=== PATIENT | male | born 1985 | race Caucasian/White ===

== ENCOUNTER 2024-01-02 18:38 | Emergency (ER) | payer OTHER, SELFPAY ==
[2024-01-02 18:40] VITALS: BP 124/93; PULSE 124; RESP 14; TEMP 36.1; O2SAT 96; O2SAT 98; BMI 38.0
[2024-01-02 18:57] LABS: Absolute Lymphocyte Count 2.34 X10^3/uL (0.83-4.51); Basophil# 0.08 X10^3/uL; Basophil% 0.9 % (0-1); Eosinophil# 0.12 X10^3/uL; Eosinophils% 1.3 % (0-5); Hematocrit 43.3 % (40-54); Hemoglobin 14.3 g/dL (13.0-16.5); Lymphocyte # 2.34 X10^3/ul (0.83-4.51); Lymphocyte % 25.6 % (19-41); Mean Corpuscular Hgb 28.9 pg (27.0-32.0); Mean Corpuscular Volume 87.5 fL (80-94); Mean Platelet Vol. 8.8 fl (6.2-12.0); Monocyte# 0.59 X10^3/uL; Monocyte% 6.5 % (0-10); NRBC Flagged by Analyzer 0 % (0-5); Neutrophil # 5.97 X10^3/uL (2.7-7.7); Neutrophil % 65.4 % (47-70); Platelet Count 413 K/mm3 (150-450); RBC Distribution Width CV 12.8 % (11.6-14.6); RBC Distribution Width SD 40.6 fl (35.1-43.9); Red Blood Count 4.95 M/mm3 (4.6-6.2); White Blood Count 9.1 K/mm3 (4.4-11.0)
[2024-01-02 19:15] LABS: ALB/GLOB Ratio 0.8 RATIO (0.9-2.4); AST(SGOT) 15 U/L (15-37); Alanine Aminotransfer ALT/SGPT 28 U/L (16-61); Albumin, Serum 3.4 g/dL (3.2-5.0); Alkaline Phosphatase 72 U/L (45-117); Anion Gap 6 (5-15); BUN 13 mg/dL (7-18); BUN/Creat Ratio 10.4 RATIO (10-20); Calcium,Total 8.5 mg/dL (8.5-10.1); Chloride 112 mmol/L (98-107); Creatinine, Serum 1.25 mg/dL (0.70-1.30); EST Glomerular Filtration Rate 68 mL/min (>60); Est Glom Filt Rate - Afr Amer 82 mL/min (>60); Estimated Creatinine Clearance 112.44 ml/min; Globulin 4.3 g/dL (2.2-4.2); Glucose 103 mg/dL (74-106); Potassium 4.2 mmol/L (3.5-5.1); Protein, Total 7.7 g/dL (6.4-8.2); Sodium Level 142 mmol/L (136-145)
--- NOTE | 2024-01-02 19:31 | CT_ITS ---
STUDY: CT ABDOMEN AND PELVIS WITH CONTRAST REASON FOR EXAM: Male, 38 years old. llq pain RADIATION DOSAGE (If Supplied By Facility): CTDIvol = ( 15.18 ) mGy, DLP = ( 1351.74 ) mGycm TECHNIQUE: Transaxial images were obtained from the dome of the diaphragm to the symphysis pubis without oral contrast. IV 100mL Isovue-370 was administered. Sagittal and coronal images were reconstructed. Individualized dose optimization techniques were used for this CT. COMPARISON: None. FINDINGS: The visualized lung bases are unremarkable. The visualized portions of the heart are within normal limits. Normal liver. Normal gallbladder and extrahepatic biliary system. Normal spleen. Normal pancreas. Normal bilateral adrenal glands. Normal right kidney. Normal left kidney. Normal visualized stomach. Normal small intestine. There are diverticular changes of the sigmoid colon crossing the midline with thickening of the resendiz and stranding in the fat. There is a fluid-filled cavity with air-fluid level in the wall the colon measuring 2.2 x 2.1 cm consistent with evolving peridiverticular abscess The appendix is visualized and appears normal. Normal abdominal aorta. Normal inferior vena cava. Normal retroperitoneum. Poorly distended thick walled bladder likely of no significance Small fat-containing right inguinal hernia. Normal osseous structures. CT/Abdomen/Pelvis W IV Cont ONLY IMPRESSION: Acute diverticulitis of the sigmoid colon with small evolving peridiverticular abscess Electronically Signed: Walt Park MD at 20:31 EDT ,
--- NOTE | 2024-01-02 19:35 | EDS_ITS ---
HPI <FERNANDO Hunt - Last Filed: 01/02/24 20:57> History of Present Illness Chief Complaint: Abd Pain Narrative Narrative: 4 days ago patient developed pain in the left lower abdomen. It feels like i a pressure sensation in the midline that radiates towards the left. The first day he thought he had urinary frequency and thought it may be a kidney stone because he had these in the past but then his urinary symptoms resolved. The pain seems worse prior to having a bowel movement. He has had daily BMs and states they are normal formed stool and he is not straining. He has no melena or hematochezia. He has had multiple family members on his mother side with diverticulitis but no personal history. He takes no medications and has no abdominal surgical history. PFSH <FERNANDO Hunt - Last Filed: 01/02/24 20:57> [facility] Medical History (Updated 01/02/24 @ 20:46 by FERNANDO Hunt) Kidney stone Home Medications amoxicillin 875 mg-potassium clavulanate 125 mg tablet 1 tab PO BID 7 days #14 tabs 01/02/24 [Rx Last Taken Unknown] ondansetron 4 mg disintegrating tablet 4 mg PO Q6H PRN nausea and vomiting #12 tabs 01/02/24 [Rx Last Taken Unknown] oxycodone-acetaminophen 5 mg-325 mg tablet (Percocet) 1 tab PO Q6H PRN pain 3 days #12 tabs 01/02/24 [Rx Last Taken Unknown] Allergy/AdvReac Type Severity Reaction Status Date / Time No Known Allergies Allergy Verified 01/02/24 18:39 Surgical History (Updated 01/02/24 @ 19:37 by Radha Marinelli) H/O lithotripsy Social History Smoking Status: Current some day smoker tobacco type: cigars ROS <FERNANDO Hunt - Last Filed: 01/02/24 20:57> ROS ED ROS Narrative Constitutional: Negative for fever, chills, malaise. CVS: Negative for chest pain. Respiratory: Negative for shortness of breath. GI: Positive for abdominal pain. Negative for nausea, vomiting, diarrhea, constipation, melena, hematochezia. : Negative for dysuria, hematuria. EXAM <FERNANDO Hunt - Last Filed: 01/02/24 20:57> Physical Exam Narrative Exam Narrative: CONST: Patient sitting in no acute distress. EYES: Normal inspection. NECK: Normal inspection. RESP: No respiratory distress, CTAB. CVS: Regular rate and rhythm, no murmur, no gallop. ABD: Soft and nontender, no guarding or rebound, nondistended, no hepatosplenomegaly. SKIN: Color normal, no rash, warm, dry, intact. EXTREMITIES: Normal appearance, no pedal edema. NEURO: Alert and answering questions appropriately. PSYCH: Normal affect. Const Vital Signs: 01/02/24 18:40 01/02/24 18:40 01/02/24 20:36 Temperature 97 F L 97 F L 97.2 F L Temperature Source Temporal Temporal Temporal Pulse Rate 124 H 124 H 92 Respiratory Rate 14 14 16 Blood Pressure 124/93 H 132/82 H Blood Pressure Mean 103 98 Pulse Ox 96 98 97 Oxygen Delivery Method Room Air Room Air Room Air <Dr. Christiano Marsh DO - Last Filed: 01/02/24 21:01> Physical Exam Const Vital Signs: 01/02/24 18:40 01/02/24 18:40 01/02/24 20:36 Temperature 97 F L 97 F L 97.2 F L Temperature Source Temporal Temporal Temporal Pulse Rate 124 H 124 H 92 Respiratory Rate 14 14 16 Blood Pressure 124/93 H 132/82 H Blood Pressure Mean 103 98 Pulse Ox 96 98 97 Oxygen Delivery Method Room Air Room Air Room Air [facility] <FERNANDO Hunt - Last Filed: 01/02/24 20:57> [facility] Narrative Medical decision making narrative: Patient has 4 days of left lower quadrant pain. He states the pain worsens before bowel movement but he has not noticed bowel habit changes. He appears well and nontoxic. He is tachycardic in the 120s with otherwise normal vital signs. He is a soft, nontender, nondistended abdomen on exam. CBC and BMP are unremarkable. Urinalysis negative. CT scan shows acute sigmoid diverticulitis with small evolving peridiverticular abscess. Patient declined analgesia here and has serial benign abdominal exams and his heart rate is normalized to the 90s. I consulted general surgery based on the CT read and they agree based on his presentation that he is still appropriate for outpatient management with Augmentin. I discussed clear liquid diet and prescribed Percocet and Zofran if needed. He was discharged in stable condition. Consults: General surgery Differential: Constipation, diverticulitis, perforation, abscess, UTI, kidney stone Lab Data Attestation: I reviewed the patient's lab results. Labs: Laboratory Results - last 24 hr 01/02/24 01/02/24 18:50 19:40 WBC 9.1 RBC 4.95 Hgb 14.3 Hct 43.3 MCV 87.5 MCH 28.9 MCHC 33.0 RDW Std Deviation 40.6 RDW Coeff of Yohana 12.8 Plt Count 413 MPV 8.8 Immature Gran % (Auto) 0.300 Neut % (Auto) 65.4 Lymph % (Auto) 25.6 Cameron % (Auto) 6.5 Eos % (Auto) 1.3 Baso % (Auto) 0.9 Absolute Neuts (auto) 6.0 Absolute Lymphs (auto) 2.34 Nucleated RBC % 0 Sodium 142 Potassium 4.2 Chloride 112 H Carbon Dioxide 24.0 Anion Gap 6 BUN 13 Creatinine 1.25 Estim Creat Clear Calc 112.44 Est GFR (MDRD) Af Amer 82 Est GFR (MDRD) Non-Af 68 BUN/Creatinine Ratio 10.4 Glucose 103 Calcium 8.5 Total Bilirubin 0.30 AST 15 ALT 28 Alkaline Phosphatase 72 Total Protein 7.7 Albumin 3.4 Globulin 4.3 H Albumin/Globulin Ratio 0.8 L Urine Color Yellow Urine Clarity Clear Urine pH 6.0 Ur Specific [place] 1.020 Urine Protein 15 H Urine Glucose (UA) Normal Urine Ketones Negative Urine Occult Blood 10 H Urine Nitrite Negative Urine Bilirubin Negative Urine Urobilinogen 1 H Ur Leukocyte Esterase Negative Urine RBC 0-5 SEEN Urine WBC 0 SEEN Ur Squamous Epith Cells 0 SEEN Urine Bacteria 0 SEEN Urine Mucus 0 SEEN Radiography Diagnostic Testing: Clinical Impression(s) from Imaging Studies Abdomen/Pelvis CT 01/02/24 19:31 IMPRESSION: Acute diverticulitis of the sigmoid colon with small evolving peridiverticular abscess Electronically Signed: Walt Park MD at 20:31 EDT , <Dr. Christiano Marsh, DO - Last Filed: 01/02/24 21:01> [facility] MDM Narrative Medical decision making narrative: Patient has 4 days of left lower quadrant pain. He states the pain worsens before bowel movement but he has not noticed bowel habit changes. He appears well and nontoxic. He is tachycardic in the 120s with otherwise normal vital signs. He is a soft, nontender, nondistended abdomen on exam. CBC and BMP are unremarkable. Urinalysis negative. CT scan shows acute sigmoid diverticulitis with small evolving peridiverticular abscess. Patient declined analgesia here and has serial benign abdominal exams and his heart rate is normalized to the 90s. I consulted general surgery based on the CT read and they agree based on his presentation that he is still appropriate for outpatient management with Augmentin. I discussed clear liquid diet and prescribed Percocet and Zofran if needed. He was discharged in stable condition. Consults: General surgery Differential: Constipation, diverticulitis, perforation, abscess, UTI, kidney stone I have personally performed a face to face assessment of the patient and have reviewed the FOZIA Note. I performed a substantive portion of the visit including all aspects of the following. My will findings include: History is 38-year-old male notes that his early history of suprapubic left lower abdominal pain. No bleeding. No fevers. No history of diverticulitis though does run in the family. He had some urinary frequency which seems to resolved. He notes that he does feel significantly better today than he has over the past couple days no reported fevers Exam is mild suprapubic tenderness to palpation without guarding or rebound. He is afebrile he clinically appears well. Medical Decison Making white count is 9.1 with a normal differential. Urinalysis shows no overt infection CT of the abdomen pelvis demonstrates acute sigmoid diverticulitis with possible small developing abscess. Case was disc ussed with surgery. He started on antibiotics follow-up or return if worsening Lab Data Labs: Laboratory Results - last 24 hr 01/02/24 01/02/24 18:50 19:40 WBC 9.1 RBC 4.95 Hgb 14.3 Hct 43.3 MCV 87.5 MCH 28.9 MCHC 33.0 RDW Std Deviation 40.6 RDW Coeff of Yohana 12.8 Plt Count 413 MPV 8.8 Immature Gran % (Auto) 0.300 Neut % (Auto) 65.4 Lymph % (Auto) 25.6 Cameron % (Auto) 6.5 Eos % (Auto) 1.3 Baso % (Auto) 0.9 Absolute Neuts (auto) 6.0 Absolute Lymphs (auto) 2.34 Nucleated RBC % 0 Sodium 142 Potassium 4.2 Chloride 112 H Carbon Dioxide 24.0 Anion Gap 6 BUN 13 Creatinine 1.25 Estim Creat Clear Calc 112.44 Est GFR (MDRD) Af Amer 82 Est GFR (MDRD) Non-Af 68 BUN/Creatinine Ratio 10.4 Glucose 103 Calcium 8.5 Total Bilirubin 0.30 AST 15 ALT 28 Alkaline Phosphatase 72 Total Protein 7.7 Albumin 3.4 Globulin 4.3 H Albumin/Globulin Ratio 0.8 L Urine Color Yellow Urine Clarity Clear Urine pH 6.0 Ur Specific [place] 1.020 Urine Protein 15 H Urine Glucose (UA) Normal Urine Ketones Negative Urine Occult Blood 10 H Urine Nitrite Negative Urine Bilirubin Negative Urine Urobilinogen 1 H Ur Leukocyte Esterase Negative Urine RBC 0-5 SEEN Urine WBC 0 SEEN Ur Squamous Epith Cells 0 SEEN Urine Bacteria 0 SEEN Urine Mucus 0 SEEN Radiography Diagnostic Testing: Clinical Impression(s) from Imaging Studies Abdomen/Pelvis CT 01/02/24 19:31 IMPRESSION: Acute diverticulitis of the sigmoid colon with small evolving peridiverticular abscess Electronically Signed: Walt Park MD at 20:31 EDT , Discharge Plan Triage Chief Complaint: Abd Pain ED Midlevel Provider: Nieves Molina ED Provider: Christiano Marsh Dx/Rx/DC Orders Clinical Impression: Diverticulitis of sigmoid colon Instructions: Diverticulitis Dc Prescriptions: New amoxicillin-pot clavulanate 875-125 mg tablet 1 tab PO BID 7 Days Qty: 14 0RF oxycodone-acetaminophen [Percocet] 5-325 mg tablet 1 tab PO Q6H PRN (Reason: pain) 3 Days Qty: 12 0RF ondansetron 4 mg tablet,disintegrating 4 mg PO Q6H PRN (Reason: nausea and vomiting) Qty: 12 0RF Primary Care Provider: Care Physician,No Primary Referrals: Care Physician,No Primary [Primary Care Provider] - Activity Restrictions/Additional Instructions: Follow clear liquid diet only for the next several days until your pain lessens. Then you can slowly reintroduce a low fiber diet. Return if symptoms worsen including severe abdominal pain, fever, blood in your stool etc. Disposition Disposition: Home, Self Care
[2024-01-02 19:50] LABS: Bacteria 0 SEEN /hpf (None Seen); Mucous, Urine 0 SEEN /hpf (<or=2+); Squamous Epithelial Cells - UA 0 SEEN /hpf (0-5); White Blood Cells 0 SEEN /hpf (0-5)
[2024-01-02 19:54] LABS: Color, Urine Yellow (Yellow); Glucose, Dipstick Normal (Normal); Ketone-Dipstick Negative (Negative); Leukocyte Esterase-Dipstick Negative /ul (Negative); Nitrite-Dipstick Negative (Negative); Occult Blood-Urine 10 /ul (Negative); Protein-Dipstick 15 mg/dl (Negative); Urine Bilirubin Dipstick Negative (Negative); Urine Clarity Clear (Clear); Urine Urobilinogen 1 mg/dl (Normal)
[2024-01-02 20:02] LABS: Red Blood Cells-Urine 0-5 SEEN /hpf (0-5)
[2024-01-02 20:36] VITALS: BP 132/82; PULSE 92; RESP 16; TEMP 36.2; O2SAT 97
[2024-01-02 21:04] VITALS: BP 124/76; PULSE 96; RESP 18; TEMP 36.5; O2SAT 97
[2024-01-02] MEDS: Amox/Clavulanate 875 MG Tablet PO (21:07)
== END 2024-01-02 21:10 | disposition home or self-care (01) ==
PROVIDERS: Emergency Provider Emergency Medicine; Visit Provider Emergency Medicine
DX: K57.32 Diverticulitis of large intestine without perforation or abscess without bleeding (principal); F17.290 Nicotine dependence, other tobacco product, uncomplicated
CPT/HCPCS: 74177; 80053; 81001; 85025; 99282; Q9967; A4216

== ENCOUNTER 2025-03-23 00:18 | Emergency (ER) | payer OTHER, SELFPAY ==
[2025-03-23 00:19] VITALS: BP 148/99; PULSE 102; RESP 18; TEMP 36.6; O2SAT 99; BMI 36.8
--- NOTE | 2025-03-23 00:25 | EX.ED.DYSGE1 ---
HPI History of Present Illness Chief Complaint: Abd Pain [facility] Medical History (Updated 03/23/25 @ 00:21 by Kavita Baer) Hx of diverticulitis of colon Kidney stone Home Medications ?Medication ?Instructions ?Recorded ?Last Taken ?Type cefdinir 300 mg capsule 600 mg (2 x 300 mg) PO DAILY 7 03/23/25 Unknown Rx days #14 caps metronidazole 500 mg tablet 500 mg PO BID 7 days #14 tabs 03/23/25 Unknown Rx Allergy/AdvReac Type Severity Reaction Status Date / Time No Known Allergies Allergy Verified 03/23/25 00:18 Surgical History H/O lithotripsy Social History Smoking Status: Former smoker EXAM Physical Exam Const Vital Signs: 03/23/25 00:19 03/23/25 02:18 Temperature 97.9 F 97.8 F Temperature Source Oral Pulse Rate 102 H 83 Respiratory Rate 18 18 Blood Pressure 148/99 H 138/98 H Blood Pressure Mean 115 111 Pulse Ox 99 97 Oxygen Delivery Method Room Air [facility] MDM Narrative Medical decision making narrative: HISTORY OF PRESENT ILLNESS: Chief complaint: Abdominal pain 40-year-old male history of diverticulitis, nephrolithiasis presents with concern for abdominal pain. Notes in the past he had diverticulitis that turned into a abdominal perforation. No symptoms are reminiscent of prior diverticulitis flare. He notes he was started Augmentin and then Cipro Flagyl but he states none of these medicines worked until he was placed on Omnicef and Flagyl. He thinks he definitely has diverticulitis. He denies vomiting. Denies testicular pain. Denies decreased bowel movements. Denies fever. Denies chest pain or shortness of breath. No nausea or vomiting. No pain now. REVIEW OF SYSTEMS: Pertinent positives: Abdominal pain Pertinent negatives: Fever PHYSICAL EXAM: Nursing triage notes reviewed, Vital signs reviewed Constitutional: please see mdm HENT: MMM Eyes: Pupils equal round and reactive to light, Extraocular muscles intact Neck: No stridor, no JVD, full neck ROM Lungs: Clear to auscultation, No wheezing or rales. No increased work of breathing, no conversational dyspnea, no accessory muscle use, no nasal flaring. No respiratory distress noted Heart: Regular rate and rhythm, No murmurs, No rubs and No gallops, 2+ distal pulses (radial, femoral, posterior tibial) in all extremities Abdomen: Soft, there is no tenderness, rigidity, rebound or guarding, no obvious peritoneal signs, no palpable pulsatile abdominal masses, no auscultated abdominal bruit : No CVAT Extremities: No edema Neuro: No new focal neurological deficits, cranial nerves II through XII intact, 5/5 strength in all present extremities. Intact sensation to light touch in all present extremities, 2+ reflexes bilateral patella tendons. Skin: No rash or lesions noted MEDICAL DECISION MAKING: Chief Complaint: please see HPI External records reviewed: Reviewed prior imaging studies: Reviewed CT scan of the abdomen pelvis from 2023 which shows acute diverticulitis as well as a accompanying abscess Factors affecting care: History of diverticulitis Social determinants of health: none History obtained from others: none Consults: none MDM Narrative: The patient was initially hemodynamically stable, afebrile and nontoxic-appearing. Abdominal exam benign. No appreciable tenderness. Patient was asymptomatic upon my evaluation I considered the following differential diagnosis: AAA, small bowel obstruction, abdominal perforation, appendicitis, pancreatitis, hepatobiliary pathology (acute cholecystitis), mesenteric ischemia, pathology (ie nephrolithiasis, pyelonephritis). Initially ordered IV fluids, IV Zofran, IV Toradol and IV morphine however patient refused pain and nausea medicine at this time as he is asymptomatic. He would still like to have the IV fluids. I obtained a broad lab and imaging to further determine if the patient was suffering from a life-threatening etiology. ALL IMAGES (IF OBTAINED) HAVE BEEN PERSONALLY REVIEWED AND INTERPRETED BY MYSELF. CBC without leukocytosis, severe anemia, no thrombocytopenia. CMP without evidence of acute kidney injury, significant electrolyte abnormality, anion gap to suggest end organ hypo-perfusion, no evidence of metabolic acidosis with a normal bicarbonate, no evidence of hepatobiliary obstructive pathology. Lipase is wnl indicating no pancreatic inflammation. CT scan abdomen pelvis shows diverticulosis with regression of diverticulitis, no fluid collection, perforation noted Urinalysis shows no evidence of urinary inflammation suggestive of UTI Repeat abdominal exam remained benign. Patient still pain-free. The synthesis of the patient's history, physical exam, labs images suggest no acute life-limiting etiology. Specifically no sign of acute diverticulitis, diverticular abscess or solid organ perforation. The patient appropriate discharge home with close outpatient PCP and GI follow-up. The patient and/or family, caregivers express understanding. The patient and/or family, caregivers agrees with the plan. Shared decision making: I will have a discussion with the patient and or visitors regarding risk/benefits of further testing or admission. They will be made aware of of the risk/benefits inherent in this decision they will be given the opportunity to voice understanding. Total critical care time today provided was at least 0 minutes. This excludes separately billable procedures. Critical care time (if documented) is secondary to the patient having high probability of clinically significant/life threatening deterioration in the patient's condition which required my urgent intervention. Impression: 1. Acute abdominal pain 2. History of diverticulitis 3. History of diverticulosis Dispo: Discharge This note was generated with [employer] dictation software. It may contain incorrect words, spelling, and punctuation that were not noted in review of the chart prior to signing. Lab Data Labs: Laboratory Results - last 24 hr 03/23/25 03/23/25 00:58 01:24 WBC 7.7 RBC 4.87 Hgb 14.6 Hct 43.0 MCV 88.3 MCH 30.0 MCHC 34.0 RDW Std Deviation 40.8 RDW Coeff of Yohana 12.7 Plt Count 341 MPV 8.5 Immature Gran % (Auto) 0.300 Neut % (Auto) 56.8 Lymph % (Auto) 31.6 [place] % (Auto) 9.1 Eos % (Auto) 1.3 Baso % (Auto) 0.9 Absolute Neuts (auto) 4.4 Absolute Lymphs (auto) 2.44 Nucleated RBC % 0 Sodium 138 Potassium 4.1 Chloride 104 Carbon Dioxide 22.2 Anion Gap 12 BUN 11 Creatinine 1.09 Estim Creat Clear Calc 124.36 Est GFR (MDRD) Non-Af 87 BUN/Creatinine Ratio 10.1 Glucose 105 H Calcium 9.2 Total Bilirubin 0.53 AST 24 ALT 24 Alkaline Phosphatase 81 Total Protein 7.5 Albumin 4.1 Globulin 3.4 Albumin/Globulin Ratio 1.2 Lipase 16 Urine Color Yellow Urine Clarity Clear Urine pH 7.0 Ur Specific Hugo 1.010 Urine Protein 15 H Urine Glucose (UA) Normal Urine Ketones Negative Urine Occult Blood Negative Urine Nitrite Negative Urine Bilirubin Negative Urine Urobilinogen Normal Ur Leukocyte Esterase Negative Urine RBC 0 SEEN Urine WBC 0-5 SEEN Ur Squamous Epith Cells 0 SEEN Urine Bacteria 0 SEEN Urine Mucus 0 SEEN Radiography Diagnostic Testing: Clinical Impression(s) from Imaging Studies Abdomen/Pelvis CT 03/23/25 00:26 IMPRESSION: Colonic diverticulosis with regression of the sigmoid diverticulitis. No pericolic collections. Mild gastric and small bowel loops wall thickening, possibly non specific inflammatory changes. Reading Location: [place] [id number] Discharge Plan Triage Chief Complaint: Abd Pain ED Provider: Yong Honeycutt Dx/Rx/DC Orders Instructions: ED Abdominal Pain Unkn Cause Male... Prescriptions: New cefdinir 300 mg capsule 600 mg PO DAILY 7 Days Qty: 14 0RF metronidazole 500 mg tablet 500 mg PO BID 7 Days Qty: 14 0RF Primary Care Provider: UZMA MCINTYRE Referrals: Panchito Sheriff DO [Med Staff - Active Staff] - Activity Restrictions/Additional Instructions: Thank you for trusting us with your care today! Your CT scan did not reveal signs of acute diverticulitis. No sign of organ perforation or abscess. Your labs were grossly unremarkable with no signs of systemic inflammation, kidney dysfunction, liver or pancreas dysfunction, urinary infection. Please take Tylenol (2 pills, 650 mg), ibuprofen (2 pills, 400 mg) every 6 hours as needed for pain and fever control. Please return to the emergency department if your symptoms change or worsen. Please follow with your primary care physician and/or gastroenterology for further outpatient evaluation and management. Print Language: Kinyarwanda Disposition Disposition: Home, Self Care Discharge Date/Time: 03/23/25 02:38
--- NOTE | 2025-03-23 00:26 | CT_ITS ---
PROCEDURE: ABDOMEN/PELVIS W IV CONT ONLY 03/23/2025 REASON FOR EXAM: ABDOMINAL PAIN, HISTORY OF DIVERTICULITIS TECHNIQUE: ABDOMEN/PELVIS W IV CONT ONLY Coronal and Sagittal reconstruction series were provided. CONTRAST: VOLUME: mL One or more dose reduction techniques were used (e.g., Automated exposure control, adjustment of the mA and/or kV according to patient size, use of iterative reconstruction technique. RADIATION DOSE SUMMARY: CTDlvol: mGy DLP: mGycm COMPARISON: 01-02-2024 FINDINGS: Average sized liver showing homogenous parenchymal attenuation with fatty changes. No dilated intra or extra-hepatic biliary tracts. Gall bladder showing no radiodense calculi. No abnormal mural thickening. Clear surrounding fat planes with no sizeable collections. Normal appearance of the pancreas with clear surrounding fat planes. The spleen, adrenal glands, aorta and IVC are unremarkable. Both kidneys are of average size and showing smooth outline with preserved parenchymal thickness. No renal calculi. No hydronephrosis. Distension of the urinary bladder showing no obvious masses. No obvious masses related to the pelvic viscera. The appendix appears unremarkable. No right iliac inflammatory changes. Colonic diverticulosis with regression of the sigmoid diverticulitis. No pericolic collections. Mild gastric and small bowel loops wall thickening, possibly non specific inflammatory changes. No ascites or free air. No obvious pathologically enlarged lymph nodes. Scanned osseous structures show no osseous destruction. Scanned lung bases show no obvious abnormalities. CT/Abdomen/Pelvis W IV Cont ONLY IMPRESSION: Colonic diverticulosis with regression of the sigmoid diverticulitis. No sonny lic collections. Mild gastric and small bowel loops wall thickening, possibly non specific infla mmatory changes. [id number]
[2025-03-23] MEDS: 0.9% Normal Saline (1000mL) 1,000 ML 999 ML IV (00:59)
[2025-03-23 01:06] LABS: Hematocrit 43.0 % (40-54); Hemoglobin 14.6 g/dL (13.0-16.5); Immature Granulocytes Count 0.020 X10^3/uL (0.0-0.0); Mean Corp Hgb Conc 34.0 g/dL (32-36); Mean Corpuscular Volume 88.3 fL (80-94); Mean Platelet Vol. 8.5 fl (6.2-12.0); NRBC Flagged by Analyzer 0 % (0-5); Platelet Count 341 K/mm3 (150-450); RBC Distribution Width CV 12.7 % (11.6-14.6); RBC Distribution Width SD 40.8 fl (35.1-43.9); Red Blood Count 4.87 M/mm3 (4.6-6.2); White Blood Count 7.7 K/mm3 (4.4-11.0)
[2025-03-23 01:29] LABS: Mucous, Urine 0 SEEN /hpf (<or=2+); Red Blood Cells-Urine 0 SEEN /hpf (0-5); Squamous Epithelial Cells - UA 0 SEEN /hpf (0-5)
[2025-03-23 01:31] LABS: Color, Urine Yellow (Yellow); Glucose, Dipstick Normal (Normal); Ketone-Dipstick Negative (Negative); Leukocyte Esterase-Dipstick Negative /ul (Negative); Nitrite-Dipstick Negative (Negative); Occult Blood-Urine Negative /ul (Negative); Protein-Dipstick 15 mg/dl (Negative); Specific Gravity, Urine 1.010 (1.002-1.030); Urine Bilirubin Dipstick Negative (Negative)
[2025-03-23 01:46] LABS: Lipase 16 U/L (13-75)
[2025-03-23 01:50] LABS: AST(SGOT) 24 U/L (<=37); Alanine Aminotransfer ALT/SGPT 24 U/L (<=46); Albumin, Serum 4.1 g/dL (3.5-5.0); Alkaline Phosphatase 81 U/L (40-129); Anion Gap 12 (5-15); BUN 11 mg/dL (4-19); BUN/Creat Ratio 10.1 RATIO (10-20); Calcium,Total 9.2 mg/dL (7.6-11.0); Carbon Dioxide 22.2 mmol/L (21.0-32.0); Chloride 104 mmol/L (98-108); Estimated Creatinine Clearance 124.36 ml/min (50-250); Globulin 3.4 g/dL (2.2-4.2); Glucose 105 mg/dL (70-99); Potassium 4.1 mmol/L (3.3-5.1)
[2025-03-23 02:18] VITALS: BP 138/98; PULSE 83; RESP 18; TEMP 36.6; O2SAT 97
== END 2025-03-23 02:38 | disposition home or self-care (01) ==
PROVIDERS: Emergency Provider Emergency Medicine; Visit Provider Emergency Medicine
DX: R10.9 Unspecified abdominal pain (principal); Z87.891 Personal history of nicotine dependence
CPT/HCPCS: 74177; 80053; 81001; 83690; 85025; 99283; Q9967; A4216; J2405

== ENCOUNTER 2025-04-23 19:58 | Emergency (ER) | payer OTHER, SELFPAY ==
[2025-04-23 19:59] VITALS: BP 135/81; PULSE 88; RESP 18; TEMP 36.6; O2SAT 99; BMI 36.7
[2025-04-23 20:26] LABS: Hematocrit 44.8 % (40-54); Hemoglobin 15.0 g/dL (13.0-16.5); Immature Granulocytes Count 0.040 X10^3/uL (0.0-0.0); Mean Corp Hgb Conc 33.5 g/dL (32-36); Mean Corpuscular Volume 88.7 fL (80-94); Mean Platelet Vol. 8.6 fl (6.2-12.0); NRBC Flagged by Analyzer 0 % (0-5); Platelet Count 353 K/mm3 (150-450); RBC Distribution Width CV 12.5 % (11.6-14.6); RBC Distribution Width SD 40.5 fl (35.1-43.9); Red Blood Count 5.05 M/mm3 (4.6-6.2); White Blood Count 9.5 K/mm3 (4.4-11.0)
[2025-04-23 20:54] LABS: AST(SGOT) 22 U/L (<=37); Alanine Aminotransfer ALT/SGPT 23 U/L (<=46); Albumin, Serum 4.3 g/dL (3.5-5.0); Alkaline Phosphatase 85 U/L (40-129); Anion Gap 11 (5-15); BUN 15 mg/dL (4-19); BUN/Creat Ratio 11.6 RATIO (10-20); Calcium,Total 9.7 mg/dL (7.6-11.0); Carbon Dioxide 23.9 mmol/L (21.0-32.0); Chloride 103 mmol/L (98-108); Estimated Creatinine Clearance 108.28 ml/min (50-250); Globulin 3.3 g/dL (2.2-4.2); Glucose 93 mg/dL (70-99); Lipase 16 U/L (13-75); Potassium 4.0 mmol/L (3.3-5.1)
--- NOTE | 2025-04-23 21:00 | ED.VIS.GI ---
HPI HPI - GI History of Present Illness Chief Complaint: Abd Pain Informant: patient Abdominal Pain/Flank Pain Onset: Yesterday Context: Gradual Onset Timing: Continuous Quality: Cramping and Dull Location: LLQ Worsened by: Nothing Relieved by: - (Moving) Nausea/Vomiting/Emesis GI Symptom: Positive for Nausea; Negative for Vomiting Diarrhea/Melena/Hematochezia GI Symptom: Positive for Diarrhea; Negative for Melena or Hematochezia Associated Symptoms Associated Symptoms: Negative for Dysuria, Frequency or Hematuria Narrative Narrative: Patient presents with abdominal pain that began yesterday. Patient states it is gradually gotten worse. Patient describes it as cramping and dull. Patient states it is mainly over the lower abdomen worse on the left. Patient states it feels similar to prior episodes of diverticulitis. Patient states it feels better when he is up and moving. Patient states nothing makes it worse. Patient admits to some nausea but denies any vomiting. Patient admits to some diarrhea but denies any melena or hematochezia. Patient denies any dysuria, frequency, or hematuria. Patient denies any fevers or chills. Prior similar symptoms: Yes (With diverticulitis) PFSH PFS Medical History Hx of diverticulitis of colon Kidney stone Home Medications ?Medication ?Instructions ?Recorded ?Last Taken ?Type cefdinir 300 mg capsule 300 mg PO BID #20 caps 04/24/25 Unknown Rx metronidazole 500 mg tablet 500 mg PO Q6H #40 tabs 04/24/25 Unknown Rx Allergy/AdvReac Type Severity Reaction Status Date / Time No Known Allergies Allergy Verified 04/23/25 20:01 Surgical History H/O lithotripsy Social History Smoking Status: Former smoker ROS ROS ED Constitutional Constitutional ED: Denies chills or fever(s) Eyes Eyes: Denies blurry vision or change in vision ENT ENT ED: Denies rhinorrhea or sore throat Cardiovascular Cardiovascular: Denies chest pain or palpitations Respiratory/Chest Respiratory/Chest: Denies cough or dyspnea Gastrointestinal Gastrointestinal: Reports abdominal pain and nausea; Denies vomiting Genitourinary Genitourinary ED: Denies dysuria or hematuria Musculoskeletal Musculoskeletal: Denies back pain or neck pain Integumentary Denies abscess or rash Neurologic Neurologic: Denies headache(s) or weakness Allergic/Immunologic Allergic/Immunologic ED: Denies mouth swelling or urticaria EXAM Physical Exam Const Vital Signs: 04/23/25 19:59 04/23/25 21:58 04/23/25 23:00 Temperature 98 F Temperature Source Oral Pulse Rate 88 94 94 Respiratory Rate 18 18 18 Blood Pressure 135/81 H 123/84 H 131/91 H Blood Pressure Mean 99 97 104 Pulse Ox 99 100 98 Oxygen Delivery Method Room Air Room Air Room Air Positive well nourished and well developed General Appearance ED: well developed and NAD HEENT Reports moist mucous membranes normocephalic and atraumatic Resp normal respiratory effort and clear to auscultation bilaterally Cardio regular rate and regular rhythm GI non-distended Palpation: soft and tender LLQ; Negative for guarding or rebound tenderness present Neuro CN's II-XII intact bilaterally, moves all extremities and no sensory deficits noted Sensorium / Orientation: alert Motor Exam: strength 5/5 throughout Psych mental status grossly normal MDM MDM MDM Narrative Medical decision making narrative: Differential diagnosis includes diverticulosis, diverticulitis, bowel obstruction, perforation, urinary tract infection, ureteral calculus, and viral illness. CBC will be obtained to assess for leukocytosis and anemia. Comprehensive metabolic profile will be obtained to assess for electrolyte abnormality, hepatic function, and renal function. Lipase will be obtained to assess for pancreatitis. Urinalysis will be obtained to assess for urinary tract infection and hematuria. CT scan of the abdomen and pelvis will be obtained to assess for bowel obstruction, perforation, diverticulitis, ureteral calculus, and abscess. History & Record Review Additional record(s) reviewed:: Prior outpatient record, Prior ED visit and Prior labs Lab Data Attestation: I reviewed the patient's lab results. Lab results narrative: CBC was reviewed and was within normal limits. Comprehensive metabolic profile was reviewed. Creatinine was slightly elevated at 1.25. The remainder is within normal limits. Lipase was reviewed and was within normal limits. Urinalysis was reviewed. There is no evidence of urinary tract infection or hematuria. Labs: Laboratory Results - last 24 hr 04/23/25 04/23/25 20:17 21:35 WBC 9.5 RBC 5.05 Hgb 15.0 Hct 44.8 MCV 88.7 MCH 29.7 MCHC 33.5 RDW Std Deviation 40.5 RDW Coeff of Yohana 12.5 Plt Count 353 MPV 8.6 Immature Gran % (Auto) 0.400 Neut % (Auto) 64.8 Lymph % (Auto) 26.5 Gillespie % (Auto) 6.2 Eos % (Auto) 1.5 Baso % (Auto) 0.6 Absolute Neuts (auto) 6.1 Absolute Lymphs (auto) 2.51 Nucleated RBC % 0 Sodium 138 Potassium 4.0 Chloride 103 Carbon Dioxide 23.9 Anion Gap 11 BUN 15 Creatinine 1.25 H Estim Creat Clear Calc 108.28 Est GFR (MDRD) Non-Af 74 BUN/Creatinine Ratio 11.6 Glucose 93 Calcium 9.7 Total Bilirubin 0.45 AST 22 ALT 23 Alkaline Phosphatase 85 Total Protein 7.7 Albumin 4.3 Globulin 3.3 Albumin/Globulin Ratio 1.3 Lipase 16 Urine Color Yellow Urine Clarity Clear Urine pH 6.0 Ur Specific Hawkeye 1.020 Urine Protein Negative Urine Glucose (UA) Normal Urine Ketones Negative Urine Occult Blood 10 H Urine Nitrite Negative Urine Bilirubin Negative Urine Urobilinogen Normal Ur Leukocyte Esterase Negative Urine RBC 0-5 SEEN Urine WBC 0-5 SEEN Ur Squamous Epith Cells 0 SEEN Urine Bacteria 0 SEEN Urine Mucus RARE Radiography Diagnostic Testing: Clinical Impression(s) from Imaging Studies Abdomen/Pelvis CT 04/23/25 21:28 IMPRESSION: Diverticulitis of the sigmoid colon with developing abscess. No perforation. Reading Location: [facility] Management Discussion w/another healthcare provider: Hi Lift Operator Treatment and Re-Evaluation :: Patient was given IV fluids, and Zofran. Patient was started on Zosyn. Case was discussed with Dr. Simpson. She agrees that the patient will be discharged home with oral antibiotics. She stated the patient would need to follow-up and get a repeat CT scan. Patient was given prescription for cefdinir and metronidazole. Patient was instructed to follow-up with Dr. Simpson in 3 to 5 days. Patient was instructed to return if worse in any way. Patient understood and was agreeable with the plan. All questions were answered. Discharge Plan Triage Chief Complaint: Abd Pain ED Provider: Schwiger,Pal Dx/Rx/DC Orders Clinical Impression: Sigmoid diverticulitis, Abscess of sigmoid colon due to diverticulitis Instructions: ED Diverticulitis Prescriptions: New metronidazole 500 mg tablet 500 mg PO Q6H Qty: 40 0RF cefdinir 300 mg capsule 300 mg PO BID Qty: 20 0RF Primary Care Provider: UZMA MCINTYRE Referrals: UZMA MCINTYRE [Other] Stacie Simpson MD [Med Staff - Active Staff] - 5-7 Days Activity Restrictions/Additional Instructions: Start with a clear liquid diet for the next 2 days. Advance to a bland diet. Print Language: Sami Disposition Disposition: Home, Self Care
--- NOTE | 2025-04-23 21:28 | CT_ITS ---
PROCEDURE: ABDOMEN/PELVIS W IV CONT ONLY 04/23/2025 REASON FOR EXAM: ABDOMINAL PAIN TECHNIQUE: ABDOMEN/PELVIS W IV CONT ONLY Coronal and Sagittal reconstruction series were provided. CONTRAST: Isovue 370 VOLUME: 100 mL One or more dose reduction techniques were used (e.g., Automated exposure control, adjustment of the mA and/or kV according to patient size, use of iterative reconstruction technique. RADIATION DOSE SUMMARY: DLP: 1500 mGycm COMPARISON: CT abdomen pelvis 03/23/2025. FINDINGS: Lung bases: Unremarkable. Liver: Normal in size without suspicious hepatic mass. The major portal veins are patent. No biliary ductal dilation. Gallbladder: No radiopaque stones within the gallbladder. Spleen: Normal in size. Pancreas: Unremarkable. Adrenals: No adrenal mass. Kidneys: No hydronephrosis or nephrolithiasis. Bladder: Decompressed. Reproductive Organs: Unremarkable. Bowel: The bowel loops are nondilated. Mild distal colonic diverticulosis. Left lower quadrant sigmoid diverticulitis with small, ill-defined fluid collection measuring 2.3 x 1.9 cm (series 2, image 99). No ascites or free air. Normal appendix. Lymph nodes: No suspicious lymph node enlargement. Vasculature: The abdominal aorta and IVC are normal. Bones: Minimal thoracolumbar spondylosis. CT/Abdomen/Pelvis W IV Cont ONLY IMPRESSION: Diverticulitis of the sigmoid colon with developing abscess. No perforation. Reading Location: [id number]
--- OUTSIDE RECORDS SUMMARY | 2025-04-23 21:31 | XMS RPT_ITS | CCD ---
Author Organization [facility] Care Team Providers Care Service Or Work Dispatcher Chief Name Role Phone GUERRERO MACIEL JUSTINE Attending Lani vailable NO, PHYSICIAN Primary Care Unavailable No, Physician Primary Care Provider Unavailabl e Required, No Pcp Unavailable Unavailable Amee Curry Unavailable Unavailable Primary Care Provider UnavailElliot Crawford MD Primary Care Provider Elliot Soni MD Primary Care Provider STACIE PARISI Referring Unavailable ELLIOT SONI Primary Care Unavailab STACIE Boone Referring Unavailable ELLIOT SONI Primary Care Unavailab le No, Physician Primary Care Provider Unavailabl e LAURA WILEY Attending Unavailable NO, PHYSICIAN Primary Care Unavailable DALILA YODER Attending Unavailabl e VICK GALO Admitting Unavailable NO, PHYSICIAN Primary Care Unavailable MARVIN RICK Referring Unavailable ADZING AND BORING MACHINE HELPER, DONNAMARISara Consulting Unavailable [employer]ING AND BORING MACHINE HELPER, DONNAMARIE Admitting Unavailable NO, PHYSICIAN Primary Care Unavailable MARCOS WILEYE Attending Unavailable ELLIOT SONI Primary Care Unavailab DIANDRA JoséOPHER Arthur Primary Care Unavailab le ELLIOT SONI Referring Unavailab le DIANDRA SONIOPHER B Primary Care Unavailab le ANA SONIER Arthur Attending Unavailab le ELLIOT SONI Primary Care Unavailab le STACIE PARISI Referring Unavailable ELLIOT SONI Primary Care Unavailab STACIE Boone Attending Unavailable Unavailable Primary Care Provider Unavailabl e No Family, Physician Primary Care Unavailable CHIKA HERNDON Attending Unavailable MIGUEL FRANCOIS Referring Unavailable No Family, Physician Primary Care Unavailable MARVIN RICK Attending Unavailable NO, PHYSICIAN Primary Care Unavailable LILIA SAHA Attending Unavailable NO, PHYSICIAN Primary Care Unavailable WOLF CHACON Attending Unavailable ELLIOT SONI Primary Care Unava ilable MARVIN RICK Attending Unavailable ELLIOT SONI Primary Care Unava ilable ELLIOT SONI Primary [facility] Unava ilable UZMA MCINTYRE Attending Unavailable UZMA MCINTYRE Primary Care Unavailable Dr. Yong Honeycutt DO Emergency Provider UZMA MCINTYRE Primary Care Provider VIJI TURNER Primary Care Unavailable Yong Honeycutt Attending Unavailable Medications Current Medications Medication Drug Class(es) Dates Sig (Normalized) Sig (Original) acetaminophen 325 mg / HYDROcodone bitartrate 5 mg oral tablet (1 source) Opioid Agonist Start: 10-29-2021 take 1 tablet by mouth every six hours hydrocodone-acetam inophen 5 mg-325 mg oral tablet ; 1/2- 1 tab(s) orally every 6 hours FOR PAIN 02/22,DO NOT DRIVE WHILE TAKING THIS MEDICATION, MAY CAUSE DROWSINESS Quantity: 6 Refills: 0 Ordered: 29-Oct-2021 Amee Curry Start: 29-Oct-2021 Generic Substitution Allowed Comments: Caution federal law prohibits the transfer of this drug to any person other than the person for whom it was prescribed.May cause drowsiness. Alcohol may intensify this effect. Use care when operating dangerous machinery.This product contains acetaminophen. Do not use with any other product containing acetaminophen to prevent possible liver damage.Using more of this medication than prescribed may cause serious breathing problems. Comment on above: Caution federal law prohibits the transfer of this drug to any person other than the person for whom it was prescribed.May cause drowsiness. Alcohol may intensify this effect. Use care when operating dangerous machinery.This product contains acetaminophen. Do not use with any other product containing acetaminophen to prevent possible liver damage.Using more of this medication than prescribed may cause serious breathing problems. azithromycin 500 mg oral tablet (1 source) Macrolide Antimicrobial Start: 08-21-2019 take 2 tablets by mouth once azithromycin (Zithromax) 500 MG tablet Indications: Possible exposure to STD Take two tabs by mouth once . 2 tablet 0 08/21/2019 Active cefdinir 300 mg oral capsule (1 source) Cephalosporin Antibacterial Start: 03-23-2025 take 2 capsules by mouth once daily Cefdinir 300 mg capsule Active 600 mg PO DAILY 14 7 March 23, 2025 12:00am cephalexin 500 mg oral capsule (4 sources) Cephalosporin Antibacterial Start: 02-21-2024 End: 02-28-2024 take 1 capsule by mouth three times daily cephALEXin (KEFLEX) 500 MG capsule Take 1 (one) capsule (500 mg total) by mouth 3 (three) times a day for 7 days . 21 capsule 0 02/21/2024 02/28/2024 Active ciprofloxacin 500 mg oral tablet (2 sources) Quinolone Antimicrobial Start: 03-03-2024 End: 03-13-2024 ciprofloxacin HCl (CIPRO) 500 mg tablet Take 500 mg by mouth. 0 03/03/2024 03/13/2024 Active Start: 01-09-2024 End: 01-16-2024 take 1 tablet by mouth twice daily ciprofloxacin HCl (CIPRO) 500 mg tablet Take 1 tablet by mouth two times a day for 7 days. 14 tablet 0 01/09/2024 01/16/2024 Active hydrOXYzine hydrochloride 25 mg oral tablet (3 sources) Antihistamine Start: 02-17-2024 End: 02-26-2024 take 1 tablet by mouth three times daily as needed for anxiety hydrOXYzine (ATARAX) 25 MG tablet Take 1 (one) tablet (25 mg total) by mouth 3 (three) times a day as needed for anxiety . 15 tablet 0 02/21/2024 02/26/2024 Active metroNIDAZOLE 500 mg oral tablet (7 sources) Nitroimidazole Antimicrobial Start: 03-23-2025 take 1 tablet by mouth twice daily Metronidazole 500 mg tablet Active 500 mg PO TWICE A DAY 14 7 0 March 23, 2025 12:00am Start: 03-03-2024 End: 03-13-2024 metroNIDAZOLE (FLAGYL) 500 m g tablet Take 500 mg by mouth. 0 03/03/2024 03/13/2024 Active Start: 02-21-2024 End: 02-28-2024 take 1 tablet by mouth twice daily at mealtime metroNIDAZOLE (FLAGYL) 500 MG tablet Take 1 (one) tablet (500 mg total) by mouth 2 (two) times a day with meals for 7 days . 14 tablet 0 02/21/2024 02/28/2024 Active Start: 01-09-2024 End: 01-16-2024 take 1 tablet by mouth every eight hours metroNIDAZOLE (FLAGYL) 500 mg tablet Take 1 tablet by mouth every 8 hours for 7 days. 21 tablet 0 01/09/2024 01/16/2024 Active naproxen 500 mg oral tablet (1 source) Nonsteroidal Anti-inflammatory Drug Start: 10-29-2021 End: 11-04-2021 take 1 tablet by mouth twice daily at mealtime naproxen 500 mg oral tablet ; 1 tab(s) orally 2 times a day TAKE WITH FOOD AND DRINK Quantity: 14 Refills: 0 Ordered: 29-Oct-2021 Amee Curry Start: 29-Oct-2021 End: 04-Nov-2021 Generic Substitution Allowed Comments: Check with your doctor before becoming .May cause drowsiness or dizziness.Obtain medical advice before taking any non-prescription drugs as some may affect the action of this medication.Take with food or milk. Comment on above: Check with your doctor before becoming p regnant.May cause drowsiness or dizziness.Obtain medical advice before taking any non-prescription drugs as some may affect the action of this medication.Take with food or milk. psyllium 3400 mg powder for oral suspension (2 sources) take 1 dose by mouth once daily psyllium (METAMUCIL) 3.4 gram packet Take 1 (one) packet by mouth daily . 0 Active raNITIdine (3 sources) Histamine-2 Receptor Antagonist Zantac ; 1 orally once a day Quantity: 0 Refills: 0 Ordered: 21-Sep-2021 Fili Mancini Generic Substitution Allowed Completed/Discontinued Medications Medication Drug Class(es) Dates Sig (Normalized) Sig (Original) acetaminophen 325 mg oral tablet (1 source) Start: 02-17-2024 End: 02-21-2024 take 1 tablet by mouth every four hours as needed for pain and headache 650 mg, Oral, Every 4 hours PRN, mild pain, fever 100.4 F or greater, headaches, Starting on Fri02/17/24 at 1804 acetaminophen 325 mg / oxyCODONE hydrochloride 5 mg oral tablet (2 sources) Opioid Agonist Start: 01-02-2024 End: 03-23-2025 Oxycodone-Acetamino phen (Percocet) 5-325 mg tablet Discontinued 1 {tbl} PO EVERY 6 HOURS as needed for pain 12 3 0 January 02, 2024 March 23, 2025 12:19am Diverticulitis of sigmoid colon [id number] 200 actuat albuterol 0.09 mg/actuat metered dose inhaler (2 sources) beta2-Adrenergic Agonist Start: 09-21-2021 End: 10-20-2021 take 2 puff(s) by inhalation every six hours ProAir HFA 90 mcg/inh inhalation aerosol ; 2 puff(s) inhaled every 6 hours Quantity: 1 Refills: 0 Ordered: 21-Sep-2021 Amee Curry Start: 21-Sep-2021 End: 20-Oct-2021 Status: Other Generic Substitution Allowed Comments: For inhalation only.It is very important that you take or use this exactly as directed. Do not skip doses or discontinue unless directed by your doctor.Obtain medical advice before taking any non-prescription drugs as some may affect the action of this medication.Shake well before use. Comment on above: For inhalation only. It is very important that you take or use this exactly as directed. Do not skip doses or discontinue unless directed by your doctor.Obtain medical advice before taking any non-prescription drugs as some may affect the action of this medication.Shake well before use. aluminum hydroxide 40 mg/ml / magnesium hydroxide 40 mg/ml / simethicone 4 mg/ml oral suspension (1 source) Start: 02-19-2024 End: 02-21-2024 aluminum-magnesium hydroxide-simethico ne (MAALOX PLUS) 200-200-20 mg/5 mL suspension 30 mL amoxicillin 875 mg / clavulanate 125 mg oral tablet (2 sources) Penicillin-class Antibacterial Start: 01-02-2024 End: 03-23-2025 Amoxicillin-Pot Clavulanate 875-125 mg tablet Discontinued 1 {tbl} PO TWICE A DAY 14 7 January 02, 2024 12:00am March 23, 2025 12:18am Start: 01-02-2024 take 1 tablet by ashkan th twice daily Amoxicillin-Pot Clavulanate Active 1 TABLET PO TWICE A DAY 14 7 January 02, 2024 12:00am calcium carbonate 500 mg chewable tablet (1 source) Start: 02-19-2024 End: 02-21-2024 calcium carbonate (TUMS) chewable tablet 500 mg cefTRIAXone 250 mg injection (2 sources) Cephalosporin Antibacterial Start: 08-21-2019 End: 08-21-2019 cefTRIAXone (ROCEPHIN) injection 250 mg Start: 08-21-2019 End: 08-21-2019 cefTRIAXone (ROCEPHIN) injec tion 250 mg 0.4 ml enoxaparin sodium 100 mg/ml prefilled syringe (1 source) Low Molecular Weight Heparin Start: 02-18-2024 End: 02-21-2024 inject 40 mg by subcutaneous injection once daily 40 mg, Subcutaneous, Daily, First dose on Fri02/18/24 at 0900, Administer in abdomen unless otherwise directed by prescriber. Notify physician if patient refuses., Indication: VTE Prophylaxis Iohexol (1 source) Radiographic Contrast Agent Start: 07-21-2024 End: 07-21-2024 take 1 dose intravenously once 75 mL, IntraVENous, IMG ONCE PRN, 1 dose, Starting on Fri07/21/24 at 0534, Until Fri07/21/24 at 0625, Other, Radiology ipratropium bromide 0.042 mg/actuat metered dose nasal spray (2 sources) Anticholinergic Start: 09-21-2021 End: 09-25-2021 ipratropium 42 mcg/inh (0.06%) nasal spray ; 2 spray(s) intranasally every 8 hours Quantity: 1 Refills: 0 Ordered: 21-Sep-2021 Amee Curry Start: 21-Sep-2021 End: 25-Sep-2021 Status: Other Generic Substitution Allowed Comments: For the nose.It is very important that you take or use this exactly as directed. Do not skip doses or discontinue unless directed by your doctor. Comment on above: For the nose.It is very important that y ou take or use this exactly as directed. Do not skip doses or discontinue unless directed by your doctor. iv contrast (will be provided with radiology test) (7 sources) Start: 01-08-2024 End: 01-09-2024 iv contrast (will be provided with radiology test) CT ABD/PEL -Inject, intravenously, once for 1 dose.No IV access, insert saline lock prior to the beginning of sedation, infusion, injection of imaging exam. Discontinue saline lock post exam. If Pt. has a central line or IVAD, may access for administration according to line specific nursing protocol. Once exam is complete flush line and de-access according to line specific nursing protocol in the CT contrast administration guidelines link. 1 Each 0 01/08/2024 01/09/2024 Start: 01-08-2024 End: 01-09-2024 iv contrast (will be provide d with radiology test) CT ABD/PEL -Inject, intravenously, once for 1 dose.No IV access, insert saline lock prior to the beginning of sedation, infusion, injection of imaging exam. Discontinue saline lock post exam. If Pt. has a central line or IVAD, may access for administration according to line specific nursing protocol. Once exam is complete flush line and de-access according to line specific nursing protocol in the CT contrast administration guidelines link. 1 Each 0 01/08/2024 01/09/2024 Active 1 ml ketorolac tromethamine 30 mg/ml cartridge (2 sources) Nonsteroidal Anti-inflammatory Drug, Cyclooxygenase Inhibitor Start: 07-21-2024 End: 07-21-2024 30 mg, IntraVENous, ONCE, 1 dose, On Fri07/21/24 at 0430, Do not administer for more than 5 days. Start: 02-17-2024 End: 02-19-2024 take 15 mg intravenously every six hours as needed for pain 15 mg, Intravenous, Every 6 hours PRN, mild pain, Starting on Fri02/17/24 at 1503, For 48 hours magnesium chloride 0.83843 meq/ml / potassium chloride 0.12980 meq/ml / sodium acetate 0.027 meq/ml / sodium chloride 0.0899 meq/ml / sodium gluconate 5.02 mg/ml injectable solution (1 source) Start: 02-17-2024 End: 02-20-2024 take 50 mL intravenously every hour 50 mL/hr, Intravenous, Continuous, Starting on Fri02/17/24 at 1505 melatonin 5 mg oral tablet (1 source) Start: 02-17-2024 End: 02-21-2024 melatonin Tab 5 mg 10 ml methocarbamol 100 mg/ml injection (1 source) Muscle Relaxant Start: 02-17-2024 End: 02-20-2024 take 1 g intravenously every eight hours 1 g, Intravenous, Every 8 hours, First dose on Fri02/17/24 at 1515, For 3 days, Administer IV while patient is lying down. Maintain position for at least 15 minutes following administration. IV Push in undiluted syringe at a rate of 3mL/min for doses 1000 mg or less. 1 ml morphine sulfate 4 mg/ml cartridge (1 source) Opioid Agonist Start: 02-17-2024 End: 02-17-2024 morphine syringe 4 mg 2 ml ondansetron 2 mg/ml injection (3 sources) Serotonin-3 Receptor Antagonist Start: 02-17-2024 End: 02-17-2024 ondansetron (ZOFRAN) injection 4 mg Start: 01-02-2024 End: 03-23-2025 take 1 tablet by mouth every six hours as needed for nausea and vomiting Ondansetron 4 mg tablet,disintegrating Discontinued 4 mg PO EVERY 6 HOURS as needed for nausea and vomiting 12 0 January 02, 2024 12:00am March 23, 2025 12:19am ondansetron (ZOFRAN-ODT) disintegrating tablet 4 mg (1 source) Start: 02-17-2024 End: 02-21-2024 take 1 tablet by mouth every six hours as needed for nausea and vomiting ondansetron (ZOFRAN-ODT) disintegrating tablet 4 mg piperacillin 3000 mg / tazobactam 375 mg injection (1 source) Penicillin-class Antibacterial, beta Lactamase Inhibitor Start: 02-17-2024 End: 02-21-2024 take 3.375 g intravenously every eight hours 3.375 g, Intravenous, at 12.5 mL/hr, Every 8 hours, First dose on Fri02/17/24 at 1530, VESICANT, Indication: Intra-abdominal Infection polyethylene glycol 3350 76162 mg powder for oral solution (1 source) Osmotic Laxative Start: 02-19-2024 End: 02-21-2024 polyethylene glycol (MIRALAX) powder 17 g predniSONE 10 mg oral tablet (2 sources) Start: 09-21-2021 End: 09-27-2021 take 3 tablets by mouth once daily in the morning predniSONE 10 mg oral tablet ; 3 tab(s) orally once a day TAKE WITH PLENTY OF FLUID DAILY IN THE MORNING. Quantity: 21 Refills: 0 Ordered: 21-Sep-2021 Amee Curry Start: 21-Sep-2021 End: 27-Sep-2021 Status: Other Generic Substitution Allowed Comments: It is very important that you take or use this exactly as directed. Do not skip doses or discontinue unless directed by your doctor.Obtain medical advice before taking any non-prescription drugs as some may affect the action of this medication.Take with food or milk. Comment on above: It is very important that you take or use this exactly as directed. Do not skip doses or discontinue unless directed by your doctor.Obtain medical advice before taking any non-prescription drugs as some may affect the action of this medication.Take with food or milk. sennosides, senior care 8.6 mg oral tablet (1 source) Start: 02-19-2024 End: 02-21-2024 senna (SENOKOT) tablet 8.6 mg Sodium Chloride (1 source) Start: 02-17-2024 End: 02-21-2024 sodium chloride (PF) (NS) flush 5 mL traZODone hydrochloride 50 mg oral tablet (1 source) Serotonin Reuptake Inhibitor Start: 02-17-2024 End: 02-21-2024 50 mg, Oral, Nightly PRN, sleep, Starting on Fri02/17/24 at 1804, May repeat times 1 in 30 minutes if still awake. Problems Active Problems Problem Classification Problem Date Documented Da te Episodic/Chronic Abdominal pain (15 sources) Suprapubic pain; Translations: [Pelvic and perineal pain] Onset: 01-08-2024 01-02-2024 Episodic Anxiety disorders (1 source) Generalized anxiety disorder; Translations: [Generalized anxiety disorder] 03-08-2024 Chronic Diverticulosis and diverticulitis (20 sources) Diverticulitis of sigmoid colon; Translations: [Diverticulitis of large intestine without perforation or abscess without bleeding] Onset: 01-08-2024 01-02-2024 Chronic Other and unspecified benign neoplasm (1 source) Benign neoplastic disease; 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, site unspecified] 10-29-2021 Episodic Other circulatory disease (1 source) Elevated blood pressure; Translations: [Elevated blood pressure reading] Episodic Other gastrointestinal disorders (2 sources) Perforation of intestine; Translations: [Perforation of intestine (nontraumatic)] Onset: 02-17-2024 02-17-2024 Episodic Other gastrointestinal disorders (4 sources) History of diverticulitis; Translations: [Personal history of other diseases of the digestive system] Onset: 02-17-2024 02-27-2024 Episodic Other lower respiratory disease (4 sources) Cough 09-21-2021 Episodic Comment on above: COUGH Other nutritional; endocrine; and metabolic disorders (14 sources) Obese class II; Translations: [Obesity, unspecified] Onset: 02-14-2023 Chronic Residual codes; unclassified (1 source) At risk of sexually transmitted infection ; Translations: [Possible exposure to STD] Episodic Residual codes; unclassified (1 source) Needs influenza immunization; Translations: [Need for immunization against influenza] Episodic Sprains and strains (1 source) Sprain of knee; Translations: [Sprains and strains of unspecified site of knee and leg] Onset: 10-29-2021 10-29-2021 Episodic Unclassified (2 sources) LEFT KNEE INHJURY 10-29-2021 Comment on above: LEFT KNEE INHJURY Unclassified (1 source) Left knee sprain 10-29-2021 Unclassified (1 source) 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 Unclassified (1 source) Encounter for general adult medical examination without abnormal findings Onset: 10-29-2024 Past or Other Problems Problem Classification Problem Date Documented Da te Episodic/Chronic Cardiac dysrhythmias (3 sources) Tachycardia; Translations: [Tachycardia, unspecified] Onset: 03-08-2024 03-08-2024 Episodic Other aftercare (1 source) Post-discharge follow-up; Translations: [Encounter for follow-up examination after completed treatment for conditions other than malignant neoplasm] 03-08-2024 Episodic Other gastrointestinal disorders (6 sources) Personal history of other diseases of the digestive system; Translations: [Personal history of other diseases of the digestive system] Onset: 02-27-2024 Episodic Other infections; including parasitic (1 source) History of sepsis; Translations: [Personal history of other infectious and parasitic diseases] 03-08-2024 Episodic Other upper respiratory infections (2 sources) Acute upper respiratory infection, unspecified; Translations: [Acute upper respiratory infection, unspecified] Onset: 11-21-2023 Episodic Results Test Name Value Interpretation Reference Range Facility Abdomen/Pelvis W IV Cont ONL Yon 07-09-2025 Abdomen/Pelvis W IV Cont ONLY [facility] [address] [place], [place] [address] Abdomen/Pelvis W IV Cont ONLY MR#: [id number] Acct: [id number] Name: AMEE GUAMAN Rep #: [id number] : 1985 M 40 From: Madison seals MD PCP: UZMA MCINTYRE Status: REG ER Study: Abdomen/Pelvis W IV Cont ONLY Date of Exam: Exam# [id number] Ordering Dr: Yong Honeycutt DO PROCEDURE: ABDOMEN/PELVIS W IV CONT ONLY 03/23/2025 REASON FOR EXAM: ABDOMINAL PAIN, HISTORY OF DIVERTICULITIS TECHNIQUE: ABDOMEN/PELVIS W IV CONT ONLY Coronal and Sagittal reconstruction series were provided. CONTRAST: VOLUME: mL One or more dose reduction techniques were used (e.g., Automated exposure control, adjustment of the mA and/or kV according to patient size, use of iterative reconstruction technique. RADIATION DOSE SUMMARY: CTDlvol: mGy DLP: mGycm COMPARISON: 01-02-2024 FINDINGS: Average sized liver showing homogenous parenchymal attenuation with fatty changes. No dilated intra or extra-hepatic biliary tracts. Gall bladder showing no radiodense calculi. No abnormal mural thickening. Clear surrounding fat planes with no sizeable collections. Normal appearance of the pancreas with clear surrounding fat planes. The spleen, adrenal glands, aorta and IVC are unremarkable. Both kidneys are of average size and showing smooth outline with preserved parenchymal thickness. No renal calculi. No hydronephrosis. Distension of the urinary bladder showing no obvious masses. No obvious masses related to the pelvic viscera. The appendix appears unremarkable. No right iliac inflammatory changes. Colonic diverticulosis with regression of the sigmoid diverticulitis. No pericolic collections. Mild gastric and small bowel loops wall thickening, possibly non specific inflammatory changes. No ascites or free air. No obvious pathologically enlarged lymph nodes. Scanned osseous structures show no osseous destruction. Scanned lung bases show no obvious abnormalities. CT/Abdomen/Pelvis W IV Cont ONLY IMPRESSION: Colonic diverticulosis with regression of the sigmoid diverticulitis. No pericolic collections. Mild gastric and small bowel loops wall thickening, possibly non specific inflammatory changes. [facility] CC: UZMA MCINTYRE; Dr. Yong Honeycutt, Sawyer Helper: Signed Normal [facility] Absolute lymphocyte countOrd ered By: Yong Honeycutt on 03-23-2025 Lymphocytes Auto (Unsp spec) [#/Vol] 2.44 10*3/uL 0.83-4.51 [facility] Absolute neutrophil countOrd ered By: Yong Honeycutt on 03-23-2025 Neutrophils (Bld) [#/Vol] 4.4 10*3/uL 2.0-7.7 [facility] Anion gap in Serum or Plasma Ordered By: Yong Honeycutt on 03-23-2025 Anion gap [Moles/Vol] 12 mmol/L 5-15 [facility] Automated lymphocyte count a s percentage of total leukocytesOrdered By: Yong Honeycutt on 03-23-2025 Lymphocytes/100 WBC Auto (Unsp spec) 31.6 % 19-41 [facility] BUN/creatinine ratioOrdered By: Yong Honeycutt on 03-23-2025 Urea nitrogen/Creatinine [Mass ratio] 10.1 mg/mg 10-20 [facility] Basophil percentageOrdered B y: Yong Honeycutt on 03-23-2025 Basophils/100 WBC (Bld) 0.9 % 0-1 [facility] Bilirubin Test strip Ql (U)O rdered By: Yong Honeycutt on 03-23-2025 Bilirubin Ql (U) Negative Negative [facility] Bilirubin, totalOrdered By: Yong Honeycutt on 03-23-2025 Bilirubin [Mass/Vol] 0.53 mg/dL 0.00-1.30 [facility] CBC W/Diff, Automatedon Absolute Lymph 2.44 X10 3/uL Normal 0.83-4.51 [facility] Comment on above: Performed By: #### L 100.0100, L500.4050, L501.2450 #### [facility] [address] [place], [place] [address]all sara. [place], [place], [id number] Absolute Neut 4.4 X10 3/uL Normal 2.0-7.7 [facility] Comment on above: Performed By: #### L 100.0100, L500.4050, L501.2450 #### [facility] [address] [place], [address] Basophils/100 WBC (Bld) 0.9 % Normal 0-1 [facility] Comment on above: Performed By: #### L 100.0100, L500.4050, L501.2450 #### [facility] [address] [place], [address] Eosinophils/100 WBC (Bld) 1.3 % Normal 0-5 [facility] Comment on above: Performed By: #### L 100.0100, L500.4050, L501.2450 #### [facility] [address] [place], [address] Erythrocyte distribution width (RBC) [Ratio] 12.7 % Normal 11.6-14.6 [facility] Comment on above: Performed By: #### L 100.0100, L500.4050, L501.2450 #### [facility] [address] [place], [address] Hematocrit (Bld) [Volume fraction] 43.0 % Normal 40-54 [facility] Comment on above: Performed By: #### L 100.0100, L500.4050, L501.2450 #### [facility] [address] [place], [address] Hemoglobin (Bld) [Mass/Vol] 14.6 g/dL Normal 13.0-16.5 [facility] Comment on above: Performed By: #### L 100.0100, L500.4050, L501.2450 #### [facility] [address] [place], [address] IG% 0.300 Normal 0.0-0.9 [facility] Comment on above: Result Comment: IG% - Immature Granulocytes (promyelocytes, myelocytes and metamyelocytes) > 1% indicates that a LEFT SHIFT is Present. Performed By: #### L 100.0100, L500.4050, L501.2450 #### [facility] [address] [place], [address] Lymphocytes/100 WBC (Bld) 31.6 % Normal 19-41 [facility] Comment on above: Performed By: #### L 100.0100, L500.4050, L501.2450 #### [facility] [address] [place], [address] MCH (RBC) [Entitic mass] 30.0 pg Normal 27.0-32.0 [facility] Comment on above: Performed By: #### L 100.0100, L500.4050, L501.2450 #### [facility] [address] [place], [address] MCHC (RBC) [Mass/Vol] 34.0 g/dL Normal 32-36 [facility] Comment on above: Performed By: #### L 100.0100, L500.4050, L501.2450 #### [facility] [address] [place], [address] MCV (RBC) [Entitic vol] 88.3 fL Normal 80-94 [facility] Comment on above: Performed By: #### L 100.0100, L500.4050, L501.2450 #### [facility] [address] [place], [address] Monocytes/100 WBC (Bld) 9.1 % Normal 0-10 [facility] Comment on above: Performed By: #### L 100.0100, L500.4050, L501.2450 #### [facility] [address] [place], [address] Neutrophils/100 WBC (Bld) 56.8 % Normal 47-70 [facility] Comment on above: Performed By: #### L 100.0100, L500.4050, L501.2450 #### [facility] [address] [place], [address] Nucleated RBC (Bld) [#/Vol] 0 10*3/uL Normal 0-5 [facility] Comment on above: Performed By: #### L 100.0100, L500.4050, L501.2450 #### [facility] [address] [place], [address] Platelet mean volume (Bld) [Entitic vol] 8.5 fL Normal 6.2-12.0 [facility] Comment on above: Performed By: #### L 100.0100, L500.4050, L501.2450 #### [facility] [address] [place], [address] Platelets (Bld) [#/Vol] 341 10*3/uL Normal 150-450 [facility] Comment on above: Performed By: #### L 100.0100, L500.4050, L501.2450 #### [facility] [address] [place], [address] RBC (Bld) [#/Vol] 4.87 10*6/uL Normal 4.6-6.2 [facility] Comment on above: Performed By: #### L 100.0100, L500.4050, L501.2450 #### [facility] [address] [place], [address] RDW SD 40.8 fl Normal 35.1-43.9 [facility] Comment on above: Performed By: #### L 100.0100, L500.4050, L501.2450 #### [facility] [address] [place], [address] WBC (Bld) [#/Vol] 7.7 10*3/uL Normal 4.4-11.0 [facility] Comment on above: Performed By: #### L 100.0100, L500.4050, L501.2450 #### [facility] [address] [place], [address] Carbon dioxide, total [Moles /volume] in Central venous bloodOrdered By: Yong Honeycutt on 03-23-2025 CO2 [Moles/Vol] 22.2 mmol/L 21.0-32.0 [facility] Chloride assayOrdered By: Galileo Honeycutt on 03-23-2025 Chloride [Moles/Vol] 104 mmol/L 98-108 [facility] Comprehensive Metabolic Prof ilon 03-23-2025 Albumin [Mass/Vol] 4.1 g/dL Normal 3.5-5.0 [facility] Comment on above: Performed By: #### L 100.0100, L500.4050, L501.2450 #### [facility] [address] [place], [address] Albumin/Globulin [Mass ratio] 1.2 {ratio} Normal 0.9-2.4 [facility] Comment on above: Performed By: #### L 100.0100, L500.4050, L501.2450 #### [facility] [address] [place], [address] ALK PHOS 81 U/L Normal 40-129 [facility] Comment on above: Performed By: #### L 100.0100, L500.4050, L501.2450 #### [facility] [address] [place], [address] ALT [Catalytic activity/Vol] 24 U/L Normal <=46 [facility] Comment on above: Performed By: #### L 100.0100, L500.4050, L501.2450 #### [facility] [address] [place], [address] AST [Catalytic activity/Vol] 24 U/L Normal <=37 [facility] Comment on above: Result Comment: Hemo lysis present, Results??could be affected. ?? Performed By: #### L 100.0100, L500.4050, L501.2450 #### [facility] [address] [place], [address] Bilirubin [Mass/Vol] 0.53 mg/dL Normal 0.00-1.30 [facility] Comment on above: Performed By: #### L 100.0100, L500.4050, L501.2450 #### [facility] [address] [place], [address] BUN/CRE 10.1 RATIO Normal 10-20 [facility] Comment on above: Performed By: #### L 100.0100, L500.4050, L501.2450 #### [facility] [address] [place], [address] Calcium [Mass/Vol] 9.2 mg/dL Normal 7.6-11.0 [facility] Comment on above: Performed By: #### L 100.0100, L500.4050, L501.2450 #### [facility] [address] [place], [address] Chloride [Moles/Vol] 104 mmol/L Normal 98-108 [facility] Comment on above: Performed By: #### L 100.0100, L500.4050, L501.2450 #### [facility] [address] [place], [address] CO2 [Moles/Vol] 22.2 mmol/L Normal 21.0-32.0 [facility] Comment on above: Performed By: #### L 100.0100, L500.4050, L501.2450 #### [facility] [address] [place], [address] Creatinine [Mass/Vol] 1.09 mg/dL Normal 0.70-1.20 [facility] Comment on above: Performed By: #### L 100.0100, L500.4050, L501.2450 #### [facility] [address] [place], [address] ECRCL 124.36 ml/min Normal 50-250 [facility] Comment on above: Performed By: #### L 100.0100, L500.4050, L501.2450 #### [facility] [address] [place], [address] GAP 12 Normal 5-15 [facility] Comment on above: Performed By: #### L 100.0100, L500.4050, L501.2450 #### [facility] [address] [place], [address] GFR/1.73 sq M.predicted among non-blacks MDRD (S/P/Bld) [Vol rate/Area] 87 mL/min/{1.73_m2} Normal >60 [facility] Comment on above: Result Comment: mL/m in/1.73m2 CKD-EPI Creatinine Equation (2020) Performed By: #### L 100.0100, L500.4050, L501.2450 #### [facility] [address] [place], [address] Globulin (S) [Mass/Vol] 3.4 g/dL Normal 2.2-4.2 [facility] Comment on above: Performed By: #### L 100.0100, L500.4050, L501.2450 #### [facility] [address] [place], [address] Glucose [Mass/Vol] 105 mg/dL High 70-99 [facility] Comment on above: Performed By: #### L 100.0100, L500.4050, L501.2450 #### [facility] [address] [place], [address] Potassium [Moles/Vol] 4.1 mmol/L Normal 3.3-5.1 [facility] Comment on above: Result Comment: Hemo lysis present, Results??could be affected. ?? Performed By: #### L 100.0100, L500.4050, L501.2450 #### [facility] [address] [place], [address] Sodium [Moles/Vol] 138 mmol/L Normal 133-145 [facility] Comment on above: Performed By: #### L 100.0100, L500.4050, L501.2450 #### [facility] [address] [place], [address] T PROT 7.5 g/dL Normal 5.9-8.4 [facility] Comment on above: Performed By: #### L 100.0100, L500.4050, L501.2450 #### [facility] [address] [place], [address] Urea nitrogen [Mass/Vol] 11 mg/dL Normal 4-19 [facility] Comment on above: Performed By: #### L 100.0100, L500.4050, L501.2450 #### [facility] [address] [place], [address] Emergency Department Summary on 03-23-2025 Emergency Department Summary [facility] Medical Records Department [address] [place] [address] Emergency Department Summary 03/23/25 MR#: [id number] Acct: [id number] Name: AMEE GUAMAN Rep #: [id number] : 1985 40 From: Yong Honeycutt DO PCP: UZMA MCINTYRE Status:DEP ER Location: ED HPI History of Present Illness Chief Complaint: Abd Pain [facility] Medical History (Updated 03/23/25 @ 00:21 by Kavita Baer) Hx of diverticulitis of colon Kidney stone Home Medications ???Medication ???Instructions ???Recorded ???Last Taken ???Type cefdinir 300 mg capsule 600 mg (2 x 300 mg) PO DAILY 7 06/09 Unknown Rx days #14 caps metronidazole 500 mg tablet 500 mg PO BID 7 days #14 tabs 06/09 Unknown Rx Allergy/AdvReac Type Severity Reaction Status Date / Time No Known Allergies Allergy Verified 03/23/25 00:18 Surgical History H/O lithotripsy Social History Smoking Status: Former smoker EXAM Physical Exam Const Vital Signs: 03/23/25 00:19 03/23/25 02:18 Temperature 97.9 F 97.8 F Temperature Source Oral Pulse Rate 102 H 83 Respiratory Rate 18 18 Blood Pressure 148/99 H 138/98 H Blood Pressure Mean 115 111 Pulse Ox 99 97 Oxygen Delivery Method Room Air [facility] MDM Narrative Medical decision making narrative: HISTORY OF PRESENT ILLNESS: Chief complaint: Abdominal pain 40-year-old male history of diverticulitis, nephrolithiasis presents with concern for abdominal pain. Notes in the past he had diverticulitis that turned into a abdominal perforation. No symptoms are reminiscent of prior diverticulitis flare. He notes he was started Augmentin and then Cipro Flagyl but he states none of these medicines worked until he was placed on Omnicef and Flagyl. He thinks he definitely has diverticulitis. He denies vomiting. Denies testicular pain. Denies decreased bowel movements. Denies fever. Denies chest pain or shortness of breath. No nausea or vomiting. No pain now. REVIEW OF SYSTEMS: Pertinent positives: Abdominal pain Pertinent negatives: Fever PHYSICAL EXAM: Nursing triage notes reviewed, Vital signs reviewed Constitutional: please see mdm HENT: MMM Eyes: Pupils equal round and reactive to light, Extraocular muscles intact Neck: No stridor, no JVD, full neck ROM Lungs: Clear to auscultation, No wheezing or rales. No increased work of breathing, no conversational dyspnea, no accessory muscle use, no nasal flaring. No respiratory distress noted Heart: Regular rate and rhythm, No murmurs, No rubs and No gallops, 2+ distal pulses (radial, femoral, posterior tibial) in all extremities Abdomen: Soft, there is no tenderness, rigidity, rebound or guarding, no obvious peritoneal signs, no palpable pulsatile abdominal masses, no auscultated abdominal bruit : No CVAT Extremities: No edema Neuro: No new focal neurological deficits, cranial nerves II through XII intact, 5/5 strength in all present extremities. Intact sensation to light touch in all present extremities, 2+ reflexes bilat eral patella tendons. Skin: No rash or lesions noted MEDICAL DECISION MAKING: Chief Complaint: please see HPI External records reviewed: Reviewed prior imaging studies: Reviewed CT scan of the abdomen pelvis from 2023 which shows acute diverticulitis as well as a accompanying abscess Factors affecting care: History of diverticulitis Social determinants of health: none History obtained from others: none Consults: none [facility] Narrative: The patient was initially hemodynamically stable, afebrile and nontoxic-appearing. Abdominal exam benign. No appreciable tenderness. Patient was asymptomatic upon my evaluation I considered the following differential diagnosis: AAA, small bowel obstruction, abdominal perforation, appendicitis, pancreatitis, hepatobiliary pathology (acute cholecystitis), mesenteric ischemia, pathology (ie nephrolithiasis, pyelonephritis). Initially ordered IV fluids, IV Zofran, IV Toradol and IV morphine however patient refused pain and nausea medicine at this time as he is asymptomatic. He would still like to have the IV fluids. I obtained a broad lab and imaging to further determine if the patient was suffering from a life- threatening etiology. ALL IMAGES (IF OBTAINED) HAVE BEEN PERSONALLY REVIEWED AND INTERPRETED BY MYSELF. CBC without leukocytosis, severe anemia, no thrombocytopenia. CMP without evidence of acute kidney injury, significant electrolyte abnormality, anion gap to suggest end organ hypo-perfusion, no evidence of metabolic acidosis with a normal bicarbonate, no evidence of hepatobiliary obstructive pathology. Lipase is wnl indicating no pancreatic inflammation. CT scan abdomen pelvis shows diverticulos (more content not included)... Normal [facility] Eosinophil percentageOrdered By: Yong Honeycutt on 03-23-2025 Eosinophils/100 WBC (Bld) 1.3 % 0-5 [facility] Erythrocyte distribution wid th ratioOrdered By: Yong Honeycutt on 03-23-2025 Erythrocyte distribution width (RBC) [Ratio] 12.7 % 11.6-14.6 [facility] Erythrocyte distribution wid th standard deviationOrdered By: Yong Honeycutt on 03-23-2025 Erythrocyte distribution width (RBC) [Ratio] 40.8 fl 35.1-43.9 [facility] Glomerular filtration rate ( GFR) estimation/1.73 sq m using serum, plasma, or whole bOrdered By: Yong Honeycutt on 03-23-2025 GFR/1.73 sq M.predicted among non-blacks MDRD (S/P/Bld) [Vol rate/Area] 87 mL/min/{1.73_m2} >60 [facility] Comment on above: mL/min/1.73m2 CKD-EP I Creatinine Equation (2020) Hematocrit Auto (Bld) [Volum e fraction]Ordered By: Yong Honeycutt on 03-23-2025 Hematocrit (Bld) [Volume fraction] 43.0 % 40-54 [facility] Hemoglobin measurementOrdere d By: Yong Honeycutt on 03-23-2025 Hemoglobin (Bld) [Mass/Vol] 14.6 g/dL 13.0-16.5 [facility] Immature granulocytes/100 WB C Auto (Bld)Ordered By: Yong Honeycutt on 03-23-2025 Immature granulocytes/100 WBC (Bld) 0.300 % 0.0-0.9 [facility] Comment on above: IG% - Immature Granu locytes (promyelocytes, myelocytes and metamyelocytes) > 1% indicates that a LEFT SHIFT is Present. Ketones Test strip Ql (U)Ord ered By: Yong Honeycutt on 03-23-2025 Ketones Ql (U) Negative Negative [facility] - Chemistry and C hemistry - challengeOrdered By: Yong Honeycutt on 03-23-2025 AST [Catalytic activity/Vol] 24 U/L <38 [facility] Comment on above: Hemolysis present, R esults could be affected. Lipaseon 03-23-2025 Lipase [Catalytic activity/Vol] 16 U/L Normal 13-75 [facility] Comment on above: Result Comment: Gogo cortes note: LIPASE revised reference range effective 22. New Lipase methodology. Expected to produce lower values than the previous assay method. NEW Reference Range: 13 - 75 U/L Performed By: #### L 100.0100, L500.4050, L501.2450 #### [facility] [address] [place], [address] Lipase measurementOrdered By : Yong Honeycutt on 03-23-2025 Lipase [Catalytic activity/Vol] 16 U/L 13-75 [facility] Comment on above: Please note:LIPASE r evised reference range effective 22. New Lipase methodology. Expected to produce lower values than the previous assay method. NEW Reference Range: 13 - 75 U/L MCV (mean corpuscular volume ) determinationOrdered By: Yong Honeycutt on 03-23-2025 MCV (RBC) [Entitic vol] 88.3 fL 80-94 [facility] Mean corpuscular hemoglobin (MCH) determinationOrdered By: Yong Honeycutt on 03-23-2025 MCH (RBC) [Entitic mass] 30.0 pg 27.0-32.0 [facility] Mean corpuscular hemoglobin concentration (MCHC) determinationOrdered By: Yong Honeycutt on 03-23-2025 MCHC (RBC) [Mass/Vol] 34.0 g/dL 32-36 [facility] Mean platelet volume determi nationOrdered By: Yong Honeycutt on 03-23-2025 Platelet mean volume (Bld) [Entitic vol] 8.5 fL 6.2-12.0 [facility] Microscopic analysis of urin e for red blood cells (RBC)Ordered By: Yong Honeycutt on 03-23-2025 Microscopic analysis of urine for red blood cells (RBC) 0 SEEN /hpf 0-5 [facility] Monocyte percentageOrdered B y: Yong Honeycutt on 03-23-2025 Monocytes/100 WBC (Bld) 9.1 % 0-10 [facility] Mucus LM Ql (Urine sed)Order ed By: Yong Honeycutt on 03-23-2025 Mucus Ql (Urine sed) 0 SEEN /hpf [facility] Neutrophil percentageOrdered By: Yong Honeycutt on 03-23-2025 Neutrophils/100 WBC (Bld) 56.8 % 47-70 [facility] Nitrite Test strip Ql (U)Ord ered By: Yong Honeycutt on 03-23-2025 Nitrite Ql (U) Negative Negative [facility] Nucleated red blood cell per centageOrdered By: Yong Honeycutt on 03-23-2025 Nucleated RBC/100 WBC (Bld) [Ratio] 0 % 0-5 [facility] Platelet countOrdered By: Galileo Honeycutt on 03-23-2025 Platelets (Bld) [#/Vol] 341 10*3/uL 150-450 [facility] Potassium measurement (mass/ volume)Ordered By: Yong Honeycutt on 03-23-2025 Potassium (Unsp spec) [Mass/Vol] 4.1 mmol/L 3.3-5.1 [facility] Comment on above: Hemolysis present, R esults could be affected. Protein Test strip Ql (U)Ord ered By: Yong Honeycutt on 03-23-2025 Protein Ql (U) 15 mg/dl High Negative [facility] RBC Auto (Bld) [#/Vol]Ordere d By: Yong Honeycutt on 03-23-2025 RBC (Bld) [#/Vol] 4.87 10*6/uL 4.6-6.2 [facility] Serum creatinine measurement (mass/volume)Ordered By: Yong Honeycutt on 03-23-2025 Creatinine [Mass/Vol] 1.09 mg/dL 0.70-1.20 [facility] Serum globulin measurementOr dered By: Yong Honeycutt on 03-23-2025 Globulin (S) [Mass/Vol] 3.4 g/dL 2.2-4.2 [facility] Serum glucose measurement (m ass/volume)Ordered By: Yong Honeycutt on 03-23-2025 Glucose [Mass/Vol] 105 mg/dL High 70-99 [facility] Serum or plasma alanine reeves otransferase (ALT) measurementOrdered By: Yong Honeycutt on 03-23-2025 ALT [Catalytic activity/Vol] 24 U/L <47 [facility] Serum or plasma albumin graciela urement (mass/volume)Ordered By: Yong Honeycutt on 03-23-2025 Albumin [Mass/Vol] 4.1 g/dL 3.5-5.0 [facility] Serum or plasma albumin/glob ulin mass ratioOrdered By: Yong Honeycutt on 03-23-2025 Albumin/Globulin [Mass ratio] 1.2 {ratio} 0.9-2.4 [facility] Serum or plasma alkaline nick sphatase measurementOrdered By: Yong Honeycutt on 03-23-2025 ALP [Catalytic activity/Vol] 81 U/L 40-129 [facility] Serum or plasma calcium graciela urement (mass/volume)Ordered By: Yong Honeycutt on 03-23-2025 Calcium [Mass/Vol] 9.2 mg/dL 7.6-11.0 [facility] Serum or plasma urea nitroge n measurement (mass/volume)Ordered By: Yong Honeycutt on 03-23-2025 Urea nitrogen [Mass/Vol] 11 mg/dL 4-19 [facility] Sodium levelOrdered By: Nicolás Honeycutt on 03-23-2025 Sodium [Moles/Vol] 138 mmol/L 133-145 [facility] Squamous epithelial cells de tection in urine sediment by light microscopyOrdered By: Yong Honeycutt on 03-23-2025 Epithelial cells.squamous LM Ql (Urine sed) 0 SEEN /hpf 0-5 [facility] Total proteinOrdered By: Aida Honeycutt on 03-23-2025 Protein [Mass/Vol] 7.5 g/dL 5.9-8.4 [facility] Urinalysis, Completeon 03-23 WBC 0-5 SEEN Normal 0-5 [facility] Comment on above: Order Comment: CLEAN CATCH Performed By: #### L 400.0001 #### [facility] [address] [place], [place], [id number] BILIRUBIN URINE Negative Normal Negative [facility] Comment on above: Order Comment: CLEAN CATCH Performed By: #### L 400.0001 #### [facility] [address] [place], [place], [id number] Clarity (U) Clear Normal Clear [facility] Comment on above: Order Comment: CLEAN CATCH Performed By: #### L 400.0001 #### [facility] [address] [place], [address] Color (U) Yellow Normal Yellow [facility] Comment on above: Order Comment: CLEAN CATCH Performed By: #### L 400.0001 #### [facility] [address] [place], [address] GLUCOSE, UR Normal Normal Normal [facility] Comment on above: Order Comment: CLEAN CATCH Performed By: #### L 400.0001 #### [facility] [address] [place], [address] KETONE UR Negative Normal Negative [facility] Comment on above: Order Comment: CLEAN CATCH Performed By: #### L 400.0001 #### [facility] [address] [place], [address] LEUK ESTERASE Negative Normal Negative [facility] Comment on above: Order Comment: CLEAN CATCH Performed By: #### L 400.0001 #### [facility] [address] [place], [address] Nitrite Ql (U) Negative Normal Negative [facility] Comment on above: Order Comment: CLEAN CATCH Performed By: #### L 400.0001 #### [facility] [address] [place], [address] OCCULT BLOOD-UR Negative Normal Negative [facility] Comment on above: Order Comment: CLEAN CATCH Performed By: #### L 400.0001 #### [facility] [address] [place], [address] pH UR 7.0 Normal 5.0 - 8.0 [facility] Comment on above: Order Comment: CLEAN CATCH Performed By: #### L 400.0001 #### [facility] [address] [place], [address] PROT DIPSTX 15 mg/dl Abnormal Negative [facility] Comment on above: Order Comment: CLEAN CATCH Performed By: #### L 400.0001 #### [facility] [address] [place], [address] SP.GR. DIPSTX 1.010 Normal 1.002-1.030 [facility] Comment on above: Order Comment: CLEAN CATCH Performed By: #### L 400.0001 #### [facility] [address] [place], [address] UROBILI Normal Normal Normal [facility] Comment on above: Order Comment: CLEAN CATCH Performed By: #### L 400.0001 #### [facility] [address] [place], [address] BACTERIA 0 SEEN Normal None Seen [facility] Comment on above: Order Comment: CLEAN CATCH Performed By: #### L 400.0001 #### [facility] [address] [place], [address] EPI,SQUAMOUS 0 SEEN Normal 0-5 [facility] Comment on above: Order Comment: CLEAN CATCH Performed By: #### L 400.0001 #### [facility] [address] [place], [address] Mucus Ql (Urine sed) 0 SEEN Normal [facility] Comment on above: Order Comment: CLEAN CATCH Performed By: #### L 400.0001 #### [facility] [address] [place], [address] RBC 0 SEEN Normal 0-5 [facility] Comment on above: Order Comment: CLEAN CATCH Performed By: #### L 400.0001 #### [facility] [address] [place], [address] Urine clarityOrdered By: Aida Honeycutt on 03-23-2025 Clarity (U) Clear Clear [facility] Urine color determinationOrd ered By: Yong Honeycutt on 03-23-2025 Color (U) Yellow Yellow [facility] Urine glucose detectionOrder ed By: Yong Honeycutt on 03-23-2025 Glucose Ql (U) Normal mg/dl Normal [facility] Urine leukocyte esterase det ection by dipstickOrdered By: Yong Honeycutt on 03-23-2025 Leukocyte esterase Test strip Ql (U) Negative Negative [facility] Urine pHOrdered By: Yong hoff on 03-23-2025 pH (U) 7.0 [pH] 5.0 - 8.0 [facility] Urine sediment bacteria coun t by microscopy (number/high power field)Ordered By: Yong Honeycutt on 03-23-2025 Bacteria LM.HPF (Urine sed) [#/Area] 0 /[HPF] None Seen [facility] Urine specific gravity measu rementOrdered By: Yong Honeycutt on 03-23-2025 Specific gravity (U) [Rel density] 1.010 1.002-1.030 [facility] Urine urobilinogen measureme ntOrdered By: Yong Honeycutt on 03-23-2025 Urobilinogen Ql (U) Normal mg/dl Normal [facility] White blood cell (WBC) count Ordered By: Yong Honeycutt on 03-23-2025 WBC (Bld) [#/Vol] 7.7 10*3/uL 4.4-11.0 [facility] White blood cell countOrdere d By: Yong Honeycutt on 03-23-2025 White blood cell count 0-5 SEEN /hpf 0-[address] [facility] [address] ABDOMEN PELVIS WITH IV CO NTRAST ONLYon 10-13-2024 CT ABDOMEN PELVIS WITH IV CONTRAST ONLY EXAMINATION: CT ABDOMEN PELVIS WITH IV CONTRAST ONLY HISTORY: ORDERING SYSTEM PROVIDED HISTORY: Acute diverticulitis. TECHNOLOGIST PROVIDED HISTORY: Illness/Other. Reason for exam: Acute diverticulitis. Encounter Type: Initial. Additional signs and symptoms: Pain. COMPARISON: 03/03/2024 CT abdomen and pelvis TECHNIQUE: CT examination of the abdomen and pelvis following the administration of intravenous contrast. Coronal and sagittal reformations were performed. Dose reduction techniques were achieved by using automated exposure control and/or adjustment of mA and/or kV according to patient size and/or use of iterative reconstruction technique. CONTRAST: IOPAMIDOL 370 MG IODINE/ML (76 %) INTRAVENOUS SOLUTION - 75 mL, FINDINGS: LOWER CHEST: Normal. ABDOMEN: Liver: Normal. Bile ducts: Normal caliber. Gallbladder: No calcified gallstones. Normal caliber wall. Pancreas: Normal. Spleen: Normal. Adrenals: Normal. Kidneys: Symmetric enhancement without hydronephrosis. PELVIS: Reproductive organs: No pelvic masses. Ureters: Normal. Bladder: Suboptimally distended without gross abnormality. OTHER ABDOMEN AND PELVIS: Bowel: Hsfb-fl-[id number] colonic stool burden. No bowel obstruction. No appendicitis. Diverticulosis of the sigmoid colon. Peritoneum: No free intraperitoneal air. No ascites or fluid collection. Vessels: Normal. Lymph nodes: No enlarged lymph nodes. Abdominal wall: Tiny fat-containing umbilical hernia. Osseous structures: No destructive lesions. IMPRESSION: Sigmoid colonic diverticulosis. No CT evidence of acute diverticulitis. No obstructive uropathy. No appendicitis. [employer] Workstation ID: [id number] Dictated by: MATA VILLALOBOS on FriOct 13, 2024 1:31:57 PM EST Transcribed by: GIOVANNI MCKEON on FriOct 13, 2024 1:52:45 PM EST Finalized by: MATA VILLALOBOS on FriOct 13, 2024 9:35:54 PM EST Normal [facility] Comment on above: Order Comment: [facility] Laboratory Services has implemented the eGFR calculation approach that does not have a coefficient for race that conforms to the NKF-ASN Task Force Recommendations. ED Prov Noteon 10-13-2024 ED Prov Note ED PROVIDER NOTE [facility] EMERGENCY DEPARTMENT NAME: Amee Guaman AGE: 39 y.o. : 1985 VISIT DATE: 10/13/2024 CSN: [id number] PCP: Elliot Soni MD Chief Complaint Patient presents with Abdominal Pain The patient presented to the emergency room with complaint he had an episode of acute diverticulitis a week ago, he is taken Augmentin, the patient today had discolored stools and he is worrying about having a blood but there was no gross rectal bleeding, he denies any active abdominal pain, the patient is very anxious because he had an episode of diverticulitis 5 months ago complicated by microperforation required him to be at [facility] for 5 days but it was treated conservatively, patient denies any active pain now, no fever or chills, no other complaint Abdominal Pain Past Medical History: Diagnosis Date Diverticulitis Diverticulosis with perforation 02/17/2024 Keloid scar Kidney stones Past Surgical History: Procedure Laterality Date COLONOSCOPY N/A 04/07/2024 Procedure: COLONOSCOPY with polypectomy; Surgeon: Laura Wiley MD; Location: [facility] OR; Service: General Surgery EXTRACORPOREAL SHOCK WAVE LITHOTRIPSY due to kidney stones WISDOM TOOTH EXTRACTION History reviewed. No pertinent family history. Social History Socioeconomic History Marital status: Tobacco Use Smoking status: Smoker, Current Status Unknown Types: Cigars Smokeless tobacco: Never Tobacco comments: Trying to quit Vaping Use Vaping status: Never Used Substance and Sexual Activity Alcohol use: Not Currently Comment: occasionally Drug use: Never Social Drivers of Health Financial Resource Strain: Low Risk (03/07/2024) Received from [facility] Overall Financial Resource Strain (CARDIA) Difficulty of Paying Living Expenses: Not hard at all Food Insecurity: No Food Insecurity (03/07/2024) Received from [facility] Hunger Vital Sign Worried About Running Out of Food in the Last Year: Never true Ran Out of Food in the Last Year: Never true Transportation Needs: No Transportation Needs (03/07/2024) Received from [facility] PRAPARE - Transportation Lack of Transportation (Medical): No Lack of Transportation (Non-Medical): No Physical Activity: Patient Declined (03/07/2024) Received from [facility] Exercise Vital Sign Days of Exercise per Week: Patient declined Minutes of Exercise per Session: Patient declined Stress: Stress Concern Present (03/07/2024) Received from [facility] [place] [facility] Occupational [employer] - Occupational Stress Questionnaire Feeling of Stress : Very much Social Connections: Socially Integrated (03/07/2024) Received from [facility] Social Connection and Isolation Panel [NHANES] Frequency of Communication with Friends and Family: More than three times a week Frequency of Social Gatherings with Friends and Family: More than three times a week Attends Sabianism Services: More than 4 times per year Active Member of Clubs or Organizations: Yes Attends Club or Organization Meetings: 1 to 4 times per year Marital Status: Housing Stability: Low Risk (02/17/2024) Housing Stability Vital Sign Unable to Pay for Housing in the Last Year: No Number of Places Lived in the Last Year: 1 Unstable Housing in the Last Year: No Previous Medications Medication Sig cefdinir (OMNICEF) 300 MG capsule Take 1 (one) capsule (300 mg total) by mouth 2 (two) times a day . metroNIDAZOLE (FLAGYL) 500 MG tablet Take 1 (one) tablet (500 mg total) by mouth 3 (three) times a day with meals . psyllium (METAMUCIL) 3.4 gram packet Take 1 (one) packet by mouth daily . No Known Allergies Review of Systems Gastrointestinal: Positive for abdominal pain. All other systems reviewed and are negative. Patient Vitals for the past 24 hrs: BP Temp Pulse Resp SpO2 Height Weight 10/13/24 1156 (!) 143/111 96.9 degrees F (36.1 degrees C) (!) 122 18 97 % 6' 1 122.5 kg (270 lb) Physical Exam Vitals and nursing note reviewed. Constitutional: General: He is not in acute distress. HENT: Head: Normocephalic. Eyes: Extraocular Movements: Extraocular movements intact. Musculoskeletal: General: Normal range of motion. Cervical back: Neck supple. Pulmonary: Effort: Pulmonary effort is normal. No respiratory distress. Abdominal: General: There is no distension. Palpations: Abdomen is soft. Tenderness: There is no abdominal tenderness. There is no guarding. Skin: General: Skin is warm. Neurological: General: No focal deficit present. Mental Status: He is alert and oriented to person, place, and time. Laboratory & Radiographic Imaging (if done): Results for orders placed or performed during the hospital encounter of 10/13/24 POC CBC and Differential Result Value Ref Range WBC 5.64 4.50 - 11.00 K/mcL RBC 5.17 4.50 - 5.90 M/mcL (more content not included)... Normal [facility] POC B-TYPE NATRIURETIC PEPTI DE (BNP) - [facility] 10-13-2024 POC B-TYPE NATRIURETIC PEPTIDE < Normal <100 [facility] POC BASIC METABOLIC PANEL - [facility] 10-13-2024 Chloride [Moles/Vol] 105 mmol/L Normal 98-108 [facility] Comment on above: Order Comment: [facility] Laboratory Services has implemented the eGFR calculation approach that does not have a coefficient for race that conforms to the NKF-ASN Task Force Recommendations. CO2 [Moles/Vol] 23 mmol/L Normal 21-32 [facility] Comment on above: Order Comment: [facility] Laboratory Services has implemented the eGFR calculation approach that does not have a coefficient for race that conforms to the NKF-ASN Task Force Recommendations. Creatinine [Mass/Vol] 0.98 mg/dL Normal 0.50-1.30 [facility] Comment on above: Order Comment: [facility] Laboratory [facility] has implemented the eGFR calculation approach that does not have a coefficient for race that conforms to the NKF-ASN Task Force Recommendations. Glucose [Mass/Vol] 103 mg/dL High 65-99 [facility] Comment on above: Order Comment: [facility] Laboratory [facility] has implemented the eGFR calculation approach that does not have a coefficient for race that conforms to the NKF-ASN Task Force Recommendations. POC GFR 100 mL/min/1.73 m2 Normal >=60 [facility] Comment on above: Order Comment: [facility] Laboratory [facility] has implemented the eGFR calculation approach that does not have a coefficient for race that conforms to the NKF-ASN Task Force Recommendations. Result Comment: Cornelia mated GFR was calculated using the 2020 CKD-EPI creatinine equation. POC IONIZED CALCIUM 4.9 mg/dL Normal 4.5-5.3 [facility] Comment on above: Order Comment: [facility] Laboratory [facility] has implemented the eGFR calculation approach that does not have a coefficient for race that conforms to the NKF-ASN Task Force Recommendations. Potassium [Moles/Vol] 3.8 mmol/L Normal 3.5-5.1 [facility] Comment on above: Order Comment: [facility] Laboratory [facility] has implemented the eGFR calculation approach that does not have a coefficient for race that conforms to the NKF-ASN Task Force Recommendations. Sodium [Moles/Vol] 140 mmol/L Normal 135-145 [facility] Comment on above: Order Comment: [facility] Laboratory [facility] has implemented the eGFR calculation approach that does not have a coefficient for race that conforms to the NKF-ASN Task Force Recommendations. Urea nitrogen [Mass/Vol] 13 mg/dL Normal 8-25 [facility] Comment on above: Order Comment: [facility] Laboratory [facility] has implemented the eGFR calculation approach that does not have a coefficient for race that conforms to the NKF-ASN Task Force Recommendations. POC CBC AND DIFFERENTIALon 0 10-13-2024 BASOPHILS ABSOLUTE COUNT 0.04 K/mcL Normal 0.00-0.30 [facility] Basophils/100 WBC (Bld) 0.7 % Normal [facility] Eosinophils (Bld) [#/Vol] 0.05 10*3/uL Normal 0.00-0.50 [facility] Eosinophils/100 WBC (Bld) 0.9 % Normal [facility] Erythrocyte distribution width (RBC) [Ratio] 12.7 % Normal 11.6-14.8 [facility] Hematocrit (Bld) [Volume fraction] 46.1 % Normal 41.0-53.0 [facility] Hemoglobin (Bld) [Mass/Vol] 15.5 g/dL Normal 13.5-17.5 [facility] IG ABSOLUTE 0.01 K/mcL Normal 0.00-0.30 [facility] IG PERCENT 0.20 % Normal [facility] Comment on above: Result Comment: The IG parameter is the percentage of metamyelocytes, myelocytes and promyelocytes. An immature granulocyte count (IG) of 1% or more suggests the possibility of infection, an IG count of 3% is very likely related to an infection. Lymphocytes (Bld) [#/Vol] 2.03 10*3/uL Normal 0.90-4.00 [facility] Lymphocytes/100 WBC (Bld) 36.0 % Normal [facility] MCH (RBC) [Entitic mass] 30.0 pg Normal 26.0-34.0 [facility] MCV (RBC) [Entitic vol] 89.2 fL Normal 80.0-100.0 [facility] MEAN CORPUSCULAR HEMOGLOBIN CONC 33.6 g/dL Normal 31.0-37.0 [facility] Monocytes (Bld) [#/Vol] 0.55 10*3/uL Normal 0.30-0.90 [facility] Monocytes/100 WBC (Bld) 9.8 % Normal [facility] NEUTROPHILS ABSOLUTE COUNT 2.96 K/mcL Normal 1.70-7.00 [facility] Neutrophils/100 WBC (Bld) 52.4 % Normal [facility] Platelet mean volume (Bld) [Entitic vol] 8.9 fL Low 9.4-12.4 [facility] Platelets (Bld) [#/Vol] 323 10*3/uL Normal 150-400 [facility] RBC (Bld) [#/Vol] 5.17 10*6/uL Normal 4.50-5.90 [facility] WBC (Bld) [#/Vol] 5.64 10*3/uL Normal 4.50-11.00 [facility] POC D-DIMER [facility] POC D-DIMER 105 ng/mL DDU Normal <350 [facility] Comment on above: Order Comment: A D-D kiya concentration of <350 ng/mL DDU is considered a low probability for pulmonary embolism (PE) and deep venous thrombosis (DVT). Results of this test should always be interpreted in conjunction with the patient's medical history, clinical presentation, and other findings. Clinical diagnosis should not be based on the results of the D-dimer alone. The above D-dimer cutoff pertains to its use for the exclusion of DVT or PE. The range associated with other clinical conditions (e.g. sepsis) has not been validated for this method. 90% of normal patients are less than 400 ng/ml. POC LIVER PANEL PLUS [facility] 10-13-2024 Albumin [Mass/Vol] 4.0 g/dL Normal 3.2-5.2 [facility] ALP [Catalytic activity/Vol] 74 U/L Normal 40-140 [facility] ALT [Catalytic activity/Vol] 39 U/L Normal 0-40 [facility] Amylase [Catalytic activity/Vol] 34 U/L Normal 25-115 [facility] Amylase [Catalytic activity/Vol] 20 U/L Normal 11-51 [facility] AST [Catalytic activity/Vol] 31 U/L Normal 0-45 [facility] Bilirubin [Mass/Vol] 0.8 mg/dL Normal 0.0-1.3 [facility] Protein [Mass/Vol] 8.1 g/dL High 6.0-8.0 [facility] Basic Metabolic Panelon Anion gap [Moles/Vol] 12 mmol/L Normal 3-16 [facility] Comment on above: Performed By: #### B MP #### MD MIGUEL MORALES ([id number]) [facility] ([facility]) [address] [place] [address] Calcium [Mass/Vol] 9.2 mg/dL Normal 8.3-10.6 [facility] Comment on above: Performed By: #### B MP #### MD MIGUEL MORALES ([id number]) [facility] ([facility]) [address] [place] [address] [place] CO2 [Moles/Vol] 23 mmol/L Normal 21-32 [facility] Comment on above: Performed By: #### B MP #### MD MIGUEL MORALES ([id number]) [facility] ([facility]) [address] [place] [address] [place] Creatinine [Mass/Vol] 1.1 mg/dL Normal 0.9-1.3 [facility] Comment on above: Performed By: #### B MP #### MD MIGUEL MORALES ([id number]) [facility] ([facility]) [address] [place] [address] [place] GFR 87 Normal >60 [facility] Comment on above: Result Comment: Valente atric calculator link https://www.kidney.org/professionals/kdoqi/gfr_calculatorped Effective Jun 17, 2022 These results are not intended for use in patients <18 years of age. eGFR results are calculated without a race factor using the 2020 CKD-EPI equation. Careful clinical correlation is recommended, particularly when comparing to results calculated using previous equations. The CKD-EPI equation is less accurate in patients with extremes of muscle mass, extra-renal metabolism of creatinine, excessive creatinine ingestion, or following therapy that affects renal tubular secretion. Performed By: #### B MP #### MD MIGUEL MORALES ([id number]) [facility] ([facility]) [address] [place] [address] [place] Glucose [Mass/Vol] 121 mg/dL High 70-99 [facility] Comment on above: Performed By: #### B MP #### MD MIGUEL MORALES ([id number]) [facility] ([facility]) [address] [place] [id number] [place] Urea nitrogen [Mass/Vol] 15 mg/dL Normal 7-20 [facility] Comment on above: Performed By: #### B MP #### MD MIGUEL MORALES ([id number]) [facility] ([facility]) [address] [place] [id number] [place] Chloride [Moles/Vol] 103 mmol/L Normal 99-110 [facility] Comment on above: Performed By: #### B MP #### MD MIGUEL MORALES ([id number]) [facility] ([facility]) [address] [place] [id number] [place] Potassium [Moles/Vol] 3.9 mmol/L Normal 3.5-5.1 [facility] Comment on above: Performed By: #### B MP #### MD MIGUEL MORALES ([id number]) [facility] ([facility]) [address] [place] [id number] [place] Sodium [Moles/Vol] 138 mmol/L Normal 136-145 [facility] Comment on above: Performed By: #### B MP #### MD MIGUEL MORALES ([id number]) [facility] ([facility]) [address] Basic metabolic 2000 panelon 07-21-2024 Anion gap [Moles/Vol] 12 mmol/L 3 - 16 [facility] Calcium [Mass/Vol] 9.2 mg/dL 8.3 - 10. 6 mg/dL [facility] Chloride [Moles/Vol] 103 mmol/L 99 - 11 0 mmol/L [facility] CO2 [Moles/Vol] 23 mmol/L 21 - 32 mmol/L [facility] Creatinine [Mass/Vol] 1.1 mg/dL 0.9 - 1.3 mg/dL [facility] GFR/1.73 sq M.predicted CKD-EPI (S/P/Bld) [Vol rate/Area] 87 60 - PINF [facility] Comment on above: Pediatric calculator link https://www.kidney.org/professionals/kdoqi/gfr_calculatorped Effective Jun 17, 2022 These results are not intended for use in patients <18 years of age. eGFR results are calculated without a race factor using the 2020 CKD-EPI equation. Careful clinical correlation is recommended, particularly when comparing to results calculated using previous equations. The CKD-EPI equation is less accurate in patients with extremes of muscle mass, extra-renal metabolism of creatinine, excessive creatinine ingestion, or following therapy that affects renal tubular secretion. Glucose [Mass/Vol] 121 mg/dL High 70 - 99 mg/dL [facility] Potassium [Moles/Vol] 3.9 mmol/L 3.5 - 5.1 mmol/L [facility] Sodium [Moles/Vol] 138 mmol/L 136 - 145 mmol/L [facility] Urea nitrogen [Mass/Vol] 15 mg/dL 7 - 20 mg/dL [facility] CBC W Auto Differential pane l (Bld)on 07-21-2024 Basophils (Bld) [#/Vol] 0.1 10*3/uL 0.0 - 0.2 K/uL [facility] Basophils/100 WBC (Bld) 1.2 % B on [facility] Eosinophils (Bld) [#/Vol] 0.1 10*3/uL 0.0 - 0.6 K/uL [facility] Eosinophils/100 WBC (Bld) 1.2 % [facility] Erythrocyte distribution width (RBC) [Entitic vol] 14.8 % 12.4 - 15.4 % [facility] Hematocrit (Bld) [Volume fraction] 44.5 % 40.5 - 52.5 % [facility] Hemoglobin (Bld) [Mass/Vol] 15.3 g/dL 13.5 - 17.5 g/dL [facility] Lymphocytes (Bld) [#/Vol] 2.6 10*3/uL 1.0 - 5.1 K/uL [facility] Lymphocytes/100 WBC (Bld) 29.7 % [facility] MCH (RBC) [Entitic mass] 29.8 pg 26.0 - 34.0 pg [facility] MCHC (RBC) [Mass/Vol] 34.5 g/dL 31.0 - 36.0 g/dL [facility] MCV (RBC) [Entitic vol] 86.4 fL 80.0 - 100.0 fL [facility] Monocytes (Bld) [#/Vol] 0.6 10*3/uL 0.0 - 1.3 K/uL [facility] Monocytes/100 WBC (Bld) 7.2 % B on [facility] Neutrophils (Bld) [#/Vol] 5.2 10*3/uL 1.7 - 7.7 K/uL [facility] Neutrophils/100 WBC (Bld) 60.7 % [facility] Platelet mean volume (Bld) [Entitic vol] 7.3 fL 5.0 - 10.5 fL [facility] Platelets (Bld) [#/Vol] 403 10*3/uL 135 - 450 K/uL [facility] RBC (Bld) [#/Vol] 5.14 10*6/uL [facility] WBC (Bld) [#/Vol] 8.6 10*3/uL 4.0 - 11.0 K/uL [facility] CBC With Platelet and Differ entialon 07-21-2024 Basophils (Bld) [#/Vol] 0.1 10*3/uL Normal 0.0-0.2 [facility] Comment on above: Performed By: #### C BCWD #### MD MIGUEL MORALES ([id number]) [facility] ([facility]) [address] [place] [address] Basophils/100 WBC (Bld) 1.2 % Normal [facility] Comment on above: Performed By: #### C BCWD #### MD MIGUEL MORALES ([id number]) [facility] ([facility]) [address] [place] [address] [place] Eosinophils (Bld) [#/Vol] 0.1 10*3/uL Normal 0.0-0.6 [facility] Comment on above: Performed By: #### C BCWD #### MD MIGUEL MORALES ([id number]) [facility] ([facility]) [address] [place] [address] [place] Eosinophils/100 WBC (Bld) 1.2 % Normal [facility] Comment on above: Performed By: #### C BCWD #### MD MIGUEL MORALES ([id number]) [facility] ([facility]) [address] [place] [address] [place] Erythrocyte distribution width (RBC) [Ratio] 14.8 % Normal 12.4-15.4 [facility] Comment on above: Performed By: #### C BCWD #### MD MIGUEL MORALES ([id number]) [facility] ([facility]) [address] [place] [address] [place] Hematocrit (Bld) [Volume fraction] 44.5 % Normal 40.5-52.5 [facility] Comment on above: Performed By: #### C BCWD #### MD MIGUEL MORALES ([id number]) [facility] ([facility]) [address] [place] [address] Hemoglobin (Bld) [Mass/Vol] 15.3 g/dL Normal 13.5-17.5 [facility] Comment on above: Performed By: #### C BCWD #### MD MIGUEL MORALES ([id number]) [facility] ([facility]) [address] [place] [address] Lymphocytes (Bld) [#/Vol] 2.6 10*3/uL Normal 1.0-5.1 [facility] Comment on above: Performed By: #### C BCWD #### MD MIGUEL MORALES ([id number]) [facility] ([facility]) [address] [place] [address] Lymphocytes/100 WBC (Bld) 29.7 % Normal [facility] Comment on above: Performed By: #### C BCWD #### MD MIGUEL MORALES ([id number]) [facility] ([facility]) [address] [place] [address] MCH (RBC) [Entitic mass] 29.8 pg Normal 26.0-34.0 [facility] Comment on above: Performed By: #### C BCWD #### MD MIGUEL MORALES ([id number]) [facility] ([facility]) [address] [place] [address] MCHC (RBC) [Mass/Vol] 34.5 g/dL Normal 31.0-36.0 [facility] Comment on above: Performed By: #### C BCWD #### MD MIGUEL MORALES ([id number]) [facility] ([facility]) [address] [place] [address] [place] MCV (RBC) [Entitic vol] 86.4 fL Normal 80.0-100.0 [facility] Comment on above: Performed By: #### C BCWD #### MD MIGUEL MORALES ([id number]) [facility] ([facility]) [address] [place] [address] [place] Monocytes (Bld) [#/Vol] 0.6 10*3/uL Normal 0.0-1.3 [facility] Comment on above: Performed By: #### C BCWD #### MD MIGUEL MORALES ([id number]) [facility] ([facility]) [address] [place] [address] [place] Monocytes/100 WBC (Bld) 7.2 % Normal F [facility] Comment on above: Performed By: #### C BCWD #### MD MIGUEL MORALES ([id number]) [facility] ([facility]) [address] [place] [address] [place] Neutrophils (Bld) [#/Vol] 5.2 10*3/uL Normal 1.7-7.7 [facility] Comment on above: Performed By: #### C BCWD #### MD MIGUEL MORALES ([id number]) [facility] ([facility]) [address] [place] [address] [place] Neutrophils/100 WBC (Bld) 60.7 % Normal [facility] Comment on above: Performed By: #### C BCWD #### MD MIGUEL MORALES ([id number]) [facility] ([facility]) [address] [place] [address] [place] Platelet mean volume (Bld) [Entitic vol] 7.3 fL Normal 5.0-10.5 [facility] Comment on above: Performed By: #### C BCWD #### MD MIGUEL MORALES ([id number]) [facility] ([facility]) [address] [place] [address] [place] Platelets (Bld) [#/Vol] 403 10*3/uL Normal 135-450 [facility] Comment on above: Performed By: #### C BCWD #### MD MIGUEL MORALES ([id number]) [facility] ([facility]) [address] [place] [address] [place] RBC (Bld) [#/Vol] 5.14 10*6/uL Normal 4.20-5.90 [facility] Comment on above: Performed By: #### C BCWD #### MD MIGUEL MORALES ([id number]) [facility] ([facility]) [address] [place] [address] [place] WBC (Bld) [#/Vol] 8.6 10*3/uL Normal 4.0-11.0 [facility] Comment on above: Performed By: #### C BCJACOB #### MD MIGUEL MORALES ([id number]) [facility] ([facility]) [address] [place] [address] CT ABDOMEN PELVIS W IV CONTR [place] 07-21-2024 CT ABDOMEN PELVIS W IV CONTRAST EXAMINATION: CT OF THE ABDOMEN AND PELVIS WITH CONTRAST 07/21/2024 5:34 am TECHNIQUE: CT of the abdomen and pelvis was performed with the administration of intravenous contrast. Multiplanar reformatted images are provided for review. Automated exposure control, iterative reconstruction, and/or weight based adjustment of the mA/kV was utilized to reduce the radiation dose to as low as reasonably achievable. COMPARISON: None. HISTORY: ORDERING SYSTEM PROVIDED HISTORY: LLQ pain, diverticulitis TECHNOLOGIST PROVIDED HISTORY: Additional Contrast?->None Reason for exam:->LLQ pain, diverticulitis Decision Support Exception - unselect if not a suspected or confirmed emergency medical condition->Emergency Medical Condition (MA) Reason for Exam: LLQ pain, diverticulitis Relevant Medical/Surgical History: Abdominal Pain (pT came in from home, pt reports abdominal pain that's been getting worse for the past 10 days, pt reports they feel like they have had diverticulitis before and it feels like it, pt reports clear liquid diet and antibioitcs have not been helping the pain) FINDINGS: Lower Chest: No consolidation or pleural effusion at the lung bases. Organs: No primary mass or diffuse nodularity within the liver. The biliary system is not dilated and no mineralized stone in the gallbladder. The spleen is not enlarged. No pancreatic calcification, ductal dilatation, or surrounding fluid. The adrenal glands are unremarkable. Kidneys are enhancing equally without acute cortical defect or hydronephrosis. There is a minimal perinephric edema around both kidneys but appears symmetric and correlate for medical renal disease. The ureters are not dilated and no ureteral calculus. GI/Bowel: The stomach, small bowel, and colon are not dilated. Prominence of the gastric mucosal folds could have low-grade gastritis. Mild to moderate constipation at the ascending colon into the transverse colon. The appendix is identified and no appendicitis. Diverticulosis of the distal colon. There is mild wall thickening of the junction of the descending colon and sigmoid. There is mild fat stranding and edema in the fat just above this portion of the colon. The colonic wall is mildly thickened. There is no abscess or pneumoperitoneum. Pelvis: Urinary bladder wall is not thickened and no gas in the bladder lumen. There is no free fluid in the pelvis. Prostate is not enlarged. Peritoneum/Retroperit oneum: No abdominal aortic aneurysm, retroperitoneal hematoma, or bulky adenopathy. Bones/Soft Tissues: No acute fracture or dislocation at the pelvis and hips. No collapse or subluxation at the lumbar spine but does have early disc disease. IMPRESSION: 1. Diverticulosis at the distal descending colon into the sigmoid. Some mild thickening of the colonic wall. Some stranding and or scarring just superior to this level. Features could indicate a mild diverticulitis or could have colitis with adjacent chronic scarring from previous episode. 2. There is no abscess, perforation, ascites, or pneumoperitoneum. 3. Constipation in the right hemicolon without surrounding inflammation. The appendix is normal. Interpreted by: Tommy Herr MD Signed by: Tommy Herr MD 07/21/24 Final result Normal [facility] Comment on above: Order Comment: Addit ional Contrast?->None Reason for exam:->LLQ pain, diverticulitis Decision Support Exception - unselect if not a suspected or confirmed emergency medical condition->Emergency Medical Condition (MA) Reason for exam?->LLQ pain, diverticulitis Please provide additional, relevant medical history (e.g. type of cancer, diabetes, COPD, type of surgery, type of treatments, etc.) ->Abdominal Pain (pT came in from home, pt reports abdominal pain that's been getting worse for the past 10 days, pt reports they feel like they have had diverticulitis before and it feels like it, pt reports clear liquid diet and antibioitcs have not been helping the pain) CT Abdomen and Pelvis W cont rast Jonh 07-21-2024 1. Diverticulosis at the distal descending colon into the sigmoid. Some mild thickening of the colonic wall. Some stranding and or scarring just superior to this level. Features could indicate a mild diverticulitis or could have colitis with adjacent chronic scarring from previous episode. 2. There is no abscess, perforation, ascites, or pneumoperitoneum. 3. Constipation in the right hemicolon without surrounding inflammation. The appendix is normal. SWOH RIS CONSOLIDATED EXAMINATION: CT OF THE ABDOMEN AND PELVIS WITH CONTRAST 07/21/2024 5:34 am TECHNIQUE: CT of the abdomen and pelvis was performed with the administration of intravenous contrast. Multiplanar reformatted images are provided for review. Automated exposure control, iterative reconstruction, and/or weight based adjustment of the mA/kV was utilized to reduce the radiation dose to as low as reasonably achievable. COMPARISON: None. HISTORY: ORDERING SYSTEM PROVIDED HISTORY: LLQ pain, diverticulitis TECHNOLOGIST PROVIDED HISTORY: Additional Contrast?->None Reason for exam:->LLQ pain, diverticulitis Decision Support Exception - unselect if not a suspected or confirmed emergency medical condition->Emergency Medical Condition (MA) Reason for Exam: LLQ pain, diverticulitis Relevant Medical/Surgical History: Abdominal Pain (pT came in from home, pt reports abdominal pain that's been getting worse for the past 10 days, pt reports they feel like they have had diverticulitis before and it feels like it, pt reports clear liquid diet and antibioitcs have not been helping the pain) FINDINGS: Lower Chest: No consolidation or pleural effusion at the lung bases. Organs: No primary mass or diffuse nodularity within the liver. The biliary system is not dilated and no mineralized stone in the gallbladder. The spleen is not enlarged. No pancreatic calcification, ductal dilatation, or surrounding fluid. The adrenal glands are unremarkable. Kidneys are enhancing equally without acute cortical defect or hydronephrosis. There is a minimal perinephric edema around both kidneys but appears symmetric and correlate for medical renal disease. The ureters are not dilated and no ureteral calculus. GI/Bowel: The stomach, small bowel, and colon are not dilated. Prominence of the gastric mucosal folds could have low-grade gastritis. Mild to moderate constipation at the ascending colon into the transverse colon. The appendix is identified and no appendicitis. Diverticulosis of the distal colon. There is mild wall thickening of the junction of the descending colon and sigmoid. There is mild fat stranding and edema in the fat just above this portion of the colon. The colonic wall is mildly thickened. There is no abscess or pneumoperitoneum. Pelvis: Urinary bladder wall is not thickened and no gas in the bladder lumen. There is no free fluid in the pelvis. Prostate is not enlarged. Peritoneum/Retroperit oneum: No abdominal aortic aneurysm, retroperitoneal hematoma, or bulky adenopathy. Bones/Soft Tissues: No acute fracture or dislocation at the pelvis and hips. No collapse or subluxation at the lumbar spine but does have early disc disease. Tommy Mcqueen MD - 07/21/2024 EXAMINATION: CT OF THE ABDOMEN AND PELVIS WITH CONTRAST 07/21/2024 5:34 am TECHNIQUE: CT of the abdomen and pelvis was performed with the administration of intravenous contrast. Multiplanar reformatted images are provided for review. Automated exposure control, iterative reconstruction, and/or weight based adjustment of the mA/kV was utilized to reduce the radiation dose to as low as reasonably achievable. COMPARISON: None. HISTORY: ORDERING SYSTEM PROVIDED HISTORY: LLQ pain, diverticulitis TECHNOLOGIST PROVIDED HISTORY: Additional Contrast?->None Reason for exam:->LLQ pain, diverticulitis Decision Support Exception - unselect if not a suspected or confirmed emergency medical condition->Emergency Medical Condition (MA) Reason for Exam: LLQ pain, diverticulitis Relevant Medical/Surgical History: Abdominal Pain (pT came in from home, pt reports abdominal pain that's been getting worse for the past 10 days, pt reports they feel like they have had diverticulitis before and it feels like it, pt reports clear liquid diet and antibioitcs have not been helping the pain) FINDINGS: Lower Chest: No consolidation or pleural effusion at the lung bases. Organs: No primary mass or diffuse nodularity within the liver. The biliary system is not dilated and no mineralized stone in the gallbladder. The spleen is not enlarged. No pancreatic calcification, ductal dilatation, or surrounding fluid. The adrenal glands are unremarkable. Kidneys are enhancing equally without acute cortical defect or hydronephrosis. There is a minimal perinephric edema around both kidneys but appears symmetric and correlate for medical renal disease. The ureters are not dilated and no ureteral calculus. GI/Bowel: The stomach, small bowel, and colon are not dilated. Prominence of the gastric mucosal folds could have low-grade gastritis. Mild to moderate constipation at the ascending colon into the transverse colon. The appendix is identified and no appendicitis. Diverticulosis of the distal colon. There is mild wall thickening of the junction of the descending colon and sigmoid. There is mild fat stranding and edema in the fat just above this portion of the colon. The colonic wall is mildly thickened. There is no abscess or pneumoperitoneum. Pelvis: Urinary bladder wall is not thickened and no gas in the bladder lumen. There is no free fluid in the pelvis. Prostate is not enlarged. Peritoneum/Retroperit oneum: No abdominal aortic aneurysm, retroperitoneal hematoma, or bulky adenopathy. Bones/Soft Tissues: No acute fracture or dislocation at the pelvis and hips. No collapse or subluxation at the lumbar spine but does have early disc disease. IMPRESSION: 1. Diverticulosis at the distal descending colon into the sigmoid. Some mild thickening of the colonic wall. Some stranding and or scarring just superior to this level. Features could indicate a mild diverticulitis or could have colitis with adjacent chronic scarring from previous episode. 2. There is no abscess, perforation, ascites, or pneumoperitoneum. 3. Constipation in the right hemicolon without surrounding inflammation. The appendix is normal. [facility] Radiology Study observation (narrative) [facility] CT Abdomen and Pelvis W cont rast IVOrdered By: Tommy Herr on 07-21-2024 [facility] Work Phone: Hepatic function 2000 panelo n 07-21-2024 Albumin [Mass/Vol] 4.1 g/dL 3.4 - 5.0 g/dL [facility] ALP [Catalytic activity/Vol] 76 U/L 40 - 129 U/L [facility] ALT [Catalytic activity/Vol] 37 U/L 10 - 40 U/L [facility] AST [Catalytic activity/Vol] 28 U/L 15 - 37 U/L [facility] Bilirubin [Mass/Vol] 0.3 mg/dL 0.0 - 1 .0 mg/dL [facility] Bilirubin.direct [Mass/Vol] 0.2 mg/dL 0.0 - 0.3 mg/dL [facility] Bilirubin.indirect [Mass/Vol] 0.1 mg/dL 0.0 - 1.0 mg/dL [facility] Protein [Mass/Vol] 8.3 g/dL High 6.4 - 8.2 g/dL [facility] Lipaseon 07-21-2024 Lipase [Catalytic activity/Vol] 18.0 U/L 13.0 - 60.0 U/L [facility] Lipase [Catalytic activity/Vol] 18.0 U/L Normal 13.0-60.0 [facility] Comment on above: Performed By: #### L IPAS #### MD MIGUEL MORALES ([id number]) [facility] ([facility]) [address] [place] [address] Liver Panelon 07-21-2024 Protein [Mass/Vol] 8.3 g/dL High 6.4-8.2 [facility] Comment on above: Performed By: #### L IVER #### MD MIGUEL MORALES ([id number]) [facility] ([facility]) [address] [place] [address] Albumin [Mass/Vol] 4.1 g/dL Normal 3.4-5.0 [facility] Comment on above: Performed By: #### L IVER #### MD MIGUEL MORALES ([id number]) [facility] ([facility]) [address] [place] [address] ALP [Catalytic activity/Vol] 76 U/L Normal 40-129 [facility] Comment on above: Performed By: #### L IVER #### MD MIGUEL MORALES ([id number]) [facility] ([facility]) [address] [place] [address] [place] ALT [Catalytic activity/Vol] 37 U/L Normal 10-40 [facility] Comment on above: Performed By: #### L IVER #### MD MIGUEL MORALES ([id number]) [facility] ([facility]) [address] [place] [address] [place] AST [Catalytic activity/Vol] 28 U/L Normal 15-37 [facility] Comment on above: Performed By: #### L IVER #### MD MIGUEL MORALES ([id number]) [facility] ([facility]) [address] [place] [address] [place] Bilirubin [Mass/Vol] 0.3 mg/dL Normal 0.0-1.0 [facility] Comment on above: Performed By: #### L IVER #### MD MIGUEL MORALES ([id number]) [facility] ([facility]) [address] [place] [address] [place] Bilirubin Indirect 0.1 mg/dL Normal 0.0-1.0 [facility] Comment on above: Performed By: #### L IVER #### MD MIGUEL MORALES ([id number]) [facility] ([facility]) [address] Bilirubin.indirect [Mass/Vol] 0.2 mg/dL Normal 0.0-0.3 [facility] Comment on above: Performed By: #### L IVER #### MD MIGUEL MORALES ([id number]) [facility] ([facility]) [address] No Panel Informationon 07-21 Interpretation and review of laboratory results Abnormal [facility] Urinalysis complete W Reflex Culture panel (U)on 07-21-2024 Bilirubin Ql (U) Negative Negative [facility] Clarity (U) Clear Clear [facility] Color (U) Yellow Straw/Yellow [facility] Glucose Auto test strip (U) [Mass/Vol] Negative Negative mg/dL [facility] Hemoglobin Auto test strip Ql (U) Negative Negative [facility] Ketones (U) [Mass/Vol] Negative Negat suzette mg/dL [facility] Leukocyte esterase Auto test strip Ql (U) Negative Negative [facility] Nitrite Auto test strip Ql (U) Negative Negative [facility] pH (U) 6.0 [pH] 5.0 - 8.0 [facility] Protein (U) [Mass/Vol] Negative Negat suzette mg/dL [facility] Specific gravity (U) [Rel density] 1.005 - 1.030 [facility] Urinalysis dipstick W Reflex Microscopic panel (U) Not Indicated [facility] Urinalysis specimen collection method Nom (U) see below [facility] Comment on above: Urine received in a container without preservatives. NotGiven Urobilinogen Qn (U) 0.2 NINF [facility] Personal [facility] Urinalysis with Reflex to Cu ltureon 07-21-2024 Urinalysis complete W Reflex Culture panel (U) Not Indicated [facility] Urinalysis, reflex to cultur aaliyah 07-21-2024 Bilirubin Ql (U) Negative Normal Negative [facility] Comment on above: Performed By: #### U AR #### MD MIGUEL MORALES ([id number]) [facility]) [address] [place] [address] Clarity (U) Clear Normal Clear [facility] Comment on above: Performed By: #### U AR #### MD MIGEUL MORALES ([id number]) [facility] ([facility]) [address] [place] [address] Color (U) Yellow Normal Straw/Yellow [facility] Comment on above: Performed By: #### U AR #### MD MIGUEL MORALES ([id number]) [facility] ([facility]) [address] [place] [address] Glucose Ql (U) Negative Normal [facility] Comment on above: Performed By: #### U AR #### MD MIGUEL MORALES ([id number]) [facility] ([facility]) [address] [place] [address] Hemoglobin Ql (U) Negative Normal Negative [facility] Comment on above: Performed By: #### U AR #### MD MIGUEL MORALSE ([id number]) [facility] ([facility]) [address] [place] [address] Ketones Ql (U) Negative Normal [facility] Comment on above: Performed By: #### U AR #### MD MIGUEL MORALES ([id number]) [facility] ([facility]) [address] [place] [address] Leukocyte esterase Test strip Ql (U) Negative Normal [facility] Comment on above: Performed By: #### U AR #### MD MIGUEL MORALES ([id number]) [facility] ([facility]) [address] [place] [address] Nitrite Ql (U) Negative Normal Negative [facility] Comment on above: Performed By: #### U AR #### MD MIGUEL MORALES ([id number]) [facility] ([facility]) [address] [place] [address] pH (U) 6.0 [pH] Normal 5.0 - 8.0 [facility] Comment on above: Performed By: #### U AR #### MD MIGUEL MORALES ([id number]) [facility] ([facility]) [address] [place] [address] Protein Ql (U) Negative Normal Negative [facility] Comment on above: Performed By: #### U AR #### MD MIGUEL MORALES ([id number]) [facility] ([facility]) [address] [place] [address] Specific gravity (U) [Rel density] <=1.005 Normal 1.005 - 1.030 [facility] Comment on above: Performed By: #### U AR #### MD MIGUEL MORALES ([id number]) [facility]) [address] [place] [address] Urobilinogen Qn (U) 0.2 {Sandrita'U}/dL Normal <2.0 [facility] Comment on above: Performed By: #### U AR #### MD MIGUEL MORALES ([id number]) [facility]) [address] [place] [address] Microscopic Exam Performed Not Indicated [facility] Comment on above: Performed By: #### U AR #### MD MIGUEL MORALES ([id number]) [facility]) [address] [place] [address] Urine Reflexed to Culture Not Indicated [facility] Comment on above: Performed By: #### U AR #### MD MIGUEL MORALES ([id number]) [facility] [address] [place] [address] Urine Type see below [facility] Comment on above: Result Comment: Urin e received in a container without preservatives. NotGiven Performed By: #### U AR #### MD MIGUEL MORALES ([id number]) [facility] ([facility]) [address] [place] [address] Prerna 07-16-2024 JERRODN Telephone (FAMPWS) AMEE GUAMAN ([id number]) 1985 M Date Time Provider Department 07/16/24 ELLIOT SONI During your visit today, we recorded the following information about you: Rachael Hand RN 07/16/2024 12:44 PM Signed Patient reports he had diverticulitis from December to February. Was prescribed Augmentin, 2 weeks later diverticulitis returned, ended up in hospital b/c it perforated. States he is 99.9% positive he is having diverticulitis flare now. Reports it started on Friday, LLQ pressure (not really pain), constipation that's relieved by passing gas, urinary urgency at times. Has been on a liquid diet since Friday. States he is trying to avoid a hospital. Asking if pcp would prescribe something for this so he can catch before needing a hospital? Please phone patient with reply: [phone] Elliot Soni MD 07/16/2024 1:31 PM Signed Needs evaluation at an OV or in EC for abdominal pain in next 24 hours. Please assist with scheduling. If he develops severe pain, fever, nausea, vomiting, constipation, blood in stool, unable to pass gas he should be seen in the ER immediately. Rachael Hand RN 07/16/2024 1:46 PM Signed Phoned patient and given provider's message below. Patient agreeable. Allergies As of Date: 07/16/2024 (No Known Allergies) Date Reviewed: 03/08/2024 Reviewed by: Dang Kaplan LPN - Fully Assessed Reason for Visit: Patient concern [Other] Meds Comments as of 01/08/2024: 01/08/2024 Took Tylenol today. Diana Braga RN Problem List As Of Date 07/16/2024 Noted Resolved Obesity, Class II, BMI 35-39.9 [E66.812] 02/14/2023 Encounter Status:Closed by Rachael HAND on 07/16/24 [facility] [place] [facility] H AND P HISTORY & PHYSICAL EXAMINATION Patient Name: Amee Guaman MR #: [id number] : 1985 Physicians: Elliot Soni MD (Family); No ref. provider found (Referring) Chief Complaint/Reason for Visit: Follow-up after recent hospitalization for diverticulitis History of Present Illness: Amee Guaman is a 39 y.o. y/o male past medical history of recent hospitalization for perforated diverticulitis. Treated nonoperatively with IV antibiotics. Transition to oral antibiotics and follows up today in the office for discussion of follow-up colonoscopy. Denies any blood in the stool. Family history negative of colon cancer. Does describe family history of polyps. History: I have reviewed the PMHx, PSHx, SHx, FHx in EMR with the patient during this encounter face to face and patient agrees with the documentation Past Medical History: Diagnosis Date Diverticulitis Diverticulosis with perforation 02/17/2024 Keloid scar Kidney stones Past Surgical History: Procedure Laterality Date EXTRACORPOREAL SHOCK WAVE LITHOTRIPSY due to kidney stones WISDOM TOOTH EXTRACTION History reviewed. No pertinent family history. Social History Socioeconomic History Marital status: Tobacco Use Smoking status: Smoker, Current Status Unknown Types: Cigars Smokeless tobacco: Never Tobacco comments: Trying to quit Vaping Use Vaping status: Never Used Substance and Sexual Activity Alcohol use: Not Currently Comment: occasionally Drug use: Never Social Determinants of Health Financial Resource Strain: Low Risk (03/07/2024) Received from [facility] Overall Financial Resource Strain (CARDIA) Difficulty of Paying Living Expenses: Not hard at all Food Insecurity: No Food Insecurity (03/07/2024) Received from [facility] Hunger Vital Sign Worried About Running Out of Food in the Last Year: Never true Ran Out of Food in the Last Year: Never true Transportation Needs: No Transportation Needs (03/07/2024) Received from [facility] PRAPARE - Transportation Lack of Transportation (Medical): No Lack of Transportation (Non-Medical): No Physical Activity: Patient Declined (03/07/2024) Received from [facility] Exercise Vital Sign Days of Exercise per Week: Patient declined Minutes of Exercise per Session: Patient declined Stress: Stress Concern Present (03/07/2024) Received from [facility] [place] of Occupational Health - Occupational Stress Questionnaire Feeling of Stress : Very much Social Connections: Socially Integrated (03/07/2024) Received from [facility] Social Connection and Isolation Panel [NHANES] Frequency of Communication with Friends and Family: More than three times a week Frequency of Social Gatherings with Friends and Family: More than three times a week Attends Sabianism Services: More than 4 times per year Active Member of Clubs or Organizations: Yes Attends Club or Organization Meetings: 1 to 4 times per year Marital Status: Housing Stability: Low Risk (02/17/2024) Housing Stability Vital Sign Unable to Pay for Housing in the Last Year: No Number of Places Lived in the Last Year: 1 Unstable Housing in the Last Year: No Allergy Information: Patient has no known allergies. Home Medications: Outpatient Medications as of 04/07/2024 Medication Sig [] cephALEXin (KEFLEX) 500 MG capsule Take 1 (one) capsule (500 mg total) by mouth 3 (three) times a day for 7 days . [] metroNIDAZOLE (FLAGYL) 500 MG tablet Take 1 (one) tablet (500 mg total) by mouth 2 (two) times a day with meals for 7 days . Review of Systems: Review of Systems Physical Examination: Vital Signs: BP 126/88 Pulse (!) 103 Temp 98 degrees F (36.7 degrees C) (Infrared) Resp 18 Ht 6' 1 Wt 122 kg (268 lb 14.4 oz) SpO2 98% BMI 35.48 kg/m Physical Exam Physical Exam Constitutional: Appearance: Normal appearance. HENT: Head: Normocephalic. Mouth/Throat: Mouth: Mucous membranes are moist. Eyes: Pupils: Pupils are equal, round, and reactive to light. Cardiovascular: Rate and Rhythm: Normal rate. Pulses: Normal pulses. Pulmonary: Effort: Pulmonary effort is normal. Abdominal: General: There is no distension. Palpations: Abdomen is soft. Tenderness: There is no abdominal tenderness. Musculoskeletal: General: Normal range of motion. Skin: General: Skin is warm. Neurological: General: No focal deficit present. Mental Status: He is alert. Psychiatric: Mood and Affect: Mood normal. Thought Content: Thought content normal. Judgment: Judgment normal. Laboratory and Additional Data Reviewed: Laboratory 04/07/24 7:28 AM Laboratory Lab Results Component Value Date WBC 8.87 03/23/2024 RBC 5.03 03/23/2024 HGB 14.8 03/23/2024 HCT 45.7 03/23/2024 PLT 296 03/23/2024 No results found for: AMYLASE No results found for (more content not included)... Normal [facility] TISSUE EXAMon 04-07-2024 TISSUE EXAM Surgical Pathology Report Case: [id number] Authorizing Provider: Laura Wiley MD Collected: 04/07/2024 07:48 AM Ordering Location: [facility] Surgery Received: 04/07/2024 09:42 AM Center Periop Pathologist: Luly Cintron MD Specimen: Colon, Sigmoid Colon A. Colon, Sigmoid, polyp(s), polypectomy: Traditional serrated adenoma. Separate fragments of colonic mucosa with prolapse type change and reactive appearing lymphoid aggregates. History of colonic diverticulitis [Z87.19 A. Received in formalin, designated Colon, Sigmoid Polypectomy, are 2 jones-white fragment(s) of tissue measuring 0.6 x 0.5 x 0.2 cm in aggregate. Totally submitted in 1 cassette(s). KD Gross examination performed at: [facility] - [address] [place] [address] Microscopic examination is performed. Normal [facility] Comment on above: Performed By: #### [id number] #### [place] [id number] Lie Solis M.D. [id number] ED Prov Noteon 03-23-2024 ED Prov Note HPI: 03/23/2024, Time: @NOWJEN@ Amee Chester Deniz is a 39 y.o. male presenting to the ED for gradual onset of left lower quadrant pain, beginning since last evening ago. The complaint has been intermittent, moderate in severity, and worsened by nothing. Patient has had a recurrence of diverticulitis x 3 with perforation on the second episode and was hospitalized for 5 days, has been doing okay now for about 7 days prior to the onset of recurrence of pain. No fever or chills or fatigue or nausea or vomiting ROS: Pertinent positives and negatives are stated within HPI, all other systems reviewed and are negative. --- PAST HISTORY --- Past Medical History: @[facility]@ Past Surgical History: has a past surgical history that includes E[place]l and [place] tooth extraction. Social History: reports that he has been smoking cigars. He has never used smokeless tobacco. He reports that he does not currently use alcohol. He reports that he does not use drugs. Family History: family history is not on file. The patient's home medications have been reviewed. Allergies: Patient has no known allergies. -------- RESULTS ------- All laboratory and radiology results have been personally reviewed by myself LABS: Results for orders placed or performed during the hospital encounter of 03/23/24 POC CBC and Differential Result Value Ref Range WBC 8.87 4.50 - 11.00 K/mcL RBC 5.03 4.50 - 5.90 M/mcL Hemoglobin 14.8 13.5 - 17.5 g/dL Hematocrit 45.7 41.0 - 53.0 % MCV 90.9 80.0 - 100.0 fL MCH 29.4 26.0 - 34.0 pg MCHC 32.4 31.0 - 37.0 g/dL RDW - CV 13.5 11.6 - 14.8 % Platelets 296 150 - 400 K/mcL MPV 8.7 (L) 9.4 - 12.4 fL Neutrophils 59.5 % Lymphocytes 32.8 % Monocytes 5.3 % Eosinophils 1.6 % Basophils 0.6 % IG Percent 0.20 % Neutrophils Abs 5.28 1.70 - 7.00 K/mcL Lymphocytes Abs 2.91 0.90 - 4.00 K/mcL Monocytes Abs 0.47 0.30 - 0.90 K/mcL Eosinophils Abs 0.14 0.00 - 0.50 K/mcL Basophils Abs 0.05 0.00 - 0.30 K/mcL IG Absolute 0.02 0.00 - 0.30 K/mcL POC Basic Metabolic Panel Result Value Ref Range Glucose 113 (H) 65 - 99 mg/dL BUN 11 8 - 25 mg/dL Creatinine 1.05 0.50 - 1.30 mg/dL GFR 92 >=60 mL/min/1.73 m2 Sodium 139 135 - 145 mmol/L Potassium 3.6 3.5 - 5.1 mmol/L Chloride 105 98 - 108 mmol/L TCO2 23 21 - 32 mmol/L Ionized Calcium 4.5 4.5 - 5.3 mg/dL POC Liver Panel Plus Result Value Ref Range Albumin 4.1 3.2 - 5.2 g/dL Alkaline Phosphatase 69 40 - 140 U/L ALT (SGPT) 32 0 - 40 U/L AST (SGOT) 32 0 - 45 U/L Bilirubin, Total 1.0 0.0 - 1.3 mg/dL Total Protein 7.8 6.0 - 8.0 g/dL Amylase 27 25 - 115 U/L GGT 16 11 - 51 U/L RADIOLOGY: Interpreted by Radiologist. No orders to display ---- NURSING NOTES AND VITALS REVIEWED ------ The nursing notes within the ED encounter and vital signs as below have been reviewed. BP (!) 128/90 (BP Location: Left arm, Patient Position: Sitting) Pulse (!) 116 Temp 97.9 degrees F (36.6 degrees C) (Oral) Resp 16 Ht 6' 1 Wt 77.1 kg (170 lb) SpO2 96% BMI 22.43 kg/m Oxygen Saturation Interpretation: Normal ---------PHYSICAL EXAM Constitutional/Genera l: Alert and oriented x3, well appearing, non toxic in NAD Head: NC/AT Eyes: PERRL, EOMI Mouth: Oropharynx clear, handling secretions, no trismus Neck: Supple, full ROM, no meningeal signs Pulmonary: Lungs clear to auscultation bilaterally, no wheezes, rales, or rhonchi. Not in respiratory distress Cardiovascular: Regular rate and rhythm, no murmurs, gallops, or rubs. 2+ distal pulses Abdomen: Soft, mild left lower quadrant tenderness to palpation but no guarding or rebound, non distended, Extremities: Moves all extremities x 4. Warm and well perfused Skin: warm and dry without rash Neurologic: GCS 15, Psych: Normal Affect --------- ED COURSE/MEDICAL DECISION MAKING ------- Medications sodium chloride 0.9% (NS) bolus 1,000 mL (has no administration in time range) ketorolac (TORADOL) injection 15 mg (has no administration in time range) cefTRIAXone (ROCEPHIN) 2000 mg in sodium chloride (NS) 0.9% 50 mL (vialmate) (FSED) (has no administration in time range) metroNIDAZOLE (FLAGYL) tablet 500 mg (has no administration in time range) Medical Decision Making: Will treat empirically for diverticulitis now given 14 days of antibiotic and patient has colonoscopy on the 24 of this month, pain is not significant at this time therefore perforation less likely Counseling: The emergency provider has spoken with the patient and discussed today's results, in addition to providing specific details for the plan of care and counseling regardi (more content not included)... Normal [facility] POC BASIC METABOLIC PANEL - Dolly 03-23-2024 Chloride [Moles/Vol] 105 mmol/L Normal 98-108 [facility] Comment on above: Order Comment: [facility] Services has implemented the eGFR calculation approach that does not have a coefficient for race that conforms to the NKF-ASN Task Force Recommendations. CO2 [Moles/Vol] 23 mmol/L Normal 21-32 [facility] Comment on above: Order Comment: [facility] Laboratory Services has implemented the eGFR calculation approach that does not have a coefficient for race that conforms to the NKF-ASN Task Force Recommendations. Creatinine [Mass/Vol] 1.05 mg/dL Normal 0.50-1.30 [facility] Comment on above: Order Comment: [facility] Laboratory [facility] has implemented the eGFR calculation approach that does not have a coefficient for race that conforms to the NKF-ASN Task Force Recommendations. Glucose [Mass/Vol] 113 mg/dL High 65-99 [facility] Comment on above: Order Comment: [facility] Laboratory [facility] has implemented the eGFR calculation approach that does not have a coefficient for race that conforms to the NKF-ASN Task Force Recommendations. POC GFR 92 mL/min/1.73 m2 Normal >=60 [facility] Comment on above: Order Comment: [facility] Laboratory [facility] has implemented the eGFR calculation approach that does not have a coefficient for race that conforms to the NKF-ASN Task Force Recommendations. Result Comment: Cornelia mated GFR was calculated using the 2020 CKD-EPI creatinine equation. POC IONIZED CALCIUM 4.5 mg/dL Normal 4.5-5.3 [facility] Comment on above: Order Comment: [facility] Laboratory [facility] has implemented the eGFR calculation approach that does not have a coefficient for race that conforms to the NKF-ASN Task Force Recommendations. Potassium [Moles/Vol] 3.6 mmol/L Normal 3.5-5.1 [facility] Comment on above: Order Comment: [facility] Laboratory [facility] has implemented the eGFR calculation approach that does not have a coefficient for race that conforms to the NKF-ASN Task Force Recommendations. Sodium [Moles/Vol] 139 mmol/L Normal 135-145 [facility] Comment on above: Order Comment: [facility] Laboratory [facility] has implemented the eGFR calculation approach that does not have a coefficient for race that conforms to the NKF-ASN Task Force Recommendations. Urea nitrogen [Mass/Vol] 11 mg/dL Normal 8-25 [facility] Comment on above: Order Comment: [facility] Laboratory [facility] has implemented the eGFR calculation approach that does not have a coefficient for race that conforms to the NKF-ASN Task Force Recommendations. POC CBC AND DIFFERENTIALon 0 03-23-2024 BASOPHILS ABSOLUTE COUNT 0.05 K/mcL Normal 0.00-0.30 [facility] Basophils/100 WBC (Bld) 0.6 % Normal [facility] Eosinophils (Bld) [#/Vol] 0.14 10*3/uL Normal 0.00-0.50 [facility] Eosinophils/100 WBC (Bld) 1.6 % Normal [facility] Erythrocyte distribution width (RBC) [Ratio] 13.5 % Normal 11.6-14.8 [facility] Hematocrit (Bld) [Volume fraction] 45.7 % Normal 41.0-53.0 [facility] Hemoglobin (Bld) [Mass/Vol] 14.8 g/dL Normal 13.5-17.5 [facility] IG ABSOLUTE 0.02 K/mcL Normal 0.00-0.30 [facility] IG PERCENT 0.20 % Normal [facility] Comment on above: Result Comment: The IG parameter is the percentage of metamyelocytes, myelocytes and promyelocytes. An immature granulocyte count (IG) of 1% or more suggests the possibility of infection, an IG count of 3% is very likely related to an infection. Lymphocytes (Bld) [#/Vol] 2.91 10*3/uL Normal 0.90-4.00 [facility] Lymphocytes/100 WBC (Bld) 32.8 % Normal [facility] MCH (RBC) [Entitic mass] 29.4 pg Normal 26.0-34.0 [facility] MCV (RBC) [Entitic vol] 90.9 fL Normal 80.0-100.0 [facility] MEAN CORPUSCULAR HEMOGLOBIN CONC 32.4 g/dL Normal 31.0-37.0 [facility] Monocytes (Bld) [#/Vol] 0.47 10*3/uL Normal 0.30-0.90 [facility] Monocytes/100 WBC (Bld) 5.3 % Normal [facility] NEUTROPHILS ABSOLUTE COUNT 5.28 K/mcL Normal 1.70-7.00 [facility] Neutrophils/100 WBC (Bld) 59.5 % Normal [facility] Platelet mean volume (Bld) [Entitic vol] 8.7 fL Low 9.4-12.4 [facility] Platelets (Bld) [#/Vol] 296 10*3/uL Normal 150-400 [facility] RBC (Bld) [#/Vol] 5.03 10*6/uL Normal 4.50-5.90 [facility] WBC (Bld) [#/Vol] 8.87 10*3/uL Normal 4.50-11.00 [facility] POC LIVER PANEL PLUS Dolly 03-23-2024 Albumin [Mass/Vol] 4.1 g/dL Normal 3.2-5.2 [facility] ALP [Catalytic activity/Vol] 69 U/L Normal 40-140 [facility] ALT [Catalytic activity/Vol] 32 U/L Normal 0-40 [facility] Amylase [Catalytic activity/Vol] 27 U/L Normal 25-115 [facility] Amylase [Catalytic activity/Vol] 16 U/L Normal 11-51 [facility] AST [Catalytic activity/Vol] 32 U/L Normal 0-45 [facility] Bilirubin [Mass/Vol] 1.0 mg/dL Normal 0.0-1.3 [facility] Protein [Mass/Vol] 7.8 g/dL Normal 6.0-8.0 [facility] CBC W Auto Differential pane l (Bld)on 03-08-2024 Basophils (Bld) [#/Vol] 0.09 10*3/uL [facility] Basophils/100 WBC (Bld) 1.3 % [facility] Differential cell count method Nom (Bld) Auto [facility] Eosinophils (Bld) [#/Vol] 0.11 10*3/uL [facility] Eosinophils/100 WBC (Bld) 1.6 % [facility] Erythrocyte distribution width (RBC) [Ratio] 13.2 % 11.5 - 15.0 % [facility] Hematocrit (Bld) [Volume fraction] 44.6 % 39.0 - 51.0 % [facility] Hemoglobin (Bld) [Mass/Vol] 14.4 g/dL 13.0 - 17.0 g/dL [facility] Immature granulocytes (Bld) [#/Vol] 0.03 10*3/uL [facility] Immature granulocytes/100 WBC (Bld) 0.4 % [facility] Interpretation and review of laboratory results Abnormal [facility] Lymphocytes (Bld) [#/Vol] 1.91 10*3/uL [facility] Lymphocytes/100 WBC (Bld) 28.0 % [facility] MCH (RBC) [Entitic mass] 29.1 pg 26.0 - 34.0 pg [facility] MCHC (RBC) [Mass/Vol] 32.3 g/dL 30.5 - 36.0 g/dL [facility] MCV (RBC) [Entitic vol] 90.3 fL 80.0 - 100.0 fL [facility] Monocytes (Bld) [#/Vol] 0.47 10*3/uL [facility] Monocytes/100 WBC (Bld) 6.9 % [facility] Neutrophils (Bld) [#/Vol] 4.21 10*3/uL [facility] Neutrophils/100 WBC (Bld) 61.8 % [facility] Nucleated RBC (Bld) [#/Vol] NINF [facility] Nucleated RBC/100 WBC (Bld) [Ratio] 0.0 % /100 WBC [facility] Platelet mean volume (Bld) [Entitic vol] 9.0 fL 9.0 - 12.7 fL [facility] Platelets (Bld) [#/Vol] 514 10*3/uL High [facility] RBC (Bld) [#/Vol] 4.94 10*6/uL 4.20 - 6.0 0 m/uL [facility] WBC (Bld) [#/Vol] 6.82 10*3/uL [facility] Basophils (Bld) [#/Vol] 0.09 10*3/uL Normal <0.11 [facility] Comment on above: Order Comment: Speci men Type: BLOOD SPECIMEN Ordering Facility: [facility] Address: [address] [place] [address] Performed By: #### 5 7021-8 #### [facility] CLIA [id number] [address] [place] [address] [place] Basophils/100 WBC (Bld) 1.3 % Normal [facility] Comment on above: Order Comment: Speci men Type: BLOOD SPECIMEN Ordering Facility: [facility] Address: [address] [place] [address] Performed By: #### 5 7021-8 #### [facility] CLIA [id number] [address] [place] [id number] [place] Differential cell count method Nom (Bld) Auto Normal [facility] Comment on above: Order Comment: Speci men Type: BLOOD SPECIMEN Ordering Facility: [facility] Address: [address] [place] [address] Performed By: #### 5 7021-8 #### [facility] CLIA [id number] [address] [place] [address] [place] Eosinophils (Bld) [#/Vol] 0.11 10*3/uL Normal <0.46 [facility] Comment on above: Order Comment: Speci men Type: BLOOD SPECIMEN Ordering Facility: [facility] Address: [address] [place] [address] Performed By: #### 5 7021-8 #### [facility] CLIA [id number] [address] [place] [address] [place] Eosinophils/100 WBC (Bld) 1.6 % Normal [facility] Comment on above: Order Comment: Speci men Type: BLOOD SPECIMEN Ordering Facility: [facility] Address: [address] [place] [address] Performed By: #### 5 7021-8 #### [facility] CLIA [id number] [address] [place] [address] [place] Erythrocyte distribution width (RBC) [Ratio] 13.2 % Normal 11.5-15.0 [facility] Comment on above: Order Comment: Speci men Type: BLOOD SPECIMEN Ordering Facility: [facility] Address: [address] [place] [address] Performed By: #### 5 7021-8 #### [facility] CLIA [id number] [address] [place] [address] [place] Hematocrit (Bld) [Volume fraction] 44.6 % Normal 39.0-51.0 [facility] Comment on above: Order Comment: Speci men Type: BLOOD SPECIMEN Ordering Facility: [facility] Address: [address] [place] [address] Performed By: #### 5 7021-8 #### [facility] CLIA [id number] [address] [place] [address] [place] Hemoglobin (Bld) [Mass/Vol] 14.4 g/dL Normal 13.0-17.0 [facility] Comment on above: Order Comment: Speci men Type: BLOOD SPECIMEN Ordering Facility: [facility] Address: [address] [place] [address] Performed By: #### 5 7021-8 #### [facility] CLIA [id number] [address] [place] [address] [place] Immature granulocytes (Bld) [#/Vol] 0.03 10*3/uL Normal <0.10 [facility] Comment on above: Order Comment: Speci men Type: BLOOD SPECIMEN Ordering Facility: [facility] Address: [address] [place] [address] Performed By: #### 5 7021-8 #### [facility] CLIA [id number] [address] [place] [address] [place] Immature granulocytes/100 WBC (Bld) 0.4 % Normal [facility] Comment on above: Order Comment: Speci men Type: BLOOD SPECIMEN Ordering Facility: [facility] Address: [address] [place] [address] Performed By: #### 5 7021-8 #### [facility] CLIA [id number] [address] [place] [address] [place] Lymphocytes (Bld) [#/Vol] 1.91 10*3/uL Normal 1.00-4.00 [facility] Comment on above: Order Comment: Speci men Type: BLOOD SPECIMEN Ordering Facility: [facility] Address: [address] [place] [address] Performed By: #### 5 7021-8 #### [facility] CLIA [id number] [address] [place] [address] [place] Lymphocytes/100 WBC (Bld) 28.0 % Normal [facility] Comment on above: Order Comment: Speci men Type: BLOOD SPECIMEN Ordering Facility: [facility] Address: [address] [place] [address] Performed By: #### 5 7021-8 #### [facility] CLIA [id number] [address] [place] [address] [place] MCH (RBC) [Entitic mass] 29.1 pg Normal 26.0-34.0 [facility] Comment on above: Order Comment: Speci men Type: BLOOD SPECIMEN Ordering Facility: [facility] Address: [address] [place] [address] Performed By: #### 5 7021-8 #### [facility] CLIA [id number] [address] [place] [address] [place] MCHC (RBC) [Mass/Vol] 32.3 g/dL Normal 30.5-36.0 [facility] Comment on above: Order Comment: Speci men Type: BLOOD SPECIMEN Ordering Facility: [facility] Address: [address] [place] [address] Performed By: #### 5 7021-8 #### [facility] CLIA [id number] [address] [place] [address] [place] MCV (RBC) [Entitic vol] 90.3 fL Normal 80.0-100.0 [facility] Comment on above: Order Comment: Speci men Type: BLOOD SPECIMEN Ordering Facility: [facility] Address: [address] [place] [address] Performed By: #### 5 7021-8 #### [facility] CLIA [id number] [address] [place] [address] [place] Monocytes (Bld) [#/Vol] 0.47 10*3/uL Normal <0.87 [facility] Comment on above: Order Comment: Speci men Type: BLOOD SPECIMEN Ordering Facility: [facility] Address: [address] [place] [address] Performed By: #### 5 7021-8 #### [facility] CLIA [id number] [address] [place] [address] [place] Monocytes/100 WBC (Bld) 6.9 % Normal [facility] Comment on above: Order Comment: Speci men Type: BLOOD SPECIMEN Ordering Facility: [facility] Address: [address] [place] [address] Performed By: #### 5 7021-8 #### [facility] CLIA [id number] [address] [place] [address] [place] Neutrophils (Bld) [#/Vol] 4.21 10*3/uL Normal 1.45-7.50 [facility] Comment on above: Order Comment: Speci men Type: BLOOD SPECIMEN Ordering Facility: [facility] Address: [address] [place] [address] Performed By: #### 5 7021-8 #### [facility] CLIA [id number] [address] [place] [address] [place] Neutrophils/100 WBC (Bld) 61.8 % Normal [facility] Comment on above: Order Comment: Speci men Type: BLOOD SPECIMEN Ordering Facility: [facility] Address: [address] [place] [address] Performed By: #### 5 7021-8 #### [facility] CLIA [id number] [address] [place] [address] [place] Nucleated RBC (Bld) [#/Vol] 10*3/uL Normal <0.01 [facility] Comment on above: Order Comment: Speci men Type: BLOOD SPECIMEN Ordering Facility: [facility] Address: [address] [place] [address] Performed By: #### 5 7021-8 #### [facility] CLIA [id number] [address] [place] [address] [place] Nucleated RBC/100 WBC (Bld) [Ratio] 0.0 /100 WBC Normal [facility] Comment on above: Order Comment: Speci men Type: BLOOD SPECIMEN Ordering Facility: [facility] Address: [address] [place] [address] Performed By: #### 5 7021-8 #### [facility] CLIA [id number] [address] [place] [address] [place] Platelet mean volume (Bld) [Entitic vol] 9.0 fL Normal 9.0-12.7 [facility] Comment on above: Order Comment: Speci men Type: BLOOD SPECIMEN Ordering Facility: [facility] Address: [address] [place] [address] Performed By: #### 5 7021-8 #### [facility] CLIA [id number] [address] [place] [address] [place] Platelets (Bld) [#/Vol] 514 10*3/uL High 150-400 [facility] Comment on above: Order Comment: Speci men Type: BLOOD SPECIMEN Ordering Facility: [facility] Address: [address] [place] [address] Performed By: #### 5 7021-8 #### [facility] CLIA [id number] [address] [place] [address] [place] RBC (Bld) [#/Vol] 4.94 10*6/uL Normal 4.20-6.00 [facility] Comment on above: Order Comment: Speci men Type: BLOOD SPECIMEN Ordering Facility: [facility] Address: [address] [place] [address] Performed By: #### 5 7021-8 #### [facility] CLIA [id number] [address] [place] [address] [place] WBC (Bld) [#/Vol] 6.82 10*3/uL Normal 3.70-11.00 [facility] Comment on above: Order Comment: Speci men Type: BLOOD SPECIMEN Ordering Facility: [facility] Address: [address] [place] [address] Performed By: #### 5 7021-8 #### [facility] CLIA [id number] [address] [place] [address] [id number] [place] [address] [facility] 03-08-[facility]24 CNOV Office Visit (FAMPWS ) AMEE GUAMAN ([id number]) 1985 M Date Time Provider Department 03/08/24 9:00 [facility] During your visit today, we recorded the following information about you: Pulse Respiration Blood pressure Weight 123/minute 16/minute 136/88 124.7 kg Elliot Soni MD 03/08/2024 11:01 AM Signed Chief Complaint Patient presents with: ER F/U Hospital F/U: [facility]; Dx: Diverticulitis; discharged 02/20. HPI Amee Guaman is a 38 year old male who presents here today for Above Complaints.. Patient admitted to [facility] from 02/16 to 02/20 for recurrent diverticulitis in his sigmoid with perforation and sepsis. Treated with Zosyn while inpatient and discharged on Keflex and Flagyl x7 days per general surgery. F/u with our office and surgeon Dr. Wiley. Since discharge, patient had recurrent abdominal pain after finishing his course of abx. Returned to [facility] ER on 03/03 where they found similar findings on CT to his admission with diverticulitis and perforation. CBC was normal aside from high platelets. Liver panel, BMP, and UA normal. Restarted on Cipro and Flagyl for additional 10 days and was discharged home. After this, patient states that his pain is much improved and is having regular BMs about 2 times per day with firm stools without blood, mucous, or melena.Tolerating PO diet. Denies fever/chills, nausea, vomiting. Patient states that he met with his surgeon 10 days ago and they recommended colonoscopy in March. Noted HR and BP elevated today. States that he might get some white coat HTN and has been under more stress with this illness, job, and . Feeling anxious since bowel perforation on 02/16. Patient states that he is absolutely terrified that he is going to get severely ill and and leave his and 2 children behind. Was given on vistaril on discharge for anxiety symptoms which he states caused a panic attack. 03/08/2024 0933 Last Filed Value PHQ-9 Little interest or pleasure in doing things Not at all Not at all Feeling down, depressed, or hopeless Several days Several days Trouble falling or staying asleep, or sleeping too much Several days Several days Feeling tired or having little energy Several days Several days Poor appetite or overeating Not at all Not at all Feeling bad about yourself - or that you are a failure or have let yourself or your family down Several days Several days Trouble concentrating on things, such as reading the newspaper or watching television Not at all Not at all Moving or speaking so slowly that other people could have noticed. Or the opposite - being so fidgety or restless that you have been moving around a lot more than usual Not at all Not at all Thoughts that you would be better off , or of hurting yourself in some way Not at all Not at all If you checked off any problems, how difficult have these problems made it for you to do your work, take care of things at home, or get along with other people? -- Not difficult at allIf you checked off any problems, how difficult have these problems made it for you to do your work, take care of things at home, or get along with other people?. Not difficult at all. Patient-Reported. Data is from another encounter. Last Filed Value PHQ-9 score 4 4 PHQ-9 Score 4 4 PHQ-2 score 1 1 PHQ-2 Score 1 1 03/08/2024 0933 Last Filed Value ANNABELLA-7 - over the last 2 weeks... Feeling nervous, anxious, or on edge Several days Several days Not being able to stop or control worrying More than half the days More than half the days Worrying too much about different things Several days Several days Trouble relaxing Several days Several days Being so restless that it is hard to sit still Not at all Not at all Becoming easily annoyed or irritable Not at all Not at all Feeling afraid, as if something awful might happen More than half the days More than half the days How difficult to do work, care for home, get along with people -- -- ANNABELLA-2 Total Score 3 3 ANNABELLA-7 Total Score 7 7 ANNABELLA-7 Score 7 7 Past medical history, appointments, medications, allergies reviewed. Previous Medical History PAST MEDICAL HISTORY Diagnosis Date Diverticulitis 03/08/2024 Kidney stones Obesity 03/08/2024 Previous Surgical History PAST SURGICAL HISTORY Procedure Laterality Date LITHOTRIPSY XTRCORP SHOCK WAVE Left Family History FAMILY HISTORY Problem Relation Age of Onset other (htn) Mother other (HTN) Father Diabetes Father Ischemic Heart Disease Father heart stent other (atrial fib) Father Lung Cancer Maternal Grandmother Lung Cancer Paternal Grandmother Ischemic Heart Disease Paternal Grandfather other (bladder cancer) Paternal Grandfather Patient Allergies ALLERGIES No Known Allergies Current Medicatio (more content not included)... Normal [facility] Comprehensive metabolic 2000 panelon 03-08-2024 Albumin [Mass/Vol] 3.9 g/dL Normal 3.9-4.9 [facility] Comment on above: Order Comment: Speci men Type: BLOOD SPECIMEN Ordering Facility: [facility] Address: [address] [place] [address] Performed By: #### 1 9123-9, 52829-4, 6-3 #### [facility] CLIA [id number] [address] [place] [address] [place] ALP [Catalytic activity/Vol] 60 U/L Normal 38-113 [facility] Comment on above: Order Comment: Speci men Type: BLOOD SPECIMEN Ordering Facility: [facility] Address: [address] [place] [address] Performed By: #### 1 9123-9, 84304-9, 3016-3 #### [facility] CLIA [id number] [address] [place] [address] [place] ALT [Catalytic activity/Vol] 23 U/L Normal 10-54 [facility] Comment on above: Order Comment: Speci men Type: BLOOD SPECIMEN Ordering Facility: [facility] Address: [address] [place] [address] Performed By: #### 1 9123-9, 22646-4, 3016-3 #### [facility] CLIA [id number] [address] [place] [address] [place] Anion gap [Moles/Vol] 13 mmol/L Normal 8-15 [facility] Comment on above: Order Comment: Speci men Type: BLOOD SPECIMEN Ordering Facility: [facility] Address: [address] [place] [address] Performed By: #### 1 9123-9, 27029-6, 3016-3 #### [facility] CLIA [id number] [address] [place] [address] [place] AST [Catalytic activity/Vol] 21 U/L Normal 14-40 [facility] Comment on above: Order Comment: Speci men Type: BLOOD SPECIMEN Ordering Facility: [facility] Address: [address] [place] [address] Performed By: #### 1 9123-9, 07041-6, 3016-3 #### [facility] CLIA [id number] [address] [place] [address] [place] Bilirubin [Mass/Vol] 0.3 mg/dL Normal 0.2-1.3 [facility] Comment on above: Order Comment: Speci men Type: BLOOD SPECIMEN Ordering Facility: [facility] Address: [address] [place] [address] Performed By: #### 1 9123-9, 88932-6, 3016-3 #### [facility] CLIA [id number] [address] [place] [address] [place] Calcium [Mass/Vol] 9.6 mg/dL Normal 8.5-10.2 [facility] Comment on above: Order Comment: Speci men Type: BLOOD SPECIMEN Ordering Facility: [facility] Address: [address] [place] [address] Performed By: #### 1 9123-9, 06973-6, 6-3 #### [facility] CLIA [id number] [address] [place] [address] [place] Chloride [Moles/Vol] 107 mmol/L Normal 98-107 [facility] Comment on above: Order Comment: Speci men Type: BLOOD SPECIMEN Ordering Facility: [facility] Address: [address] [place] [address] Performed By: #### 1 9123-9, 51231-3, 6-3 #### [facility] CLIA [id number] [address] [place] [address] [place] CO2 [Moles/Vol] 20 mmol/L Low 22-30 [facility] Comment on above: Order Comment: Speci men Type: BLOOD SPECIMEN Ordering Facility: [facility] Address: [address] [place] [address] Performed By: #### 1 9123-9, 14055-8, 6-3 #### [facility] CLIA [id number] [address] [place] [address] [place] Creatinine [Mass/Vol] 1.15 mg/dL Normal 0.73-1.22 [facility] Comment on above: Order Comment: Speci men Type: BLOOD SPECIMEN Ordering Facility: [facility] Address: [address] [place] [address] Performed By: #### 1 9123-9, 26711-3, 3016-3 #### [facility] CLIA [id number] [address] [place] [address] [place] Creatinine and Glomerular filtration rate.predicted panel (S/P/Bld) 83 mL/min/1.73m??? Normal >=60 [facility] Comment on above: Order Comment: Zack eckert Type: BLOOD SPECIMEN Ordering Facility: [facility] Address: [address] [place] [address] Result Comment: Cornelia mated Glomerular Filtration Rate (eGFR) is calculated using the 2020 CKD-EPI creatinine equation. This equation utilizes serum creatinine, sex, and age as parameters. The creatinine assay has traceable calibration to isotope dilution-mass spectrometry. Refer to KDIGO guidelines for clinical interpretation. In patients with unstable renal function, e.g. those with acute kidney injury, the eGFR may not accurately reflect actual GFR. Performed By: #### 1 9123-9, 49422-0, 3016-3 #### [facility] CLIA [id number] [address] [place] [address] [place] Glucose [Mass/Vol] 101 mg/dL High 74-99 [facility] Comment on above: Order Comment: Zack eckert Type: BLOOD SPECIMEN Ordering Facility: [facility] Address: [address] [place] [address] Result Comment: The [place] [employer] (ADA) provides guidance for cutoff values for fasting glucose and random glucose. The ADA defines fasting as no caloric intake for at least 8 hours. Fasting plasma glucose results between 100 to 125 mg/dL indicate increased risk for diabetes (prediabetes). Fasting plasma glucose results greater than or equal to 126 mg/dL meet the criteria for diagnosis of diabetes. In the absence of unequivocal hyperglycemia, results should be confirmed by repeat testing. In a patient with classic symptoms of hyperglycemia or hyperglycemic crisis, random plasma glucose results greater than or equal to 200 mg/dL meet the criteria for diagnosis of diabetes. Reference: Standards of Medical Care in Diabetes 2016, [place] [employer]. Diabetes Care. 2016.39(Suppl 1). Performed By: #### 1 9123-9, 10252-8, 3016-3 #### [facility] CLIA [id number] [address] [place] [address] [place] Potassium [Moles/Vol] 4.0 mmol/L Normal 3.7-5.1 [facility] Comment on above: Order Comment: Speci men Type: BLOOD SPECIMEN Ordering Facility: [facility] Address: [address] [place] [address] Performed By: #### 1 9123-9, 22512-7, 6-3 #### [facility] CLIA [id number] [address] [place] [address] [place] Protein [Mass/Vol] 7.6 g/dL Normal 6.3-8.0 [facility] Comment on above: Order Comment: Speci men Type: BLOOD SPECIMEN Ordering Facility: [facility] Address: [address] [place] [address] Performed By: #### 1 9123-9, 83128-9, 6-3 #### [facility] CLIA [id number] [address] [place] [address] [place] Sodium [Moles/Vol] 140 mmol/L Normal 136-144 [facility] Comment on above: Order Comment: Speci men Type: BLOOD SPECIMEN Ordering Facility: [facility] Address: [address] [place] [address] Performed By: #### 1 9123-9, 81951-6, 3015-3 #### [facility] CLIA [id number] [address] [place] [address] [place] Urea nitrogen [Mass/Vol] 11 mg/dL Normal 9-24 [facility] Comment on above: Order Comment: Speci men Type: BLOOD SPECIMEN Ordering Facility: [facility] Address: [address] [place] [address] Performed By: #### 1 9123-9, 41145-9, 6-3 #### [facility] CLIA [id number] [address] [place], [place] [id number] [place] ECG COMPLETEon 03-08-2024 ECG COMPLETE Ventricular Rate : 108 BPM Atrial Rate : 108 BPM P-R Interval : 148 ms QRS Duration : 94 ms Q-T Interval : 356 ms QTC Calculation(Bazett) : 477 ms Calculated P Perry : 38 degrees Calculated R Perry : 41 degrees Calculated T Perry : 6 degrees SINUS TACHYCARDIA OTHERWISE NORMAL ECG Confirmed by MD MCKAY GREGORY () on 03/09/2024 1:15:28 PM NAME : AMEE GUAMAN PID : [id number] : 1985 Gender : Male Race : Unknown ORD : [id number] Procedure Date : Mar 08 2024 09:42:58 Edit Date : Mar 09 2024 13:15:32 Diagnosis: SINUS TACHYCARDIA OTHERWISE NORMAL ECG Confirmed by MD MCKAY GREGORY () on 03/09/2024 1:15:28 PM Test Reason : R00.0 Tachycardia Location : 185 : [facility] Overread By : MD MCKAY GREGORY Edited By : MD MCKAY GREGORY Referred By : JAIRO SONI Acquired by : Alphonse RASMUSSEN [facility] Magnesium SerPl-mCncon 03-08 Magnesium [Mass/Vol] 2.0 mg/dL Normal 1.7-2.3 [facility] Comment on above: Order Comment: Speci men Type: BLOOD SPECIMEN Ordering Facility: [facility] Address: [address] [place] [address] Performed By: #### 1 9123-9, 50777-5, 3016-3 #### [facility] CLIA [id number] [address] [place] [address] [place] TSH SerPl-aCncon 03-08-2024 TSH Qn 2.890 m[IU]/L Normal 0.270-4.200 [facility] Comment on above: Order Comment: Zack men Type: BLOOD SPECIMEN Ordering Facility: [facility] Address: [address] [place] [address] Performed By: #### 1 9123-9, 04743-0, 3016-3 #### [facility] CLIA [id number] [address] [place] [address] [place] [address] ABDOMEN PELVIS WITH IV CO NTRAST ONLYon 03-03-2024 CT ABDOMEN PELVIS WITH IV CONTRAST ONLY EXAMINATION: CT ABDOMEN PELVIS WITH IV CONTRAST ONLY HISTORY: Diverticulitis, complication suspected COMPARISON: 02/17/2024 TECHNIQUE: CT dose reduction technique was used, including Automated Exposure Control. FINDINGS: Similar findings to prior including perforated and inflamed appearing diverticula at the junction between the descending and sigmoid colon with adjacent air densities and mesenteric/omental strandiness but no evidence of an organized fluid collection. Remaining visceral organs of the abdomen and pelvis appear normal as seen. There is no free intraperitoneal air or fluid and no adenopathy. Great vessels display a normal course and caliber. Lung bases are clear and osseous structures are unremarkable. IMPRESSION: Similar CT findings to prior with sigmoid diverticulitis involving the proximal sigmoid colon and evidence for perforation, but no signs of an abscess or other complications presently. Workstation ID: [id number] Dictated by: CHHAYA GALAN on FriMar 03, 2024 6:50:58 PM EDT Transcribed by: CHHAYA GALAN on FriMar 03, 2024 6:50:58 PM EDT Finalized by: CHHAYA GALAN on FriMar 03, 2024 6:50:58 PM EDT [facility] Comment on above: Order Comment: [facility] Services has implemented the eGFR calculation approach that does not have a coefficient for race that conforms to the NKF-ASN Task Force Recommendations. ED Prov Noteon 03-03-2024 ED Prov Note ED PROVIDER NOTE [facility] EMERGENCY DEPARTMENT NAME: Amee Guaman AGE: 38 y.o. : 1985 VISIT DATE: 03/03/2024 CSN: [id number] PCP: No, Physician Chief Complaint Patient presents with GI Problem Abdominal discomfort, recent perforated bowel and diverticulitis 38-year-old male with recent history of perforated diverticulitis approximately 2 weeks ago. He comes in with minimal discomfort noted in the left lower quadrant of his abdomen. He rates it as 0-1 out of 10, but he is cognizant of the discomfort that is what prompted him to come in to be evaluated. He denies any fevers or chills. No blood in his stool, no nausea or vomiting. History provided by: Patient GI Problem Associated symptoms: no anorexia, no belching, no chest pain, no chills, no constipation, no cough, no diarrhea, no fatigue, no fever, no flatus, no hematemesis, no hematochezia, no hematuria, no melena, no nausea, no shortness of breath and no vomiting Abdominal Pain Pain location: LLQ Context: not alcohol use, not awakening from sleep, not diet changes, not laxative use, not medication withdrawal, not previous surgeries, not recent travel, not retching, not sick contacts, not suspicious food intake and not trauma Worsened by: Nothing Associated symptoms: no anorexia, no belching, no chest pain, no chills, no constipation, no cough, no diarrhea, no fatigue, no fever, no flatus, no hematemesis, no hematochezia, no hematuria, no melena, no nausea, no shortness of breath and no vomiting History - Past Medical History Past Medical History: Diagnosis Date Diverticulosis with perforation 02/17/2024 Keloid scar Kidney stones History - Past Surgical History Past Surgical History: Procedure Laterality Date EXTRACORPOREAL SHOCK WAVE LITHOTRIPSY due to kidney stones WISDOM TOOTH EXTRACTION History-Family History reviewed. No pertinent family history. Social History Social History Socioeconomic History Marital status: Tobacco Use Smoking status: Smoker, Current Status Unknown Types: Cigars Smokeless tobacco: Never Tobacco comments: Trying to quit Vaping Use Vaping Use: Never used Substance and Sexual Activity Alcohol use: Yes Comment: occasionally Drug use: Never Social Determinants of Health Food Insecurity: No Food Insecurity (02/17/2024) Hunger Vital Sign Worried About Running Out of Food in the Last Year: Never true Ran Out of Food in the Last Year: Never true Transportation Needs: No Transportation Needs (02/17/2024) PRAPARE - Transportation Lack of Transportation (Medical): No Lack of Transportation (Non-Medical): No Housing Stability: Low Risk (02/17/2024) Housing Stability Vital Sign Unable to Pay for Housing in the Last Year: No Number of Places Lived in the Last Year: 1 Unstable Housing in the Last Year: No Previous Medications Medication Sig psyllium (METAMUCIL) 3.4 gram packet Take 1 (one) packet by mouth daily . Allergies No Known Allergies Review of Systems Constitutional: Negative for chills, fatigue and fever. Respiratory: Negative for cough and shortness of breath. Cardiovascular: Negative for chest pain. Gastrointestinal: Positive for abdominal pain. Negative for anorexia, constipation, diarrhea, flatus, hematemesis, hematochezia, melena, nausea and vomiting. Genitourinary: Negative for hematuria. All other systems reviewed and are negative. Patient Vitals for the past 24 hrs: BP Temp Temp src Pulse Resp SpO2 Height Weight 03/03/24 1649 (!) 138/112 97.7 degrees F (36.5 degrees C) Oral (!) 110 16 99 % 6' 1 122.5 kg (270 lb) Physical Exam Constitutional: Appearance: Normal appearance. HENT: Head: Normocephalic and atraumatic. Eyes: Extraocular Movements: Extraocular movements intact. Conjunctiva/sclera: Conjunctivae normal. Cardiovascular: Rate and Rhythm: Normal rate and regular rhythm. Musculoskeletal: General: Normal range of motion. Cervical back: Normal range of motion. Pulmonary: Effort: Pulmonary effort is normal. Abdominal: General: There is no distension. Palpations: Abdomen is soft. There is no mass. Tenderness: There is no guarding or rebound. Comments: Extremely mild left lower quadrant pain. Skin: General: Skin is warm and dry. Neurological: Mental Status: He is alert. . Laboratory & Radiographic Imaging (if done): Results for orders placed or performed during the hospital encounter of 03/03/24 POC CBC and Differential Result Value Ref Range WBC 7.91 4.50 - 11.00 K/mcL RBC 5.22 4.50 - 5.90 M/mcL Hemoglobin 14.9 13.5 - 17.5 g/dL Hematocrit 46.3 41.0 - 53.0 % MCV 88.7 80.0 - 100.0 fL MCH 28.5 26.0 - 34.0 pg MCHC 32.2 31.0 - 37.0 g/dL RDW - CV 13.0 11.6 - 14.8 % Platelets 579 (H) 150 - 400 K/mcL MPV 8.5 (L) 9.4 - 12.4 fL Neutrophils 56.1 % Lymphocytes 35.8 % Monocytes 5.4 % Eosinophils 1.8 % Basophils 0.6 % IG Percent (more content not included)... Normal [facility] POC [facility]ABOL[facility] PANEL [facility] Chloride [Moles/Vol] 105 mmol/L Normal 98-108 [facility] Comment on above: Order Comment: [facility] Laboratory Services has implemented the eGFR calculation approach that does not have a coefficient for race that conforms to the NKF-ASN Task Force Recommendations. CO2 [Moles/Vol] 27 mmol/L Normal 21-32 [facility] Comment on above: Order Comment: [facility] has implemented the eGFR calculation approach that does not have a coefficient for race that conforms to the NKF-ASN Task Force Recommendations. Creatinine [Mass/Vol] 1.20 mg/dL Normal 0.50-1.30 [facility] Comment on above: Order Comment: [facility] has implemented the eGFR calculation approach that does not have a coefficient for race that conforms to the NKF-ASN Task Force Recommendations. Glucose [Mass/Vol] 94 mg/dL Normal 65-99 [facility] Comment on above: Order Comment: [facility] has implemented the eGFR calculation approach that does not have a coefficient for race that conforms to the NKF-ASN Task Force Recommendations. POC GFR 79 mL/min/1.73 m2 Normal >=60 [facility] Comment on above: Order Comment: [facility] has implemented the eGFR calculation approach that does not have a coefficient for race that conforms to the NKF-ASN Task Force Recommendations. Result Comment: Cornelia mated GFR was calculated using the 2020 CKD-EPI creatinine equation. POC IONIZED CALCIUM 4.5 mg/dL Normal 4.5-5.3 [facility] Comment on above: Order Comment: [facility] has implemented the eGFR calculation approach that does not have a coefficient for race that conforms to the NKF-ASN Task Force Recommendations. Potassium [Moles/Vol] 4.2 mmol/L Normal 3.5-5.1 [facility] Comment on above: Order Comment: [facility] has implemented the eGFR calculation approach that does not have a coefficient for race that conforms to the NKF-ASN Task Force Recommendations. Sodium [Moles/Vol] 145 mmol/L Normal 135-145 [facility] Comment on above: Order Comment: [facility] has implemented the eGFR calculation approach that does not have a coefficient for race that conforms to the NKF-ASN Task Force Recommendations. Urea nitrogen [Mass/Vol] 13 mg/dL Normal 8-25 [facility] Comment on above: Order Comment: [facility] has implemented the eGFR calculation approach that does not have a coefficient for race that conforms to the NKF-ASN Task Force Recommendations. POC CBC AND DIFFERENTIALon 0 03-03-2024 BASOPHILS ABSOLUTE COUNT 0.05 K/mcL Normal 0.00-0.30 [facility] Basophils/100 WBC (Bld) 0.6 % Normal [facility] Eosinophils (Bld) [#/Vol] 0.14 10*3/uL Normal 0.00-0.50 [facility] Eosinophils/100 WBC (Bld) 1.8 % Normal [facility] Erythrocyte distribution width (RBC) [Ratio] 13.0 % Normal 11.6-14.8 [facility] Hematocrit (Bld) [Volume fraction] 46.3 % Normal 41.0-53.0 [facility] Hemoglobin (Bld) [Mass/Vol] 14.9 g/dL Normal 13.5-17.5 [facility] IG ABSOLUTE 0.02 K/mcL Normal 0.00-0.30 [facility] IG PERCENT 0.30 % Normal [facility] Comment on above: Result Comment: The IG parameter is the percentage of metamyelocytes, myelocytes and promyelocytes. An immature granulocyte count (IG) of 1% or more suggests the possibility of infection, an IG count of 3% is very likely related to an infection. Lymphocytes (Bld) [#/Vol] 2.83 10*3/uL Normal 0.90-4.00 [facility] Lymphocytes/100 WBC (Bld) 35.8 % Normal [facility] MCH (RBC) [Entitic mass] 28.5 pg Normal 26.0-34.0 [facility] MCV (RBC) [Entitic vol] 88.7 fL Normal 80.0-100.0 [facility] MEAN CORPUSCULAR HEMOGLOBIN CONC 32.2 g/dL Normal 31.0-37.0 [facility] Monocytes (Bld) [#/Vol] 0.43 10*3/uL Normal 0.30-0.90 [facility] Monocytes/100 WBC (Bld) 5.4 % Normal [facility] NEUTROPHILS ABSOLUTE COUNT 4.44 K/mcL Normal 1.70-7.00 [facility] Neutrophils/100 WBC (Bld) 56.1 % Normal [facility] Platelet mean volume (Bld) [Entitic vol] 8.5 fL Low 9.4-12.4 [facility] Platelets (d) [#/Vol] 579 10*3/uL High 150-400 [facility] RBC (d) [#/Vol] 5.22 10*6/uL Normal 4.50-5.90 [facility] WBC (d) [#/Vol] 7.91 10*3/uL Normal 4.50-11.00 [facility] POC LIVER PANEL PLUS [facility] 03-03-2024 Albumin [Mass/Vol] 3.8 g/dL Normal 3.2-5.2 [facility] ALP [Catalytic activity/Vol] 60 U/L Normal 40-140 [facility] ALT [Catalytic activity/Vol] 31 U/L Normal 0-40 [facility] Amylase [Catalytic activity/Vol] 34 U/L Normal 25-115 [facility] Amylase [Catalytic activity/Vol] 19 U/L Normal 11-51 [facility] AST [Catalytic activity/Vol] 23 U/L Normal 0-45 [facility] Bilirubin [Mass/Vol] 0.4 mg/dL Normal 0.0-1.3 [facility] Protein [Mass/Vol] 8.2 g/dL High 6.0-8.0 [facility] POC URINALYSIS DIPSTICK,AUTO - [facility] 03-03-2024 POC BILIRUBIN, URINE Negative Normal Negative [facility] POC BLOOD, URINE Negative Normal Negative [facility] POC GLUCOSE, URINE Negative Normal Negative [facility] POC KETONES, URINE Negative Normal Negative [facility] POC LEUKOCYTE ESTERASE, URINE Negative Normal Negative [facility] POC NITRITE, URINE Negative Normal Negative [facility] POC PH, URINE 5.5 Normal 5.0-7.0 [facility] POC PROTEIN, URINE Negative Normal Negative [facility] POC SPECIFIC GRAVITY 1.020 Normal 1.005-1.025 [facility] POC UROBILINOGEN 0.2 mg/dL Normal < 2.0 [facility] CBCon 02-21-2024 AUTO NRBC 0.0 % Normal [facility] Comment on above: Performed By: #### 4 [id number] #### [facility] [address], [place] [address] Lei Solis M.D. [id number] AUTO NRBC ABS COUNT 0.00 K/mcL Normal 0.00-0.00 [facility] Comment on above: Performed By: #### 4 [id number] #### LAB [address] [place] [address] Lei Solis M.D. [id number] Erythrocyte distribution width (RBC) [Ratio] 13.1 % Normal 11.6-14.8 [facility] Comment on above: Performed By: #### 4 [id number] #### LAB [address] [place] [address] Lei Solis M.D. [id number] Hematocrit (Bld) [Volume fraction] 39.4 % Low 41.0-53.0 [facility] Comment on above: Performed By: #### 4 [id number] #### LAB [address] [address] Lei Solis M.D. [id number] Hemoglobin (Bld) [Mass/Vol] 12.8 g/dL Low 13.5-17.5 [facility] Comment on above: Performed By: #### 4 [id number] #### LAB [address] [address] Lei Solis M.D. [id number] MCH (RBC) [Entitic mass] 29.6 pg Normal 26.0-34.0 [facility] Comment on above: Performed By: #### 4 [id number] #### LAB [address] [place] [address] Lei Solis M.D. [id number] MCV (RBC) [Entitic vol] 91.0 fL Normal 80.0-100.0 [facility] Comment on above: Performed By: #### 4 6124 #### LAB [address] [address] Lei Solis M.D. [id number] MEAN CORPUSCULAR HEMOGLOBIN CONC 32.5 g/dL Normal 31.0-37.0 [facility] Comment on above: Performed By: #### 4 6152 #### LAB [address] [place] [address] Lei Solis M.D. [id number] Platelet mean volume (Bld) [Entitic vol] 9.0 fL Low 9.4-12.4 [facility] Comment on above: Performed By: #### 4 6124 #### LAB [address] [place] [address] Lei Solis M.D. [id number] Platelets (Bld) [#/Vol] 358 10*3/uL Normal 150-400 [facility] Comment on above: Performed By: #### 4 6124 #### LAB [address] [place] [address] Lei Solis M.D. [id number] RBC (Bld) [#/Vol] 4.33 10*6/uL Low 4.50-5.90 [facility] Comment on above: Performed By: #### 4 6124 #### LAB [address] [address] Lei Solis M.D. [id number] WBC (Bld) [#/Vol] 7.79 10*3/uL Normal 4.50-11.00 [facility] Comment on above: Performed By: #### 4 6124 #### LAB [address] [address] Lei Solis M.D. [id number] CBC panel Auto (Bld)on 02-20 Erythrocyte distribution width (RBC) [Entitic vol] 13.1 % 11.6 - 14.8 % [facility] Hematocrit (Bld) [Volume fraction] 39.4 % Low 41.0 - 53.0 % [facility] Hemoglobin (Bld) [Mass/Vol] 12.8 g/dL Low 13.5 - 17.5 g/dL [facility] Interpretation and review of laboratory results Abnormal [facility] MCH (RBC) [Entitic mass] 29.6 pg 26.0 - 34.0 pg [facility] MCHC (RBC) [Mass/Vol] 32.5 g/dL 31.0 - 37.0 g/dL [facility] MCV (RBC) [Entitic vol] 91.0 fL 80.0 - 100.0 fL [facility] Nucleated RBC (Bld) [#/Vol] 0.00 10*3/uL [facility] Nucleated RBC/100 WBC (Bld) [Ratio] 0.0 % [facility] Platelet mean volume (Bld) [Entitic vol] 9.0 fL Low 9.4 - 12.4 fL [facility] Platelets (Bld) [#/Vol] 358 10*3/uL [facility] RBC (Bld) [#/Vol] 4.33 10*6/uL Low [facility] WBC (Bld) [#/Vol] 7.79 10*3/uL [facility] COMPREHENSIVE METABOLIC PANE Oz 02-21-2024 Albumin [Mass/Vol] 3.4 g/dL Normal 3.2-5.2 [facility] Comment on above: Order Comment: [facility] has implemented the eGFR calculation approach that does not have a coefficient for race that conforms to the NKF-ASN Task Force Recommendations. Performed By: #### 4 [id number] #### LAB [address] [place] [address] Lei Solis M.D. [id number] ALP [Catalytic activity/Vol] 59 U/L Normal 40-140 [facility] Comment on above: Order Comment: [facility] has implemented the eGFR calculation approach that does not have a coefficient for race that conforms to the NKF-ASN Task Force Recommendations. Performed By: #### 4 6124 #### LAB [address] [address] Lei Solis M.D. [id number] ALT [Catalytic activity/Vol] 29 U/L Normal 0-50 U/L [facility] Comment on above: Order Comment: [facility] has implemented the eGFR calculation approach that does not have a coefficient for race that conforms to the NKF-ASN Task Force Recommendations. Performed By: #### 4 6124 #### LAB [address] [address] Lei Solis M.D. [id number] Anion gap [Moles/Vol] 18 mmol/L Normal 10-20 [facility] Comment on above: Order Comment: [facility] has implemented the eGFR calculation approach that does not have a coefficient for race that conforms to the NKF-ASN Task Force Recommendations. Performed By: #### 4 6124 #### LAB [address] [address] Lei Solis M.D. [id number] AST [Catalytic activity/Vol] 27 U/L Normal 0-50 U/L [facility] Comment on above: Order Comment: [facility] has implemented the eGFR calculation approach that does not have a coefficient for race that conforms to the NKF-ASN Task Force Recommendations. Performed By: #### 4 6124 #### LAB [address] [place] [address] Lei Solis M.D. [id number] Bilirubin [Mass/Vol] 0.5 mg/dL Normal 0.0-1.3 [facility] Comment on above: Order Comment: [facility] has implemented the eGFR calculation approach that does not have a coefficient for race that conforms to the NKF-ASN Task Force Recommendations. Performed By: #### 4 6124 #### LAB [address] [address] Lei Solis M.D. [id number] Calcium [Mass/Vol] 9.3 mg/dL Normal 8.4-10.2 [facility] Comment on above: Order Comment: [facility] has implemented the eGFR calculation approach that does not have a coefficient for race that conforms to the NKF-ASN Task Force Recommendations. Performed By: #### 4 6124 #### LAB [address] [address] Lei Solis M.D. [id number] Chloride [Moles/Vol] 103 mmol/L Normal 98-108 [facility] Comment on above: Order Comment: [facility] has implemented the eGFR calculation approach that does not have a coefficient for race that conforms to the NKF-ASN Task Force Recommendations. Performed By: #### 4 6124 #### LAB [address] [place] [address] Lei Solis M.D. [id number] Creatinine [Mass/Vol] 0.98 mg/dL Normal 0.50-1.30 [facility] Comment on above: Order Comment: [facility] has implemented the eGFR calculation approach that does not have a coefficient for race that conforms to the NKF-ASN Task Force Recommendations. Performed By: #### 4 6145 #### LAB [address] [address] Lei Solis M.D. [id number] EGFR 101 mL/min/1.73 m2 Normal >=60 [facility] Comment on above: Order Comment: [facility] has implemented the eGFR calculation approach that does not have a coefficient for race that conforms to the NKF-ASN Task Force Recommendations. Result Comment: Cornelia mated GFR was calculated using the 2020 CKD-EPI creatinine equation. Performed By: #### 4 6107 #### LAB [address] [address] Lei Solis M.D. [id number] Glucose [Mass/Vol] 89 mg/dL Normal 65-99 [facility] Comment on above: Order Comment: [facility] has implemented the eGFR calculation approach that does not have a coefficient for race that conforms to the NKF-ASN Task Force Recommendations. Performed By: #### 4 6159 #### LAB [address] [address] Lei Solis M.D. [id number] HCO3 (Bld) [Moles/Vol] 23 mmol/L Normal 21-32 [facility] Comment on above: Order Comment: [facility] has implemented the eGFR calculation approach that does not have a coefficient for race that conforms to the NKF-ASN Task Force Recommendations. Performed By: #### 4 6115 #### [facility] [address], [place] [address] Lei Solis M.D. [id number] Potassium [Moles/Vol] 3.5 mmol/L Normal 3.5-5.1 [facility] Comment on above: Order Comment: [facility] has implemented the eGFR calculation approach that does not have a coefficient for race that conforms to the NKF-ASN Task Force Recommendations. Performed By: #### 4 6124 #### LAB [address], [place] [address] Lei Solis M.D. [id number] Protein [Mass/Vol] 7.0 g/dL Normal 6.0-8.0 [facility] Comment on above: Order Comment: [facility] has implemented the eGFR calculation approach that does not have a coefficient for race that conforms to the NKF-ASN Task Force Recommendations. Performed By: #### 4 6124 #### LAB [address], [place] [address] Lei Solis M.D. [id number] Sodium [Moles/Vol] 140 mmol/L Normal 135-145 [facility] Comment on above: Order Comment: [facility] has implemented the eGFR calculation approach that does not have a coefficient for race that conforms to the NKF-ASN Task Force Recommendations. Performed By: #### 4 6124 #### LAB [address] [address] Lei Solis M.D. [id number] Urea nitrogen [Mass/Vol] 7 mg/dL Low 8-25 [facility] Comment on above: Order Comment: [facility] has implemented the eGFR calculation approach that does not have a coefficient for race that conforms to the NKF-ASN Task Force Recommendations. Performed By: #### 4 6124 #### LAB [address], [place] [address] Lei Solis M.D. [id number] Urea nitrogen/Creatinine [Mass ratio] 7.1 mg/mg Low 10.0-20.0 [facility] Comment on above: Order Comment: [facility] has implemented the eGFR calculation approach that does not have a coefficient for race that conforms to the NKF-ASN Task Force Recommendations. Performed By: #### 4 6124 #### LAB [address], [place] [address] Lei Solis M.D. [id number] Comprehensive metabolic 2000 panelon 02-21-2024 Albumin [Mass/Vol] 3.4 g/dL 3.2 - 5.2 g/dL [facility] ALP [Catalytic activity/Vol] 59 U/L 40 - 140 U/L [facility] ALT [Catalytic activity/Vol] 29 U/L 0-50 U/L [facility] Anion gap [Moles/Vol] 18 mmol/L 10 - 2 0 mmol/L [facility] AST [Catalytic activity/Vol] 27 U/L 0-50 U/L [facility] Bilirubin [Mass/Vol] 0.5 mg/dL 0.0 - 1 .3 mg/dL [facility] Calcium [Mass/Vol] 9.3 mg/dL 8.4 - 10. 2 mg/dL [facility] Chloride [Moles/Vol] 103 mmol/L 98 - 10 8 mmol/L [facility] Creatinine [Mass/Vol] 0.98 mg/dL 0.50 - 1.30 mg/dL [facility] GFR/1.73 sq M.predicted CKD-EPI (S/P/Bld) [Vol rate/Area] 101 - PINF [facility] Comment on above: Estimated GFR was ca lculated using the 2020 CKD-EPI creatinine equation. Glucose [Mass/Vol] 89 mg/dL 65 - 99 mg/dL [facility] HCO3 [Moles/Vol] 23 mmol/L 21 - 32 mmol/L [facility] Interpretation and review of laboratory results Abnormal [facility] Potassium [Moles/Vol] 3.5 mmol/L 3.5 - 5.1 mmol/L [facility] Protein [Mass/Vol] 7.0 g/dL 6.0 - 8.0 g/dL [facility] Sodium [Moles/Vol] 140 mmol/L 135 - 145 mmol/L [facility] Urea nitrogen [Mass/Vol] 7 mg/dL Low 8 - 25 mg/dL [facility] Urea nitrogen/Creatinine [Mass ratio] 7.1 mg/mg Low 10.0 - 20.0 [facility] has implemented the eGFR calculation approach that does not have a coefficient for race that conforms to the NKF-ASN Task Force Recommendations. [facility] CBCon 02-20-2024 AUTO NRBC 0.0 % Normal [facility] Comment on above: Performed By: #### 4 [id number] #### [facility] [address], [place] [address] Lei Solis M.D. [id number] AUTO NRBC ABS COUNT 0.00 K/mcL Normal 0.00-0.00 [facility] Comment on above: Performed By: #### 4 [id number] #### LAB [address] [address] Lei Solis M.D. [id number] Erythrocyte distribution width (RBC) [Ratio] 13.1 % Normal 11.6-14.8 [facility] Comment on above: Performed By: #### 4 [id number] #### LAB [address] [address] Lei Solis M.D. [id number] Hematocrit (Bld) [Volume fraction] 38.5 % Low 41.0-53.0 [facility] Comment on above: Performed By: #### 4 [id number] #### LAB [address] [address] Lei Solis M.D. [id number] Hemoglobin (Bld) [Mass/Vol] 12.7 g/dL Low 13.5-17.5 [facility] Comment on above: Performed By: #### 4 [id number] #### LAB [address] [address] Lei Solis M.D. [id number] MCH (RBC) [Entitic mass] 29.9 pg Normal 26.0-34.0 [facility] Comment on above: Performed By: #### 4 [id number] #### LAB [address] [address] Lei Solis M.D. [id number] MCV (RBC) [Entitic vol] 90.6 fL Normal 80.0-100.0 [facility] Comment on above: Performed By: #### 4 [id number] #### LAB [address] [address] Lei Solis M.D. [id number] MEAN CORPUSCULAR HEMOGLOBIN CONC 33.0 g/dL Normal 31.0-37.0 [facility] Comment on above: Performed By: #### 4 [id number] #### LAB [address] [address] Lei Solis M.D. [id number] Platelet mean volume (Bld) [Entitic vol] 8.8 fL Low 9.4-12.4 [facility] Comment on above: Performed By: #### 4 [id number] #### LAB [address] [address] Lei Solis M.D. [id number] Platelets (Bld) [#/Vol] 298 10*3/uL Normal 150-400 [facility] Comment on above: Performed By: #### 4 [id number] #### LAB [address] [address] Lei Solis M.D. [id number] RBC (Bld) [#/Vol] 4.25 10*6/uL Low 4.50-5.90 [facility] Comment on above: Performed By: #### 4 [id number] #### LAB [address] [address] Lei Solis M.D. [id number] WBC (Bld) [#/Vol] 9.20 10*3/uL Normal 4.50-11.00 [facility] Comment on above: Performed By: #### 4 [id number] #### LAB [address] [address] Lei Solis M.D. [id number] CBC panel Auto (Bld)on 02-19 Erythrocyte distribution width (RBC) [Entitic vol] 13.1 % 11.6 - 14.8 % [facility] Hematocrit (Bld) [Volume fraction] 38.5 % Low 41.0 - 53.0 % [facility] Hemoglobin (Bld) [Mass/Vol] 12.7 g/dL Low 13.5 - 17.5 g/dL [facility] Interpretation and review of laboratory results Abnormal [facility] MCH (RBC) [Entitic mass] 29.9 pg 26.0 - 34.0 pg [facility] MCHC (RBC) [Mass/Vol] 33.0 g/dL 31.0 - 37.0 g/dL [facility] MCV (RBC) [Entitic vol] 90.6 fL 80.0 - 100.0 fL [facility] Nucleated RBC (Bld) [#/Vol] 0.00 10*3/uL [facility] Nucleated RBC/100 WBC (Bld) [Ratio] 0.0 % [facility] Platelet mean volume (Bld) [Entitic vol] 8.8 fL Low 9.4 - 12.4 fL [facility] Platelets (Bld) [#/Vol] 298 10*3/uL [facility] RBC (Bld) [#/Vol] 4.25 10*6/uL Low [facility] WBC (Bld) [#/Vol] 9.20 10*3/uL [facility] COMPREHENSIVE METABOLIC PANE Oz 02-20-2024 Albumin [Mass/Vol] 3.3 g/dL Normal 3.2-5.2 [facility] Comment on above: Order Comment: [facility] has implemented the eGFR calculation approach that does not have a coefficient for race that conforms to the NKF-ASN Task Force Recommendations. Performed By: #### 4 [id number] #### LAB [address] [address] Lei Solis M.D. [id number] ALP [Catalytic activity/Vol] 58 U/L Normal 40-140 [facility] Comment on above: Order Comment: [facility] has implemented the eGFR calculation approach that does not have a coefficient for race that conforms to the NKF-ASN Task Force Recommendations. Performed By: #### 4 [id number] #### LAB [address] [address] Lei Solis M.D. [id number] ALT [Catalytic activity/Vol] 11 U/L Normal 0-50 U/L [facility] Comment on above: Order Comment: [facility] has implemented the eGFR calculation approach that does not have a coefficient for race that conforms to the NKF-ASN Task Force Recommendations. Performed By: #### 4 6126 #### LAB [address] [address] Lei Solis M.D. [id number] Anion gap [Moles/Vol] 15 mmol/L Normal 10-20 [facility] Comment on above: Order Comment: [facility] has implemented the eGFR calculation approach that does not have a coefficient for race that conforms to the NKF-ASN Task Force Recommendations. Performed By: #### 4 [id number] #### LAB [address] [address] Lei Solis M.D. [id number] AST [Catalytic activity/Vol] 16 U/L Normal 0-50 U/L [facility] Comment on above: Order Comment: [facility] has implemented the eGFR calculation approach that does not have a coefficient for race that conforms to the NKF-ASN Task Force Recommendations. Performed By: #### 4 [id number] #### LAB [address] [address] Lei Solis M.D. [id number] Bilirubin [Mass/Vol] 0.6 mg/dL Normal 0.0-1.3 [facility] Comment on above: Order Comment: [facility] Services has implemented the eGFR calculation approach that does not have a coefficient for race that conforms to the NKF-ASN Task Force Recommendations. Performed By: #### 4 6126 #### LAB [address] [address] Lei Solis M.D. [id number] Calcium [Mass/Vol] 8.7 mg/dL Normal 8.4-10.2 [facility] Comment on above: Order Comment: [facility] Laboratory [facility] has implemented the eGFR calculation approach that does not have a coefficient for race that conforms to the NKF-ASN Task Force Recommendations. Performed By: #### 4 6126 #### LAB [address] [address] Lei Solis M.D. [id number] Chloride [Moles/Vol] 104 mmol/L Normal 98-108 [facility] Comment on above: Order Comment: [facility] Services has implemented the eGFR calculation approach that does not have a coefficient for race that conforms to the NKF-ASN Task Force Recommendations. Performed By: #### 4 6126 #### LAB [address] [address] Lei Solis M.D. [id number] Creatinine [Mass/Vol] 0.97 mg/dL Normal 0.50-1.30 [facility] Comment on above: Order Comment: [facility] Services has implemented the eGFR calculation approach that does not have a coefficient for race that conforms to the NKF-ASN Task Force Recommendations. Performed By: #### 4 6126 #### LAB [address] [address] Lei Solis M.D. [id number] EGFR 102 mL/min/1.73 m2 Normal >=60 [facility] Comment on above: Order Comment: [facility] Services has implemented the eGFR calculation approach that does not have a coefficient for race that conforms to the NKF-ASN Task Force Recommendations. Result Comment: Cornelia mated GFR was calculated using the 2020 CKD-EPI creatinine equation. Performed By: #### 4 6126 #### LAB [address] [address] Lei Solis M.D. [id number] Glucose [Mass/Vol] 97 mg/dL Normal 65-99 [facility] Comment on above: Order Comment: [facility] has implemented the eGFR calculation approach that does not have a coefficient for race that conforms to the NKF-ASN Task Force Recommendations. Performed By: #### 4 6126 #### LAB [address] [address] Lei Solis M.D. [id number] HCO3 (Bld) [Moles/Vol] 21 mmol/L Normal 21-32 [facility] Comment on above: Order Comment: [facility] Laboratory [facility] has implemented the eGFR calculation approach that does not have a coefficient for race that conforms to the NKF-ASN Task Force Recommendations. Performed By: #### 4 6126 #### LAB [address] [address] Lei Solis M.D. [id number] Potassium [Moles/Vol] 3.8 mmol/L Normal 3.5-5.1 [facility] Comment on above: Order Comment: [facility] Services has implemented the eGFR calculation approach that does not have a coefficient for race that conforms to the NKF-ASN Task Force Recommendations. Performed By: #### 4 6126 #### LAB [address] [id number] Lei Solis M.D. [id number] Protein [Mass/Vol] 6.9 g/dL Normal 6.0-8.0 [facility] Comment on above: Order Comment: [facility] Services has implemented the eGFR calculation approach that does not have a coefficient for race that conforms to the NKF-ASN Task Force Recommendations. Performed By: #### 4 6126 #### LAB [address] [id number] Lei Solis M.D. [id number] Sodium [Moles/Vol] 136 mmol/L Normal 135-145 [facility] Comment on above: Order Comment: [facility] has implemented the eGFR calculation approach that does not have a coefficient for race that conforms to the NKF-ASN Task Force Recommendations. Performed By: #### 4 6126 #### LAB [address] [address] Lei Solis M.D. [id number] Urea nitrogen [Mass/Vol] 8 mg/dL Normal 8-25 [facility] Comment on above: Order Comment: [facility] has implemented the eGFR calculation approach that does not have a coefficient for race that conforms to the NKF-ASN Task Force Recommendations. Performed By: #### 4 6126 #### LAB [address] [address] Lei Solis M.D. [id number] Urea nitrogen/Creatinine [Mass ratio] 8.2 mg/mg Low 10.0-20.0 [facility] Comment on above: Order Comment: [facility] has implemented the eGFR calculation approach that does not have a coefficient for race that conforms to the NKF-ASN Task Force Recommendations. Performed By: #### 4 6126 #### LAB [address] [id number] Lei Solis M.D. [id number] Comprehensive metabolic 2000 panelon 02-20-2024 Albumin [Mass/Vol] 3.3 g/dL 3.2 - 5.2 g/dL [facility] ALP [Catalytic activity/Vol] 58 U/L 40 - 140 U/L [facility] ALT [Catalytic activity/Vol] 11 U/L 0-50 U/L [facility] Anion gap [Moles/Vol] 15 mmol/L 10 - 2 0 mmol/L [facility] AST [Catalytic activity/Vol] 16 U/L 0-50 U/L [facility] Bilirubin [Mass/Vol] 0.6 mg/dL 0.0 - 1 .3 mg/dL [facility] Calcium [Mass/Vol] 8.7 mg/dL 8.4 - 10. 2 mg/dL [facility] Chloride [Moles/Vol] 104 mmol/L 98 - 10 8 mmol/L [facility] Creatinine [Mass/Vol] 0.97 mg/dL 0.50 - 1.30 mg/dL [facility] GFR/1.73 sq M.predicted CKD-EPI (S/P/Bld) [Vol rate/Area] 102 - PINF [facility] Comment on above: Estimated GFR was ca lculated using the 2020 CKD-EPI creatinine equation. Glucose [Mass/Vol] 97 mg/dL 65 - 99 mg/dL [facility] HCO3 [Moles/Vol] 21 mmol/L 21 - 32 mmol/L [facility] Interpretation and review of laboratory results Abnormal [facility] Potassium [Moles/Vol] 3.8 mmol/L 3.5 - 5.1 mmol/L [facility] Protein [Mass/Vol] 6.9 g/dL 6.0 - 8.0 g/dL [facility] Sodium [Moles/Vol] 136 mmol/L 135 - 145 mmol/L [facility] Urea nitrogen [Mass/Vol] 8 mg/dL 8 - 25 mg/dL [facility] Urea nitrogen/Creatinine [Mass ratio] 8.2 mg/mg Low 10.0 - 20.0 [facility] y Services has implemented the eGFR calculation approach that does not have a coefficient for race that conforms to the NKF-ASN Task Force Recommendations. [facility] CBC Auto Differentialon 06-0 Basophils (Bld) [#/Vol] 0.04 10*3/uL [facility] Basophils/100 WBC (Bld) 0.4 % [facility] Eosinophils (Bld) [#/Vol] 0.09 10*3/uL [facility] Eosinophils/100 WBC (Bld) 1.0 % [facility] Erythrocyte distribution width (RBC) [Entitic vol] 13.0 % 11.6 - 14.8 % [facility] Hematocrit (Bld) [Volume fraction] 37.5 % Low 41.0 - 53.0 % [facility] Hemoglobin (Bld) [Mass/Vol] 12.3 g/dL Low 13.5 - 17.5 g/dL [facility] Immature granulocytes (Bld) [#/Vol] 0.04 10*3/uL [facility] Immature granulocytes/100 WBC (Bld) 0.40 % [facility] Comment on above: The IG parameter is the percentage of metamyelocytes, myelocytes and promyelocytes. An immature granulocyte count (IG) of 1% or more suggests the possibility of infection, an IG count of 3% is very likely related to an infection. Interpretation and review of laboratory results Abnormal [facility] Lymphocytes (Bld) [#/Vol] 1.74 10*3/uL [facility] Lymphocytes/100 WBC (Bld) 19.1 % [facility] MCH (RBC) [Entitic mass] 29.9 pg 26.0 - 34.0 pg [facility] MCHC (RBC) [Mass/Vol] 32.8 g/dL 31.0 - 37.0 g/dL [facility] MCV (RBC) [Entitic vol] 91.0 fL 80.0 - 100.0 fL [facility] Monocytes (Bld) [#/Vol] 0.69 10*3/uL [facility] Monocytes/100 WBC (Bld) 7.6 % [facility] Neutrophils (Bld) [#/Vol] 6.51 10*3/uL [facility] Neutrophils/100 WBC (Bld) 71.5 % [facility] Nucleated RBC (Bld) [#/Vol] 0.00 10*3/uL [facility] Nucleated RBC/100 WBC (Bld) [Ratio] 0.0 % [facility] Platelet mean volume (Bld) [Entitic vol] 8.9 fL Low 9.4 - 12.4 fL [facility] Platelets (Bld) [#/Vol] 275 10*3/uL [facility] RBC (Bld) [#/Vol] 4.12 10*6/uL Low [facility] WBC (Bld) [#/Vol] 9.11 10*3/uL [facility] CBC WITH AUTO DIFFERENTIALon 02-19-2024 AUTO NRBC 0.0 % Normal [facility] Comment on above: Performed By: #### 4 6195 #### LAB [address] [address] Lei Solis M.D. [id number] AUTO NRBC ABS COUNT 0.00 K/mcL Normal 0.00-0.00 [facility] Comment on above: Performed By: #### 4 6126 #### LAB [address] [address] Lei Solis M.D. [id number] BASOPHILS ABSOLUTE COUNT 0.04 K/mcL Normal 0.00-0.30 [facility] Comment on above: Performed By: #### 4 6126 #### LAB [address] [address] Lei Solis M.D. [id number] Basophils/100 WBC (Bld) 0.4 % Normal [facility] Comment on above: Performed By: #### 4 6126 #### LAB [address] [address] Lei Solis M.D. [id number] Eosinophils (Bld) [#/Vol] 0.09 10*3/uL Normal 0.00-0.50 [facility] Comment on above: Performed By: #### 4 6126 #### LAB [address] [address] Lei Solis M.D. [id number] Eosinophils/100 WBC (Bld) 1.0 % Normal [facility] Comment on above: Performed By: #### 4 6118 #### LAB [address] [address] Lei Solis M.D. [id number] Erythrocyte distribution width (RBC) [Ratio] 13.0 % Normal 11.6-14.8 [facility] Comment on above: Performed By: #### 4 6187 #### LAB [address] [address] Lei Solis M.D. [id number] Hematocrit (Bld) [Volume fraction] 37.5 % Low 41.0-53.0 [facility] Comment on above: Performed By: #### 4 6136 #### LAB [address] [address] Lei Solis M.D. [id number] Hemoglobin (Bld) [Mass/Vol] 12.3 g/dL Low 13.5-17.5 [facility] Comment on above: Performed By: #### 4 6186 #### LAB [address] [address] Lei Solis M.D. [id number] IG ABSOLUTE 0.04 K/mcL Normal 0.00-0.30 [facility] Comment on above: Performed By: #### 4 6126 #### LAB [address] [address] Lei Solis M.D. [id number] IG PERCENT 0.40 % Normal [facility] Comment on above: Result Comment: The IG parameter is the percentage of metamyelocytes, myelocytes and promyelocytes. An immature granulocyte count (IG) of 1% or more suggests the possibility of infection, an IG count of 3% is very likely related to an infection. Performed By: #### 4 6178 #### LAB [address] [address] Lei Solis M.D. [id number] Lymphocytes (Bld) [#/Vol] 1.74 10*3/uL Normal 0.90-4.00 [facility] Comment on above: Performed By: #### 4 6193 #### LAB [address] [address] Lei Solis M.D. [id number] Lymphocytes/100 WBC (Bld) 19.1 % Normal [facility] Comment on above: Performed By: #### 4 6186 #### LAB [address] [address] Lei Solis M.D. [id number] MCH (RBC) [Entitic mass] 29.9 pg Normal 26.0-34.0 [facility] Comment on above: Performed By: #### 4 6126 #### LAB [address] [address] Lei Solis M.D. [id number] MCV (RBC) [Entitic vol] 91.0 fL Normal 80.0-100.0 [facility] Comment on above: Performed By: #### 4 6126 #### LAB [address] [address] Lei Solis M.D. [id number] MEAN CORPUSCULAR HEMOGLOBIN CONC 32.8 g/dL Normal 31.0-37.0 [facility] Comment on above: Performed By: #### 4 6126 #### LAB [address] [address] Lei Solis M.D. [id number] Monocytes (Bld) [#/Vol] 0.69 10*3/uL Normal 0.30-0.90 [facility] Comment on above: Performed By: #### 4 6126 #### LAB [address] [address] Lei Solis M.D. [id number] Monocytes/100 WBC (Bld) 7.6 % Normal [facility] Comment on above: Performed By: #### 4 6126 #### LAB [address] [address] Lei Solis M.D. [id number] NEUTROPHILS ABSOLUTE COUNT 6.51 K/mcL Normal 1.70-7.00 [facility] Comment on above: Performed By: #### 4 6126 #### LAB [address] [address] Lei Slois M.D. [id number] Neutrophils/100 WBC (Bld) 71.5 % Normal [facility] Comment on above: Performed By: #### 4 6126 #### LAB [address] [address] Lei Solis M.D. [id number] Platelet mean volume (Bld) [Entitic vol] 8.9 fL Low 9.4-12.4 [facility] Comment on above: Performed By: #### 4 6126 #### LAB [address] [address] Lei Solis M.D. [id number] Platelets (Bld) [#/Vol] 275 10*3/uL Normal 150-400 [facility] Comment on above: Performed By: #### 4 6126 #### LAB [address] [address] Lei Solis M.D. [id number] RBC (Bld) [#/Vol] 4.12 10*6/uL Low 4.50-5.90 [facility] Comment on above: Performed By: #### 4 6126 #### LAB [address] [address] Lei Solis M.D. [id number] WBC (Bld) [#/Vol] 9.11 10*3/uL Normal 4.50-11.00 [facility] Comment on above: Performed By: #### 4 6126 #### LAB [address] [address] Lei Solis M.D. [id number] CBCon 02-18-2024 AUTO NRBC 0.0 % Normal [facility] Comment on above: Performed By: #### 4 6124 #### LAB [address] [address] Lei Solis M.D. [id number] AUTO NRBC ABS COUNT 0.00 K/mcL Normal 0.00-0.00 [facility] Comment on above: Performed By: #### 4 6124 #### LAB [address] [address] Lei Solis M.D. [id number] Erythrocyte distribution width (RBC) [Ratio] 13.1 % Normal 11.6-14.8 [facility] Comment on above: Performed By: #### 4 6124 #### LAB [address] [address] Lei Solis M.D. [id number] Hematocrit (Bld) [Volume fraction] 39.0 % Low 41.0-53.0 [facility] Comment on above: Performed By: #### 4 6124 #### LAB [address] [address] Lei Solis M.D. [id number] Hemoglobin (Bld) [Mass/Vol] 12.9 g/dL Low 13.5-17.5 [facility] Comment on above: Performed By: #### 4 6124 #### LAB [address] [address] Lei Solis M.D. [id number] MCH (RBC) [Entitic mass] 29.9 pg Normal 26.0-34.0 [facility] Comment on above: Performed By: #### 4 6124 #### LAB [address] [address] Lei Solis M.D. [id number] MCV (RBC) [Entitic vol] 90.5 fL Normal 80.0-100.0 [facility] Comment on above: Performed By: #### 4 6124 #### LAB [address] [address] Lei Solis M.D. [id number] MEAN CORPUSCULAR HEMOGLOBIN CONC 33.1 g/dL Normal 31.0-37.0 [facility] Comment on above: Performed By: #### 4 6124 #### LAB [address] [address] Lei Solis M.D. [id number] Platelet mean volume (Bld) [Entitic vol] 8.8 fL Low 9.4-12.4 [facility] Comment on above: Performed By: #### 4 6111 #### LAB [address] [address] Lei Solis M.D. [id number] Platelets (Bld) [#/Vol] 290 10*3/uL Normal 150-400 [facility] Comment on above: Performed By: #### 4 6116 #### LAB [address] [address] Lei Solis M.D. [id number] RBC (Bld) [#/Vol] 4.31 10*6/uL Low 4.50-5.90 [facility] Comment on above: Performed By: #### 4 6124 #### LAB [address] [place], [place] [address] Lei Solis M.D. [id number] WBC (Bld) [#/Vol] 11.53 10*3/uL High 4.50-11.00 [facility] Comment on above: Performed By: #### 4 6124 #### LAB [address], [place] [address] Lei Solis M.D. [id number] CBC panel Auto (Bld)on 02-17 Erythrocyte distribution width (RBC) [Entitic vol] 13.1 % 11.6 - 14.8 % [facility] Hematocrit (Bld) [Volume fraction] 39.0 % Low 41.0 - 53.0 % [facility] Hemoglobin (Bld) [Mass/Vol] 12.9 g/dL Low 13.5 - 17.5 g/dL [facility] Interpretation and review of laboratory results Abnormal [facility] MCH (RBC) [Entitic mass] 29.9 pg 26.0 - 34.0 pg [facility] MCHC (RBC) [Mass/Vol] 33.1 g/dL 31.0 - 37.0 g/dL [facility] MCV (RBC) [Entitic vol] 90.5 fL 80.0 - 100.0 fL [facility] Nucleated RBC (Bld) [#/Vol] 0.00 10*3/uL [facility] Nucleated RBC/100 WBC (Bld) [Ratio] 0.0 % [facility] Platelet mean volume (Bld) [Entitic vol] 8.8 fL Low 9.4 - 12.4 fL [facility] Platelets (Bld) [#/Vol] 290 10*3/uL [facility] RBC (Bld) [#/Vol] 4.31 10*6/uL Low [facility] WBC (Bld) [#/Vol] 11.53 10*3/uL High [facility] COMPREHENSIVE METABOLIC PANE Oz 02-18-2024 Albumin [Mass/Vol] 3.5 g/dL Normal 3.2-5.2 [facility] Comment on above: Order Comment: [facility] has implemented the eGFR calculation approach that does not have a coefficient for race that conforms to the NKF-ASN Task Force Recommendations. Performed By: #### 4 6126 #### LAB [address] [address] Lei Solis M.D. [id number] ALP [Catalytic activity/Vol] 63 U/L Normal 40-140 [facility] Comment on above: Order Comment: [facility] has implemented the eGFR calculation approach that does not have a coefficient for race that conforms to the NKF-ASN Task Force Recommendations. Performed By: #### 4 6126 #### LAB [address] [address] Lei Solis M.D. [id number] ALT [Catalytic activity/Vol] 11 U/L Normal 0-50 U/L [facility] Comment on above: Order Comment: [facility] has implemented the eGFR calculation approach that does not have a coefficient for race that conforms to the NKF-ASN Task Force Recommendations. Performed By: #### 4 6126 #### LAB [address] [address] Lei Solis M.D. [id number] Anion gap [Moles/Vol] 15 mmol/L Normal 10-20 [facility] Comment on above: Order Comment: [facility] has implemented the eGFR calculation approach that does not have a coefficient for race that conforms to the NKF-ASN Task Force Recommendations. Performed By: #### 4 6126 #### LAB [address] [address] Lei Solis M.D. [id number] AST [Catalytic activity/Vol] 14 U/L Normal 0-50 U/L [facility] Comment on above: Order Comment: [facility] has implemented the eGFR calculation approach that does not have a coefficient for race that conforms to the NKF-ASN Task Force Recommendations. Performed By: #### 4 6126 #### LAB [address] [address] Lei Solis M.D. [id number] Bilirubin [Mass/Vol] 0.9 mg/dL Normal 0.0-1.3 [facility] Comment on above: Order Comment: [facility] has implemented the eGFR calculation approach that does not have a coefficient for race that conforms to the NKF-ASN Task Force Recommendations. Performed By: #### 4 6126 #### LAB [address] [address] Lei Solis M.D. [id number] Calcium [Mass/Vol] 8.7 mg/dL Normal 8.4-10.2 [facility] Comment on above: Order Comment: [facility] has implemented the eGFR calculation approach that does not have a coefficient for race that conforms to the NKF-ASN Task Force Recommendations. Performed By: #### 4 6126 #### LAB [address] [address] Lei Solis M.D. [id number] Chloride [Moles/Vol] 105 mmol/L Normal 98-108 [facility] Comment on above: Order Comment: [facility] has implemented the eGFR calculation approach that does not have a coefficient for race that conforms to the NKF-ASN Task Force Recommendations. Performed By: #### 4 6126 #### LAB [address] [address] Lei Solis M.D. [id number] Creatinine [Mass/Vol] 1.17 mg/dL Normal 0.50-1.30 [facility] Comment on above: Order Comment: [facility] has implemented the eGFR calculation approach that does not have a coefficient for race that conforms to the NKF-ASN Task Force Recommendations. Performed By: #### 4 6126 #### LAB [address] [address] Lei Solis M.D. [id number] EGFR 81 mL/min/1.73 m2 Normal >=60 [facility] Comment on above: Order Comment: [facility] has implemented the eGFR calculation approach that does not have a coefficient for race that conforms to the NKF-ASN Task Force Recommendations. Result Comment: Cornelia mated GFR was calculated using the 2020 CKD-EPI creatinine equation. Performed By: #### 4 6126 #### LAB [address] [address] Lei Solis M.D. [id number] Glucose [Mass/Vol] 101 mg/dL High 65-99 [facility] Comment on above: Order Comment: [facility] Services has implemented the eGFR calculation approach that does not have a coefficient for race that conforms to the NKF-ASN Task Force Recommendations. Performed By: #### 4 6126 #### LAB [address] [address] Lei Solis M.D. [id number] HCO3 (Bld) [Moles/Vol] 22 mmol/L Normal 21-32 [facility] Comment on above: Order Comment: [facility] Services has implemented the eGFR calculation approach that does not have a coefficient for race that conforms to the NKF-ASN Task Force Recommendations. Performed By: #### 4 6126 #### LAB [address] [address] Lei Solis M.D. [id number] Potassium [Moles/Vol] 4.1 mmol/L Normal 3.5-5.1 [facility] Comment on above: Order Comment: [facility] Services has implemented the eGFR calculation approach that does not have a coefficient for race that conforms to the NKF-ASN Task Force Recommendations. Performed By: #### 4 6126 #### LAB [address] [address] Lei Solis M.D. [id number] Protein [Mass/Vol] 6.5 g/dL Normal 6.0-8.0 [facility] Comment on above: Order Comment: [facility] Services has implemented the eGFR calculation approach that does not have a coefficient for race that conforms to the NKF-ASN Task Force Recommendations. Performed By: #### 4 6141 #### LAB [address] [address] Lei Solis M.D. [id number] Sodium [Moles/Vol] 138 mmol/L Normal 135-145 [facility] Comment on above: Order Comment: [facility] Services has implemented the eGFR calculation approach that does not have a coefficient for race that conforms to the NKF-ASN Task Force Recommendations. Performed By: #### 4 6126 #### LAB [address] [place], [place] [address] Lei Solis M.D. [id number] Urea nitrogen [Mass/Vol] 11 mg/dL Normal 8-25 [facility] Comment on above: Order Comment: [facility] Services has implemented the eGFR calculation approach that does not have a coefficient for race that conforms to the NKF-ASN Task Force Recommendations. Performed By: #### 4 6126 #### LAB [address] [place], [place] [address] Lei Solis M.D. [id number] Urea nitrogen/Creatinine [Mass ratio] 9.4 mg/mg Low 10.0-20.0 [facility] Comment on above: Order Comment: [facility] Services has implemented the eGFR calculation approach that does not have a coefficient for race that conforms to the NKF-ASN Task Force Recommendations. Performed By: #### 4 6126 #### LAB [address] [place], [place] [address] Lei Slois M.D. [id number] Comprehensive metabolic 2000 panelon 02-18-2024 Albumin [Mass/Vol] 3.5 g/dL 3.2 - 5.2 g/dL [facility] ALP [Catalytic activity/Vol] 63 U/L 40 - 140 U/L [facility] ALT [Catalytic activity/Vol] 11 U/L 0-50 U/L [facility] Anion gap [Moles/Vol] 15 mmol/L 10 - 2 0 mmol/L [facility] AST [Catalytic activity/Vol] 14 U/L 0-50 U/L [facility] Bilirubin [Mass/Vol] 0.9 mg/dL 0.0 - 1 .3 mg/dL [facility] Calcium [Mass/Vol] 8.7 mg/dL 8.4 - 10. 2 mg/dL [facility] Chloride [Moles/Vol] 105 mmol/L 98 - 10 8 mmol/L [facility] Creatinine [Mass/Vol] 1.17 mg/dL 0.50 - 1.30 mg/dL [facility] GFR/1.73 sq M.predicted CKD-EPI (S/P/Bld) [Vol rate/Area] 81 - PINF [facility] Comment on above: Estimated GFR was ca lculated using the 2020 CKD-EPI creatinine equation. Glucose [Mass/Vol] 101 mg/dL High 65 - 99 mg/dL [facility] HCO3 [Moles/Vol] 22 mmol/L 21 - 32 mmol/L [facility] Interpretation and review of laboratory results Abnormal [facility] Potassium [Moles/Vol] 4.1 mmol/L 3.5 - 5.1 mmol/L [facility] Protein [Mass/Vol] 6.5 g/dL 6.0 - 8.0 g/dL [facility] Sodium [Moles/Vol] 138 mmol/L 135 - 145 mmol/L [facility] Urea nitrogen [Mass/Vol] 11 mg/dL 8 - 25 mg/dL [facility] Urea nitrogen/Creatinine [Mass ratio] 9.4 mg/mg Low 10.0 - 20.0 [facility] Labor[facility] y Services has implemented the eGFR calculation approach that does not have a coefficient for race that conforms to the NKF-ASN Task Force Recommendations. [facility] ECG 12 Leadon 02-18-2024 Atrial Rate 112 BPM [facility] P Perry 36 degrees [facility] P-R Interval 144 ms [facility] Q-T Interval 312 ms [facility] QRS Duration 96 ms [facility] QTC Calculation (Bezet) 425 ms [facility] R [place] 48 degrees [facility] T Perry -17 degrees [facility] Ventricular Rate 112 BPM [facility] Sinus tachycardia Incomplete right bundle branch block Possible Inferior infarct , age undetermined Abnormal ECG Confirmed by Brigida Nash MD ([id number]) on 02/18/2024 1:48:43 PM [facility] BASIC METABOLIC PANELon Anion gap [Moles/Vol] 14 mmol/L Normal 10-20 [facility] Comment on above: Order Comment: [facility] Laboratory Services has implemented the eGFR calculation approach that does not have a coefficient for race that conforms to the NKF-ASN Task Force Recommendations. Performed By: #### [id number] #### [address] [place], [place] [address] Lei Solis M.D. [id number] Calcium [Mass/Vol] 8.7 mg/dL Normal 8.4-10.2 [facility] Comment on above: Order Comment: [facility] Laboratory Services has implemented the eGFR calculation approach that does not have a coefficient for race that conforms to the NKF-ASN Task Force Recommendations. Performed By: #### 4 [id number] #### LAB [address] [place] [address] Lei Solis M.D. [id number] Chloride [Moles/Vol] 105 mmol/L Normal 98-108 [facility] Comment on above: Order Comment: [facility] Laboratory [facility] has implemented the eGFR calculation approach that does not have a coefficient for race that conforms to the NKF-ASN Task Force Recommendations. Performed By: #### 4 [id number] #### [address] [place] [id number] Lei Solis M.D. [id number] Creatinine [Mass/Vol] 1.01 mg/dL Normal 0.50-1.30 [facility] Comment on above: Order Comment: [facility] Laboratory [facility] has implemented the eGFR calculation approach that does not have a coefficient for race that conforms to the NKF-ASN Task Force Recommendations. Performed By: #### 4 [id number] #### [address] [place] [address] Lei Solis M.D. [id number] EGFR 97 mL/min/1.73 m2 Normal >=60 [facility] Comment on above: Order Comment: [facility] Laboratory Services has implemented the eGFR calculation approach that does not have a coefficient for race that conforms to the NKF-ASN Task Force Recommendations. Result Comment: Cornelia mated GFR was calculated using the 2020 CKD-EPI creatinine equation. Performed By: #### 4 [id number] #### LAB [address] [place] [id number] Lei Solis M.D. [id number] Glucose [Mass/Vol] 101 mg/dL High 65-99 [facility] Comment on above: Order Comment: [facility] Laboratory Services has implemented the eGFR calculation approach that does not have a coefficient for race that conforms to the NKF-ASN Task Force Recommendations. Performed By: #### 4 [id number] #### [address] [place] [address] Lei Solis M.D. [id number] HCO3 (Bld) [Moles/Vol] 23 mmol/L Normal 21-32 [facility] Comment on above: Order Comment: [facility] Laboratory [facility] has implemented the eGFR calculation approach that does not have a coefficient for race that conforms to the NKF-ASN Task Force Recommendations. Performed By: #### 4 [id number] #### [address] [place] [address] Lei Solis M.D. [id number] Potassium [Moles/Vol] 4.3 mmol/L Normal 3.5-5.1 [facility] Comment on above: Order Comment: [facility] Laboratory [facility] has implemented the eGFR calculation approach that does not have a coefficient for race that conforms to the NKF-ASN Task Force Recommendations. Performed By: #### 4 [id number] #### [address] [place] [address] Lei Solis M.D. [id number] Sodium [Moles/Vol] 138 mmol/L Normal 135-145 [facility] Comment on above: Order Comment: [facility] Laboratory [facility] has implemented the eGFR calculation approach that does not have a coefficient for race that conforms to the NKF-ASN Task Force Recommendations. Performed By: #### 4 6124 #### [address] [place] [address] Lei Solis M.D. [id number] Urea nitrogen [Mass/Vol] 11 mg/dL Normal 8-25 [facility] Comment on above: Order Comment: [facility] Laboratory [facility] has implemented the eGFR calculation approach that does not have a coefficient for race that conforms to the NKF-ASN Task Force Recommendations. Performed By: #### 4 6124 #### [address] [place] [address] Lei Solis M.D. [id number] Urea nitrogen/Creatinine [Mass ratio] 10.9 mg/mg Normal 10.0-20.0 [facility] Comment on above: Order Comment: [facility] Laboratory Services has implemented the eGFR calculation approach that does not have a coefficient for race that conforms to the NKF-ASN Task Force Recommendations. Performed By: #### 4 6124 #### [address] [place], [place] [address] Lei Solis M.D. [id number] Basic metabolic 2000 panelon 02-17-2024 Anion gap [Moles/Vol] 14 mmol/L 10 - 2 0 mmol/L [facility] Calcium [Mass/Vol] 8.7 mg/dL 8.4 - 10. 2 mg/dL [facility] Chloride [Moles/Vol] 105 mmol/L 98 - 10 8 mmol/L [facility] Creatinine [Mass/Vol] 1.01 mg/dL 0.50 - 1.30 mg/dL [facility] GFR/1.73 sq M.predicted CKD-EPI (S/P/Bld) [Vol rate/Area] 97 - PINF [facility] Comment on above: Estimated GFR was ca lculated using the 2020 CKD-EPI creatinine equation. Glucose [Mass/Vol] 101 mg/dL High 65 - 99 mg/dL [facility] HCO3 [Moles/Vol] 23 mmol/L 21 - 32 mmol/L [facility] Interpretation and review of laboratory results Abnormal [facility] Potassium [Moles/Vol] 4.3 mmol/L 3.5 - 5.1 mmol/L [facility] Sodium [Moles/Vol] 138 mmol/L 135 - 145 mmol/L [facility] Urea nitrogen [Mass/Vol] 11 mg/dL 8 - 25 mg/dL [facility] Urea nitrogen/Creatinine [Mass ratio] 10.9 mg/mg 10.0 - 20.0 [facility] has implemented the eGFR calculation approach that does not have a coefficient for race that conforms to the NKF-ASN Task Force Recommendations. [facility] CBCon 02-17-2024 AUTO NRBC 0.0 % Normal [facility] Comment on above: Performed By: #### 4 6124 #### [facility] LAB [address] [place] [id number] Lei Solis M.D. [id number] AUTO NRBC ABS COUNT 0.00 K/mcL Normal 0.00-0.00 [facility] Comment on above: Performed By: #### 4 6130 #### LAB [address] [place] [address] Lei Solis M.D. [id number] Erythrocyte distribution width (RBC) [Ratio] 13.4 % Normal 11.6-14.8 [facility] Comment on above: Performed By: #### 4 6177 #### [facility] LAB [address] [place] [address] Lei Solis M.D. [id number] Hematocrit (Bld) [Volume fraction] 40.0 % Low 41.0-53.0 [facility] Comment on above: Performed By: #### 4 6124 #### LAB [address] [place] [address] Lei Solis M.D. [id number] Hemoglobin (Bld) [Mass/Vol] 13.4 g/dL Low 13.5-17.5 [facility] Comment on above: Performed By: #### 4 1814 #### LAB [address] [place] [address] Lei Solis M.D. [id number] MCH (RBC) [Entitic mass] 29.8 pg Normal 26.0-34.0 [facility] Comment on above: Performed By: #### 4 6177 #### LAB [address] [place] [address] Lei Solis M.D. [id number] MCV (RBC) [Entitic vol] 89.1 fL Normal 80.0-100.0 [facility] Comment on above: Performed By: #### 4 8726 #### MH LAB [address] [place] [address] Lei Solis M.D. [id number] MEAN CORPUSCULAR HEMOGLOBIN CONC 33.5 g/dL Normal 31.0-37.0 [facility] Comment on above: Performed By: #### 4 7556 #### LAB [address] [place] [address] Lei Solis M.D. [id number] Platelet mean volume (Bld) [Entitic vol] 8.7 fL Low 9.4-12.4 [facility] Comment on above: Performed By: #### 4 6124 #### [address] [place] [address] Lei Solis M.D. [id number] Platelets (Bld) [#/Vol] 279 10*3/uL Normal 150-400 [facility] Comment on above: Performed By: #### 4 6124 #### MH LAB [address] [place] [address] Lei Solis M.D. [id number] RBC (Bld) [#/Vol] 4.49 10*6/uL Low 4.50-5.90 [facility] Comment on above: Performed By: #### 4 6124 #### [address] [place] [address] Lei Solis M.D. [id number] WBC (Bld) [#/Vol] 11.98 10*3/uL High 4.50-11.00 [facility] Comment on above: Performed By: #### 4 6124 #### [address] [place] [address] Lei Solis M.D. [id number] CBC panel Auto (Bld)on 02-16 Erythrocyte distribution width (RBC) [Entitic vol] 13.4 % 11.6 - 14.8 % [facility] Hematocrit (Bld) [Volume fraction] 40.0 % Low 41.0 - 53.0 % [facility] Hemoglobin (Bld) [Mass/Vol] 13.4 g/dL Low 13.5 - 17.5 g/dL [facility] Interpretation and review of laboratory results Abnormal [facility] MCH (RBC) [Entitic mass] 29.8 pg 26.0 - 34.0 pg [facility] MCHC (RBC) [Mass/Vol] 33.5 g/dL 31.0 - 37.0 g/dL [facility] MCV (RBC) [Entitic vol] 89.1 fL 80.0 - 100.0 fL [facility] Nucleated RBC (Bld) [#/Vol] 0.00 10*3/uL [facility] Nucleated RBC/100 WBC (Bld) [Ratio] 0.0 % [facility] Platelet mean volume (Bld) [Entitic vol] 8.7 fL Low 9.4 - 12.4 fL [facility] Platelets (Bld) [#/Vol] 279 10*3/uL [facility] RBC (Bld) [#/Vol] 4.49 10*6/uL Low [facility] ealth WBC (Bld) [#/Vol] 11.98 10*3/uL High [facility] CK [Catalytic activity/Vol]o n 02-17-2024 Interpretation and review of laboratory results Normal [facility] CNPNon 02-17-2024 CNPN Telephone (INTMWS) AMEE GUAMAN ([id number]) 1985 M Date Time Provider Department 02/17/24 ELLIOT SONI During your visit today, we recorded the following information about you: Kristen Garcia LPN 02/17/2024 8:27 AM Signed Amee calls and states the following: ABDOMINAL PAIN LOCATION: Mid lower abdomen describes it as a constant ache, stabbing and cramping pain at times. RADIATION: that does not radiate ONSET: started about 3 days ago but last night had been the worse since starting. Did take hydrocodone last night that did take the edge off. Pain has been gradual SEVERITY: 7-8:10 pain scale CAUSE: history of diverticulitis and had missed 2 days of fiber supplement RELIEVING/AGGRAVATING FACTORS: urinating does take some of the pressure off area OTHER SYMPTOMS: Denies fever. Has some constipation and mucous when wiping. Patient suspects abdominal pain is related to a diverticulitis flare up. He is requesting treatment with Cipro and Flagyl. PodlogKathia sam APRN.PROFESSOR OF BIOCHEMISTRY 02/17/2024 8:41 AM Signed Patient needs to be seen for this. I have opening today. If pain is worsening recommend ER. Kathia Looney APRN.Alexandria Carter RN 02/17/2024 9:02 AM Signed Pt states he is going to go to the ER. Allergies As of Date: 02/17/2024 (No Known Allergies) Date Reviewed: 01/08/2024 Reviewed by: Diana Braga RN - Fully Assessed Reason for Visit: Abdominal Pain [1] Meds Comments as of 01/08/2024: 01/08/2024 Took Tylenol today. Diana Braga RN Problem List As Of Date 02/17/2024 Noted Resolved Obesity, Class II, BMI 35-39.9 [E66.9] 02/14/2023 Encounter Status:Closed by ALEXANDRIA HARVEY on 02/17/24 Normal [facility] CONSULTon 02-17-2024 CONSULT - Attestation signed by Laura Wiley MD at 02/17/2024 1:49 PM I agree with the Advanced Practice Provider note with the same day of service. The patient was seen and examined by me, the attending surgeon, on rounds on the date of service listed above. I have reviewed the Advanced Practice Provider note with the relevant labs, studies, and solutions sales consultant notes. I have reviewed and agree with the documented history, exam, and plan of care. The below note includes my discussion, exams, and review of relevant labs and imaging. Agree with below note 38-year-old man with past medical history of nephrolithiasis presents complaining of 2 to 3 days of left lower quadrant pain. Has had episodes of diverticulitis in the past but only received oral antibiotics from his PCP. Underwent CT imaging that showed perforated sigmoid diverticulitis and was transferred to our hospital for further level of care. Blood pressure (!) 132/99, pulse (!) 107, temperature 98.6 degrees F (37 degrees C), temperature source Oral, resp. rate 18, SpO2 97%. General awake alert no acute distress Respiratory nonlabored CV tachycardic on telemetry Abdomen is soft nondistended tender to palpation in the left lower quadrant. No guarding no rigidity Lab work reviewed Imaging reviewed Plan Patient appears to have a perforated diverticulitis of the sigmoid colon. No sarah abscess on imaging. Would recommend nonoperative management at this time with IV antibiotics, n.p.o. IV fluids Surgery to follow [facility] SURGICAL HISTORY & PHYSICAL/CONSULTATION NOTE Surgery Admitted with these risk variables:None. Please see assessment and plan for further details. SURGICAL PROBLEM Perforated Diverticulitis ASSESSMENT & PLAN/ACTIVE MEDICAL PROBLEMS: Perforated Diverticulitis CTAP with IV contrast at [facility] with moderate inflammatory stranding of a proximal sigmoid diverticulum & adjacent foci of extraluminal gas, no loculated fluid collection - conservative treatment at this time, NPO, IV Zosyn, gentle IV hydration - WBC 12.47, afebrile, mildly tachycardic in the low 100s, BP stable - Will need to follow-up CTAP in the coming days - discussed with Dr. Wiley, can be admitted to medicine and we will follow along while admitted INCIDENTAL FINDINGS: Subcentimeter hypoattenuating left renal lesion, too small to characterize CHIEF COMPLAINT: Abdominal pain Notification Time: 1252 Arrival at Bedside: 1310 HISTORY OF PRESENT ILLNESS / INJURY (HPI): Amee Guaman is a 38-year-old male with a past medical history of kidney stones and diverticulitis, who presented to [facility] ED with complaints of 2 to 3 days of left lower quadrant abdominal pain. He had a CTAP with IV contrast at [facility] that showed perforated diverticulitis. There was no abscess identified. There was small amount of extraluminal gas. He arrives to the [facility] ED as a transfer for general surgery evaluation. The patient states he has been treated since early December by his PCP for acute diverticulitis. He has never seen a general surgeon for this. He failed treatment with Augmentin the first time, and was placed on Cipro and Flagyl at that time. He was doing well until 2 to 3 days ago when he started to develop intermittent low left lower quadrant abdominal pain. The patient stated his pain was severe this morning, thus prompting him to go to [facility] ED. 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 The patient states he was given Toradol at [facility] ED with good improvement in his pain. He denies nausea, vomiting, diarrhea, fevers or chills. PAST MEDICAL HISTORY (PMH): Past Medical History: Diagnosis Date Kidney stones History reviewed. No pertinent surgical history. Social History Tobacco Use Smoking status: Smoker, Current Status Unknown Types: Cigars Smokeless tobacco: Never Vaping Use Vaping Use: Never used Substance Use Topics Alcohol use: Yes Drug use: Never History reviewed. No pertinent family history. MEDICATIONS: Current Facility-Administered Medications on File Prior to Encounter Medication Dose Route Frequency Provider Last Rate Last Admin [COMPLETED] cefTRIAXone (ROCEPHIN) 2000 mg in sodium chloride (NS) 0.9% 50 mL (vialmate) (FSED) 2,000 mg Intravenous Once Marvin Rick MD Stopped at 02/17/24 1113 [COMPLETED] iopamidoL (ISOVUE-370) 370 mg iodine /mL (76 %) injection 75 mL 75 mL Intravenous Once in imaging Marvin Rick MD 75 mL at 02/17/24 0953 [COMPLETED] ketorolac (TORADOL) injection 15 mg 15 mg Intravenous Once Marvin Rick MD 15 mg at 02/17/24 0939 [COMPLETED] met (more content not included)... Normal [facility] CPKon 02-17-2024 CPK 95 U/L Normal 60-225 [facility] Comment on above: Performed By: #### 4 1529 #### [address], [place] [address] Lei Solis M.D. [id number] CPK NO MBon 02-17-2024 CK [Catalytic activity/Vol] 95 U/L 60 - 225 U/L [facility] CT ABDOMEN PELVIS WITH IV CO NTRAST ONLYon 02-17-2024 CT ABDOMEN PELVIS WITH IV CONTRAST ONLY EXAMINATION: CT ABDOMEN PELVIS WITH IV CONTRAST ONLY HISTORY: ORDERING SYSTEM PROVIDED HISTORY: Left lower quadrant pain, TECHNOLOGIST PROVIDED HISTORY: Illness/Other Reason for exam: pain in RLQ sudden onset 2 days ago with hx of diverticulitis pt concerned for flare up Encounter Type: Initial Additional signs and symptoms: na ORDERING SYSTEM PROVIDED DIAGNOSIS CODES: COMPARISON: None TECHNIQUE: CT examination of the abdomen and pelvis following the administration of intravenous contrast. Coronal and sagittal reformations were performed. Dose reduction techniques were achieved by using automated exposure control and/or adjustment of mA and/or kV according to patient size and/or use of iterative reconstruction technique. CONTRAST: IOPAMIDOL 370 MG IODINE/ML (76 %) INTRAVENOUS SOLUTION - 75 mL, LOWER CHEST No significant abnormality. ABDOMEN AND PELVIS Liver: Normal. Biliary System: Normal gallbladder. No biliary ductal dilation. Pancreas: Normal. Spleen: Normal. Adrenal Glands: Normal. Urinary System: Normal right kidney. Subcentimeter hypoattenuating left renal lesion, too small to characterize. No hydronephrosis or urolithiasis. Normal bladder. Reproductive organs: Unremarkable. Gastrointestinal Tract: Colonic diverticulosis. Moderate inflammatory stranding of a proximal sigmoid diverticulum. Adjacent foci of extraluminal gas. No loculated fluid collection. Normal caliber bowel. Normal appendix. Vessels: Nonaneurysmal abdominal aorta.Patent abdominal vasculature. Lymph Nodes: No adenopathy. Peritoneum: No ascites. MSK Soft tissues: Unremarkable. Bones: No acute abnormality or suspicious lesion. IMPRESSION: Acute perforated sigmoid diverticulitis. I (Evette Phoenix)personally discussed the critical results of the examination with MARVIN RICK over the telephone at approximately 10:13 on 02/17/2024. Workstation ID: [id number] Dictated by: EVETTE DAMIAN on FriFeb 17, 2024 10:13:09 AM EDT Transcribed by: EVETTE DAMIAN on FriFeb 17, 2024 10:13:09 AM EDT Finalized by: EVETTE DAMIAN on FriFeb 17, 2024 10:13:09 AM EDT [facility] Comment on above: Order Comment: [facility] Laboratory Services has implemented the eGFR calculation approach that does not have a coefficient for race that conforms to the NKF-ASN Task Force Recommendations. ED Prov Noteon 02-17-2024 ED Prov Note ED PROVIDER NOTE [facility] EMERGENCY DEPARTMENT NAME: Amee Guaman AGE: 38 y.o. : 1985 VISIT DATE: 02/17/2024 CSN: [id number] PCP: No, Physician Chief Complaint Patient presents with Abdominal Pain Patient presents to the [facility] emergency department as a transfer from the [facility] emergency department for a surgery consultation. Patient has been experiencing left lower quadrant pain. He was first diagnosed about a month and a half ago and has been through several rounds of antibiotics. States that he was originally on Augmentin and then he switched to Cipro and Flagyl. States his pain started again last night. He went into the [facility] emergency department where they found diverticulitis with a contained perforation. He admits to having small bowel movement throughout the night. States there is purulence present. He admits to some nausea without vomiting. States that he is really just primarily having left lower quadrant abdominal pain near his belt line. He denies any other significant medical history. No other complaints or concerns at this time. Past Medical History: Diagnosis Date Kidney stones History reviewed. No pertinent surgical history. History reviewed. No pertinent family history. Social History Socioeconomic History Marital status: Tobacco Use Smoking status: Smoker, Current Status Unknown Types: Cigars Smokeless tobacco: Never Vaping Use Vaping Use: Never used Substance and Sexual Activity Alcohol use: Yes Drug use: Never No current outpatient medications on file prior to encounter. No Known Allergies Review of Systems Constitutional: Negative for chills, diaphoresis, fatigue and fever. HENT: Negative for congestion, ear pain, facial swelling, postnasal drip, rhinorrhea, sinus pressure, sore throat, trouble swallowing and voice change. Eyes: Negative for photophobia, discharge and visual disturbance. Respiratory: Negative for cough, chest tightness, shortness of breath and wheezing. Cardiovascular: Negative for chest pain, palpitations and leg swelling. Gastrointestinal: Positive for abdominal pain, constipation and nausea. Negative for blood in stool, diarrhea and vomiting. Genitourinary: Negative for decreased urine volume, difficulty urinating, dysuria, flank pain, hematuria and urgency. Musculoskeletal: Negative for arthralgias and back pain. Skin: Negative for rash. Neurological: Negative for dizziness, syncope, speech difficulty, weakness, light-headedness and headaches. Psychiatric/Behaviora l: Negative for confusion and suicidal ideas. All other systems reviewed and are negative. Patient Vitals for the past 24 hrs: BP Temp Temp src Pulse Resp SpO2 02/17/24 1331 (!) 133/93 -- -- (!) 106 17 96 % 02/17/24 1303 -- -- -- -- 18 -- 02/17/24 1300 (!) 132/99 -- -- (!) 107 (!) 32 97 % 02/17/24 1258 -- -- -- (!) 113 14 96 % 02/17/24 1254 (!) 138/95 -- -- -- -- -- 02/17/24 1244 (!) 150/88 98.6 degrees F (37 degrees C) Oral (!) 118 18 99 % Physical Exam Vitals and nursing note reviewed. Constitutional: General: He is not in acute distress. Appearance: He is well-developed. He is not toxic-appearing. HENT: Head: Normocephalic and atraumatic. Eyes: Extraocular Movements: Extraocular movements intact. Conjunctiva/sclera: Conjunctivae normal. Cardiovascular: Rate and Rhythm: Normal rate and regular rhythm. Heart sounds: Normal heart sounds. Musculoskeletal: General: Normal range of motion. Cervical back: Normal range of motion and neck supple. Pulmonary: Effort: Pulmonary effort is normal. No respiratory distress. Breath sounds: Normal breath sounds. Abdominal: General: Abdomen is flat. Bowel sounds are normal. Palpations: Abdomen is soft. Tenderness: There is abdominal tenderness in the left lower quadrant. There is no right CVA tenderness or left CVA tenderness. Skin: General: Skin is warm and dry. Neurological: General: No focal deficit present. Mental Status: He is alert. Psychiatric: Mood and Affect: Mood normal. . Laboratory & Radiographic Imaging (if done): No results found for this visit on 02/17/24. No orders to display Procedures Medical Decision Making Patient presents to the [facility] emergency department as a transfer from the [facility] emergency department for a surgery consultation. Patient has been experiencing left lower quadrant pain. He was first diagnosed about a month and a half ago and has been through several rounds of antibiotics. States that he was originally on Augmentin and then he switched to Cipro and Flagyl. States his pain started again last night. He went into the [facility] emergency department where they found diverticulitis with a contained perforation. He admits to having small bowel movement throughout the night. States there is purulence present. He admits (more content not included)... Normal [facility] ED Prov Note HPI: 02/17/2024, Time: @PATRICE@ Amee Henrik Deniz is a 38 y.o. male presenting to the ED for gradual onset of left lower quadrant abdominal pain, beginning since last night ago. The complaint has been constant, moderate in severity, and worsened by changing position. No fever or chills and no vomiting or diarrhea ROS: Pertinent positives and negatives are stated within HPI, all other systems reviewed and are negative. --- PAST HISTORY --- Past Medical History: @[facility]@ Past Surgical History: has no past surgical history on file. Social History: reports that he has been smoking cigars. He has never used smokeless tobacco. He reports current alcohol use. He reports that he does not use drugs. Family History: family history is not on file. The patient's home medications have been reviewed. Allergies: Patient has no known allergies. -------- RESULTS ------- All laboratory and radiology results have been personally reviewed by myself LABS: Results for orders placed or performed during the hospital encounter of 02/17/24 POC CBC and Differential Result Value Ref Range WBC 12.47 (H) 4.50 - 11.00 K/mcL RBC 4.94 4.50 - 5.90 M/mcL Hemoglobin 14.7 13.5 - 17.5 g/dL Hematocrit 43.6 41.0 - 53.0 % MCV 88.3 80.0 - 100.0 fL MCH 29.8 26.0 - 34.0 pg MCHC 33.7 31.0 - 37.0 g/dL RDW - CV 13.2 11.6 - 14.8 % Platelets 355 150 - 400 K/mcL MPV 8.9 (L) 9.4 - 12.4 fL Neutrophils 76.2 % Lymphocytes 16.8 % Monocytes 5.7 % Eosinophils 0.9 % Basophils 0.2 % IG Percent 0.20 % Neutrophils Abs 9.51 (H) 1.70 - 7.00 K/mcL Lymphocytes Abs 2.09 0.90 - 4.00 K/mcL Monocytes Abs 0.71 0.30 - 0.90 K/mcL Eosinophils Abs 0.11 0.00 - 0.50 K/mcL Basophils Abs 0.03 0.00 - 0.30 K/mcL IG Absolute 0.02 0.00 - 0.30 K/mcL POC Basic Metabolic Panel Result Value Ref Range Glucose 95 65 - 99 mg/dL BUN 12 8 - 25 mg/dL Creatinine 1.01 0.50 - 1.30 mg/dL GFR 97 >=60 mL/min/1.73 m2 Sodium 143 135 - 145 mmol/L Potassium 3.9 3.5 - 5.1 mmol/L Chloride 106 98 - 108 mmol/L TCO2 23 21 - 32 mmol/L Ionized Calcium 4.6 4.5 - 5.3 mg/dL RADIOLOGY: Interpreted by Radiologist. CT Abdomen Pelvis With IV Contrast Only Final Result Acute perforated sigmoid diverticulitis. I (Evette Phoenix)personally discussed the critical results of the examination with MARVIN RICK over the telephone at approximately 10:13 on 02/17/2024. Workstation ID: [id number] ---- NURSING NOTES AND VITALS REVIEWED ------ The nursing notes within the ED encounter and vital signs as below have been reviewed. BP 135/89 (BP Location: Left arm, Patient Position: Sitting) Pulse (!) 127 Temp 98.7 degrees F (37.1 degrees C) (Temporal) Resp 18 Ht 6' 1 Wt 127 kg (280 lb) SpO2 96% BMI 36.94 kg/m Oxygen Saturation Interpretation: Normal ---------PHYSICAL EXAM Constitutional/Genera l: Alert and oriented x3, well appearing, non toxic in NAD Head: NC/AT Eyes: PERRL, EOMI Mouth: Oropharynx clear, handling secretions, no trismus Neck: Supple, full ROM, no meningeal signs Pulmonary: Lungs clear to auscultation bilaterally, no wheezes, rales, or rhonchi. Not in respiratory distress Cardiovascular: Regular rate and rhythm, no murmurs, gallops, or rubs. 2+ distal pulses Abdomen: Soft, moderate left lower quadrant tenderness to palpation with guarding but no rebound non distended, Extremities: Moves all extremities x 4. Warm and well perfused Skin: warm and dry without rash Neurologic: GCS 15, Psych: Normal Affect --------- ED COURSE/MEDICAL DECISION MAKING ------- Medications sodium chloride 0.9% (NS) bolus 1,000 mL (1,000 mL Intravenous New Bag 02/17/24 0939) cefTRIAXone (ROCEPHIN) 2000 mg in sodium chloride (NS) 0.9% 50 mL (vialmate) (FSED) (has no administration in time range) metroNIDAZOLE (FLAGYL) IVPB 500 mg (has no administration in time range) ketorolac (TORADOL) injection 15 mg (15 mg Intravenous Given 02/17/24938) sodium chloride (PF) (NS) 0.9 % contrast line flush 10 mL (10 mL Intravenous Given 02/17/24952) And sodium chloride (PF) (NS) 0.9 % contrast line flush 80 mL (80 mL Intravenous Given 02/17/24952) iopamidoL (ISOVUE-370) 370 mg iodine /mL (76 %) injection 75 mL (75 mL Intravenous Contrast Administered 02/17/24952) Medical Decision Making: Left lower quadrant pain rule out diverticulitis Counseling: The emergency provider has spoken with the patient and discussed today's results, in addition to providing specific details for the plan of care and counseling regarding the diagnosis and prognosis. Questions are answered at this time and they are agreeable with t (more content not included)... Normal [facility] HEPATIC FUNCTION PANELon Albumin [Mass/Vol] 4.0 g/dL Normal 3.2-5.2 [facility] Comment on above: Performed By: #### [id number] #### LAB [address] [address] Lei Solis M.D. [id number] ALP [Catalytic activity/Vol] 72 U/L Normal 40-140 [facility] Comment on above: Performed By: #### [id number] #### LAB [address], [place] [address] Lei Solis M.D. [id number] ALT [Catalytic activity/Vol] 18 U/L Normal 0-50 U/L [facility] Comment on above: Performed By: #### [id number] #### LAB [address], [place] [address] Lei Solis M.D. [id number] AST [Catalytic activity/Vol] 15 U/L Normal 0-50 U/L [facility] Comment on above: Performed By: #### 4 [id number] #### LAB [address] [id number] Lei Solis M.D. [id number] Bilirubin [Mass/Vol] 0.6 mg/dL Normal 0.0-1.3 [facility] Comment on above: Performed By: #### 4 [id number] #### LAB [address] [id number] Lei Solis M.D. [id number] BILIRUBIN, DIRECT < Normal 0.0-0.4 [facility] Comment on above: Performed By: #### 4 [id number] #### MH LAB [address] [address] Lei Solis M.D. [id number] Protein [Mass/Vol] 7.2 g/dL Normal 6.0-8.0 [facility] Comment on above: Performed By: #### 4 [id number] #### LAB [address] [address] Lei Solis M.D. [id number] Hepatic function 2000 panelO rdered By: Jacquelyn See on 02-17-2024 Albumin [Mass/Vol] 4.0 g/dL 3.2 - 5.2 g/dL [facility] ALP [Catalytic activity/Vol] 72 U/L 40 - 140 U/L [facility] ALT [Catalytic activity/Vol] 18 U/L 0-50 U/L [facility] AST [Catalytic activity/Vol] 15 U/L 0-50 U/L [facility] Bilirubin [Mass/Vol] 0.6 mg/dL 0.0 - 1 .3 mg/dL [facility] Bilirubin.conjugated [Mass/Vol] mg/dL 0.0 - 0.4 mg/dL [facility] Interpretation and review of laboratory results Normal [facility] Protein [Mass/Vol] 7.2 g/dL 6.0 - 8.0 g/dL [facility] LACTIC ACID, PLASMAon 2023 LACTIC ACID, PLASMA 0.9 mmol/L Normal 0.6-2.0 [facility] Comment on above: Performed By: #### 4 [id number] #### MH LAB [address] [address] Lei Solis M.D. [id number] Lactate [Moles/Vol]on 2023 Interpretation and review of laboratory results Normal [facility] Lactic Acid, Plasmaon 2023 Lactate [Moles/Vol] 0.9 mmol/L 0.6 - 2. 0 mmol/L [facility] POC BASIC METABOLIC PANEL - RALSabas 02-17-2024 Chloride [Moles/Vol] 106 mmol/L Normal 98-108 [facility] Comment on above: Order Comment: [facility] Services has implemented the eGFR calculation approach that does not have a coefficient for race that conforms to the NKF-ASN Task Force Recommendations. CO2 [Moles/Vol] 23 mmol/L Normal 21-32 [facility] Comment on above: Order Comment: [facility] has implemented the eGFR calculation approach that does not have a coefficient for race that conforms to the NKF-ASN Task Force Recommendations. Creatinine [Mass/Vol] 1.01 mg/dL Normal 0.50-1.30 [facility] Comment on above: Order Comment: [facility] Laboratory [facility] has implemented the eGFR calculation approach that does not have a coefficient for race that conforms to the NKF-ASN Task Force Recommendations. Glucose [Mass/Vol] 95 mg/dL Normal 65-99 [facility] Comment on above: Order Comment: [facility] has implemented the eGFR calculation approach that does not have a coefficient for race that conforms to the NKF-ASN Task Force Recommendations. POC GFR 97 mL/min/1.73 m2 Normal >=60 [facility] Comment on above: Order Comment: [facility] has implemented the eGFR calculation approach that does not have a coefficient for race that conforms to the NKF-ASN Task Force Recommendations. Result Comment: Cornelia mated GFR was calculated using the 2020 CKD-EPI creatinine equation. POC IONIZED CALCIUM 4.6 mg/dL Normal 4.5-5.3 [facility] Comment on above: Order Comment: [facility] has implemented the eGFR calculation approach that does not have a coefficient for race that conforms to the NKF-ASN Task Force Recommendations. Potassium [Moles/Vol] 3.9 mmol/L Normal 3.5-5.1 [facility] Comment on above: Order Comment: [facility] has implemented the eGFR calculation approach that does not have a coefficient for race that conforms to the NKF-ASN Task Force Recommendations. Sodium [Moles/Vol] 143 mmol/L Normal 135-145 [facility] Comment on above: Order Comment: [facility] has implemented the eGFR calculation approach that does not have a coefficient for race that conforms to the NKF-ASN Task Force Recommendations. Urea nitrogen [Mass/Vol] 12 mg/dL Normal 8-25 [facility] Comment on above: Order Comment: [facility] has implemented the eGFR calculation approach that does not have a coefficient for race that conforms to the NKF-ASN Task Force Recommendations. POC CBC AND DIFFERENTIALon 0 02-17-2024 BASOPHILS ABSOLUTE COUNT 0.03 K/mcL Normal 0.00-0.30 [facility] Basophils/100 WBC (Bld) 0.2 % Normal [facility] Eosinophils (Bld) [#/Vol] 0.11 10*3/uL Normal 0.00-0.50 [facility] Eosinophils/100 WBC (Bld) 0.9 % Normal [facility] Erythrocyte distribution width (RBC) [Ratio] 13.2 % Normal 11.6-14.8 [facility] Hematocrit (Bld) [Volume fraction] 43.6 % Normal 41.0-53.0 [facility] Hemoglobin (Bld) [Mass/Vol] 14.7 g/dL Normal 13.5-17.5 [facility] IG ABSOLUTE 0.02 K/mcL Normal 0.00-0.30 [facility] IG PERCENT 0.20 % Normal [facility] Comment on above: Result Comment: The IG parameter is the percentage of metamyelocytes, myelocytes and promyelocytes. An immature granulocyte count (IG) of 1% or more suggests the possibility of infection, an IG count of 3% is very likely related to an infection. Lymphocytes (Bld) [#/Vol] 2.09 10*3/uL Normal 0.90-4.00 [facility] Lymphocytes/100 WBC (Bld) 16.8 % Normal [facility] MCH (RBC) [Entitic mass] 29.8 pg Normal 26.0-34.0 [facility] MCV (RBC) [Entitic vol] 88.3 fL Normal 80.0-100.0 [facility] MEAN CORPUSCULAR HEMOGLOBIN CONC 33.7 g/dL Normal 31.0-37.0 [facility] Monocytes (Bld) [#/Vol] 0.71 10*3/uL Normal 0.30-0.90 [facility] Monocytes/100 WBC (Bld) 5.7 % Normal [facility] NEUTROPHILS ABSOLUTE COUNT 9.51 K/mcL High 1.70-7.00 [facility] Neutrophils/100 WBC (Bld) 76.2 % Normal [facility] Platelet mean volume (Bld) [Entitic vol] 8.9 fL Low 9.4-12.4 [facility] Platelets (Bld) [#/Vol] 355 10*3/uL Normal 150-400 [facility] RBC (Bld) [#/Vol] 4.94 10*6/uL Normal 4.50-5.90 [facility] WBC (Bld) [#/Vol] 12.47 10*3/uL High 4.50-11.00 [facility]iane [facility]EE GUAMAN ([id number]) 1985 M Date Time Provider Department 01/09/24 ELLIOT SONI [facility] During your visit today, we recorded the following information about you: Tressa Rosenthal, RN 01/09/2024 3:43 PM Signed Patient of Dr. Soni. Has question and aware that his PCP Team is out of office at this time. Patient asking if [facility] provider could advise him. Patient saw Stacie Parisi CNP yesterday for ER F/U. Patient was seen in ER 01/01 and diagnosed with diverticulitis and started on Augmentin. This is his last day of Augmentin today. Patient reports symptoms were improving until friday night when his pain increased in frequency. Has dull ache. Patient states he went to ER with pain last week, he got better initially after starting the Augmentin, and now it seems the pain is returning, he states he is terrified that he is headed in the wrong direction as the weekend approaches. Asking if he needs an additional course of therapy at this point? Reports his mom gets diverticultis and Flagyl worked best for her. Please advise patient. [phone] Thank you. Marvin Siu MD 01/09/2024 4:29 PM Signed OK to change antibiotics to Cipro and Flagyl as ordered (Flagyl by itself is not typically effective) MD Ariadna Vogel Sherrie, RN 01/09/2024 4:35 PM Signed Patient notified and agreeable. Tressa Rosenthal RN Allergies As of Date: 01/09/2024 (No Known Allergies) Date Reviewed: 01/08/2024 Reviewed by: Diana Braga RN - Fully Assessed Reason for Visit: Patient Question [6577] Order(s):ciprofloxaci n HCl (CIPRO) 500 mg tabletTake 1 tablet by mouth two times a day for 7 days.Disp: 14 tabletRfl: 0 metroNIDAZOLE (FLAGYL) 500 mg tabletTake 1 tablet by mouth every 8 hours for 7 days.Disp: 21 tabletRfl: 0 Prescriptions as of 01/09/2024 - ciprofloxacin HCl (CIPRO) 500 mg tablet Take 1 tablet by mouth two times a day for 7 days. - metroNIDAZOLE (FLAGYL) 500 mg tablet Take 1 tablet by mouth every 8 hours for 7 days. - iv contrast (will be provided with radiology test) CT ABD/PEL -Inject, intravenously, once for 1 dose.No IV access, insert saline lock prior to the beginning of sedation, infusion, injection of imaging exam. Discontinue saline lock post exam. If Pt. has a central line or IVAD, may access for administration according to line specific nursing protocol. Once exam is complete flush line and de-access according to line specific nursing protocol in the CT contrast administration guidelines link. Meds Comments as of 01/08/2024: 01/08/2024 Took Tylenol today. Diana Braga RN Problem List As Of Date 01/09/2024 Noted Resolved Obesity, Class II, BMI 35-39.9 [E66.9] 02/14/2023 Prescriptions ordered this encounter Disp Refills Start End CIPROFLOXACIN 500 MG TABLET 14 t* 0 01/09/2024 01/16/2024 Route: ORAL Sig: Take 1 tablet by mouth two times a day for 7 days. METRONIDAZOLE 500 MG TABLET 21 t* 0 01/09/2024 01/16/2024 Route: ORAL Sig: Take 1 tablet by mouth every 8 hours for 7 days. Encounter Status:Closed by TRESSA ROSENTHAL on 01/09/24 [facility] 01-08-2024 [facility] HNO ID: [id number] Author: KATIHA CHOI RT(R) Service: ? Author Type: Animal Damage Control Agent Type: [facility] Filed: 01/08/2024 15:19 Note Text: Radiology Service Progress Note DATE OF SERVICE: January 08, 2024 TIME: 3:18 PM PATIENT IDENTITY VERIFICATION COMPLETED USING TWO (2) STANDARD IDENTIFIERS: Name and Date of confirmed by patient verbally. FALL SCREENING: Has the patient had 2 falls in the last year or 1 fall with injury or currently using an Ambulatory Assistive Device (Walker, Cane, Wheelchair, Crutches, etc.)? No PATIENT GENDER DATA: Male PATIENT RELEVANT IMPLANT DATA REVIEWED: Not Applicable PATIENT PRESENTS WITH AN IMPLANTABLE OR ATTACHED LEVELER HELPER: No ALLERGIES: Reviewed and unchanged CONTRAST ALLERGY: NO. EXAM: CT -CONTRAST INDUCED NEPHROPATHY RISK FACTORS: Not applicable CREATININE: Creatinine Date Value Ref Range Status 01/08/2024 1.03 0.73 - 1.22 mg/dL Final 02/14/2023 1.03 0.73 - 1.22 mg/dL Final Estimated Glomerular Filtration Rate Date Value Ref Range Status 01/08/2024 95 >=60 mL/min/1.73m? Final Comment: Estimated Glomerular Filtration Rate (eGFR) is calculated using the 2020 CKD-EPI creatinine equation. This equation utilizes serum creatinine, sex, and age as parameters. The creatinine assay has traceable calibration to isotope dilution-mass spectrometry. Refer to KDIGO guidelines for clinical interpretation. In patients with unstable renal function, e.g. those with acute kidney injury, the eGFR may not accurately reflect actual GFR. P.O.C.T. RESULTS: POC done: Yes, See Lab Tab January 08, 2024 TREATMENT: N/A PERIPHERAL IV DATA: Ambulatory: A peripheral IV was started in the Right antecubital site with a Angio cath: 20 gauge. RADIOLOGY DEPARTMENT: CT; Exam(s) Completed: Abdomen/Pelvis SIGNATURE: RT Cece(R) PATIENT NAME: Amee Guaman DATE: January 08, 2024 TIME: 3:18 PM Normal [facility] CNOVon 01-08-2024 CNOV Office Visit (FAMPWS ) AMEE GUAMAN ([id number]) 1985 M Date Time Provider Department 01/08/24 11:00 AM STACIE PARISI During your visit today, we recorded the following information about you: Pulse Respiration Blood pressure Weight 98/minute 16/minute 116/82 129.3 kg Stacie Parisi APRN.PROFESSOR OF BIOCHEMISTRY 01/08/2024 11:16 AM Signed Chief Complaint Patient presents with: ER F/U HPI Amee Guaman is a 38 year old male who presents here today for Above Complaints.. Patient presents for ER follow up. Patient was seen in ER 01/01 and diagnosed with diverticulitis and started on Augmentin. Patient reports symptoms were improving until last night when pain increased. Patient reports he had a pamela dinner last night and had a few bites of steak and mashed potatoes. Pain is improved today, however still has dull ache. Has today and tomorrow left for antibiotic therapy. Past medical history, appointments, medications, allergies reviewed. Previous Medical History PAST MEDICAL HISTORY Diagnosis Date Kidney stones Previous Surgical History PAST SURGICAL HISTORY Procedure Laterality Date LITHOTRIPSY XTRCORP SHOCK WAVE Left Family History FAMILY HISTORY Problem Relation Age of Onset other (htn) Mother other (HTN) Father Diabetes Father Ischemic Heart Disease Father heart stent other (atrial fib) Father Lung Cancer Maternal Grandmother Lung Cancer Paternal Grandmother Ischemic Heart Disease Paternal Grandfather other (bladder cancer) Paternal Grandfather Patient Allergies ALLERGIES No Known Allergies Current Medications No current outpatient medications on file prior to visit. No current facility-administered medications on file prior to visit. Social History Social History Tobacco Use Smoking status: Some Days Types: Cigars Smokeless tobacco: Never Vaping Use Vaping Use: Never used Substance Use Topics Alcohol use: Yes Comment: kyrgyz whiskey and soda water a couple times a week Drug use: Never Review of Symptoms REVIEW OF SYSTEMS SEE HPI EXAM: BP 116/82 Pulse 98 Resp 16 Wt 129.3 kg (285 lb) BMI 38.52 kg/m? General Appearance: Well appearing, alert, in no acute distress, well-hydrated, well nourished.. Lungs: Lungs clear to auscultation. No wheezing, rhonchi, rales.. Heart: RRR without murmur, gallop, or rubs. No ectopy. Abdomen: Normal abdominal exam, Abdomen soft, mild tenderness with palpation of LLQ. Bowel sounds normal. No masses, organomegaly. Health Maintenance List Pneumococcal Vaccine(1 of 2 - PCV) Never done DTaP,Tdap,Td Vaccine(1 - Tdap) Never done Hepatitis B Vaccine(1 of 3 - 19+ 3-dose series) Never done Covid-19 Vaccine(2 - season) due on 05/16/2023 Behavioral Health Screening Never done Hepatitis C Screening due on 02/15/2024 HIV Screening due on 02/15/2024 Influenza Vaccine(Season Ended) due on 05/16/2024 Lipid Screening due on 02/15/2028 HPV Vaccine Aged Out ASSESSMENT/PLAN: 1. Diverticulitis - ICD9: 562.11, ICD10: K57.92 (primary diagnosis) - CT ABD/PEL W IVCON - CREATININE BLD 2. LLQ abdominal pain - ICD9: 789.04, ICD10: R10.32 - Work up with CT Abdomen/Pelvis - CT ABD/PEL W IVCON 3. Left upper quadrant abdominal pain - ICD9: 789.02, ICD10: R10.12 - Work up with CT Abdomen/Pelvis - CT ABD/PEL W IVCON Stacie Parisi APRN.PROFESSOR OF BIOCHEMISTRY Allergies As of Date: 01/08/2024 (No Known Allergies) Date Reviewed: 01/08/2024 Reviewed by: Jakob Rich MA - Fully Assessed Reason for Visit: ER F/U [41] Primary Visit Diagnosis:Diverticuli tis [K57.92] Other Visit Diagnoses:LLQ abdominal pain [R10.32] Left upper quadrant abdominal pain [R10.12] Order(s):CT ABD/PEL W IVCON [[id number]] Order #: [id number] FUTURE iv contrast (will be provided with radiology test)CT ABD/PEL -Inject, intravenously, once for 1 dose.No IV access, insert saline lock prior to the beginning of sedation, infusion, injection of imaging exam. Discontinue saline lock post exam. If Pt. has a central line or IVAD, may access for administration according to line specific nursing protocol. Once exam is complete flush line and de-access according to line specific nursing protocol in the CT contrast administration guidelines link.Disp: 1 EachRfl: 0 CREATININE BLD [SQCRET] Order #: [id number] FUTURE Prescriptions as of 01/08/2024 - iv contrast (will be provided with radiology test) CT ABD/PEL -Inject, intravenously, once for 1 dose.No IV access, insert saline lock prior to the beginning of sedation, infusion, injection of imaging exam. Discontinue saline lock post exam. If Pt. has a central line or IVAD, may access for administration according to line specific nursing protocol. Once exam is complete flush line and de-access according to line specific nursing protocol in the CT contrast administration guidelines link. Problem L (more content not included)... Normal [facility] AMEE GUAM[facility] ([id number]) 1985 M Date Time Provider Department 01/08/24 [facility] During your visit today, we recorded the following information about you: Stacie Parisi APRN.PROFESSOR OF BIOCHEMISTRY 01/08/2024 4:12 PM Signed Please let patient know their CT shows acute simple diverticulitis. Patient should complete antibiotics and follow up if he has recurrent pain. Jakob Rich MA 01/09/2024 8:57 AM Signed Pt notified and verbalized understanding Your care team Allergies As of Date: 01/08/2024 (No Known Allergies) Date Reviewed: 01/08/2024 Reviewed by: Diana Braga RN - Fully Assessed Reason for Visit: Results [95] Prescriptions as of 01/09/2024 - iv contrast (will be provided with radiology test) CT ABD/PEL -Inject, intravenously, once for 1 dose.No IV access, insert saline lock prior to the beginning of sedation, infusion, injection of imaging exam. Discontinue saline lock post exam. If Pt. has a central line or IVAD, may access for administration according to line specific nursing protocol. Once exam is complete flush line and de-access according to line specific nursing protocol in the CT contrast administration guidelines link. Meds Comments as of 01/08/2024: 01/08/2024 Took Tylenol today. Diana Braga RN Problem List As Of Date 01/08/2024 Noted Resolved Obesity, Class II, BMI 35-39.9 [E66.9] 02/14/2023 Encounter Status:Closed by WORKJAKOB BOWDEN CMA on 01/09/24 Normal [facility] CREATININE BLDOrdered By: Gerson Knox on 01-08-2024 Creatinine [Mass/Vol] 1.03 mg/dL 0.73 - 1.22 mg/dL [facility] GFR/1.73 sq M.predicted among non-blacks MDRD (S/P/Bld) [Vol rate/Area] 95 mL/min/{1.73_m2} - [facility] Comment on above: Estimated Glomerular Filtration Rate (eGFR) is calculated using the 2020 CKD-EPI creatinine equation. This equation utilizes serum creatinine, sex, and age as parameters. The creatinine assay has traceable calibration to isotope dilution-mass spectrometry. Refer to KDIGO guidelines for clinical interpretation. In patients with unstable renal function, e.g. those with acute kidney injury, the eGFR may not accurately reflect actual GFR. Interpretation and review of laboratory results Normal [facility] CREATININE BLDon 01-08-2024 Creatinine [Mass/Vol] 1.03 mg/dL Normal 0.73-1.22 [facility] Comment on above: Order Comment: Speci men Type: BLOOD SPECIMEN Ordering Facility: [facility] Address: [address] [place] [address] Performed By: #### 1 9123-9, 37585-2, 3016-3 #### [facility] CLIA [id number] [address] [place] [address] [place] Creatinine and Glomerular filtration rate.predicted panel (S/P/Bld) 95 mL/min/1.73m??? Normal >=60 [facility] Comment on above: Order Comment: Speci men Type: BLOOD SPECIMEN Ordering Facility: [facility] Address: [address] [place] [address] Result Comment: Cornelia mated Glomerular Filtration Rate (eGFR) is calculated using the 2020 CKD-EPI creatinine equation. This equation utilizes serum creatinine, sex, and age as parameters. The creatinine assay has traceable calibration to isotope dilution-mass spectrometry. Refer to KDIGO guidelines for clinical interpretation. In patients with unstable renal function, e.g. those with acute kidney injury, the eGFR may not accurately reflect actual GFR. Performed By: #### 1 9123-9, 04010-8, 3016-3 #### [facility] CLIA [id number] [address] [place] [address] [place] [address] ABD/PEL W IVCONon 024 CT ABD/PEL W IVCON * * *Final Report* * * DATE OF EXAM: Jan 08 2024 3:16PM [facility] 0530 - CT ABD/PEL W IVCON / PROCEDURE REASON: multiple diagnoses * * * * Physician Interpretation * * * * EXAMINATION: CT ABDOMEN AND PELVIS WITH IV CONTRAST CLINICAL HISTORY: Left lower quadrant pain, diverticulitis TECHNIQUE: CT of the abdomen and pelvis was performed using standard technique, scanning from just above the dome of the diaphragm to the symphysis pubis. MQ: CTAP_3 Contrast: IV: 100 ml of Omnipaque 350 Oral: 20 ml of Omni 240 10-25ml diluted with water CT Radiation dose: Integrated Dose-length product (DLP) for this visit = 1166.24 mGy*cm. CT Dose Reduction Employed: Automated exposure control(AEC) and iterative recon COMPARISON: None. RESULT: Lower Thorax: Normal. Liver: Normal. Gallbladder/Biliary Tree: Normal. Spleen: Normal. Pancreas: Normal. Adrenal Glands: Normal. Kidneys/Ureters: Normal. Gastrointestinal: Sigmoid diverticula, along with wall thickening and surrounding fat stranding. Findings are compatible with acute uncomplicated diverticulitis. No bowel obstruction. Normal appendix. Bladder: Normal. Prostate/Seminal vesicles: Normal. Lymph Nodes: Normal. Vessels: Normal. Peritoneum/Retroperit oneum: Normal. Bones/Soft Tissues: Normal. IMPRESSION: Acute uncomplicated sigmoid diverticulitis. Sawyer Helper: [facility] Transcribe Date/Time: Jan 08 2024 3:28P Dictated by : LOUIS PIRES MD This examination was interpreted and the report reviewed and electronically signed by: LOUIS PIRES MD on Jan 08 2024 3:31PM EST [id number] Normal [facility] CT Abdomen and Pelvis W cont rast Jonh 01-08-2024 IMPRESSION: Acute uncomplicated sigmoid diverticulitis. Sawyer Helper: [facility] Transcribe Date/Time: Jan 08 2024 3:28P Dictated by : LOUIS PIRES MD This examination was interpreted and the report reviewed and electronically signed by: LOUIS PIRES MD on Jan 08 2024 3:31PM EST [email or web address] [facility] * * *Final Report* * * DATE OF EXAM: Jan 08 2024 3:16PM [facility] 0530 - CT ABD/PEL W IVCON / PROCEDURE REASON: multiple diagnoses * * * * Physician Interpretation * * * * EXAMINATION: CT ABDOMEN AND PELVIS WITH IV CONTRAST CLINICAL HISTORY: Left lower quadrant pain, diverticulitis TECHNIQUE: CT of the abdomen and pelvis was performed using standard technique, scanning from just above the dome of the diaphragm to the symphysis pubis. MQ: CTAP_3 Contrast: IV: 100 ml of Omnipaque 350 Oral: 20 ml of Omni 240 10-25ml diluted with water CT Radiation dose: Integrated Dose-length product (DLP) for this visit = 1166.24 mGy*cm. CT Dose Reduction Employed: Automated exposure control(AEC) and iterative recon COMPARISON: None. RESULT: Lower Thorax: Normal. Liver: Normal. Gallbladder/Biliary Tree: Normal. Spleen: Normal. Pancreas: Normal. Adrenal Glands: Normal. Kidneys/Ureters: Normal. Gastrointestinal: Sigmoid diverticula, along with wall thickening and surrounding fat stranding. Findings are compatible with acute uncomplicated diverticulitis. No bowel obstruction. Normal appendix. Bladder: Normal. Prostate/Seminal vesicles: Normal. Lymph Nodes: Normal. Vessels: Normal. Peritoneum/Retroperit oneum: Normal. Bones/Soft Tissues: Normal. [facility] Provider, Cc Dori [facility] - 01/08/2024 * * *Final Report* * * DATE OF EXAM: Jan 08 2024 3:16PM [facility] 0530 - CT ABD/PEL W IVCON / PROCEDURE REASON: multiple diagnoses * * * * Physician Interpretation * * * * EXAMINATION: CT ABDOMEN AND PELVIS WITH IV CONTRAST CLINICAL HISTORY: Left lower quadrant pain, diverticulitis TECHNIQUE: CT of the abdomen and pelvis was performed using standard technique, scanning from just above the dome of the diaphragm to the symphysis pubis. MQ: CTAP_3 Contrast: IV: 100 ml of Omnipaque 350 Oral: 20 ml of Omni 240 10-25ml diluted with water CT Radiation dose: Integrated Dose-length product (DLP) for this visit = 1166.24 mGy*cm. CT Dose Reduction Employed: Automated exposure control(AEC) and iterative recon COMPARISON: None. RESULT: Lower Thorax: Normal. Liver: Normal. Gallbladder/Biliary Tree: Normal. Spleen: Normal. Pancreas: Normal. Adrenal Glands: Normal. Kidneys/Ureters: Normal. Gastrointestinal: Sigmoid diverticula, along with wall thickening and surrounding fat stranding. Findings are compatible with acute uncomplicated diverticulitis. No bowel obstruction. Normal appendix. Bladder: Normal. Prostate/Seminal vesicles: Normal. Lymph Nodes: Normal. Vessels: Normal. Peritoneum/Retroperit oneum: Normal. Bones/Soft Tissues: Normal. IMPRESSION IMPRESSION: Acute uncomplicated sigmoid diverticulitis. Sawyer Helper: [facility] Transcribe Date/Time: Jan 08 2024 3:28P Dictated by : LOUIS PIRES MD This examination was interpreted and the report reviewed and electronically signed by: LOUIS PIRES MD on Jan 08 2024 3:31PM EST [facility] Radiology Study observation (narrative) [facility] CT Abdomen and Pelvis W cont rast IVOrdered By: Ccf Provider on 01-08-2024 [facility] Absolute lymphocyte countOrd ered By: ED PROVIDER on 01-02-2024 Lymphocytes Auto (Unsp spec) [#/Vol] 2.34 10*3/uL 0.83-4.51 [facility] Automated lymphocyte count a s percentage of total leukocytesOrdered By: ED PROVIDER on 01-02-2024 Lymphocytes/100 WBC Auto (Unsp spec) 25.6 % 19-41 [facility] Basophil percentageOrdered B y: Christiano Marsh on 01-02-2024 Basophil percentage 0 SEEN /hpf 0-5 [facility] Basophil percentageOrdered B y: ED PROVIDER on 01-02-2024 Basophils/100 WBC (Bld) 0.9 % 0-1 [facility] Bilirubin [Mass/Vol] 0.30 mg/dL 0.20-1.00 [facility] Comment on above: For patients on eltr ombopag therapy, use of Dimension [place] TBIL is not recommended. Chloride [Moles/Vol] 112 mmol/L 98-107 [facility] Eosinophils/100 WBC (Bld) 1.3 % 0-5 [facility] Glucose [Mass/Vol] 103 mg/dL 74-106 [facility] Comment on above: Fasting Glucose resu lt from 100 to 125 mg/dL suggests IMPAIRED HOMEOSTASIS per A.D.A. criteria. Hemoglobin (Bld) [Mass/Vol] 14.3 g/dL 13.0-16.5 [facility] Monocytes/100 WBC (Bld) 6.5 % 0-10 [facility] Neutrophils (Bld) [#/Vol] 6.0 10*3/uL 2.0-7.7 [facility] Neutrophils/100 WBC (Bld) 65.4 % 47-70 [facility] Potassium [Moles/Vol] 4.2 mmol/L 3.5-5.1 [facility] Protein [Mass/Vol] 7.7 g/dL 6.4-8.2 [facility] Sodium [Moles/Vol] 142 mmol/L 136-145 [facility] WBC (Bld) [#/Vol] 9.1 10*3/uL 4.4-11.0 [facility] Bilirubin Test strip Ql (U)O rdered By: Christiano [place] on 01-02-2024 Bilirubin Ql (U) Negative Negative [facility] CNOVon 01-02-2024 CNOV Office Visit (UCWSTR ) AMEE GUAMAN ([id number]) 1985 M Date Time Provider Department 01/02/24 6:00 PM ROGER SOTO [facility] During your visit today, we recorded the following information about you: Temperature Pulse Respiration Blood pressure 97.5 degrees 103/minute 18/minute 138/76 Weight 130.4 kg Roger Soto MD 01/02/2024 6:21 PM Signed [facility] Triage Note: Patient presents to the the medical center with complaint of lower abdominal pain. The pain started 3 days ago, is in the mid to left suprapubic area. It comes and goes and can be very intense. It was initially associated with urgency and pressure so the thought it might be another kidney stone. He feels constipated and the pain improves some with bowel movements. He has a family history of diverticulitis so is concerned it may be diverticulitis. Denies fever. I cannot assess for calculus with obstruction or diverticulitis without imaging. He will go to [facility] ER for further evaluation. Allergies As of Date: 01/02/2024 (Not on File) Date Reviewed: 01/02/2024 Reviewed by: Maria Del Rosario Fajardo - Fully Assessed Reason for Visit: Abdominal Pain [1] Cmt: Pain in belt level left side over x4 Primary Visit Diagnosis:Acute suprapubic pain [R10.2] Other Visit Diagnosis:Abdominal pain, LLQ (left lower quadrant) [R10.32] Problem List As Of Date 01/02/2024 Noted Resolved Obesity, Class II, BMI 35-39.9 [E66.9] 02/14/2023 Encounter Status:Closed by ROGER SOTO on 01/02/24 Normal [facility] Determination of erythrocyte mean corpuscular volume (MCV)Ordered By: ED PROVIDER on 01-02-2024 MCV (RBC) [Entitic vol] 87.5 fL 80-94 [facility] Erythrocyte distribution wid th ratioOrdered By: ED PROVIDER on 01-02-2024 Erythrocyte distribution width (RBC) [Ratio] 12.8 % 11.6-14.6 [facility] Erythrocyte distribution wid th standard deviationOrdered By: ED PROVIDER on 01-02-2024 Erythrocyte distribution width (RBC) [Entitic vol] 40.6 fL 35.1-43.9 [facility] Hematocrit Auto (Bld) [Volum e fraction]Ordered By: ED PROVIDER on 01-02-2024 Hematocrit (Bld) [Volume fraction] 43.3 % 40-54 [facility] Immature granulocytes/100 WB C Auto (Bld)Ordered By: ED PROVIDER on 01-02-2024 Immature granulocytes/100 WBC (Bld) 0.300 % 0.0-0.9 [facility] Comment on above: IG% - Immature Granu locytes (promyelocytes, myelocytes and metamyelocytes) > 1% indicates that a LEFT SHIFT is Present. Ketones Test strip Ql (U)Ord ered By: Christiano Marsh on 01-02-2024 Ketones Ql (U) Negative Negative [facility] Laboratory - Chemistry and C hemistry - challengeOrdered By: ED PROVIDER on 01-02-2024 Albumin/Globulin [Mass ratio] 0.8 {ratio} 0.9-2.4 [facility] ALP [Catalytic activity/Vol] 72 U/L 45-117 [facility] ALT [Catalytic activity/Vol] 28 U/L 16-61 [facility] CO2 [Moles/Vol] 24.0 mmol/L 21.0-32.0 [facility] Globulin (S) [Mass/Vol] 4.3 g/dL 2.2-4.2 [facility] Urea nitrogen/Creatinine [Mass ratio] 10.4 mg/mg 10-20 [facility] Laboratory - Hematology and Cell countsOrdered By: ED PROVIDER on 01-02-2024 MCH (RBC) [Entitic mass] 28.9 pg 27.0-32.0 [facility] MCHC (RBC) [Mass/Vol] 33.0 g/dL 32-36 [facility] Nucleated RBC/100 WBC (Bld) [Ratio] 0 % 0-5 [facility] Platelet mean volume (Bld) [Entitic vol] 8.8 fL 6.2-12.0 [facility] Platelets (Bld) [#/Vol] 413 10*3/uL 150-450 [facility] Mucus LM Ql (Urine sed)Order ed By: Christiano Marsh on 01-02-2024 Mucus Ql (Urine sed) 0 SEEN /hpf [facility] Nitrite Test strip Ql (U)Ord ered By: Christiano Marsh on 01-02-2024 Nitrite Ql (U) Negative Negative [facility] No Panel InformationOrdered By: Christiano Marsh on 01-02-2024 Urine RBC 0-5 SEEN /hpf 0-5 [facility] No Panel InformationOrdered By: ED PROVIDER on 01-02-2024 Estimated Creatinine Clearance Calc 112.44 ml/min [facility] Estimated GFR (MDRD) Amer 82 mL/min >60 [facility] Comment on above: GFR Calc Estimated GFR (MDRD) Non-Af Amer 68 mL/min >60 [facility] Comment on above: Non- GFR Calc Protein Test strip Ql (U)Ord ered By: Christiano Marsh on 01-02-2024 Protein Ql (U) 15 mg/dl Negative [facility] RBC Auto (Bld) [#/Vol]Ordere d By: ED PROVIDER on 01-02-2024 RBC (Bld) [#/Vol] 4.95 10*6/uL 4.6-6.2 [facility] Serum or plasma calcium graciela urement (mass/volume)Ordered By: ED PROVIDER on 01-02-2024 Calcium [Mass/Vol] 8.5 mg/dL 8.5-10.1 [facility] Serum or plasma creatinine m easurement (mass/volume)Ordered By: ED PROVIDER on 01-02-2024 Creatinine [Mass/Vol] 1.25 mg/dL 0.70-1.30 [facility] Comment on above: The validity of the calculated GFR & GFRAA in patients over 70 years has not been determined. Clinical correlation is essential. Serum or plasma urea nitroge n measurement (mass/volume)Ordered By: ED PROVIDER on 01-02-2024 Urea nitrogen [Mass/Vol] 13 mg/dL 7-18 [facility] Squamous epithelial cells de tection in urine sediment by light microscopyOrdered By: Christiano Marsh on 01-02-2024 Epithelial cells.squamous LM Ql (Urine sed) 0 SEEN /hpf 0-5 [facility] Thin prep Papanicolaou smear with manual screeningOrdered By: ED PROVIDER on 01-02-2024 Thin prep Papanicolaou smear with manual screening 3.4 g/dL 3.2-5.0 [facility] Thin prep Papanicolaou smear with manual screening 15 U/L 15-37 [facility] Thin prep Papanicolaou smear with manual screening 6 5-15 [facility] Urine blood detectionOrdered By: Christiano Marsh on 01-02-2024 RBC Ql (U) 10 /ul Negative [facility] Urine clarityOrdered By: Lucio Marsh on 01-02-2024 Clarity (U) Clear Clear [facility] Urine color determinationOrd ered By: Christiano Marsh on 01-02-2024 Color (U) Yellow Yellow [facility] Urine glucose detectionOrder ed By: Christiano Marsh on 01-02-2024 Glucose Ql (U) Normal mg/dl Normal [facility] Urine leukocyte esterase det ection by dipstickOrdered By: Christiano Marsh on 01-02-2024 Leukocyte esterase Test strip Ql (U) Negative Negative [facility] Urine pHOrdered By: Christiano ott on 01-02-2024 pH (U) 6.0 [pH] 5.0 - 8.0 [facility] Urine sediment bacteria coun t by microscopy (number/high power field)Ordered By: Christiano Marsh on 01-02-2024 Bacteria LM.HPF (Urine sed) [#/Area] 0 /[HPF] None Seen [facility] Urine specific gravity measu rementOrdered By: Christiano Marsh on 01-02-2024 Specific gravity (U) [Rel density] 1.020 1.002-1.030 [facility] Urine urobilinogen measureme ntOrdered By: Christiano Marsh on 01-02-2024 Urobilinogen Ql (U) 1 mg/dl Normal [facility] COVID-19, MOLECULARon 2023 SARS-CoV-2 (COVID-19) Ab IA Ql Not detected Normal Not Detected [facility] Comment on above: Result Comment: Test ing was performed using the [employer] ID NOW COVID-19 assay on the ID NOW platform. This test has not been approved for use in asymptomatic patients and its performance in this patient population has not been evaluated. Negative results do not rule out the presence of SARS-CoV-2/COVID-19. KNEE CMPLT, 4 OR MORE VIEWSo n 10-29-2021 KNEE CMPLT, 4 OR MORE VIEWS Patient Name: AMEE GUAMAN STUDY: KNEE; COMPLT, 4 OR MORE VIEWS; Left; 10/29/2021 2:40 pm INDICATION: medial knee pain s/p twisting injury . COMPARISON: None. ACCESSION NUMBER(S): [id number] ORDERING CLINICIAN: AMEE CURRY FINDINGS: Four views of the left knee. No visible acute fractures or dislocations. No significant joint effusion. There is a subcortical mostly sclerotic osseous lesion in the medial distal femur that has well defined margins. No cortical erosive changes or periosteal reaction is seen. This likely represents a benign process such as an ossifying fibroma or bone island. There is linear density along the medial femoral condyle that could represent previous trauma or ligamentous calcification. IMPRESSION: No visible acute fractures or dislocations. Likely benign lesion in the distal medial femur such as an ossifying fibroma or bone island. If there are symptoms referable to this region, further evaluation with MRI may be considered. Electronically signed by: GEORGIANA ESTRADA MD [facility] Provider Note - ED v3on 10-16 Provider Note - ED v3 Provider Note: Chart Review: HISTORY OF PRESENTING ILLNESS AMEE is a 36 year old Male and was seen by me at 29-Oct-2021 14:47 for a chief complaint of knee injury. The historian is the patientsignificant other. Triage Information: Most recent Vital Sign Value Date Presenting Symptoms: difficulty bending, difficulty walking, pain (describe) (left medial knee) and decreased ROM.Located in the knee area. Incident Location: street. Quality is aching and throbbing. Context is fall and twisting. The symptoms started yesterday. Timing is sudden onset and constant. Modifying factors: Better with acetaminophen, ibuprofen and ice. Worse with movement and walking. Pertinent History: none related to reason for visit. PAST MEDICAL HISTORY ALLERGIES/INTOLERANCE S: No Known Allergies HEALTH HISTORY: No documented data. OUTPATIENT MEDICATIONS: Home Medications Review Status for Reconciliation: Complete Med Status: Patient Currently Takes Medications Drug Name: Zantac Instructions: 1 orally once a day Drug Name: naproxen 500 mg oral tablet Instructions: 1 tab(s) orally 2 times a day TAKE WITH FOOD AND DRINK Drug Name: hydrocodone-acetamino phen 5 mg-325 mg oral tablet Instructions: 1/2- 1 tab(s) orally every 6 hours FOR PAIN 02/22,DO NOT DRIVE WHILE TAKING THIS MEDICATION, MAY CAUSE DROWSINESS SIGNIFICANT EVENTS: Past Medical History Description:KIDNEY STONES REVIEW OF SYSTEMS MUSCULOSKELETAL: POSITIVE for: joint pain and pain PHYSICAL EXAM CONSTITUTIONAL: Well appearing, well nourished, awake, alert, oriented to person, place, time/situation and in no apparent distress. MUSCULOSKELETAL: Musculoskeletal Exam: atraumatic and no muscle tenderness Weight Bearing: WITH ASSIST (using a cane and assisted by ) Extremity Exam: Left Lower Location: knee Left Lower Findings: LIMITED ROM, SWELLING and TENDERNESS Right Lower Findings: normal Vascular: no vascular compromise NEUROLOGICAL: Alert and oriented, no focal deficits, no motor or sensory deficits. CRITICAL CARE RESULTS: Radiology Results: Xray Knee 1 or 2 View [Oct 29 2021 2:50PM] Xray Knee 1 or 2 View [Oct 29 2021 2:29PM] Xray Knee 1 or 2 View [Oct 29 2021 2:50PM] FINAL REPORT - Left Interpreted by: GEORGIANA ESTRADA MD 10/29/21 14:48 Facility: [facility] Patient Name: DENIZ AMEE STUDY: KNEE; COMPLT, 4 OR MORE VIEWS; Left; 10/29/2021 2:40 pm INDICATION: medial knee pain s/p twisting injury . COMPARISON: None. ACCESSION NUMBER(S): [id number] ORDERING CLINICIAN: AMEE CURRY FINDINGS: Four views of the left knee. No visible acute fractures or dislocations. No significant joint effusion. There is a subcortical mostly sclerotic osseous lesion in the medial distal femur that has well defined margins. No cortical erosive changes or periosteal reaction is seen. This likely represents a benign process such as an ossifying fibroma or bone island. There is linear density along the medial femoral condyle that could represent previous trauma or ligamentous calcification. IMPRESSION: No visible acute fractures or dislocations. Likely benign lesion in the distal medial femur such as an ossifying fibroma or bone island. If there are symptoms referable to this region, further evaluation with MRI may be considered. Transcribed By: Interface, User Electronically Signed By: GEORGIANA ESTRADA 10/29/21 14:48 Xray Knee 1 or 2 View [Oct 29 2021 2:29PM] Order Revised by Radiology VITAL SIGNS: T PRBP SpO2O2(LPM) %FiO2 Method 29-Oct-2021 13:55:[id number]/ 84 95RA MDM MDM/ED COURSE: 1) left medial knee sprain: Patient was placed in a knee immobilizer, we discussed use of analgesics including [place], OARRS report was reviewed, patient encouraged apply ice, perform range of motion exercises, he is encouraged to use naproxen as prescribed with food and drink. #2) left femur ossifying fibroma: Discussed the potential source, reassured patient, encouraged to follow-up with orthopedist.Different ial Diagnosis: bursitis, contusion, fracture, pain, sprain and strain Discussed Findings with: patient and family Data Reviewed: vital signs Conducted Detailed Discussion with Patient and/or Guardian Regarding: radiology results and need for outpatient follow-up DISPOSITION Diagnosis/Annotation: ED Dx Name:Left knee sprain with calified ligament medial femoral condyle Code:S83.92XA Name:Ossifying fibroma Code:D16.9 Disposition: discharged CONSULT CRITICAL CARE TIME Is this a critically ill patient: no Electronic Signatures: Amee Curry (PAC) (Signed 29-Oct-2021 15:51) Authored: HPI, PMH, ROS, PE, Results/Vital Signs, MDM/ED Course, Clinical Impression, Attestation, Chart Review, Scores Last Updated: 29-Oct-2021 15:51 by Amee Curry (PAC) Normal [facility] Provider Note - ED v3on 01-0 Provider Note - ED v3 Provider Note: Chart Review: HISTORY OF PRESENTING ILLNESS AMEE is a 36 year old Male and was seen by me at 21-Sep-2021 13:58 for a chief complaint of cough. The historian is the patient. Triage Information: Most recent Vital Sign Value Date Presenting Symptoms: 2 weeks ago patient's entire family had COVID-19, patient is also exhibited symptoms but had a negative test throughout the entire Illness.. congestion and cough. Patient denies chills, dyspnea, fever, headache and malaise. Quality is non-productive cough. Context is Unknown. Duration: 2 week(s) (Patient does endorse feeling better for the last 5 days he had an increase in nasal congestion and a productive cough.). Timing is gradual onset and intermittent. Modifying factors: Better with OTC medication. Worse with coughing and lying down. Pertinent History: (GERD). PAST MEDICAL HISTORY ALLERGIES/INTOLERANCE S: No documented data. HEALTH HISTORY: No documented data. OUTPATIENT MEDICATIONS: Home Medications Review Status for Reconciliation: Incomplete Med Status: Incomplete Medication History Drug Name: Zantac Instructions: 1 orally once a day Drug Name: ProAir HFA 90 mcg/inh inhalation aerosol Instructions: 2 puff(s) inhaled every 6 hours Drug Name: ipratropium 42 mcg/inh (0.06%) nasal spray Instructions: 2 spray(s) intranasally every 8 hours Drug Name: predniSONE 10 mg oral tablet Instructions: 3 tab(s) orally once a day TAKE WITH PLENTY OF FLUID DAILY IN THE MORNING. SIGNIFICANT EVENTS: No documented data. REVIEW OF SYSTEMS CONSTITUTIONAL: Negative for: chills, fever and malaise ENMTNose: (post-nasal dischage) POSITIVE for: congestion and discharge Throat/Neck: Negative for: throat pain CARDIOVASCULAR: Negative for: chest pain, edema, palpitations and tachycardia RESPIRATORY: POSITIVE for: cough Negative for: dyspnea, hemoptysis, pleuritic chest pain and wheezing GASTROINTESTINAL: Negative for: diarrhea, nausea and vomiting; MUSCULOSKELETAL: Negative for: pain NEUROLOGICAL: Negative for: dizziness and headache; PHYSICAL EXAM CONSTITUTIONAL: Well appearing, well nourished, awake, alert, oriented to person, place, time/situation and in no apparent distress. HENMT: Head Examination: atraumatic Face: no signs of abnormality Ear: - BILATERAL TM's CLEAR Nose: INFLAMMATION Mouth: normal mouth inspection Throat: normal pharynx (noted pos. nasal drainage) EYES: Clear bilaterally, pupils equal, round and reactive to light. CARDIOVASCULAR: Normal rate, regular rhythm. Heart sounds S1, S2. No murmurs, rubs or gallops. RESPIRATORY: Breath sounds clear and equal bilaterally. GASTROINTESTINAL: Abdomen soft MUSCULOSKELETAL: Spine appears normal, UE/LE range of motion is not limited, no muscle or joint tenderness. NEUROLOGICAL: Alert and oriented, no focal deficits, no motor or sensory deficits. normal gait and station. SKIN: Skin normal color for race, warm, dry and intact. No evidence of trauma. HEME/LYMPH: no cervical, supraclavicular, pre/post auricular, occipital lymphadenopathy. CRITICAL CARE VITAL SIGNS: T PRBP SpO2O2(LPM) %FiO2 Method 21-Sep-2021 13:56:[id number] Ambulatory in office, pt has HR noted 110bpm & o2 Sat 99% RA without complaints of CP or noted cough. DISPOSITION Diagnosis/Annotation: ED Dx Name:Postnasal drip Code:R09.82 Name:Bronchitis, acute Code:J20.9 Disposition: discharged CONSULT CRITICAL CARE TIME Is this a critically ill patient: no Electronic Signatures: Amee Curry (PAC) (Signed 21-Sep-2021 15:21) Authored: HPI, PMH, ROS, PE, Results/Vital Signs, MDM/ED Course, Clinical Impression, Attestation, Chart Review, Scores Last Updated: 21-Sep-2021 15:21 by Amee Curry (PAC) [facility] Vital Signs Date Time Vital Sign Value Performing Clinician Facility 03-23-2025 02:18-0400 Body temperature 97.8 [degF] Dr. Yong Honeycutt DO Work Phone: [facility] 03-23-2025 02:18-0400 Diastolic blood pressure 98 mm[Hg] Dr. Yong Honeycutt DO Work Phone: [facility] 03-23-2025 02:18-0400 Heart rate 83 /min Dr. Yong Honeycutt DO Work Phone: [facility] 03-23-2025 02:18-0400 Respiratory rate 18 /min Dr. Yong Honeycutt DO Work Phone: [facility] 03-23-2025 02:18-0400 SaO2% (BldA) [Mass fraction] 97 % Dr. Yong Honeycutt DO Work Phone: [facility] 03-23-2025 02:18-0400 Systolic blood pressure 138 mm[Hg] Dr. Yong Honeycutt DO Work Phone: [facility] 03-23-2025 00:19-0400 Body height 185.[address] Yong Honeycutt DO Work Phone: [facility] 03-23-2025 00:19-0400 Body mass index (BMI) [Ratio] 36.8 kg/m2 Dr. Yong Honeycutt DO Work Phone: [facility] 03-23-2025 00:19-0400 Body weight 126.[address] Yong Honeycutt DO Work Phone: [facility] 07-21-2024 07:30-0500 Diastolic blood pressure 90 mm[Hg] Miguel Francois DO Work Phone: [facility] 07-21-2024 07:30-0500 SaO2% (BldA) [Mass fraction] 96 % Miguel Francois DO Work Phone: [facility] 07-21-2024 07:30-0500 Systolic blood pressure 120 mm[Hg] Miguel Francois DO Work Phone: [facility] 07-21-2024 04:27-0500 Body height 188 cm Miguel Francois DO Work Phone: [facility] 07-21-2024 04:27-0500 Body mass index (BMI) [Ratio] 33.64 kg/m2 Miguel Francois DO Work Phone: [facility] 07-21-2024 04:27-0500 Body weight 118.84 kg Miguel Francois DO Work Phone: [facility] 07-21-2024 04:24-0500 Body temperature 97 [degF] Miguel Francois DO Work Phone: [facility] 07-21-2024 04:24-0500 Heart rate 97 /min Miguel Francois DO Work Phone: [facility] 07-21-2024 04:24-0500 Respiratory rate 18 /min Miguel Francois DO Work Phone: [facility] 03-08-2024 09:30-0400 Diastolic blood pressure 88 mm[Hg] Elliot Soni MD Work Phone: [facility] Comment on above: recheck 03-08-2024 09:30-0400 Systolic blood pressure 136 mm[Hg] Elliot Soni MD Work Phone: [facility] Comment on above: recheck 03-08-2024 08:50-0400 Body mass index (BMI) [Ratio] 37.17 kg/m2 Elliot Soni MD Work Phone: [facility] 03-08-2024 08:50-0400 Body weight 124.74 kg Elliot Soni MD Work Phone: [facility] 03-08-2024 08:50-0400 Heart rate 123 /min Elliot Soni MD Work Phone: [facility] 03-08-2024 08:50-0400 Respiratory rate 16 /min Elliot Soni MD Work Phone: [facility] 03-08-2024 08:50-0400 SaO2% (BldA) [Mass fraction] 97 % Elliot Soni MD Work Phone: [facility] 02-27-2024 09:45-0400 Body height 182.9 cm Laura Wiley MD Work Phone: [facility] 02-27-2024 09:45-0400 Body mass index (BMI) [Ratio] 37.03 kg/m2 Laura Wiley MD Work Phone: [facility] 02-27-2024 09:45-0400 Body weight 123.83 kg Laura Wiley MD Work Phone: [facility] 02-27-2024 09:45-0400 Diastolic blood pressure 91 mm[Hg] aLura Wiley MD Work Phone: [facility] 02-27-2024 09:45-0400 Heart rate 103 /min Laura Wiley MD Work Phone: [facility] 02-27-2024 09:45-0400 Respiratory rate 16 /min Laura Wiley MD Work Phone: [facility] 02-27-2024 09:45-0400 SaO2% (BldA) [Mass fraction] 95 % Laura Wiley MD Work Phone: [facility] 02-27-2024 09:45-0400 Systolic blood pressure 128 mm[Hg] Laura Wiley MD Work Phone: [facility] 02-21-2024 11:32-0400 Body temperature 98.29 [degF] Dalila Puente MD Work Phone: [facility] 02-21-2024 11:32-0400 Diastolic blood pressure 81 mm[Hg] Dalila Puente MD Work Phone: [facility] 02-21-2024 11:32-0400 Heart rate 95 /min Dalila Puente MD Work Phone: [facility] 02-21-2024 11:32-0400 SaO2% (BldA) [Mass fraction] 95 % Dalila Puente MD Work Phone: [facility] 02-21-2024 11:32-0400 Systolic blood pressure 119 mm[Hg] Dalila Puente MD Work Phone: [facility] 02-21-2024 07:53-0400 Respiratory rate 16 /min Dalila Puente MD Work Phone: [facility] 02-17-2024 16:35-0400 Body height 185.4 cm Dalila Puente MD Work Phone: [facility] 02-17-2024 16:35-0400 Body mass index (BMI) [Ratio] 37.44 kg/m2 Dalila Puente MD Work Phone: [facility] 02-17-2024 16:35-0400 Body weight 128.73 kg Dalila Puente MD Work Phone: [facility] 01-08-2024 11:01-0400 Body mass index (BMI) [Ratio] 38.52 kg/m2 Stacie Parisi SALES AND DISTRIBUTION CLERK.PROFESSOR OF BIOCHEMISTRY Work Phone: [facility] 01-08-2024 11:01-0400 Body weight 129.28 kg Stacie Parsii SALES AND DISTRIBUTION CLERK.PROFESSOR OF BIOCHEMISTRY Work Phone: [facility] 01-08-2024 11:01-0400 Diastolic blood pressure 82 mm[Hg] Stacie Parisi SALES AND DISTRIBUTION CLERK.PROFESSOR OF BIOCHEMISTRY Work Phone: [facility] 01-08-2024 11:01-0400 Heart rate 98 /min Stacie Parisi SALES AND DISTRIBUTION CLERK.PROFESSOR OF BIOCHEMISTRY Work Phone: [facility] 01-08-2024 11:01-0400 Respiratory rate 16 /min Stacie Parisi SALES AND DISTRIBUTION CLERK.PROFESSOR OF BIOCHEMISTRY Work Phone: [facility] 01-08-2024 11:01-0400 Systolic blood pressure 116 mm[Hg] Stacie Parisi SALES AND DISTRIBUTION CLERK.PROFESSOR OF BIOCHEMISTRY Work Phone: [facility] 01-02-2024 21:04-0400 Body temperature 97.7 [degF] [facility] 01-02-2024 21:04-0400 Diastolic blood pressure 76 mm[Hg] [facility] 01-02-2024 21:04-0400 Heart rate 96 /min [facility] 01-02-2024 21:04-0400 Respiratory rate 18 /min [facility] 01-02-2024 21:04-0400 SaO2% (BldA) [Mass fraction] 97 % [facility] 01-02-2024 21:04-0400 Systolic blood pressure 124 mm[Hg] [facility] 01-02-2024 18:40-0400 Body height 185.42 cm [facility] 01-02-2024 18:40-0400 Body mass index (BMI) [Ratio] 38 kg/m2 [facility] 01-02-2024 18:40-0400 Body weight 130.63 kg [facility] 01-02-2024 18:09-0400 Body temperature 97.5 [degF] Roger Soto MD Work Phone: [facility] 01-02-2024 18:09-0400 Body weight 130.4 kg Roger Soto MD Work Phone: [facility] 01-02-2024 18:09-0400 Diastolic blood pressure 76 mm[Hg] Roger Soto MD Work Phone: [facility] 01-02-2024 18:09-0400 Heart rate 103 /min Roger Soto MD Work Phone: [facility] 01-02-2024 18:09-0400 Respiratory rate 18 /min Roger Soto MD Work Phone: [facility] 01-02-2024 18:09-0400 SaO2% (BldA) [Mass fraction] 97 % Roger Soto MD Work Phone: [facility] 01-02-2024 18:09-0400 Systolic blood pressure 138 mm[Hg] Roger Soto MD Work Phone: [facility] 02-14-2023 10:14-0400 Body height 183.2 cm Kathia Looney APRN.PROFESSOR OF BIOCHEMISTRY Work Phone: [facility] 02-14-2023 10:14-0400 Body weight 129.82 kg Kathia Looney APRN.PROFESSOR OF BIOCHEMISTRY Work Phone: [facility] 02-14-2023 10:14-0400 Diastolic blood pressure 90 mm[Hg] Kathia Podlogar SALES AND DISTRIBUTION CLERK.PROFESSOR OF BIOCHEMISTRY Work Phone: [facility] 02-14-2023 10:14-0400 Heart rate 93 /min Kathia Podlogar SALES AND DISTRIBUTION CLERK.PROFESSOR OF BIOCHEMISTRY Work Phone: [facility] 02-14-2023 10:14-0400 Respiratory rate 18 /min Kathia Podlogar SALES AND DISTRIBUTION CLERK.PROFESSOR OF BIOCHEMISTRY Work Phone: [facility] 02-14-2023 10:14-0400 SaO2% (BldA) [Mass fraction] 98 % Kathia Podlogar SALES AND DISTRIBUTION CLERK.PROFESSOR OF BIOCHEMISTRY Work Phone: [facility] 02-14-2023 10:14-0400 Systolic blood pressure 124 mm[Hg] Kathia Podlogar SALES AND DISTRIBUTION CLERK.PROFESSOR OF BIOCHEMISTRY Work Phone: [facility] 10-29-2021 15:55-0500 Body height 185.4 cm No Pcp Required [facility] 10-29-2021 15:55-0500 Body temperature 97.88 [degF] No Pcp Required [facility] 10-29-2021 15:55-0500 Diastolic blood pressure 84 mm[Hg] No Pcp Required [facility] 10-29-2021 15:55-0500 Heart rate 98 /min No Pcp Required [facility] 10-29-2021 15:55-0500 Respiratory rate 16 /min No Pcp Required [facility] 10-29-2021 15:55-0500 SaO2% (BldA) [Mass fraction] 95 % No Pcp Required [facility] 10-29-2021 15:55-0500 Systolic blood pressure 130 mm[Hg] No Pcp Required [facility] 09-21-2021 15:56-0500 Body height 185.4 cm No Pcp Required [facility] 09-21-2021 15:56-0500 Body temperature 96.62 [degF] No Pcp Required [facility] 09-21-2021 15:56-0500 Diastolic blood pressure 82 mm[Hg] No Pcp Required [facility] 09-21-2021 15:56-0500 Heart rate 107 /min No Pcp Required [facility] 09-21-2021 15:56-0500 SaO2% (BldA) [Mass fraction] 96 % No Pcp Required [facility] 09-21-2021 15:56-0500 Systolic blood pressure 115 mm[Hg] No Pcp Required [facility] 08-21-2019 19:51-0500 BP Diastolic 102 mm[Hg] [facility] 08-21-2019 19:51-0500 BP Systolic 132 mm[Hg] [facility] 08-21-2019 19:51-0500 Pulse (Heart Rate) 154 /min [facility] 08-21-2019 19:45-0500 BMI (Body Mass Index) 31.66 kg/m2 [facility] 08-21-2019 19:45-0500 Body Temperature 98.71 [degF] [facility] 08-21-2019 19:45-0500 Body weight 108.[address] [facility] 08-21-2019 19:45-0500 Height 185.[address] [facility] 08-21-2019 19:45-0500 Pulse Oximetry 98 % [facility] 08-21-2019 19:45-0500 Respiratory Rate 16 /min [facility] Encounters Encounter Date Encounter Type Care Provider Facility Start: 03-23-2025 End: 03-23-2025 Emergency department patient visit Dr. Yong Honeycutt DO Work Phone: -Emergency Department Work Phone: Start: 10-29-2024 End: 10-29-2024 ambulatory [facility] Start: 10-29-2024 End: 10-29-2024 Encounter for general adult medical examination without abnormal findings [facility] Start: 10-13-2024 End: 10-13-2024 Emergency department patient visit [facility] Start: 07-21-2024 End: 07-21-2024 Emergency department patient visit Miguel Francois DO Work Phone: [facility] Comment on above: Abdominal pain, left lower quadrant (Primary Dx); Diverticulitis of colon Start: 07-16-2024 End: 07-16-2024 Telephone encounter Elliot Soni MD Work Phone: [facility] [place] Comment on above: Patient concern Start: 04-07-2024 End: 04-07-2024 ambulatory [facility] Start: 03-23-2024 End: 03-23-2024 Emergency department patient visit MARVIN BOND [facility] Start: 03-08-2024 End: 03-08-2024 ambulatory ELLIOT SONI Facility:[facility] Start: 03-08-2024 End: 03-08-2024 Patient encounter procedure Elliot Soni MD Work Phone: [facility] [place] Comment on above: Diverticulitis (Prim flex Dx); LLQ abdominal pain; History of sepsis; Tachycardia; ANNABELLA (generalized anxiety disorder); Hospital discharge follow-up Start: 03-03-2024 End: 03-03-2024 [facility] Start: 02-27-2024 End: 02-27-2024 Office outpatient visit 15 minutes Laura Wiley MD Work Phone: [facility] Comment on above: History of colonic d iverticulitis (Primary Dx) Start: 02-27-2024 End: 02-27-2024 ambulatory [facility] Start: 02-17-2024 Telephone encounter Jairo Soni MD Work Phone: [facility] [place] Comment on above: Abdominal Pain Start: 02-17-2024 End: 02-21-2024 Evaluation and management of inpatient Anuj Nolasco MD Work Phone: [facility] Start: 02-17-2024 End: 02-17-2024 Emergency department patient visit MARVIN VARUN [facility] Start: 01-09-2024 Telephone encounter Jairo Soni MD Work Phone: [facility] [place] Comment on above: Patient Question Start: 01-08-2024 End: 01-08-2024 ambulatory Diana Braga RN NURSE [employer] Comment on above: Headache CT scan results Start: 01-08-2024 Telephone encounter Stacie davenport APRN.PROFESSOR OF BIOCHEMISTRY Work Phone: [facility] Comment on above: Results Start: 01-08-2024 End: 01-08-2024 Subsequent hospital visit by physician [facility] Comment on above: Diverticulitis [K57. 92] Start: 01-08-2024 End: 01-08-2024 Patient encounter procedure Stacie Parisi APRN.PROFESSOR OF BIOCHEMISTRY Work Phone: [facility] Comment on above: Diverticulitis (Prim flex Dx); LLQ abdominal pain; Left upper quadrant abdominal pain Start: 01-02-2024 End: 01-02-2024 Emergency department patient visit [facility] Work Phone: Start: 01-02-2024 End: 01-02-2024 ambulatory ELLIOT SONI Facility:[facility] Start: 01-02-2024 End: 01-02-2024 Patient encounter procedure Roger Soto MD Work Phone: [facility] Comment on above: Acute suprapubic babita n (Primary Dx); Abdominal pain, LLQ (left lower quadrant) Start: 11-21-2023 End: 11-21-2023 [facility] Start: 02-17-2023 Telephone encounter Kathia river APRN.PROFESSOR OF BIOCHEMISTRY Work Phone: [facility] Comment on above: Results Start: 02-14-2023 End: 02-14-2023 Patient encounter procedure Kathia Looney APRN.PROFESSOR OF BIOCHEMISTRY Work Phone: [facility] Comment on above: Encounter for medica l examination to establish care (Primary Dx); Obesity, Class II, BMI 35-39.9 Start: 02-14-2023 End: 02-14-2023 Patient encounter status Kathia Looney APRN.PROFESSOR OF BIOCHEMISTRY Work Phone: [facility] Start: 10-29-2021 End: 10-29-2021 Emergency department patient visit Amee Curry [facility] Start: 09-21-2021 End: 09-21-2021 Emergency department patient visit Amee Curry [facility] Start: 08-21-2019 End: 08-21-2019 Patient encounter procedure GUERRERO MACIEL [facility] Start: 08-21-2019 End: 08-21-2019 Office outpatient visit 25 minutes Guerrero Maciel Work Phone: [facility] Comment on above: Possible exposure to STD (Primary Dx); Elevated blood pressure reading; Tachycardia; Need for immunization against influenza Procedures Date Procedure Procedure Detail Performing Clinician Start: 03-23-2025 Urnls dip stick/tabl et reagent auto microscopy Dr. Yong Honeycutt DO Work Phone: Start: 03-23-[address] Yong Honeycutt DO Work Phone: Start: 03-23-2025 Computed tomography of abdomen and pelvis with intravenous contrast Dr. Yong Honeycutt DO Work Phone: Start: 07-21-2024 Ct abdomen & pelvis w/contrast material Miguel Francois DO Work Phone: Start: 07-21-2024 Ecg routine ecg w/le ast 12 lds w/i&r Miguel Francois DO Work Phone: Start: 07-21-2024 Basic metabolic pane l calcium total Miguel Francois DO Work Phone: Start: 07-21-2024 Hepatic function panel Miguel Francois DO Work Phone: Start: 07-21-2024 Urnls dip stick/tabl et rgnt auto w/o microscopy Miguel Francois DO Work Phone: Start: 03-08-2024 Ecg routine ecg w/le ast 12 lds i&r only [facility] Provider Start: 02-21-2024 Comprehensive metabo lic panel Tyrese Barbour DO Work Phone: Start: 02-20-2024 Comprehensive metabo lic panel Tyrese Juan Carlos Barbour DO Work Phone: Start: 02-19-2024 Blood count complete auto&auto difrntl wbc Tyrese Juan Carlos Barbour DO Work Phone: Start: 02-18-2024 Comprehensive metabo lic panel Vick Galo MD Work Phone: Start: 02-17-2024 Basic metabolic pane l calcium total Vick Galo MD Work Phone: Start: 02-17-2024 Ecg routine ecg w/le ast 12 lds trcg only w/o i&r Mela Barbosa PROFESSOR OF BIOCHEMISTRY Work Phone: Start: 02-17-2024 Creatine kinase total M bassam Barbosa PROFESSOR OF BIOCHEMISTRY Work Phone: Start: 02-17-2024 Hepatic function panel Maggie Grover PA-C Work Phone: Start: 01-08-2024 Ct abdomen & pelvis w/contrast material Stacie Parisi APRN.PROFESSOR OF BIOCHEMISTRY Work Phone: Start: 01-02-2024 Computed tomography of abdomen and pelvis with intravenous contrast Start: 02-14-2023 Lipid 1996 panel - S roger or Plasma Roger Soto MD Work Phone: Plan of Treatment Date Care Activity Detail Author Start: 02-15-2028 Lipid panel Lipid Screening [facility] Start: 02-15-2028 LIPID SCREEN LIPID SCREEN [facility] Start: 05-16-2024 COVID-19 Vaccine ( season) COVID-19 Vaccine ( season) [facility] Start: 05-16-2024 Covid-19 Vaccine ( season) Covid-19 Vaccine ( season) [facility] Start: 05-16-2024 Influenza vaccination [facility] Start: 04-16-2024 End: 04-16-2024 Admission to same day surgery center 04/16/2024 7:50 AM EDT - 04/16/2024 8:20 AM EDT Surgery [facility] [address] [place] [address] Laura Wiley MD [address] [place] [address] COLONOSCOPY [facility] Comment on above: COLONOSCOPY Start: 04-16-2024 End: 04-16-2024 Colonoscopy COLONOSCOPY History of colonic diverticulitis 04/16/2024 7:50 AM [facility] Start: 04-16-2024 Subsequent hospital visit by physician 04/16/2024 7:50 AM EDT Hospital Encounter [facility] [address] [place] [address] Laura Wiley MD [address] [place] [address] [facility] Start: 04-15-2024 Influenza vaccination Flu vaccine (# 1) [facility] Start: 2024 Lipid panel Lipids [facility] Start: 03-08-2024 End: 06-07-2024 Comprehensive metabolic 2000 panel - Serum or Plasma [facility] Comment on above: Expected: 03/08/2024 , Expires: 06/07/2024 Start: 03-08-2024 End: 06-07-2024 Magnesium [Mass/volume] in Serum or Plasma [facility] Comment on above: Expected: 03/08/2024 , Expires: 06/07/2024 Start: 03-08-2024 End: 06-07-2024 Thyrotropin [Units/volume] in Serum or Plasma [facility] Comment on above: Expected: 03/08/2024 , Expires: 06/07/2024 Start: 02-15-2024 COVID-19 VACCINE (2 - Booster for Moderna series) COVID-19 VACCINE (2 - Booster for Moderna series) [facility] Comment on above: Postponed from 01/31 (Declined at this time) Start: 02-15-2024 HEPATITIS C SCREENING HEPATITIS C SC REENING [facility] Comment on above: Postponed from 03/21 (Declined at this time) Start: 02-15-2024 Hepatitis C screening Hepatitis C [facility] Comment on above: Postponed from 03/21 (Declined at this time) Start: 02-15-2024 HIV SCREENING HIV SCREENING [facility] Comment on above: Postponed from 03/21 (Declined at this time) Start: 02-15-2024 HIV screening HIV Screening [facility] Comment on above: Postponed from 03/21 (Declined at this time) Start: 01-02-2024 [facility] Start: 09-15-2023 Behavioral Health Screening Behavioral Health Screening [facility] Start: 05-16-2023 Covid-19 Vaccine ( season) Covid-19 Vaccine () [facility] Start: 05-16-2023 Influenza vaccination INFLUENZA (Sea son Ended) [facility] Start: 02-14-2023 End: 04-16-2023 CBC W Auto Differential panel - Blood [facility] Work Phone: Comment on above: Expected: 02/14/2023 , Expires: 04/16/2023 Start: 02-14-2023 End: 04-16-2023 Comprehensive metabolic 2000 panel - Serum or Plasma [facility] Work Phone: Comment on above: Expected: 02/14/2023 , Expires: 04/16/2023 Start: 02-14-2023 End: 04-16-2023 Lipid 1996 panel - Serum or Plasma [facility] Work Phone: Comment on above: Expected: 02/14/2023 , Expires: 04/16/2023 Start: 02-14-2023 End: 04-16-2023 Thyrotropin [Units/volume] in Serum or Plasma [facility] Work Phone: Comment on above: Expected: 02/14/2023 , Expires: 04/16/2023 Start: 2019 Diabetes screen Diabetes screen [facility] Start: 2019 LIPID SCREEN LIPID SCREEN [facility] Start: 2003 DTaP/Tdap/Td vaccine (1 - Tdap) DTaP/Tdap/Td vaccine (1 - Tdap) [facility] Start: 2003 Hepatitis B Vaccine (1 of 3 - 19+ 3-dose series) Hepatitis B Vaccine (1 of 3 - 19+ 3-dose series) [facility] Start: 2003 Urine microalbumin profile [facility] Start: 2002 Anxiety Screening Anxiety Screening [facility] Start: 2002 Depression Screening Depression Scre ening [facility] Start: 2002 Hepatitis C screening C [facility] Start: 2002 HIV screening HIV Screening [facility] Start: 1999 HIV screening [facility] Start: 1997 Varicella vaccine (1 of 2 - 13+ 2-dose series) Varicella vaccine (1 of 2 - 13+ 2-dose series) [facility] Start: 1996 Depression Screen Depression Screen [facility] Start: 1996 Depression screening using PHQ-9 (Patient Health Questionnaire 9) score Depression Screening (PHQ-2/9) [facility] Start: 1990 PNEUMOCOCCAL (1 - PCV) PNEUMOCOCCAL (1 - PCV) [facility] Start: 1990 Pneumococcal 0-64 ye ars Vaccine (1 of 2 - PCV) Pneumococcal 0-64 years Vaccine (1 of 2 - PCV) [facility] Start: 1990 Pneumococcal vaccination Pneumococcal Vaccine (1 of 2 - PCV) [facility] Start: 1990 Pneumococcal Vaccine : Ped or At-Risk (1 of 2 - PCV) Pneumococcal Vaccine: Ped or At-Risk (1 of 2 - PCV) [facility] Start: 1987 History and physical examination, annual for health maintenance Wellness Visit [facility] Start: 1984 HEPATITIS B (1 of 3 - 3-dose series) HEPATITIS B (1 of 3 - 3-dose series) [facility] Start: 1984 Tetanus vaccination [place] [facility] Chlamydia trachomati s rRNA assay Chlamydia/GC/Trichomonas Amplified RNA Microbiology Routine Possible exposure to STD Ordered: 08/21/2019 [facility] Comment on above: Ordered: 08/21/2019 Colonoscopy COLONOSCOPY Hist ory of colonic diverticulitis [facility] ECG COMPLETE [facility] Work Phone: Comment on above: Ordered: 03/08/2024 EKG 12 Lead EKG 12 Lead ECG Routine 07/21/2024 4:44 AM EST [facility] Neisseria gonorrhoea e nucleic acid detection Chlamydia/Gonorrhoeae Amplified RNA Microbiology Routine Possible exposure to STD Ordered: 08/21/2019 [facility] Comment on above: Ordered: 08/21/2019 Patient Education [facility] Work Phone: Patient referral [facility] Work Phone: Trichomonas vaginali s Amplified RNA Trichomonas vaginalis Amplified RNA Microbiology Routine Possible exposure to STD Ordered: 08/21/2019 [facility] Comment on above: Ordered: 08/21/2019 Immunizations Immunization Date Immunization Notes Care Provider [facility]2019 influenza, injectabl e, quadrivalent, preservative free [facility] 08-21-2019 flu vacc [id number] 6 mos up,PF, sdv (FLUZONE QUAD) injection [facility] 08-21-2019 influenza virus vacc ine, unspecified formulation Roger Soto MD Work Phone: [facility] Payers Date Payer Category Payer Self-pay 2018 Unknown [employer] PPO xxxxxxxxxxxx 2018-Present [id number] 2018 Unknown 2018 Unknown [id number] 1984 Unknown [id number] 1984 Unknown [id number] 1984 Unknown [id number]. 1984 Unknown [id number] 1984 Unknown [id number] 2 1984 Unknown [id number] 2 1984 Unknown [id number] 1984 Unknown [id number] 1984 Unknown [id number] 1984 Unknown [id number] 1984 Unknown [id number] 1984 Unknown [id number] 7 Unknown [id number] Social History Date Type Detail Facility Start: 08-21-2019 End: 02-27-2024 Tobacco smoking status [facility] Smoker, current status unknown [facility] Start: 1984 Sex Assigned At Not on file [facility] Start: 01-02-2024 Tobacco smoking consumption unknown [facility] Start: 02-14-2023 Tobacco smoking status NHIS Occasional tobacco smoker [facility] Work Phone: History of tobacco use Cigar Smoker [facility] Work Phone: Start: 03-07-2021 End: 02-14-2023 Tobacco use and exposure Smokeless tobacco non-user [facility] Work Phone: Start: 02-14-2023 End: 03-08-2024 Alcohol intake Current drinker of alcohol (finding) [facility] Start: 02-13-2023 History SDOH Alcohol Frequency 3 [facility] Start: 02-13-2023 History SDOH Alcohol Std Drinks 1 [facility] Start: 02-13-2023 History SDOH Alcohol Binge 2 [facility] Start: 02-13-2023 History SDOH Social Connections Phone 5 [facility] Start: 02-13-2023 History SDOH Social Connections Get Together 4 [facility] Start: 02-13-2023 History SDOH Physical Activity MPS 6 [facility] Start: 02-14-2023 Alcohol Comment kyrgyz whiskey and soda water a couple times a week [facility] Start: 1985 Sex Assigned At Male [facility] Start: 02-12-2023 End: 02-14-2023 History of Social function [facility] Start: 02-12-2023 End: 02-14-2023 Social connection and isolation panel [facility] Do you belong to any clubs or organizations such as pentecostal groups, unions, fraternal or athletic groups, or school groups? Yes [facility] Are you now , , , , never or living with a partner? [facility] How often to you hav e a drink containing alcohol? 2-4 times a month [facility] How many standard dr inks containing alcohol do you have on a typical day? 1 or 2 [facility] How often do you hav e 6 or more drinks on 1 occasion? Less than monthly [facility] Adult Depression Screening Assessment 0 [facility] Work Phone: Do you feel stress - tense, restless, nervous, or anxious, or unable to sleep at night because your mind is troubled all the time - these days [OSQ] To some extent [facility] (I/We) worried tiffanie er (my/our) food would run out before (I/we) got money to buy more. Never true [facility] In the past 12 month s, was there a time when you were not able to pay the mortgage or rent on time? No [facility] Start: 08-21-2019 Gender identity Identifies as male gender (finding) [facility] Start: 08-21-2019 Sexual orientation Heterosexual (finding) [facility] Start: 02-27-2024 Tobacco Comment Trying to quit [facility] Start: 02-27-2024 Alcohol Comment occasionally [facility] How often to you hav e a drink containing alcohol? 2-3 time sa week [facility] How often do you hav e 6 or more drinks on 1 occasion? Never [facility] Do you feel stress - tense, restless, nervous, or anxious, or unable to sleep at night because your mind is troubled all the time - these days [OSQ] Very much [facility] Start: 03-07-2021 Tobacco smoking status [facility] Light tobacco smoker [facility] Start: 03-23-2025 Tobacco smoking status [facility] Ex-smoker (finding) [facility] Clinical Notes 02-14-2023 to 03-23-2025 Discharge InstructionsChandan Simon - 07/21/2024 5:34 AM ESTTelephone Encounter - Rachael Hand RN - 07/16/2024 1:46 PM EDTPatient Instructions Note Date & Type Note Facility 03-23-2025 Radiology Diagnostic study note [facility] Imaging Services [address], [place] [address] Abdomen/Pelvis W IV Cont ONLY MR#: [id number] Acct: [id number] Name: AMEE GUAMAN Rep #: [id number] 4 : 1985 M 40 From: Carrie Asif MD PCP: UZMA MCINTYRE Status: REG ER Study:Abdomen/Pelvis W IV Cont ONLY Date of E xam: 03/23/25 Exam# [id number] Ordering Dr: Gonzalo Honeycutt DO PROCEDURE: ABDOMEN/PELVIS W IV CONT ONLY 03/23/2025 REASON FOR EXAM: ABDOMINAL PAIN, HISTORY OF DIVERTICULITIS TECHNIQUE: ABDOMEN/PELVIS W IV CONT ONLY Coronal and Sagittal reconstruction series were provided. CONTRAST: VOLUME: mL One or more dose reduction techniques were used (e.g., Automated exposure control, adjustment of the mA and/or kV according to patient size, use of iterative reconstruction technique. RADIATION DOSE SUMMARY: CTDlvol: mGy DLP: mGycm COMPARISON: 01-02-2024 FINDINGS: Average sized liver showing homogenous parenchymal attenuation with fatty changes. No dilated intra or extra-hepatic biliary tracts. Gall bladder showing no radiodense calculi. No abnormal mural thickening. Clear surrounding fat planes with no sizeable collections. Normal appearance of the pancreas with clear surrounding fat planes. The spleen, adrenal glands, aorta and IVC are unremarkable. Both kidneys are of average size and showing smooth outline with preserved parenchymal thickness. No renal calculi. No hydronephrosis. Distension of the urinary bladder showing no obvious masses. No obvious masses related to the pelvic viscera. The appendix appears unremarkable. No right iliac inflammatory changes. Colonic diverticulosis with regression of the sigmoid diverticulitis. No pericolic collections. Mild gastric and small bowel loops wall thickening, possibly non specific inflammatory changes. No ascites or free air. No obvious pathologically enlarged lymph nodes. Scanned osseous structures show no osseous destruction. Scanned lung bases show no obvious abnormalities. CT/Abdomen/Pelvis W IV Cont ONLY IMPRESSION: Colonic diverticulosis with regression of the sigmoid diverticulitis. No pericolic collections. Mild gastric and small bowel loops wall thickening, possibly non specific inflammatory changes. Reading Location: [place] [address] CC: UZMA MCINTYRE; Dr. Yong Honeycutt DO ~ Sawyer Helper: Signed [facility] 07-21-2024 Hospital Discharge instructions Chika Herndon DO - 07/21/2024 7:25 AM EST Follow-up with primary care physician for reevaluation. Call for an appointment Follow-up with your general surgeon Dr. Molly Wiley for evaluation diverticulitis. Call for an appointment Continue Omnicef and Flagyl medication as prescribed and directed Take Tylenol alternate with Motrin for any pain aches and fevers Return to the emergency department immediately any pain fever chills nausea vomiting dizzy lightheaded or any worsening symptoms. The following attachments cannot be sent through Care Everywhere.Diverticulitis (Djiboutian)Diverticulosis and Diverticulitis: General Info (Djiboutian)documented in this encounter [facility] 07-21-2024 History of Present illness Narrative Images from the original note were not included. documented in this encounter [facility] 07-16-2024 Telephone encounter Note Phoned patient and given provider's message below. Patient agreeable. [facility] 07-16-2024 Miscellaneous Notes Phoned patient and given provider's message below. Patient agreeable. Needs evaluation at an OV or in EC for abdominal pain in next 24 hours. Please assist with scheduling. If he develops severe pain, fever, nausea, vomiting, constipation, blood in stool, unable to pass gas he should be seen in the ER immediately. Patient reports he had diverticulitis from December to February. Was prescribed Augmentin, 2 weeks later diverticulitis returned, ended up in hospital b/c it perforated. States he is 99.9% positive he is having diverticulitis flare now. Reports it started on Friday, LLQ pressure (not really pain), constipation that's relieved by passing gas, urinary urgency at times. Has been on a liquid diet since Friday. States he is trying to avoid a hospital. Asking if pcp would prescribe something for this so he can catch before needing a hospital? Please phone patient with reply: [phone] documented in this encounter [facility] 07-16-2024 Telephone encounter Note Needs evaluation at an OV or in EC for abdominal pain in next 24 hours. Please assist with scheduling. If he develops severe pain, fever, nausea, vomiting, constipation, blood in stool, unable to pass gas he should be seen in the ER immediately. [facility] 07-16-2024 Telephone encounter Note Patient reports he had diverticulitis from December to February. Was prescribed Augmentin, 2 weeks later diverticulitis returned, ended up in hospital b/c it perforated. States he is 99.9% positive he is having diverticulitis flare now. Reports it started on Friday, LLQ pressure (not really pain), constipation that's relieved by passing gas, urinary urgency at times. Has been on a liquid diet since Friday. States he is trying to avoid a hospital. Asking if pcp would prescribe something for this so he can catch before needing a hospital? Please phone patient with reply: [phone] [facility] 03-08-2024 Instructions Elliot Soni MD - 03/08/2024 9:34 AM EDT [place] [facility] - Insurance Therapy/Counseling [facility] [address] [place] [address] [facility] [address] [place] [address] [facility] [id number] [address] [facility] [address] [facility], [facility] [address] [place] [address] Diane Hilliard [facility] [address] [facility] [address] [place] [address] [facility] [address] [place] [address] [employer] [address] [place] [address] [facility] [address] [place] [address] documented in this encounter [facility] 03-08-2024 Note HNO ID: [id number] Author: ELLIOT SONI MD Service: ? Author Type: Physician Type: Progress Notes Filed: 03/08/2024 11:01 Note Text: Chief Complaint Patient presents with: ER F/U Hospital F/U: [facility]; Dx: Diverticulitis; discharged 02/20. HPI Amee Guaman is a 38 year old male who presents here today for Above Complaints.. Patient admitted to [facility] from 02/16 to 02/20 for recurrent diverticulitis in his sigmoid with perforation and sepsis. Treated with Zosyn while inpatient and discharged on Keflex and Flagyl x7 days per general surgery. F/u with our office and surgeon Dr. Wiley. Since discharge, patient had recurrent abdominal pain after finishing his course of abx. Returned to [facility] ER on 03/03 where they found similar findings on CT to his admission with diverticulitis and perforation. CBC was normal aside from high platelets. Liver panel, BMP, and UA normal. Restarted on Cipro and Flagyl for additional 10 days and was discharged home. After this, patient states that his pain is much improved and is having regular BMs about 2 times per day with firm stools without blood, mucous, or melena.Tolerating PO diet. Denies fever/chills, nausea, vomiting. Patient states that he met with his surgeon 10 days ago and they recommended colonoscopy in March. Noted HR and BP elevated today. States that he might get some white coat HTN and has been under more stress with this illness, job, and . Feeling anxious since bowel perforation on 02/16. Patient states that he is absolutely terrified that he is going to get severely ill and and leave his and 2 children behind. Was given on vistaril on discharge for anxiety symptoms which he states caused a panic attack. 03/08/2024 0933 Last Filed Value PHQ-9 Little interest or pleasure in doing things Not at all Not at all Feeling down, depressed, or hopeless Several days Several days Trouble falling or staying asleep, or sleeping too much Several days Several days Feeling tired or having little energy Several days Several days Poor appetite or overeating Not at all Not at all Feeling bad about yourself - or that you are a failure or have let yourself or your family down Several days Several days Trouble concentrating on things, such as reading the newspaper or watching television Not at all Not at all Moving or speaking so slowly that other people could have noticed. Or the opposite - being so fidgety or restless that you have been moving around a lot more than usual Not at all Not at all Thoughts that you would be better off , or of hurting yourself in some way Not at all Not at all If you checked off any problems, how difficult have these problems made it for you to do your work, take care of things at home, or get along with other people? -- Not difficult at allIf you checked off any problems, how difficult have these problems made it for you to do your work, take care of things at home, or get along with other people?. Not difficult at all. Patient-Reported. Data is from another encounter. Last Filed Value PHQ-9 score 4 4 PHQ-9 Score 4 4 PHQ-2 score 1 1 PHQ-2 Score 1 1 03/08/2024 0933 Last Filed Value ANNABELLA-7 - over the last 2 weeks... Feeling nervous, anxious, or on edge Several days Several days Not being able to stop or control worrying More than half the days More than half the days Worrying too much about different things Several days Several days Trouble relaxing Several days Several days Being so restless that it is hard to sit still Not at all Not at all Becoming easily annoyed or irritable Not at all Not at all Feeling afraid, as if something awful might happen More than half the days More than half the days How difficult to do work, care for home, get along with people -- -- ANNABELLA-2 Total Score 3 3 ANNABELLA-7 Total Score 7 7 ANNABELLA-7 Score 7 7 Past medical history, appointments, medications, allergies reviewed. Previous Medical History PAST MEDICAL HISTORY Diagnosis Date Diverticulitis 03/08/2024 Kidney stones Obesity 03/08/2024 Previous Surgical History PAST SURGICAL HISTORY Procedure Laterality Date LITHOTRIPSY XTRCORP SHOCK WAVE Left Family History FAMILY HISTORY Problem Relation Age of Onset other (htn) Mother other (HTN) Father Diabetes Father Ischemic Heart Disease Father heart stent other (atrial fib) Father Lung Cancer Maternal Grandmother Lung Cancer Paternal Grandmother Ischemic Heart Disease Paternal Grandfather other (bladder cancer) Paternal Grandfather Patient Allergies ALLERGIES No Known Allergies Current Medications Current Outpatient Medications on File Prior to Visit Medication Sig metroNIDAZOLE (FLAGYL) 500 mg tablet Take 500 mg by mouth. ciprofloxacin HCl (CIPRO) 500 mg tablet Take 500 mg by mouth. No current facility-administered medications on file prior to visit. Social His (more content not included)... [facility] 03-08-2024 History of Present illness Narrative Chief Complaint Patient presents with: ER F/U Hospital F/U: [facility]; Dx: Diverticulitis; discharged 02/20. HPI Amee Guaman is a 38 year old male who presents here today for Above Complaints.. Patient admitted to [facility] from 02/16 to 02/20 for recurrent diverticulitis in his sigmoid with perforation and sepsis. Treated with Zosyn while inpatient and discharged on Keflex and Flagyl x7 days per general surgery. F/u with our office and surgeon Dr. Wiley. Since discharge, patient had recurrent abdominal pain after finishing his course of abx. Returned to [facility] ER on 03/03 where they found similar findings on CT to his admission with diverticulitis and perforation. CBC was normal aside from high platelets. Liver panel, BMP, and UA normal. Restarted on Cipro and Flagyl for additional 10 days and was discharged home. After this, patient states that his pain is much improved and is having regular BMs about 2 times per day with firm stools without blood, mucous, or melena.Tolerating PO diet. Denies fever/chills, nausea, vomiting. Patient states that he met with his surgeon 10 days ago and they recommended colonoscopy in March. Noted HR and BP elevated today. States that he might get some white coat HTN and has been under more stress with this illness, job, and . Feeling anxious since bowel perforation on 02/16. Patient states that he is absolutely terrified that he is going to get severely ill and and leave his and 2 children behind. Was given on vistaril on discharge for anxiety symptoms which he states caused a panic attack. 03/08/2024 0933 Last Filed Value PHQ-9 Little interest or pleasure in doing things Not at all Not at all Feeling down, depressed, or hopeless Several days Several days Trouble falling or staying asleep, or sleeping too much Several days Several days Feeling tired or having little energy Several days Several days Poor appetite or overeating Not at all Not at all Feeling bad about yourself - or that you are a failure or have let yourself or your family down Several days Several days Trouble concentrating on things, such as reading the newspaper or watching television Not at all Not at all Moving or speaking so slowly that other people could have noticed. Or the opposite - being so fidgety or restless that you have been moving around a lot more than usual Not at all Not at all Thoughts that you would be better off , or of hurting yourself in some way Not at all Not at all If you checked off any problems, how difficult have these problems made it for you to do your work, take care of things at home, or get along with other people? -- Not difficult at allIf you checked off any problems, how difficult have these problems made it for you to do your work, take care of things at home, or get along with other people?. Not difficult at all. Patient-Reported. Data is from another encounter. Last Filed Value PHQ-9 score 4 4 PHQ-9 Score 4 4 PHQ-2 score 1 1 PHQ-2 Score 1 1 03/08/2024 0933 Last Filed Value ANNABELLA-7 - over the last 2 weeks... Feeling nervous, anxious, or on edge Several days Several days Not being able to stop or control worrying More than half the days More than half the days Worrying too much about different things Several days Several days Trouble relaxing Several days Several days Being so restless that it is hard to sit still Not at all Not at all Becoming easily annoyed or irritable Not at all Not at all Feeling afraid, as if something awful might happen More than half the days More than half the days How difficult to do work, care for home, get along with people -- -- ANNABELLA-2 Total Score 3 3 ANNABELLA-7 Total Score 7 7 ANNABELLA-7 Score 7 7 Past medical history, appointments, medications, allergies reviewed. Previous Medical History PAST MEDICAL HISTORY Diagnosis Date Diverticulitis 03/08/2024 Kidney stones Obesity 03/08/2024 Previous Surgical History PAST SURGICAL HISTORY Procedure Laterality Date LITHOTRIPSY XTRCORP SHOCK WAVE Left Family History FAMILY HISTORY Problem Relation Age of Onset other (htn) Mother other (HTN) Father Diabetes Father Ischemic Heart Disease Father heart stent other (atrial fib) Father Lung Cancer Maternal Grandmother Lung Cancer Paternal Grandmother Ischemic Heart Disease Paternal Grandfather other (bladder cancer) Paternal Grandfather Patient Allergies ALLERGIES No Known Allergies Current Medications Current Outpatient Medications on File Prior to Visit Medication Sig metroNIDAZOLE (FLAGYL) 500 mg tablet Take 500 mg by mouth. ciprofloxacin HCl (CIPRO) 500 mg tablet Take 500 mg by mouth. No current facility-administered medications on file prior to visit. Social History Social History Tobacco Use Smoking status: Some Days Types: Cigars Smokeless tobacco: Never Vaping Use Vaping Use: Never used Substance Use Topics Alcohol use: Yes Comment: kyrgyz whiskey and soda water a couple times a week Drug use: Never Review of Symptoms REVIEW OF SYSTEMS GENERAL: No weight loss, malaise or fevers RESPIRATORY: Negative for cough, hemoptysis, wheezing, COPD, dyspnea or shortness of breath CARDIOVASCULAR: Negative for chest pain, leg swelling, hypertension, CHF or palpitations GI: No nausea, vomiting, or diarrhea SKIN: Negative for lesions, rash, and itching EXAM: BP 136/88 Pulse (!) 123 Resp 16 Wt 124.7 kg (275 lb) SpO2 97% BMI 37.17 kg/m General Appearance: Well appearing, alert, in no acute distress, well-hydrated, well nourished.. Skin: Skin color, texture, turgor normal, no suspicious rashes or lesions. Lungs: Lungs clear to auscultation. No wheezing, rhonchi, rales.. Heart: Negative findings: no murmurs, clicks, or gallops, Positive findings: tachycardia. Abdomen: Normal abdominal exam, Abdomen soft, non-tender. Bowel sounds normal. No masses, organomegaly. Extremities: No deformities, edema, skin discoloration, clubbing or cyanosis. Good capillary refill. . Health Maintenance List Pneumococcal Vaccine(1 of 2 - PCV) Never done Hepatitis C Screening Never done HIV Screening Never done DTaP,Tdap,Td Vaccine(1 - Tdap) Never done Hepatitis B Vaccine(1 of 3 - 19+ 3-dose series) Never done Covid-19 Vaccine(2 - 2022- season) due on 05/16/2023 Behavioral Health Screening Never done Influenza Vaccine(Season Ended) due on 05/16/2024 Lipid Screening due on 02/15/2028 HPV Vaccine Aged Out Data reviewed EKG: Sinus tachycardia at 108 bpm, otherwise normal EKG. ASSESSMENT/PLAN: 1. Diverticulitis - ICD9: 562.11, ICD10: K57.92 (primary diagnosis) Symptoms have resolved with Cipro and Flagyl. Continue to eat high fiber diet, push PO fluids, and f/u with surgery for colonoscopy. Red flags for re-assessment reviewed with patient in detail. - COMPLETE BLOOD COUNT AND DIFFERENTIAL - COMPREHENSIVE METABOLIC PANEL 2. LLQ abdominal pain - ICD9: 789.04, ICD10: R10.32 Resolved. 3. History of sepsis - ICD9: V12.09, ICD10: Z86.19 Resolved. 4. Tachycardia - ICD9: 785.0, ICD10: R00.0 Likely 2/2 anxiety and did drink a diet coke before coming to the office. EKG shows sinus tachycardia without arrhythmia or ischemia. Obtain labs as ordered to rule out thyroid or magnesium disorder. Work on coping strategies for anxiety. - ECG COMPLETE - THYROID STIMULATING HORMONE - MAGNESIUM 5. ANNABELLA (generalized anxiety disorder) - ICD9: 300.02, ICD10: F41.1 New diagnosis. Patient refusing rx for SSRI medication. With being due on 03/25, did not want to give anything sedating. May use OTC benadryl for panic symptoms and f/u with counseling and coping strategies as discussed. 6. Hospital discharge follow-up - ICD9: V67.59, ICD10: Z09 Improving. See above. I spent a total of 40 minutes on the date of the service which included preparing to see the patient, [id number] patient care, completing clinical documentation, obtaining and/or reviewing separately obtained history, performing a medically appropriate examination, counseling and educating the patient/family/caregiver, ordering medications, tests, or procedures, independently interpreting results (not separately reported), and communicating results to the patient/family/caregiver. Elliot Soni MD documented in this encounter [facility] 02-27-2024 Note HISTORY & PHYSICAL E XAMINATION Patient Name: Amee Guaman MR #: [id number] : 1985 Physicians: No, Physician (Family); No ref. provider found (Referring) Chief Complaint/Reason for Visit: Follow-up after recent hospitalization for diverticulitis History of Present Illness: Amee Guaman is a 38 y.o. y/o male past medical history of recent hospitalization for perforated diverticulitis. Treated nonoperatively with IV antibiotics. Transition to oral antibiotics and follows up today in the office for discussion of follow-up colonoscopy. Denies any blood in the stool. Family history negative of colon cancer. Does describe family history of polyps. History: I have reviewed the PMHx, PSHx, SHx, FHx in EMR with the patient during this encounter face to face and patient agrees with the documentation Past Medical History: Diagnosis Date Diverticulosis with perforation Kidney stones Past Surgical History: Procedure Laterality Date EXTRACORPOREAL SHOCK WAVE LITHOTRIPSY kidney stones WISDOM TOOTH EXTRACTION History reviewed. No pertinent family history. Social History Socioeconomic History Marital status: Tobacco Use Smoking status: Smoker, Current Status Unknown Types: Cigars Smokeless tobacco: Never Tobacco comments: Trying to quit Vaping Use Vaping Use: Never used Substance and Sexual Activity Alcohol use: Yes Comment: occasionally Drug use: Never Social Determinants of Health Food Insecurity: No Food Insecurity (02/17/2024) Hunger Vital Sign Worried About Running Out of Food in the Last Year: Never true Ran Out of Food in the Last Year: Never true Transportation Needs: No Transportation Needs (02/17/2024) PRAPARE - Transportation Lack of Transportation (Medical): No Lack of Transportation (Non-Medical): No Housing Stability: Low Risk (02/17/2024) Housing Stability Vital Sign Unable to Pay for Housing in the Last Year: No Number of Places Lived in the Last Year: 1 Unstable Housing in the Last Year: No Allergy Information: Patient has no known allergies. Home Medications: Outpatient Medications as of 02/27/2024 Medication Sig cephALEXin (KEFLEX) 500 MG capsule Take 1 (one) capsule (500 mg total) by mouth 3 (three) times a day for 7 days . metroNIDAZOLE (FLAGYL) 500 MG tablet Take 1 (one) tablet (500 mg total) by mouth 2 (two) times a day with meals for 7 days . Review of Systems: Review of Systems Physical Examination: Vital Signs: BP (!) 128/91 Pulse (!) 103 Resp 16 Ht 6' Wt 123.8 kg (273 lb) SpO2 95% BMI 37.03 kg/m Physical Exam Physical Exam Constitutional: Appearance: Normal appearance. HENT: Head: Normocephalic. Mouth/Throat: Mouth: Mucous membranes are moist. Eyes: Pupils: Pupils are equal, round, and reactive to light. Cardiovascular: Rate and Rhythm: Normal rate. Pulses: Normal pulses. Pulmonary: Effort: Pulmonary effort is normal. Abdominal: General: There is no distension. Palpations: Abdomen is soft. Tenderness: There is no abdominal tenderness. Musculoskeletal: General: Normal range of motion. Skin: General: Skin is warm. Neurological: General: No focal deficit present. Mental Status: He is alert. Psychiatric: Mood and Affect: Mood normal. Thought Content: Thought content normal. Judgment: Judgment normal. Laboratory and Additional Data Reviewed: Laboratory 02/27/24 9:49 AM Laboratory Lab Results Component Value Date WBC 7.79 02/21/2024 RBC 4.33 (L) 02/21/2024 HGB 12.8 (L) 02/21/2024 HCT 39.4 (L) 02/21/2024 PLT 358 02/21/2024 No results found for: AMYLASE No results found for: LIPASE Assessment and Plan: Amee Guaman is a 38 y.o. y/o male presenting for follow-up of diverticulitis Patient Active Problem List Diagnosis History of colonic diverticulitis Plan: Schedule for colonoscopy. The risks and benefits of my recommendations, as well as other treatment options were discussed with the patient today including but not limited to perforation and bleeding. Prep instruction provided and consent obtained. Questions were answered. 1. History of colonic diverticulitis Case Request Operating Room: COLONOSCOPY Vital signs Height and weight Vital signs Insert peripheral IV lactated Ringers infusion Total time 20 minutes, greater than 50% spent [id number] with the patient obtaining history and performing exam and coordinating care Screening and Health maintenance Colonoscopy - Last colonoscopy none AUTHENTICATED BY LAURA WILEY ON 02/27/2024 10:03:38 [facility] 02-27-2024 History of Present illness Narrative HISTORY & PHYSICAL EXAMINATION Patient Name: Amee Guaman MR #: [id number] : 1985 Physicians: No, Physician (Family); No ref. provider found (Referring) Chief Complaint/Reason for Visit: Follow-up after recent hospitalization for diverticulitis History of Present Illness: Amee Guaman is a 38 y.o. y/o male past medical history of recent hospitalization for perforated diverticulitis. Treated nonoperatively with IV antibiotics. Transition to oral antibiotics and follows up today in the office for discussion of follow-up colonoscopy. Denies any blood in the stool. Family history negative of colon cancer. Does describe family history of polyps. History: I have reviewed the PMHx, PSHx, SHx, FHx in EMR with the patient during this encounter face to face and patient agrees with the documentation Past Medical History: Diagnosis Date Diverticulosis with perforation Kidney stones Past Surgical History: Procedure Laterality Date EXTRACORPOREAL SHOCK WAVE LITHOTRIPSY kidney stones WISDOM TOOTH EXTRACTION History reviewed. No pertinent family history. Social History Socioeconomic History Marital status: Tobacco Use Smoking status: Smoker, Current Status Unknown Types: Cigars Smokeless tobacco: Never Tobacco comments: Trying to quit Vaping Use Vaping Use: Never used Substance and Sexual Activity Alcohol use: Yes Comment: occasionally Drug use: Never Social Determinants of Health Food Insecurity: No Food Insecurity (02/17/2024) Hunger Vital Sign Worried About Running Out of Food in the Last Year: Never true Ran Out of Food in the Last Year: Never true Transportation Needs: No Transportation Needs (02/17/2024) PRAPARE - Transportation Lack of Transportation (Medical): No Lack of Transportation (Non-Medical): No Housing Stability: Low Risk (02/17/2024) Housing Stability Vital Sign Unable to Pay for Housing in the Last Year: No Number of Places Lived in the Last Year: 1 Unstable Housing in the Last Year: No Allergy Information: Patient has no known allergies. Home Medications: Outpatient Medications as of 02/27/2024 Medication Sig cephALEXin (KEFLEX) 500 MG capsule Take 1 (one) capsule (500 mg total) by mouth 3 (three) times a day for 7 days . metroNIDAZOLE (FLAGYL) 500 MG tablet Take 1 (one) tablet (500 mg total) by mouth 2 (two) times a day with meals for 7 days . Review of Systems: Review of Systems Physical Examination: Vital Signs: BP (!) 128/91 Pulse (!) 103 Resp 16 Ht 6' Wt 123.8 kg (273 lb) SpO2 95% BMI 37.03 kg/m Physical Exam Physical Exam Constitutional: Appearance: Normal appearance. HENT: Head: Normocephalic. Mouth/Throat: Mouth: Mucous membranes are moist. Eyes: Pupils: Pupils are equal, round, and reactive to light. Cardiovascular: Rate and Rhythm: Normal rate. Pulses: Normal pulses. Pulmonary: Effort: Pulmonary effort is normal. Abdominal: General: There is no distension. Palpations: Abdomen is soft. Tenderness: There is no abdominal tenderness. Musculoskeletal: General: Normal range of motion. Skin: General: Skin is warm. Neurological: General: No focal deficit present. Mental Status: He is alert. Psychiatric: Mood and Affect: Mood normal. Thought Content: Thought content normal. Judgment: Judgment normal. Laboratory and Additional Data Reviewed: Laboratory 02/27/24 9:49 AM Laboratory Lab Results Component Value Date WBC 7.79 02/21/2024 RBC 4.33 (L) 02/21/2024 HGB 12.8 (L) 02/21/2024 HCT 39.4 (L) 02/21/2024 PLT 358 02/21/2024 No results found for: AMYLASE No results found for: LIPASE Assessment and Plan: Amee Guaman is a 38 y.o. y/o male presenting for follow-up of diverticulitis Patient Active Problem List Diagnosis History of colonic diverticulitis Plan: Schedule for colonoscopy. The risks and benefits of my recommendations, as well as other treatment options were discussed with the patient today including but not limited to perforation and bleeding. Prep instruction provided and consent obtained. Questions were answered. 1. History of colonic diverticulitis Case Request Operating Room: COLONOSCOPY Vital signs Height and weight Vital signs Insert peripheral IV lactated Ringers infusion Total time 20 minutes, greater than 50% spent [id number] with the patient obtaining history and performing exam and coordinating care Screening and Health maintenance Colonoscopy - Last colonoscopy none documented in this encounter [facility] 02-21-2024 Note Formatting of this n ote might be different from the original. Pt IV removed, belongings returned, and education completed. Questions and concerns answered with verbal understanding. Pt walked to main entry by nursing staff. [facility] 02-21-2024 Miscellaneous Notes Pt IV removed, belongings returned, and education completed. Questions and concerns answered with verbal understanding. Pt walked to main entry by nursing staff. Problem: Pain Goal: Reduced pain sensation Outcome: Partially Met Goal: Control of acute pain to acceptable level Outcome: Partially Met Goal: Able to cope with pain Outcome: Partially Met Goal: Able to achieve maximum level of physical functioning Outcome: Partially Met Goal: Able to achieve maximum level of psychosocial functioning Outcome: Partially Met Problem: Actual or potential alteration in health Goal: Absence of healthcare acquired conditions Outcome: Partially Met Goal: Knowledge of Interdisciplinary Plan of Care Outcome: Partially Met Goal: Knowledge of Enviroment Outcome: Partially Met Problem: Pain Goal: Reduced pain sensation Outcome: Partially Met Goal: Control of acute pain to acceptable level Outcome: Partially Met Goal: Able to cope with pain Outcome: Partially Met Goal: Able to achieve maximum level of physical functioning Outcome: Partially Met Goal: Able to achieve maximum level of psychosocial functioning Outcome: Partially Met Problem: Actual or potential alteration in health Goal: Absence of healthcare acquired conditions Outcome: Partially Met Goal: Knowledge of Interdisciplinary Plan of Care Outcome: Partially Met Goal: Knowledge of Enviroment Outcome: Partially Met Problem: Pain Goal: Reduced pain sensation Outcome: Partially Met Goal: Control of acute pain to acceptable level Outcome: Partially Met Goal: Able to cope with pain Outcome: Partially Met Goal: Able to achieve maximum level of physical functioning Outcome: Partially Met Goal: Able to achieve maximum level of psychosocial functioning Outcome: Partially Met Problem: Actual or potential alteration in health Goal: Absence of healthcare acquired conditions Outcome: Partially Met Goal: Knowledge of Interdisciplinary Plan of Care Outcome: Partially Met Goal: Knowledge of Enviroment Outcome: Partially Met Pt c/o indigestion/belching pain. Trauma FOZIA notified, orders received for Tums and Maalox as needed. Pt updated, verbalizes understanding. Pt medicated with PRN Tums. Problem: Pain Goal: Reduced pain sensation Outcome: Not Met Goal: Control of acute pain to acceptable level Outcome: Not Met Goal: Able to cope with pain Outcome: Not Met Goal: Able to achieve maximum level of physical functioning Outcome: Not Met Goal: Able to achieve maximum level of psychosocial functioning Outcome: Not Met Problem: Actual or potential alteration in health Goal: Absence of healthcare acquired conditions Outcome: Not Met Goal: Knowledge of Interdisciplinary Plan of Care Outcome: Not Met Goal: Knowledge of Enviroment Outcome: Not Met This nurse entered pt room to assess pt, and take vitals. Pt temp 101.8, this nurse offered tylenol, and pt was questioning nurse whether the doctor thought that would be okay, this nurse explained to pt that the doctor placed the order for that reason. Pt took tylenol, and stated that he was anxious about sepsis. This nurse educated pt, and explained to him he was already receiving antibiotics, and we would recheck his temp in a little bit. A little over 30 mins later pt rang again and asked this nurse to recheck his temp. Temp was 98.2. Pt then asked this nurse to contact the doctor and see if there was anything he could have for anxiety. Pt stated he does not take anything at home, but probably needs to and plans to follow up with his PCP to help control his anxiety. Pt then asked nurse to recheck every 30 mins. Pt rang call light again and asked this nurse to speak to his on the phone regarding his temp, was concerned about consulting infectious disease, and changing antibiotics. This nurse reassured that he was currently receiving antibiotics, and was being monitored closely for sepsis. Educated pt on techniques to help relieve anxiety. This nurse received an order for PRN atarax. Problem: Pain Goal: Reduced pain sensation Outcome: Partially Met Goal: Control of acute pain to acceptable level Outcome: Partially Met Goal: Able to cope with pain Outcome: Partially Met Goal: Able to achieve maximum level of physical functioning Outcome: Partially Met Goal: Able to achieve maximum level of psychosocial functioning Outcome: Partially Met Problem: Actual or potential alteration in health Goal: Absence of healthcare acquired conditions Outcome: Partially Met Goal: Knowledge of Interdisciplinary Plan of Care Outcome: Partially Met Goal: Knowledge of Enviroment Outcome: Partially Met ED Attestation: I have reviewed the Advanced Practice Provider's (FOZIA's) documentation. In addition, I have personally introduced myself to the patient (face to face), and have taken his history and performed an examination. I agree with the physical findings, management, clinical impression and disposition. I did perform the substantive portion of this patient's encounter, including all aspects of the MDM. In brief, Amee is a 38 y.o. male who presents with a chief complaint of Abdominal Pain. He developed left lower quadrant pain about a month and a half ago and is failed multiple outpatient courses of oral antibiotics. Found to have perforated diverticulitis at outside hospital, transferred for general surgery evaluation. General surgery is recommending admission to medicine for medical management. He has a benign abdominal exam with some mild tenderness to the left lower quadrant. No evidence of peritonitis. Problem: Pain Goal: Reduced pain sensation Outcome: Partially Met Goal: Control of acute pain to acceptable level Outcome: Partially Met Goal: Able to cope with pain Outcome: Partially Met Goal: Able to achieve maximum level of physical functioning Outcome: Partially Met Goal: Able to achieve maximum level of psychosocial functioning Outcome: Partially Met documented in this encounter [facility] 02-21-2024 Note HMS DISCHARGE SUMMAR Y -- [facility] Amee Guaman Admitted: 02/17/2024 Discharge Date: 02/21/24 PCP Handoff Recommended Outpatient Testing F/U with surgery Results Pending At Discharge None Clinical Summary Amee Guaman is a 38 y.o. male [1] with a history of diverticulitis diagnosed December 2023, who presented with abdominal pain and was found to have recurrence of diverticulitis. Recurrent diverticulitis Initial episode January 02 2024, treated with Augmentin Recurrence a few weeks later treated with Cipro/Flagyl Again recurred 02/16, patient returned here CT A/P 02/16: Proximal sigmoid diverticulum with moderate inflammatory stranding, adjacent foci of extraluminal gas, concerning for perforation. General surgery consult consulted and following Nonoperative at this time Surgery consulted and managed while IP Treated with zosyn OP , discharge on cephalexin and flagyl per surgery Tolerated regular diet F/u with Dr. Wiley OP already scheduled Sepsis, POA resolved Febrile, tachycardic, with leukocytosis on admit Actively receiving IVF, on Zosyn Monitor fever curve and WBC Last fever was on 02/17 at 7:20 PM Obesity BMI 37 Lifestyle modifications encouraged Discharge Medications Discharge Medications New Medications Details cephALEXin 500 MG capsule Commonly known as: KEFLEX Take 1 (one) capsule (500 mg total) by mouth 3 (three) times a day for 7 days . Quantity: 21 capsule hydrOXYzine 25 MG tablet Commonly known as: ATARAX Take 1 (one) tablet (25 mg total) by mouth 3 (three) times a day as needed for anxiety . Quantity: 15 tablet metroNIDAZOLE 500 MG tablet Commonly known as: FLAGYL Take 1 (one) tablet (500 mg total) by mouth 2 (two) times a day with meals for 7 days . Quantity: 14 tablet Physician(s) Follow Up: Laura Wiley MD [address] [place] [address] Schedule an appointment as soon as possible for a visit in 1 week(s) Call to make an appointment in 1-2 weeks Condition at Discharge: Stable Disposition: Home I reviewed discharge recommendations with the patient in person. Patient instructions, including activity, were given to the patient/family at discharge. On day of discharge I saw Amee Guaman and spent: < 30 minutes on discharge. Completed by: Dalila Puente MD on 02/21/24, 2:50 PM AUTHENTICATED BY DALILA PUENTE, ON 02/21/2024 14:53:39 [facility] 02-21-2024 Hospital course Narr[place] [facility] [place] [facility] Amee Guaman Admitted: 02/17/2024 Discharge Date: 02/21/24 PCP Handoff Recommended Outpatient Testing F/U with surgery Results Pending At Discharge None Clinical Summary Amee Guaman is a 38 y.o. male [1] with a history of diverticulitis diagnosed December 2023, who presented with abdominal pain and was found to have recurrence of diverticulitis. Recurrent diverticulitis Initial episode January 02 2024, treated with Augmentin Recurrence a few weeks later treated with Cipro/Flagyl Again recurred 02/16, patient returned here CT A/P 02/16: Proximal sigmoid diverticulum with moderate inflammatory stranding, adjacent foci of extraluminal gas, concerning for perforation. General surgery consult consulted and following Nonoperative at this time Surgery consulted and managed while IP Treated with zosyn OP , discharge on cephalexin and flagyl per surgery Tolerated regular diet F/u with Dr. Wiley OP already scheduled Sepsis, POA resolved Febrile, tachycardic, with leukocytosis on admit Actively receiving IVF, on Zosyn Monitor fever curve and WBC Last fever was on 02/17 at 7:20 PM Obesity BMI 37 Lifestyle modifications encouraged Discharge Medications Discharge Medications New Medications Details cephALEXin 500 MG capsule Commonly known as: KEFLEX Take 1 (one) capsule (500 mg total) by mouth 3 (three) times a day for 7 days . Quantity: 21 capsule hydrOXYzine 25 MG tablet Commonly known as: ATARAX Take 1 (one) tablet (25 mg total) by mouth 3 (three) times a day as needed for anxiety . Quantity: 15 tablet metroNIDAZOLE 500 MG tablet Commonly known as: FLAGYL Take 1 (one) tablet (500 mg total) by mouth 2 (two) times a day with meals for 7 days . Quantity: 14 tablet Physician(s) Follow Up: Laura Wiley MD [address] [place] [id number] Schedule an appointment as soon as possible for a visit in 1 week(s) Call to make an appointment in 1-2 weeks Condition at Discharge: Stable Disposition: Home I reviewed discharge recommendations with the patient in person. Patient instructions, including activity, were given to the patient/family at discharge. On day of discharge I saw Amee Guaman and spent: < 30 minutes on discharge. Completed by: Dalila Puente MD on 02/21/24, 2:50 PM DISCHARGE SUMMARY Patient: Amee Guaman Date of : 1985 Site: [facility] Family Provider: Anuradha Physician Admit Date: 02/17/2024 Discharge Date/Time: 02/21/24 Disposition: home Clinical Summary Hospital Course: Amee Guaman is a 38 y.o. male patient of [facility] with a history of kidney stones and diverticulitis, who presented to [facility] ED with complaints of 2 to 3 days of left lower quadrant abdominal pain. He was transferred to [facility] ED for further evaluation and treatment. The patient underwent a CTAP with IV contrast at [facility] with moderate inflammatory stranding of a proximal sigmoid diverticulum & adjacent foci of extraluminal gas, no loculated fluid collection. The patient was treated nonoperatively with IV antibiotics and IV fluids. He has been passing gas and has had several bowel movements. He has been afebrile, and his white blood cell count has normalized. He is stable discharge home today on oral antibiotics and to follow-up with Dr. Wiley in 1 to 2 weeks for discussion regarding colonoscopy. Discharge Diagnoses: Perforated Diverticulitis CTAP with IV contrast at [facility] with moderate inflammatory stranding of a proximal sigmoid diverticulum & adjacent foci of extraluminal gas, no loculated fluid collection Doing well tolerated regular diet, bowels working, no nausea Home today with keflex and flagyl, follow up with Dr. Wiley in 1-2 weeks Surgeries: None Consults: Procedures Consult Surgery Hospitalize Patient To : Allergies: Patient has no known allergies. Discharge Diet: Resume home diet Condition: good Discharge Medications: Discharge Medications New Medications Details cephALEXin 500 MG capsule Commonly known as: KEFLEX Take 1 (one) capsule (500 mg total) by mouth 3 (three) times a day for 7 days . Quantity: 21 capsule hydrOXYzine 25 MG tablet Commonly known as: ATARAX Take 1 (one) tablet (25 mg total) by mouth 3 (three) times a day as needed for anxiety . Quantity: 15 tablet metroNIDAZOLE 500 MG tablet Commonly known as: FLAGYL Take 1 (one) tablet (500 mg total) by mouth 2 (two) times a day with meals for 7 days . Quantity: 14 tablet Physician(s) Family Provider: Anuradha, Physician, Phone: None Address: [facility] Follow Up: Laura Wiley MD [address] [place] [id number] Schedule an appointment as soon as possible for a visit in 1 week(s) Call to make an appointment in 1-2 weeks Additional Information: n/a Patient instructions, including activity, were given to the patient/family at discharge. Please see the After Visit Summary in the electronic medical record for details. Time spent on discharge: < 30 minutes Completed by: Mela Barbosa CNP on 02/21/24, 1:09 PM documented in this encounter [facility] 02-21-2024 Note DISCHARGE SUMMARY Patient: Amee Guaman Date of : 1985 Site: [facility] Family Provider: Anuradha Physician Admit Date: 02/17/2024 Discharge Date/Time: 02/21/24 Disposition: home Clinical Summary Hospital Course: Amee Guaman is a 38 y.o. male patient of [facility] with a history of kidney stones and diverticulitis, who presented to [facility] ED with complaints of 2 to 3 days of left lower quadrant abdominal pain. He was transferred to [facility] ED for further evaluation and treatment. The patient underwent a CTAP with IV contrast at [facility] with moderate inflammatory stranding of a proximal sigmoid diverticulum & adjacent foci of extraluminal gas, no loculated fluid collection. The patient was treated nonoperatively with IV antibiotics and IV fluids. He has been passing gas and has had several bowel movements. He has been afebrile, and his white blood cell count has normalized. He is stable discharge home today on oral antibiotics and to follow-up with Dr. Wiley in 1 to 2 weeks for discussion regarding colonoscopy. Discharge Diagnoses: Perforated Diverticulitis CTAP with IV contrast at [facility] with moderate inflammatory stranding of a proximal sigmoid diverticulum & adjacent foci of extraluminal gas, no loculated fluid collection Doing well tolerated regular diet, bowels working, no nausea Home today with keflex and flagyl, follow up with Dr. Wiley in 1-2 weeks Surgeries: None Consults: Procedures Consult Surgery Hospitalize Patient To : Allergies: Patient has no known allergies. Discharge Diet: Resume home diet Condition: good Discharge Medications: Discharge Medications New Medications Details cephALEXin 500 MG capsule Commonly known as: KEFLEX Take 1 (one) capsule (500 mg total) by mouth 3 (three) times a day for 7 days . Quantity: 21 capsule hydrOXYzine 25 MG tablet Commonly known as: ATARAX Take 1 (one) tablet (25 mg total) by mouth 3 (three) times a day as needed for anxiety . Quantity: 15 tablet metroNIDAZOLE 500 MG tablet Commonly known as: FLAGYL Take 1 (one) tablet (500 mg total) by mouth 2 (two) times a day with meals for 7 days . Quantity: 14 tablet Physician(s) Family Provider: Anuradha, Physician, Phone: None Address: [facility] Follow Up: Laura Wiley MD [facility] [place] [id number] Schedule an appointment as soon as possible for a visit in 1 week(s) Call to make an appointment in 1-2 weeks Additional Information: n/a Patient instructions, including activity, were given to the patient/family at discharge. Please see the After Visit Summary in the electronic medical record for details. Time spent on discharge: < 30 minutes Completed by: Mela Barbosa CNP on 02/21/24, 1:09 PM AUTHENTICATED BY MELA BARBOSA, ON 02/21/2024 13:12:02 [facility] 02-21-2024 Note [facility] DAILY PROGRESS NOTE SURGICAL PROBLEM Perforated Diverticulitis ASSESSMENT & PLAN/ACTIVE MEDICAL PROBLEMS: Perforated Diverticulitis CTAP with IV contrast at [facility] with moderate inflammatory stranding of a proximal sigmoid diverticulum & adjacent foci of extraluminal gas, no loculated fluid collection Doing well tolerated regular diet, bowels working. Home today with po antibiotics. SURGERIES/PROCEDURES: Date Operation/Procedure Provider Name INCIDENTAL FINDINGS: Subcentimeter hypoattenuating left renal lesion, too small to characterize RESOLVED PROBLEMS: DISPOSITION - likely next 1-2 days CHIEF COMPLAINT/ HPI / PFSHx / EVENTS OVER LAST 24HRS: No events overnight. REVIEW OF SYSTEMS: Other than the above items the remainder of the complete ROS is otherwise unchanged from admission. PHYSICAL EXAM: Temp: [98 degrees F (36.7 degrees C)-99.4 degrees F (37.4 degrees C)] 98.2 degrees F (36.8 degrees C) Heart Rate: [84-113] 101 Resp: [16-18] 16 BP: (124-148)/(78-95) 144/85 GENERAL: Appears age appropriate. No acute distress. NEUROLOGICAL: Alert and oriented X 3. Follows commands with extremities x4, equal strength. GCS = 15. CARDIOVASCULAR: Regular rate and rhythm. 2+ pulses radial/DP/PT bilaterally. RESPIRATORY: Lungs, clear to auscultation bilaterally. Respiratory effort unlabored without use of accessory muscles. On RA. ABDOMINAL: Rounded, soft, non distended no significant tenderness, normal bowel sounds. No guarding or peritoneal signs. Multiple BM MUSCULOSKELETAL: Extremities atraumatic without gross deformity x4. ROM appropriate for age. SKIN: Skin warm and dry. Intake/Output Summary (Last 24 hours) at 02/21/2024 0814 Last data filed at 02/20/2024 1514 Gross per 24 hour Intake 1301.88 ml Output -- Net 1301.88 ml IMAGING [briefly note any results pertinent to today's evaluation]: All imaging reviewed. LABS Lab Results Component Value Date WBC 7.79 02/21/2024 HGB 12.8 (L) 02/21/2024 HCT 39.4 (L) 02/21/2024 MCV 91.0 02/21/2024 PLT 358 02/21/2024 RBC 4.33 (L) 02/21/2024 Lab Results Component Value Date GLUCOSE 89 02/21/2024 CALCIUM 9.3 02/21/2024 NA 140 02/21/2024 K 3.5 02/21/2024 CL 103 02/21/2024 BUN 7 (L) 02/21/2024 CREATININE 0.98 02/21/2024 Lab Results Component Value Date ALT 29 02/21/2024 AST 27 02/21/2024 ALKPHOS 59 02/21/2024 BILITOT 0.5 02/21/2024 DAILY CHECKLIST: *Need for Restraints: n/a *Need for Urinary Catheter: n/a *Need for Central Access Devices: n/a *Stress Ulcer Prophylaxis: per primary *VTE Prophylaxis (Body mass index is 37.44 kg/m ., Estimated Creatinine Clearance: 114.4 mL/min (by C-G formula based on SCr of 0.98 mg/dL).): per primary *Home Medications Reconciled: yes *Code Status: full AUTHENTICATED BY WALT BOLANOS, ON 02/21/2024 08:15:23 [facility] 02-21-2024 History of Present illness Narrative [facility] and [facility] DAILY PROGRESS NOTE SURGICAL PROBLEM Perforated Diverticulitis ASSESSMENT & PLAN/ACTIVE MEDICAL PROBLEMS: Perforated Diverticulitis CTAP with IV contrast at [facility] with moderate inflammatory stranding of a proximal sigmoid diverticulum & adjacent foci of extraluminal gas, no loculated fluid collection Doing well tolerated regular diet, bowels working. Home today with po antibiotics. SURGERIES/PROCEDURES: Date Operation/Procedure Provider Name INCIDENTAL FINDINGS: Subcentimeter hypoattenuating left renal lesion, too small to characterize RESOLVED PROBLEMS: DISPOSITION - likely next 1-2 days CHIEF COMPLAINT/ HPI / PFSHx / EVENTS OVER LAST 24HRS: No events overnight. REVIEW OF SYSTEMS: Other than the above items the remainder of the complete ROS is otherwise unchanged from admission. PHYSICAL EXAM: Temp: [98 F (36.7 C)-99.4 F (37.4 C)] 98.2 F (36.8 C) Heart Rate: [84-113] 101 Resp: [16-18] 16 BP: (124-148)/(78-95) 144/85 GENERAL: Appears age appropriate. No acute distress. NEUROLOGICAL: Alert and oriented X 3. Follows commands with extremities x4, equal strength. GCS = 15. CARDIOVASCULAR: Regular rate and rhythm. 2+ pulses radial/DP/PT bilaterally. RESPIRATORY: Lungs, clear to auscultation bilaterally. Respiratory effort unlabored without use of accessory muscles. On RA. ABDOMINAL: Rounded, soft, non distended no significant tenderness, normal bowel sounds. No guarding or peritoneal signs. Multiple BM MUSCULOSKELETAL: Extremities atraumatic without gross deformity x4. ROM appropriate for age. SKIN: Skin warm and dry. Intake/Output Summary (Last 24 hours) at 02/21/2024 0814 Last data filed at 02/20/2024 1514 Gross per 24 hour Intake 1301.88 ml Output -- Net 1301.88 ml IMAGING [briefly note any results pertinent to today's evaluation]: All imaging reviewed. LABS Lab Results Component Value Date WBC 7.79 02/21/2024 HGB 12.8 (L) 02/21/2024 HCT 39.4 (L) 02/21/2024 MCV 91.0 02/21/2024 PLT 358 02/21/2024 RBC 4.33 (L) 02/21/2024 Lab Results Component Value Date GLUCOSE 89 02/21/2024 CALCIUM 9.3 02/21/2024 NA 140 02/21/2024 K 3.5 02/21/2024 CL 103 02/21/2024 BUN 7 (L) 02/21/2024 CREATININE 0.98 02/21/2024 Lab Results Component Value Date ALT 29 02/21/2024 AST 27 02/21/2024 ALKPHOS 59 02/21/2024 BILITOT 0.5 02/21/2024 DAILY CHECKLIST: *Need for Restraints: n/a *Need for Urinary Catheter: n/a *Need for Central Access Devices: n/a *Stress Ulcer Prophylaxis: per primary *VTE Prophylaxis (Body mass index is 37.44 kg/m ., Estimated Creatinine Clearance: 114.4 mL/min (by C-G formula based on SCr of 0.98 mg/dL).): per primary *Home Medications Reconciled: yes *Code Status: full [facility] and [facility] DAILY PROGRESS NOTE SURGICAL PROBLEM Perforated Diverticulitis ASSESSMENT & PLAN/ACTIVE MEDICAL PROBLEMS: Perforated Diverticulitis CTAP with IV contrast at [facility] with moderate inflammatory stranding of a proximal sigmoid diverticulum & adjacent foci of extraluminal gas, no loculated fluid collection Pain improved this am, multiple BM WBC 9.2 Tolerating CLD without nausea or emesis - adv diet to regular - ambulate OOB - continue IV abx SURGERIES/PROCEDURES: Date Operation/Procedure Provider Name INCIDENTAL FINDINGS: Subcentimeter hypoattenuating left renal lesion, too small to characterize RESOLVED PROBLEMS: DISPOSITION - likely next 1-2 days CHIEF COMPLAINT/ HPI / PFSHx / EVENTS OVER LAST 24HRS: No events overnight. Patient reports overall improvement to abdominal pain. REVIEW OF SYSTEMS: Other than the above items the remainder of the complete ROS is otherwise unchanged from admission. PHYSICAL EXAM: Temp: [98.6 F (37 C)-99.4 F (37.4 C)] 98.8 F (37.1 C) Heart Rate: [90-113] 90 Resp: [16-18] 16 BP: (101-137)/(69-86) 137/84 GENERAL: Appears age appropriate. No acute distress. NEUROLOGICAL: Alert and oriented X 3. Follows commands with extremities x4, equal strength. GCS = 15. CARDIOVASCULAR: Regular rate and rhythm. 2+ pulses radial/DP/PT bilaterally. RESPIRATORY: Lungs, clear to auscultation bilaterally. Respiratory effort unlabored without use of accessory muscles. On RA. ABDOMINAL: Rounded, soft, TTP left lower abdomen, softly distended, normal bowel sounds. No guarding or peritoneal signs. Multiple BM MUSCULOSKELETAL: Extremities atraumatic without gross deformity x4. ROM appropriate for age. SKIN: Skin warm and dry. Intake/Output Summary (Last 24 hours) at 02/20/2024 1043 Last data filed at 02/19/2024 1921 Gross per 24 hour Intake 1935.21 ml Output -- Net 1935.21 ml IMAGING [briefly note any results pertinent to today's evaluation]: All imaging reviewed. LABS Lab Results Component Value Date WBC 9.20 02/20/2024 HGB 12.7 (L) 02/20/2024 HCT 38.5 (L) 02/20/2024 MCV 90.6 02/20/2024 PLT 298 02/20/2024 RBC 4.25 (L) 02/20/2024 Lab Results Component Value Date GLUCOSE 97 02/20/2024 CALCIUM 8.7 02/20/2024 NA 136 02/20/2024 K 3.8 02/20/2024 CL 104 02/20/2024 BUN 8 02/20/2024 CREATININE 0.97 02/20/2024 Lab Results Component Value Date ALT 11 02/20/2024 AST 16 02/20/2024 ALKPHOS 58 02/20/2024 BILITOT 0.6 02/20/2024 DAILY CHECKLIST: *Need for Restraints: n/a *Need for Urinary Catheter: n/a *Need for Central Access Devices: n/a *Stress Ulcer Prophylaxis: per primary *VTE Prophylaxis (Body mass index is 37.44 kg/m ., Estimated Creatinine Clearance: 115.5 mL/min (by C-G formula based on SCr of 0.97 mg/dL).): per primary *Home Medications Reconciled: yes *Code Status: full Associated attestation - Laura Wiley MD - 02/20/2024 12:47 PM EDT I agree with the Advanced Practice Provider note with the same day of service. The patient was seen and examined by me, the attending surgeon, on rounds on the date of service listed above. I have reviewed the Advanced Practice Provider note with the relevant labs, studies, and solutions sales consultant notes. I have reviewed and agree with the documented history, exam, and plan of care. The below note includes my discussion, exams, and review of relevant labs and imaging. Agree with below note Patient reports continued improvement in left lower quadrant pain Denies nausea Fever curve downtrending without any further spikes in the last 24 hours Blood pressure 137/84, pulse 90, temperature 98.8 F (37.1 C), temperature source Oral, resp. rate 16, height 6' 1, weight 128.7 kg (283 lb 12.8 oz), SpO2 96%. General awake alert no acute distress Respiratory nonlabored CV nontachycardic Abdomen is soft nondistended mild tenderness to palpation in the left lower quadrant Lab work reviewed Plan Continue to improvement with nonoperative management Okay to advance to regular diet If patient tolerates I would recommend transitioning to oral antibiotics on 02/21/2024 with discharge home I can see the patient in the office for follow-up in 1 to 2 weeks for discussion of outpatient colonoscopy Remainder of care as [place] [facility] [place] Assessment and Plan Amee Guaman is a 38 y.o. male [1] with a history of diverticulitis diagnosed December 2023, who presented with abdominal pain and was found to have recurrence of diverticulitis. Recurrent diverticulitis Initial episode January 02 2024, treated with Augmentin Recurrence a few weeks later treated with Cipro/Flagyl Again recurred 02/16, patient returned here CT A/P 02/16: Proximal sigmoid diverticulum with moderate inflammatory stranding, adjacent foci of extraluminal gas, concerning for perforation. General surgery consult consulted and following Nonoperative at this time Continue with Zosyn Advancing diet to CLD today If tolerating and if continuing to improve, potential discharge 02/20 as per Sepsis, POA Febrile, tachycardic, with leukocytosis on admit Actively receiving IVF, on Zosyn Monitor fever curve and WBC Last fever was on 02/17 at 7:20 PM Obesity BMI 37 Lifestyle modifications encouraged Discharge Planning Medically Stable for Discharge Date: TBD, likely 02/19 Patient requires continued hospitalization due to: Acute diverticulitis, currently n.p.o. receiving antibiotics Discharge Location: Likely home Quality Measures DVT Prophylaxis: lovenox Thompson Catheter: absent Code Status full Primary Contact Information Extended Emergency Contact Information Primary Emergency Contact: JILLIAN GUAMAN Address: [address] [place] [address] of [facility] Relation: Spouse Subjective Patient seen and examined at bedside. He reports abdominal pain at the belt line. He reports constant discomfort alleviated by tylenol Patient's on the phone. Tmax of 100.8 at 7:20 PM 02/17 . Sinus tachycardia Objective Temp: [98.6 F (37 C)-99.4 F (37.4 C)] 98.8 F (37.1 C) Heart Rate: [90-113] 90 Resp: [16-18] 16 BP: (101-137)/(69-86) 137/84 Physical Examination General Appearance: alert; acutely ill appearing; in no acute distress HEENT: Head- normocephalic; Eyes- EOMI, PERRLA, sclera anicteric; Ears- hearing intact; Nose- no nasal discharge; Throat- mucous membranes moist Cardiovascular: regular rate and rhythm; normal S1, S2; no murmurs, rubs, clicks or gallops; no peripheral edema Respiratory: lungs clear to auscultation; without wheezes, rales or rhonchi; on room air Abdomen: soft, tenderness with voluntary guarding in the LLQ, no other concerning findings; positive bowel sounds Neurological: oriented x 3; normal speech; no focal findings or movement disorder noted Musculoskeletal: no significant deformity or tenderness to palpation Skin: normal coloration; no obvious rashes, lesions or skin breakdown Psych: normal mood and affect Spiritual Care Progress Note Completed by: Polly Duarte Person(s) Present During this Visit: Patient, Spouse Time Spent in Direct Patient Care: 15 Narrative: Seal Skinner visited the pt while rounding on the unit. Pt was very pleasant, his spouse at bedside. Pt expressed no support need at that time but was appreciative of the visit. Seal Skinner encouraged the pt/family to have Pastoral Care contacted for support as needed/desired. Seal Skinner provided supportive presence and words of encouragement. Seal Skinner remains available upon request. Patients Response to Pastoral Care: Appeared to be well-engaged, Expressed Gratitude for Visit Planning for Future Visits: PRN, Pt aware to contact Seal Skinner as needed 02/19/24 1500 Visit Background Visit With Patient;Spouse Visit By Staff Seal Skinner Visit Progression Introduction Visit Requested By Seal Skinner Initiated Visit Source Seal Skinner Initiated Visit Type Inpatient;Rounding Visit Circumstances and Events Routine Visit Visit Length (minutes) 15 Patient's Response to Pastoral Care Appeared to be well-engaged;Expressed Gratitude for Visit Visit Planning PRN;Pt aware to contact Seal Skinner as needed Spiritual Assessment Not assessed during visit Sabianism Assessment Not assessed during this visit Family assessment provided? Not assessed during this visit Polly Duarte MA Staff [facility] [phone] On-call [facility] and [facility] DAILY PROGRESS NOTE SURGICAL PROBLEM Perforated Diverticulitis ASSESSMENT & PLAN/ACTIVE MEDICAL PROBLEMS: Perforated Diverticulitis CTAP with IV contrast at [facility] with moderate inflammatory stranding of a proximal sigmoid diverticulum & adjacent foci of extraluminal gas, no loculated fluid collection - continue conservative treatment, IV Zosyn, gentle IV hydration - WBC normal, intermittent low grade fevers remain, tachycardia improved - still having intermittent nausea, though pain is much improved - will trial CLD diet today, pt to avoid carbonation SURGERIES/PROCEDURES: Date Operation/Procedure Provider Name INCIDENTAL FINDINGS: Subcentimeter hypoattenuating left renal lesion, too small to characterize RESOLVED PROBLEMS: DISPOSITION - likely next 1-2 days CHIEF COMPLAINT/ HPI / PFSHx / EVENTS OVER LAST 24HRS: No events overnight. Reports improvement in pain, though still having intermittent nausea. Asking for something to drink. REVIEW OF SYSTEMS: Other than the above items the remainder of the complete ROS is otherwise unchanged from admission. PHYSICAL EXAM: Temp: [97.8 F (36.6 C)-100.8 F (38.2 C)] 97.8 F (36.6 C) Heart Rate: [98-117] 102 Resp: [16-18] 18 BP: (104-116)/(70-80) 108/74 GENERAL: Appears age appropriate. No acute distress. NEUROLOGICAL: Alert and oriented X 3. Follows commands with extremities x4, equal strength. GCS = 15. CARDIOVASCULAR: Regular rate and rhythm. 2+ pulses radial/DP/PT bilaterally. RESPIRATORY: Lungs, clear to auscultation bilaterally. Respiratory effort unlabored without use of accessory muscles. On RA. ABDOMINAL: Rounded, soft, TTP over entire abdomen, slightly distended, normal bowel sounds. No guarding or peritoneal signs. No BM, +flatus. MUSCULOSKELETAL: Extremities atraumatic without gross deformity x4. ROM appropriate for age. SKIN: Skin warm and dry. Intake/Output Summary (Last 24 hours) at 02/19/2024 1057 Last data filed at 02/18/2024 1810 Gross per 24 hour Intake 2200 ml Output -- Net 2200 ml IMAGING [briefly note any results pertinent to today's evaluation]: All imaging reviewed. LABS Lab Results Component Value Date WBC 9.11 02/19/2024 HGB 12.3 (L) 02/19/2024 HCT 37.5 (L) 02/19/2024 MCV 91.0 02/19/2024 PLT 275 02/19/2024 RBC 4.12 (L) 02/19/2024 Lab Results Component Value Date GLUCOSE 101 (H) 02/18/2024 CALCIUM 8.7 02/18/2024 NA 138 02/18/2024 K 4.1 02/18/2024 CL 105 02/18/2024 BUN 11 02/18/2024 CREATININE 1.17 02/18/2024 Lab Results Component Value Date ALT 11 02/18/2024 AST 14 02/18/2024 ALKPHOS 63 02/18/2024 BILITOT 0.9 02/18/2024 DAILY CHECKLIST: *Need for Restraints: n/a *Need for Urinary Catheter: n/a *Need for Central Access Devices: n/a *Stress Ulcer Prophylaxis: per primary *VTE Prophylaxis (Body mass index is 37.44 kg/m ., Estimated Creatinine Clearance: 95.8 mL/min (by C-G formula based on SCr of 1.17 mg/dL).): per primary *Home Medications Reconciled: yes *Code Status: full [facility] [place] Assessment and Plan Amee Guaman is a 38 y.o. male [1] with a history of diverticulitis diagnosed December 2023, who presented with abdominal pain and was found to have recurrence of diverticulitis. Recurrent diverticulitis Initial episode January 02 2024, treated with Augmentin Recurrence a few weeks later treated with Cipro/Flagyl Again recurred 02/16, patient returned here CT A/P 02/16: Proximal sigmoid diverticulum with moderate inflammatory stranding, adjacent foci of extraluminal gas, concerning for perforation. General surgery consult consulted and following Nonoperative at this time Continue with Zosyn Advancing diet to CLD today If tolerating and if continuing to improve, potential discharge 02/19 Sepsis, POA Febrile, tachycardic, with leukocytosis on admit Actively receiving IVF, on Zosyn Monitor fever curve and WBC Last fever was on 02/17 at 7:20 PM Obesity BMI 37 Lifestyle modifications encouraged Discharge Planning Medically Stable for Discharge Date: TBD, likely 02/19 Patient requires continued hospitalization due to: Acute diverticulitis, currently n.p.o. receiving antibiotics Discharge Location: Likely home Quality Measures DVT Prophylaxis: lovenox Thompson Catheter: absent Code Status full Primary Contact Information Extended Emergency Contact Information Primary Emergency Contact: JILLIAN GUAMAN Address: [address] [place] [address] Mobile Relation: Spouse Subjective Patient seen and examined at bedside. Patient's is at bedside. Tmax of 100.8 at 7:20 PM yesterday. He has remained intermittently tachycardic although overall has improved with this. Leukocytosis has resolved as of today. Patient reports he is continuing to feel better. Had several questions regarding diet, home-going needs, etc. Objective Temp: [98.2 F (36.8 C)-100.8 F (38.2 C)] 98.2 F (36.8 C) Heart Rate: [98-117] 104 Resp: [16] 16 BP: (104-116)/(70-80) 104/71 Physical Examination General Appearance: alert; acutely ill appearing; in no acute distress HEENT: Head- normocephalic; Eyes- EOMI, PERRLA, sclera anicteric; Ears- hearing intact; Nose- no nasal discharge; Throat- mucous membranes moist Cardiovascular: regular rate and rhythm; normal S1, S2; no murmurs, rubs, clicks or gallops; no peripheral edema Respiratory: lungs clear to auscultation; without wheezes, rales or rhonchi; on room air Abdomen: soft, tenderness with voluntary guarding in the LLQ, no other concerning findings; positive bowel sounds Neurological: oriented x 3; normal speech; no focal findings or movement disorder noted Musculoskeletal: no significant deformity or tenderness to palpation Skin: normal coloration; no obvious rashes, lesions or skin breakdown Psych: normal mood and affect Results/Medications Reviewed 02/19/2024 8:00 AM Laboratory, Microbiology, Pathology, Radiology, Cardiology, Medications, and Transcriptions Signed, Tyrese Barbour DO, MS 02/19/2024 [facility] [place] Assessment and Plan Amee Guaman is a 38 y.o. male [1] with a history of diverticulitis diagnosed December 2023, who presented with abdominal pain and was found to have recurrence of diverticulitis. Recurrent diverticulitis Initial episode January 02 2024, treated with Augmentin Recurrence a few weeks later treated with Cipro/Flagyl Again recurred 02/16, patient returned here CT A/P 02/16: Proximal sigmoid diverticulum with moderate inflammatory stranding, adjacent foci of extraluminal gas, concerning for perforation. General surgery consult consulted and following Nonoperative at this time Continue with Zosyn N.p.o., IVF, pain control Surgical management per surgery team Sepsis, POA Febrile, tachycardic, with leukocytosis on admit Actively receiving IVF, on Zosyn Monitor fever curve and WBC Obesity BMI 37 Lifestyle modifications encouraged Discharge Planning Medically Stable for Discharge Date: TBD, likely 02/19 Patient requires continued hospitalization due to: Acute diverticulitis, currently n.p.o. receiving antibiotics Discharge Location: Likely home Quality Measures DVT Prophylaxis: lovenox Thompson Catheter: absent Code Status full Primary Contact Information Extended Emergency Contact Information Primary Emergency Contact: JILLIAN GUAMAN Address: [address] [place] [address] [place] Relation: Spouse Subjective Patient seen and examined at bedside. Patient's is at bedside. Patient reports he is feeling okay today, having some abdominal discomfort but overall slowly improving. Endorses that discomfort improves after passing flatus. Per general surgery note, plan today is to remain n.p.o., continue IVF, continue with nonoperative management. Objective Temp: [98 F (36.7 C)-101.8 F (38.8 C)] 98.2 F (36.8 C) Heart Rate: [89-127] 89 Resp: [12-32] 16 BP: (113-150)/(76-99) 116/76 Physical Examination General Appearance: alert; acutely ill appearing; in no acute distress HEENT: Head- normocephalic; Eyes- EOMI, PERRLA, sclera anicteric; Ears- hearing intact; Nose- no nasal discharge; Throat- mucous membranes moist Cardiovascular: regular rate and rhythm; normal S1, S2; no murmurs, rubs, clicks or gallops; no peripheral edema Respiratory: lungs clear to auscultation; without wheezes, rales or rhonchi; on room air Abdomen: soft, tenderness with voluntary guarding in the LLQ, no other concerning findings; positive bowel sounds Neurological: oriented x 3; normal speech; no focal findings or movement disorder noted Musculoskeletal: no significant deformity or tenderness to palpation Skin: normal coloration; no obvious rashes, lesions or skin breakdown Psych: normal mood and affect Results/Medications Reviewed 02/18/2024 8:52 AM Laboratory, Microbiology, Pathology, Radiology, Cardiology, Medications, and Transcriptions Signed, Tyrese Barbour DO, MS 02/18/2024 Gen Surgery Progress Note Febrile overnight Reports pain overall improved Minimal nausea Blood pressure 116/76, pulse 89, temperature 98.2 F (36.8 C), temperature source Oral, resp. rate 16, height 6' 1, weight 128.7 kg (283 lb 12.8 oz), SpO2 95%. Gen: awake, alert Res: non labored Cv: nontachy Abd: soft, minimal distention, mild tenderness to palpation in llq Labs reviewed. Wbc 11.53<--12.47 Plan Continue npo, ivfs Zosyn Monitor fever curve Continue nonoperative mgt documented in this encounter [facility] 02-21-2024 Note Formatting of this n ote might be different from the original. Problem: Pain Goal: Reduced pain sensation Outcome: Partially Met Goal: Control of acute pain to acceptable level Outcome: Partially Met Goal: Able to cope with pain Outcome: Partially Met Goal: Able to achieve maximum level of physical functioning Outcome: Partially Met Goal: Able to achieve maximum level of psychosocial functioning Outcome: Partially Met Problem: Actual or potential alteration in health Goal: Absence of healthcare acquired conditions Outcome: Partially Met Goal: Knowledge of Interdisciplinary Plan of Care Outcome: Partially Met Goal: Knowledge of Enviroment Outcome: Partially Met [facility] 02-20-2024 Note Attestation signed by Laura Wiley MD at 02/20/2024 12:47 PM I agree with the Advanced Practice Provider note with the same day of service. The patient was seen and examined by me, the attending surgeon, on rounds on the date of service listed above. I have reviewed the Advanced Practice Provider note with the relevant labs, studies, and solutions sales consultant notes. I have reviewed and agree with the documented history, exam, and plan of care. The below note includes my discussion, exams, and review of relevant labs and imaging. Agree with below note Patient reports continued improvement in left lower quadrant pain Denies nausea Fever curve downtrending without any further spikes in the last 24 hours Blood pressure 137/84, pulse 90, temperature 98.8 degrees F (37.1 degrees C), temperature source Oral, resp. rate 16, height 6' 1, weight 128.7 kg (283 lb 12.8 oz), SpO2 96%. General awake alert no acute distress Respiratory nonlabored CV nontachycardic Abdomen is soft nondistended mild tenderness to palpation in the left lower quadrant Lab work reviewed Plan Continue to improvement with nonoperative management Okay to advance to regular diet If patient tolerates I would recommend transitioning to oral antibiotics on 02/21/2024 with discharge home I can see the patient in the office for follow-up in 1 to 2 weeks for discussion of outpatient colonoscopy Remainder of care as below [facility] DAILY PROGRESS NOTE SURGICAL PROBLEM Perforated Diverticulitis ASSESSMENT & PLAN/ACTIVE MEDICAL PROBLEMS: Perforated Diverticulitis CTAP with IV contrast at [facility] with moderate inflammatory stranding of a proximal sigmoid diverticulum & adjacent foci of extraluminal gas, no loculated fluid collection Pain improved this am, multiple BM WBC 9.2 Tolerating CLD without nausea or emesis - adv diet to regular - ambulate OOB - continue IV abx SURGERIES/PROCEDURES: Date Operation/Procedure Provider Name INCIDENTAL FINDINGS: Subcentimeter hypoattenuating left renal lesion, too small to characterize RESOLVED PROBLEMS: DISPOSITION - likely next 1-2 days CHIEF COMPLAINT/ HPI / PFSHx / EVENTS OVER LAST 24HRS: No events overnight. Patient reports overall improvement to abdominal pain. REVIEW OF SYSTEMS: Other than the above items the remainder of the complete ROS is otherwise unchanged from admission. PHYSICAL EXAM: Temp: [98.6 degrees F (37 degrees C)-99.4 degrees F (37.4 degrees C)] 98.8 degrees F (37.1 degrees C) Heart Rate: [90-113] 90 Resp: [16-18] 16 BP: (101-137)/(69-86) 137/84 GENERAL: Appears age appropriate. No acute distress. NEUROLOGICAL: Alert and oriented X 3. Follows commands with extremities x4, equal strength. GCS = 15. CARDIOVASCULAR: Regular rate and rhythm. 2+ pulses radial/DP/PT bilaterally. RESPIRATORY: Lungs, clear to auscultation bilaterally. Respiratory effort unlabored without use of accessory muscles. On RA. ABDOMINAL: Rounded, soft, TTP left lower abdomen, softly distended, normal bowel sounds. No guarding or peritoneal signs. Multiple BM MUSCULOSKELETAL: Extremities atraumatic without gross deformity x4. ROM appropriate for age. SKIN: Skin warm and dry. Intake/Output Summary (Last 24 hours) at 02/20/2024 1043 Last data filed at 02/19/2024 1921 Gross per 24 hour Intake 1935.21 ml Output -- Net 1935.21 ml IMAGING [briefly note any results pertinent to today's evaluation]: All imaging reviewed. LABS Lab Results Component Value Date WBC 9.20 02/20/2024 HGB 12.7 (L) 02/20/2024 HCT 38.5 (L) 02/20/2024 MCV 90.6 02/20/2024 PLT 298 02/20/2024 RBC 4.25 (L) 02/20/2024 Lab Results Component Value Date GLUCOSE 97 02/20/2024 CALCIUM 8.7 02/20/2024 NA 136 02/20/2024 K 3.8 02/20/2024 CL 104 02/20/2024 BUN 8 02/20/2024 CREATININE 0.97 02/20/2024 Lab Results Component Value Date ALT 11 02/20/2024 AST 16 02/20/2024 ALKPHOS 58 02/20/2024 BILITOT 0.6 02/20/2024 DAILY CHECKLIST: *Need for Restraints: n/a *Need for Urinary Catheter: n/a *Need for Central Access Devices: n/a *Stress Ulcer Prophylaxis: per primary *VTE Prophylaxis (Body mass index is 37.44 kg/m ., Estimated Creatinine Clearance: 115.5 mL/min (by C-G formula based on SCr of 0.97 mg/dL).): per primary *Home Medications Reconciled: yes *Code Status: full AUTHENTICATED BY KONSTANTIN RODRIGUES ON 02/20/2024 10:45:34 [facility] 02-20-2024 Note [facility] [place] Assessment and Plan Amee Guaman is a 38 y.o. male [1] with a history of diverticulitis diagnosed December 2023, who presented with abdominal pain and was found to have recurrence of diverticulitis. Recurrent diverticulitis Initial episode January 02 2024, treated with Augmentin Recurrence a few weeks later treated with Cipro/Flagyl Again recurred 02/16, patient returned here CT A/P 02/16: Proximal sigmoid diverticulum with moderate inflammatory stranding, adjacent foci of extraluminal gas, concerning for perforation. General surgery consult consulted and following Nonoperative at this time Continue with Zosyn Advancing diet to CLD today If tolerating and if continuing to improve, potential discharge 02/20 as per Sepsis, POA Febrile, tachycardic, with leukocytosis on admit Actively receiving IVF, on Zosyn Monitor fever curve and WBC Last fever was on 02/17 at 7:20 PM Obesity BMI 37 Lifestyle modifications encouraged Discharge Planning Medically Stable for Discharge Date: TBD, likely 02/19 Patient requires continued hospitalization due to: Acute diverticulitis, currently n.p.o. receiving antibiotics Discharge Location: Likely home Quality Measures DVT Prophylaxis: lovenox Thompson Catheter: absent Code Status full Primary Contact Information Extended Emergency Contact Information Primary Emergency Contact: JILLIAN GUAMAN Address: [address] [place] [address] of [place] Relation: Spouse Subjective Patient seen and examined at bedside. He reports abdominal pain at the belt line. He reports constant discomfort alleviated by tylenol Patient's on the phone. Tmax of 100.8 at 7:20 PM 02/17 . Sinus tachycardia Objective Temp: [98.6 degrees F (37 degrees C)-99.4 degrees F (37.4 degrees C)] 98.8 degrees F (37.1 degrees C) Heart Rate: [90-113] 90 Resp: [16-18] 16 BP: (101-137)/(69-86) 137/84 Physical Examination General Appearance: alert; acutely ill appearing; in no acute distress HEENT: Head- normocephalic; Eyes- EOMI, PERRLA, sclera anicteric; Ears- hearing intact; Nose- no nasal discharge; Throat- mucous membranes moist Cardiovascular: regular rate and rhythm; normal S1, S2; no murmurs, rubs, clicks or gallops; no peripheral edema Respiratory: lungs clear to auscultation; without wheezes, rales or rhonchi; on room air Abdomen: soft, tenderness with voluntary guarding in the LLQ, no other concerning findings; positive bowel sounds Neurological: oriented x 3; normal speech; no focal findings or movement disorder noted Musculoskeletal: no significant deformity or tenderness to palpation Skin: normal coloration; no obvious rashes, lesions or skin breakdown Psych: normal mood and affect AUTHENTICATED BY DALILA PUENTE ON 02/20/2024 10:24:17 [facility] 02-20-2024 Note Formatting of this n ote might be different from the original. Problem: Pain Goal: Reduced pain sensation Outcome: Partially Met Goal: Control of acute pain to acceptable level Outcome: Partially Met Goal: Able to cope with pain Outcome: Partially Met Goal: Able to achieve maximum level of physical functioning Outcome: Partially Met Goal: Able to achieve maximum level of psychosocial functioning Outcome: Partially Met Problem: Actual or potential alteration in health Goal: Absence of healthcare acquired conditions Outcome: Partially Met Goal: Knowledge of Interdisciplinary Plan of Care Outcome: Partially Met Goal: Knowledge of Enviroment Outcome: Partially Met [facility] 02-19-2024 Note Formatting of this n ote might be different from the original. Problem: Pain Goal: Reduced pain sensation Outcome: Partially Met Goal: Control of acute pain to acceptable level Outcome: Partially Met Goal: Able to cope with pain Outcome: Partially Met Goal: Able to achieve maximum level of physical functioning Outcome: Partially Met Goal: Able to achieve maximum level of psychosocial functioning Outcome: Partially Met Problem: Actual or potential alteration in health Goal: Absence of healthcare acquired conditions Outcome: Partially Met Goal: Knowledge of Interdisciplinary Plan of Care Outcome: Partially Met Goal: Knowledge of Enviroment Outcome: Partially Met [facility] 02-19-2024 Note Formatting of this n ote might be different from the original. Pt c/o indigestion/belching pain. Trauma FOZIA notified, orders received for Tums and Maalox as needed. Pt updated, verbalizes understanding. Pt medicated with PRN Tums. [facility] 02-19-2024 Note [facility] DAILY PROGRESS NOTE SURGICAL PROBLEM Perforated Diverticulitis ASSESSMENT & PLAN/ACTIVE MEDICAL PROBLEMS: Perforated Diverticulitis CTAP with IV contrast at [facility] with moderate inflammatory stranding of a proximal sigmoid diverticulum & adjacent foci of extraluminal gas, no loculated fluid collection - continue conservative treatment, IV Zosyn, gentle IV hydration - WBC normal, intermittent low grade fevers remain, tachycardia improved - still having intermittent nausea, though pain is much improved - will trial CLD diet today, pt to avoid carbonation SURGERIES/PROCEDURES: Date Operation/Procedure Provider Name INCIDENTAL FINDINGS: Subcentimeter hypoattenuating left renal lesion, too small to characterize RESOLVED PROBLEMS: DISPOSITION - likely next 1-2 days CHIEF COMPLAINT/ HPI / PFSHx / EVENTS OVER LAST 24HRS: No events overnight. Reports improvement in pain, though still having intermittent nausea. Asking for something to drink. REVIEW OF SYSTEMS: Other than the above items the remainder of the complete ROS is otherwise unchanged from admission. PHYSICAL EXAM: Temp: [97.8 degrees F (36.6 degrees C)-100.8 degrees F (38.2 degrees C)] 97.8 degrees F (36.6 degrees C) Heart Rate: [98-117] 102 Resp: [16-18] 18 BP: (104-116)/(70-80) 108/74 GENERAL: Appears age appropriate. No acute distress. NEUROLOGICAL: Alert and oriented X 3. Follows commands with extremities x4, equal strength. GCS = 15. CARDIOVASCULAR: Regular rate and rhythm. 2+ pulses radial/DP/PT bilaterally. RESPIRATORY: Lungs, clear to auscultation bilaterally. Respiratory effort unlabored without use of accessory muscles. On RA. ABDOMINAL: Rounded, soft, TTP over entire abdomen, slightly distended, normal bowel sounds. No guarding or peritoneal signs. No BM, +flatus. MUSCULOSKELETAL: Extremities atraumatic without gross deformity x4. ROM appropriate for age. SKIN: Skin warm and dry. Intake/Output Summary (Last 24 hours) at 02/19/2024 1057 Last data filed at 02/18/2024 1810 Gross per 24 hour Intake 2200 ml Output -- Net 2200 ml IMAGING [briefly note any results pertinent to today's evaluation]: All imaging reviewed. LABS Lab Results Component Value Date WBC 9.11 02/19/2024 HGB 12.3 (L) 02/19/2024 HCT 37.5 (L) 02/19/2024 MCV 91.0 02/19/2024 PLT 275 02/19/2024 RBC 4.12 (L) 02/19/2024 Lab Results Component Value Date GLUCOSE 101 (H) 02/18/2024 CALCIUM 8.7 02/18/2024 NA 138 02/18/2024 K 4.1 02/18/2024 CL 105 02/18/2024 BUN 11 02/18/2024 CREATININE 1.17 02/18/2024 Lab Results Component Value Date ALT 11 02/18/2024 AST 14 02/18/2024 ALKPHOS 63 02/18/2024 BILITOT 0.9 02/18/2024 DAILY CHECKLIST: *Need for Restraints: n/a *Need for Urinary Catheter: n/a *Need for Central Access Devices: n/a *Stress Ulcer Prophylaxis: per primary *VTE Prophylaxis (Body mass index is 37.44 kg/m ., Estimated Creatinine Clearance: 95.8 mL/min (by C-G formula based on SCr of 1.17 mg/dL).): per primary *Home Medications Reconciled: yes *Code Status: full AUTHENTICATED BY MELA BARBOSA, ON 02/19/2024 12:23:07 [facility] 02-19-2024 Note [facility] [place] Assessment and Plan Amee Guaman is a 38 y.o. male [1] with a history of diverticulitis diagnosed December 2023, who presented with abdominal pain and was found to have recurrence of diverticulitis. Recurrent diverticulitis Initial episode January 02 2024, treated with Augmentin Recurrence a few weeks later treated with Cipro/Flagyl Again recurred 02/16, patient returned here CT A/P 02/16: Proximal sigmoid diverticulum with moderate inflammatory stranding, adjacent foci of extraluminal gas, concerning for perforation. General surgery consult consulted and following Nonoperative at this time Continue with Zosyn Advancing diet to CLD today If tolerating and if continuing to improve, potential discharge 02/19 Sepsis, POA Febrile, tachycardic, with leukocytosis on admit Actively receiving IVF, on Zosyn Monitor fever curve and WBC Last fever was on 02/17 at 7:20 PM Obesity BMI 37 Lifestyle modifications encouraged Discharge Planning Medically Stable for Discharge Date: TBD, likely 02/19 Patient requires continued hospitalization due to: Acute diverticulitis, currently n.p.o. receiving antibiotics Discharge Location: Likely home Quality Measures DVT Prophylaxis: lovenox Thompson Catheter: absent Code Status full Primary Contact Information Extended Emergency Contact Information Primary Emergency Contact: JILLIAN GUAMAN Address: [address] [place] [address] [place] Relation: Spouse Subjective Patient seen and examined at bedside. Patient's is at bedside. Tmax of 100.8 at 7:20 PM yesterday. He has remained intermittently tachycardic although overall has improved with this. Leukocytosis has resolved as of today. Patient reports he is continuing to feel better. Had several questions regarding diet, home-going needs, etc. Objective Temp: [98.2 degrees F (36.8 degrees C)-100.8 degrees F (38.2 degrees C)] 98.2 degrees F (36.8 degrees C) Heart Rate: [98-117] 104 Resp: [16] 16 BP: (104-116)/(70-80) 104/71 Physical Examination General Appearance: alert; acutely ill appearing; in no acute distress HEENT: Head- normocephalic; Eyes- EOMI, PERRLA, sclera anicteric; Ears- hearing intact; Nose- no nasal discharge; Throat- mucous membranes moist Cardiovascular: regular rate and rhythm; normal S1, S2; no murmurs, rubs, clicks or gallops; no peripheral edema Respiratory: lungs clear to auscultation; without wheezes, rales or rhonchi; on room air Abdomen: soft, tenderness with voluntary guarding in the LLQ, no other concerning findings; positive bowel sounds Neurological: oriented x 3; normal speech; no focal findings or movement disorder noted Musculoskeletal: no significant deformity or tenderness to palpation Skin: normal coloration; no obvious rashes, lesions or skin breakdown Psych: normal mood and affect Results/Medications Reviewed 02/19/2024 8:00 AM Laboratory, Microbiology, Pathology, Radiology, Cardiology, Medications, and Transcriptions Signed, Tyrese Barbour DO, MS 02/19/2024 AUTHENTICATED BY TYRESE BARBOUR, ON 02/19/2024 13:34:38 [facility] 02-18-2024 Note Formatting of this n ote might be different from the original. Problem: Pain Goal: Reduced pain sensation Outcome: Not Met Goal: Control of acute pain to acceptable level Outcome: Not Met Goal: Able to cope with pain Outcome: Not Met Goal: Able to achieve maximum level of physical functioning Outcome: Not Met Goal: Able to achieve maximum level of psychosocial functioning Outcome: Not Met Problem: Actual or potential alteration in health Goal: Absence of healthcare acquired conditions Outcome: Not Met Goal: Knowledge of Interdisciplinary Plan of Care Outcome: Not Met Goal: Knowledge of Enviroment Outcome: Not Met [facility] 02-18-2024 Note [facility] [place] Assessment and Plan Amee Guaman is a 38 y.o. male [1] with a history of diverticulitis diagnosed December 2023, who presented with abdominal pain and was found to have recurrence of diverticulitis. Recurrent diverticulitis Initial episode January 02 2024, treated with Augmentin Recurrence a few weeks later treated with Cipro/Flagyl Again recurred 02/16, patient returned here CT A/P 02/16: Proximal sigmoid diverticulum with moderate inflammatory stranding, adjacent foci of extraluminal gas, concerning for perforation. General surgery consult consulted and following Nonoperative at this time Continue with Zosyn N.p.o., IVF, pain control Surgical management per surgery team Sepsis, POA Febrile, tachycardic, with leukocytosis on admit Actively receiving IVF, on Zosyn Monitor fever curve and WBC Obesity BMI 37 Lifestyle modifications encouraged Discharge Planning Medically Stable for Discharge Date: TBD, likely 02/19 Patient requires continued hospitalization due to: Acute diverticulitis, currently n.p.o. receiving antibiotics Discharge Location: Likely home Quality Measures DVT Prophylaxis: lovenox Thompson Catheter: absent Code Status full Primary Contact Information Extended Emergency Contact Information Primary Emergency Contact: JILLIAN GUAMAN Address: [address] [place] [address] [place] Relation: Spouse Subjective Patient seen and examined at bedside. Patient's is at bedside. Patient reports he is feeling okay today, having some abdominal discomfort but overall slowly improving. Endorses that discomfort improves after passing flatus. Per general surgery note, plan today is to remain n.p.o., continue IVF, continue with nonoperative management. Objective Temp: [98 degrees F (36.7 degrees C)-101.8 degrees F (38.8 degrees C)] 98.2 degrees F (36.8 degrees C) Heart Rate: [89-127] 89 Resp: [12-32] 16 BP: (113-150)/(76-99) 116/76 Physical Examination General Appearance: alert; acutely ill appearing; in no acute distress HEENT: Head- normocephalic; Eyes- EOMI, PERRLA, sclera anicteric; Ears- hearing intact; Nose- no nasal discharge; Throat- mucous membranes moist Cardiovascular: regular rate and rhythm; normal S1, S2; no murmurs, rubs, clicks or gallops; no peripheral edema Respiratory: lungs clear to auscultation; without wheezes, rales or rhonchi; on room air Abdomen: soft, tenderness with voluntary guarding in the LLQ, no other concerning findings; positive bowel sounds Neurological: oriented x 3; normal speech; no focal findings or movement disorder noted Musculoskeletal: no significant deformity or tenderness to palpation Skin: normal coloration; no obvious rashes, lesions or skin breakdown Psych: normal mood and affect Results/Medications Reviewed 02/18/2024 8:52 AM Laboratory, Microbiology, Pathology, Radiology, Cardiology, Medications, and Transcriptions Signed, Tyrese Barbour DO MS 02/18/2024 AUTHENTICATED BY TYRESE BARBOUR, ON 02/18/2024 12:48:37 [facility] 02-18-2024 Note Gen Surgery Progress Note Febrile overnight Reports pain overall improved Minimal nausea Blood pressure 116/76, pulse 89, temperature 98.2 degrees F (36.8 degrees C), temperature source Oral, resp. rate 16, height 6' 1, weight 128.7 kg (283 lb 12.8 oz), SpO2 95%. Gen: awake, alert Res: non labored Cv: nontachy Abd: soft, minimal distention, mild tenderness to palpation in llq Labs reviewed. Wbc 11.53<--12.47 Plan Continue npo, ivfs Zosyn Monitor fever curve Continue nonoperative mgt AUTHENTICATED BY LAURA WILEY, ON 02/18/2024 08:49:48 [facility] 02-17-2024 Note Formatting of this n ote might be different from the original. This nurse entered pt room to assess pt, and take vitals. Pt temp 101.8, this nurse offered tylenol, and pt was questioning nurse whether the doctor thought that would be okay, this nurse explained to pt that the doctor placed the order for that reason. Pt took tylenol, and stated that he was anxious about sepsis. This nurse educated pt, and explained to him he was already receiving antibiotics, and we would recheck his temp in a little bit. A little over 30 mins later pt rang again and asked this nurse to recheck his temp. Temp was 98.2. Pt then asked this nurse to contact the doctor and see if there was anything he could have for anxiety. Pt stated he does not take anything at home, but probably needs to and plans to follow up with his PCP to help control his anxiety. Pt then asked nurse to recheck every 30 mins. Pt rang call light again and asked this nurse to speak to his on the phone regarding his temp, was concerned about consulting infectious disease, and changing antibiotics. This nurse reassured that he was currently receiving antibiotics, and was being monitored closely for sepsis. Educated pt on techniques to help relieve anxiety. This nurse received an order for PRN atarax. [facility] 02-17-2024 Note Formatting of this n ote might be different from the original. Problem: Pain Goal: Reduced pain sensation Outcome: Partially Met Goal: Control of acute pain to acceptable level Outcome: Partially Met Goal: Able to cope with pain Outcome: Partially Met Goal: Able to achieve maximum level of physical functioning Outcome: Partially Met Goal: Able to achieve maximum level of psychosocial functioning Outcome: Partially Met Problem: Actual or potential alteration in health Goal: Absence of healthcare acquired conditions Outcome: Partially Met Goal: Knowledge of Interdisciplinary Plan of Care Outcome: Partially Met Goal: Knowledge of Enviroment Outcome: Partially Met [facility] 02-17-2024 Note Formatting of this n ote might be different from the original. ED Attestation: I have reviewed the Advanced Practice Provider's (FOZIA's) documentation. In addition, I have personally introduced myself to the patient (face to face), and have taken his history and performed an examination. I agree with the physical findings, management, clinical impression and disposition. I did perform the substantive portion of this patient's encounter, including all aspects of the MDM. In brief, Amee is a 38 y.o. male who presents with a chief complaint of Abdominal Pain. He developed left lower quadrant pain about a month and a half ago and is failed multiple outpatient courses of oral antibiotics. Found to have perforated diverticulitis at outside hospital, transferred for general surgery evaluation. General surgery is recommending admission to medicine for medical management. He has a benign abdominal exam with some mild tenderness to the left lower quadrant. No evidence of peritonitis. T [facility] Work Phone: 02-17-2024 History and physical [place] [facility] [place] [facility] Patient Name: Amee Guaman : 1985 MR #: [id number] Admit Date: 02/17/2024 Physicians: Anuradha, Physician (Family); Marvin Rick MD (Referring) Amee Guaman is a 38 y.o. male patient of No, Physician with history of nothing presented to [facility] on 02/17/2024 with abdominal pain . Recurrent diverticulitis Noted on CT with possible perforation General surgery consult consulted and following Nonoperative at this time Continue with Zosyn and fluids Pain control Surgical evaluation management per surgical team Micaela LOZANO I performed a sepsis reassessment on the patient 02/17/2024 8:16 PM Vital Signs: BP 113/79 Pulse (!) 123 Temp (!) 101.8 F (38.8 C) (Oral) Resp 18 Ht 6' 1 Wt 128.7 kg (283 lb 12.8 oz) SpO2 98% BMI 37.44 kg/m Cardiac examination significant for: Tachycardia Pulmonary examination significant for: Clear lung acosta Capillary refill is: Brisk Peripheral Pulse is: 2+ Skin is: Normal Zosyn as above Obesity Counsling provided Residence prior to admission: house or apartment Was patient transferred from outlying hospital or ED yes -- care site [place] Quality Measures DVT Prophylaxis: lovenox Thompson Catheter: absent Medication Reconciliation: Verified Admitted with these risk variables:None. Please see assessment and plan for further details. Estimated Date of Discharge less than 2 midnights Code Status Full Code; code status verified on 02/17/2024 with patient (capacity intact) Chief Complaint abdominal pain History of Present Illness 38-year-old male with past medical history of diverticulitis comes to the ER with Past Medical History Past Medical History: Diagnosis Date Kidney stones Past Surgical History History reviewed. No pertinent surgical history. Family History History reviewed. No pertinent family history. Social History Social History Tobacco Use Smoking Status Smoker, Current Status Unknown Types: Cigars Smokeless Tobacco Never Social History Substance and Sexual Activity Alcohol Use Yes Social History Substance and Sexual Activity Drug Use Never Allergy Information I have reviewed the patient's allergies. Patient has no known allergies. Home Medications Home medications were reviewed. Review Of Systems All relevant systems have been reviewed and are negative except as noted in HPI or below Physical Examination BP 113/79 Pulse (!) 123 Temp (!) 101.8 F (38.8 C) (Oral) Resp 18 Ht 6' 1 Wt 128.7 kg (283 lb 12.8 oz) SpO2 98% BMI 37.44 kg/m General Appearance: alert; well appearing; in no acute distress HEENT: Head- normocephalic; Eyes- EOMI, sclera anicteric; Throat- mucous membranes moist Cardiovascular: regular rate and rhythm; normal S1, S2; no murmurs, rubs, clicks or gallops; peripheral edema absent Respiratory: lungs clear to auscultation; without wheezes, rales or rhonchi; on room air Abdomen: soft, non-tender, non-distended Neurological: oriented x 3; normal speech; no focal findings or movement disorder noted Musculoskeletal: no significant deformity or tenderness to palpation Skin: normal coloration Psych: normal mood and affect Abdominal exam with mild tenderness [facility] 02-17-2024 Note [facility] HISTORY AND PHYS ICAL -- [facility] Patient Name: Amee Guaman : 1985 MR #: [id number] Admit Date: 02/17/2024 Physicians: Anuradha, Physician (Family); Marvin Rick MD (Referring) Amee Guaman is a 38 y.o. male patient of Anuradha, Physician with history of nothing presented to [facility] on 02/17/2024 with abdominal pain . Recurrent diverticulitis Noted on CT with possible perforation General surgery consult consulted and following Nonoperative at this time Continue with Zosyn and fluids Pain control Surgical evaluation management per surgical team Sepsis BLAKE I performed a sepsis reassessment on the patient 02/17/2024 8:16 PM Vital Signs: BP 113/79 Pulse (!) 123 Temp (!) 101.8 degrees F (38.8 degrees C) (Oral) Resp 18 Ht 6' 1 Wt 128.7 kg (283 lb 12.8 oz) SpO2 98% BMI 37.44 kg/m Cardiac examination significant for: Tachycardia Pulmonary examination significant for: Clear lung acosta Capillary refill is: Brisk Peripheral Pulse is: 2+ Skin is: Normal Zosyn as above Obesity Counsling provided Residence prior to admission: house or apartment Was patient transferred from outlying hospital or ED yes -- care site [place] Quality Measures DVT Prophylaxis: lovenox Thompson Catheter: absent Medication Reconciliation: Verified Admitted with these risk variables:None. Please see assessment and plan for further details. Estimated Date of Discharge less than 2 midnights Code Status Full Code; code status verified on 02/17/2024 with patient (capacity intact) Chief Complaint abdominal pain History of Present Illness 38-year-old male with past medical history of diverticulitis comes to the ER with Past Medical History Past Medical History: Diagnosis Date Kidney stones Past Surgical History History reviewed. No pertinent surgical history. Family History History reviewed. No pertinent family history. Social History Social History Tobacco Use Smoking Status Smoker, Current Status Unknown Types: Cigars Smokeless Tobacco Never Social History Substance and Sexual Activity Alcohol Use Yes Social History Substance and Sexual Activity Drug Use Never Allergy Information I have reviewed the patient's allergies. Patient has no known allergies. Home Medications Home medications were reviewed. Review Of Systems All relevant systems have been reviewed and are negative except as noted in HPI or below Physical Examination BP 113/79 Pulse (!) 123 Temp (!) 101.8 degrees F (38.8 degrees C) (Oral) Resp 18 Ht 6' 1 Wt 128.7 kg (283 lb 12.8 oz) SpO2 98% BMI 37.44 kg/m General Appearance: alert; well appearing; in no acute distress HEENT: Head- normocephalic; Eyes- EOMI, sclera anicteric; Throat- mucous membranes moist Cardiovascular: regular rate and rhythm; normal S1, S2; no murmurs, rubs, clicks or gallops; peripheral edema absent Respiratory: lungs clear to auscultation; without wheezes, rales or rhonchi; on room air Abdomen: soft, non-tender, non-distended Neurological: oriented x 3; normal speech; no focal findings or movement disorder noted Musculoskeletal: no significant deformity or tenderness to palpation Skin: normal coloration Psych: normal mood and affect Abdominal exam with mild tenderness AUTHENTICATED BY VICK GALO ON 02/17/2024 20:21:52 [facility] 02-17-2024 History and physical note [facility] [place] [facility] Patient Name: Amee Guaman : 1985 MR #: [id number] Admit Date: 02/17/2024 Physicians: Anuradha, Physician (Family); Marvin Rick MD (Referring) Amee Guaman is a 38 y.o. male patient of Anuradha, Physician with history of nothing presented to [facility] on 02/17/2024 with abdominal pain . Recurrent diverticulitis Noted on CT with possible perforation General surgery consult consulted and following Nonoperative at this time Continue with Zosyn and fluids Pain control Surgical evaluation management per surgical team Sepsis BLAKE I performed a sepsis reassessment on the patient 02/17/2024 8:16 PM Vital Signs: BP 113/79 Pulse (!) 123 Temp (!) 101.8 F (38.8 C) (Oral) Resp 18 Ht 6' 1 Wt 128.7 kg (283 lb 12.8 oz) SpO2 98% BMI 37.44 kg/m Cardiac examination significant for: Tachycardia Pulmonary examination significant for: Clear lung acosta Capillary refill is: Brisk Peripheral Pulse is: 2+ Skin is: Normal Zosyn as above Obesity Counsling provided Residence prior to admission: house or apartment Was patient transferred from outlying hospital or ED yes -- care site [place] Quality Measures DVT Prophylaxis: lovenox Thompson Catheter: absent Medication Reconciliation: Verified Admitted with these risk variables:None. Please see assessment and plan for further details. Estimated Date of Discharge less than 2 midnights Code Status Full Code; code status verified on 02/17/2024 with patient (capacity intact) Chief Complaint abdominal pain History of Present Illness 38-year-old male with past medical history of diverticulitis comes to the ER with Past Medical History Past Medical History: Diagnosis Date Kidney stones Past Surgical History History reviewed. No pertinent surgical history. Family History History reviewed. No pertinent family history. Social History Social History Tobacco Use Smoking Status Smoker, Current Status Unknown Types: Cigars Smokeless Tobacco Never Social History Substance and Sexual Activity Alcohol Use Yes Social History Substance and Sexual Activity Drug Use Never Allergy Information I have reviewed the patient's allergies. Patient has no known allergies. Home Medications Home medications were reviewed. Review Of Systems All relevant systems have been reviewed and are negative except as noted in HPI or below Physical Examination BP 113/79 Pulse (!) 123 Temp (!) 101.8 F (38.8 C) (Oral) Resp 18 Ht 6' 1 Wt 128.7 kg (283 lb 12.8 oz) SpO2 98% BMI 37.44 kg/m General Appearance: alert; well appearing; in no acute distress HEENT: Head- normocephalic; Eyes- EOMI, sclera anicteric; Throat- mucous membranes moist Cardiovascular: regular rate and rhythm; normal S1, S2; no murmurs, rubs, clicks or gallops; peripheral edema absent Respiratory: lungs clear to auscultation; without wheezes, rales or rhonchi; on room air Abdomen: soft, non-tender, non-distended Neurological: oriented x 3; normal speech; no focal findings or movement disorder noted Musculoskeletal: no significant deformity or tenderness to palpation Skin: normal coloration Psych: normal mood and affect Abdominal exam with mild tenderness documented in this encounter [facility] 02-17-2024 Note Formatting of this n ote might be different from the original. Problem: Pain Goal: Reduced pain sensation Outcome: Partially Met Goal: Control of acute pain to acceptable level Outcome: Partially Met Goal: Able to cope with pain Outcome: Partially Met Goal: Able to achieve maximum level of physical functioning Outcome: Partially Met Goal: Able to achieve maximum level of psychosocial functioning Outcome: Partially Met [facility] 02-17-2024 Physician Emergency department Note ED PROVIDER NOTE [facility] EMERGENCY DEPARTMENT NAME: Amee Guaman AGE: 38 y.o. : 1985 VISIT DATE: 02/17/2024 CSN: [id number] PCP: No, Physician Chief Complaint Patient presents with Abdominal Pain Patient presents to the [facility] emergency department as a transfer from the [facility] emergency department for a surgery consultation. Patient has been experiencing left lower quadrant pain. He was first diagnosed about a month and a half ago and has been through several rounds of antibiotics. States that he was originally on Augmentin and then he switched to Cipro and Flagyl. States his pain started again last night. He went into the [facility] emergency department where they found diverticulitis with a contained perforation. He admits to having small bowel movement throughout the night. States there is purulence present. He admits to some nausea without vomiting. States that he is really just primarily having left lower quadrant abdominal pain near his belt line. He denies any other significant medical history. No other complaints or concerns at this time. Past Medical History: Diagnosis Date Kidney stones History reviewed. No pertinent surgical history. History reviewed. No pertinent family history. Social History Socioeconomic History Marital status: Tobacco Use Smoking status: Smoker, Current Status Unknown Types: Cigars Smokeless tobacco: Never Vaping Use Vaping Use: Never used Substance and Sexual Activity Alcohol use: Yes Drug use: Never No current outpatient medications on file prior to encounter. No Known Allergies Review of Systems Constitutional: Negative for chills, diaphoresis, fatigue and fever. HENT: Negative for congestion, ear pain, facial swelling, postnasal drip, rhinorrhea, sinus pressure, sore throat, trouble swallowing and voice change. Eyes: Negative for photophobia, discharge and visual disturbance. Respiratory: Negative for cough, chest tightness, shortness of breath and wheezing. Cardiovascular: Negative for chest pain, palpitations and leg swelling. Gastrointestinal: Positive for abdominal pain, constipation and nausea. Negative for blood in stool, diarrhea and vomiting. Genitourinary: Negative for decreased urine volume, difficulty urinating, dysuria, flank pain, hematuria and urgency. Musculoskeletal: Negative for arthralgias and back pain. Skin: Negative for rash. Neurological: Negative for dizziness, syncope, speech difficulty, weakness, light-headedness and headaches. Psychiatric/Behavioral: Negative for confusion and suicidal ideas. All other systems reviewed and are negative. Patient Vitals for the past 24 hrs: BP Temp Temp src Pulse Resp SpO2 02/17/24 1331 (!) 133/93 -- -- (!) 106 17 96 % 02/17/24 1303 -- -- -- -- 18 -- 02/17/24 1300 (!) 132/99 -- -- (!) 107 (!) 32 97 % 02/17/24 1258 -- -- -- (!) 113 14 96 % 02/17/24 1254 (!) 138/95 -- -- -- -- -- 02/17/24 1244 (!) 150/88 98.6 F (37 C) Oral (!) 118 18 99 % Physical Exam Vitals and nursing note reviewed. Constitutional: General: He is not in acute distress. Appearance: He is well-developed. He is not toxic-appearing. HENT: Head: Normocephalic and atraumatic. Eyes: Extraocular Movements: Extraocular movements intact. Conjunctiva/sclera: Conjunctivae normal. Cardiovascular: Rate and Rhythm: Normal rate and regular rhythm. Heart sounds: Normal heart sounds. Musculoskeletal: General: Normal range of motion. Cervical back: Normal range of motion and neck supple. Pulmonary: Effort: Pulmonary effort is normal. No respiratory distress. Breath sounds: Normal breath sounds. Abdominal: General: Abdomen is flat. Bowel sounds are normal. Palpations: Abdomen is soft. Tenderness: There is abdominal tenderness in the left lower quadrant. There is no right CVA tenderness or left CVA tenderness. Skin: General: Skin is warm and dry. Neurological: General: No focal deficit present. Mental Status: He is alert. Psychiatric: Mood and Affect: Mood normal. . Laboratory & Radiographic Imaging (if done): No results found for this visit on 02/17/24. No orders to display Procedures Medical Decision Making Patient presents to the [facility] emergency department as a transfer from the [facility] emergency department for a surgery consultation. Patient has been experiencing left lower quadrant pain. He was first diagnosed about a month and a half ago and has been through several rounds of antibiotics. States that he was originally on Augmentin and then he switched to Cipro and Flagyl. States his pain started again last night. He went into the [facility] emergency department where they found diverticulitis with a contained perforation. He admits to having small bowel movement throughout the night. States there is purulence present. He admits to some nausea without vomiting. States that he is really just primarily having left lower quadrant abdominal pain near his belt line. He denies any other significant medical history. No other complaints or concerns at this time. I contacted our general surgery team. They are going to admit for further evaluation and treatment. The patient has been informed that they may have pre-hypertension or hypertension based on a blood pressure reading in the Emergency Department. I recommend that the patient call the primary care provider listed on their discharge instructions or a physician of their choice as soon as possible to arrange follow-up in the next 4 weeks for further evaluation of possible pre-hypertension or hypertension. . Clinical Impression: 1. Diverticulitis of large intestine with perforation, unspecified bleeding status ED Disposition ED Disposition Hospitalize Condition -- Comment Recommended Level of Care: Med Surg Phone call required?: No Follow-up Information Follow-up information has not been specified. Contact information for after-discharge care Follow-up information has not been specified. Maggie Grover PA-C 02/17/24 [id number] [facility] 02-17-2024 Emergency department Note ED PROVIDER NOTE [facility] EMERGENCY DEPARTMENT NAME: Amee Guaman AGE: 38 y.o. : 1985 VISIT DATE: 02/17/2024 CSN: [id number] PCP: No, Physician Chief Complaint Patient presents with Abdominal Pain Patient presents to the [facility] emergency department as a transfer from the [facility] emergency department for a surgery consultation. Patient has been experiencing left lower quadrant pain. He was first diagnosed about a month and a half ago and has been through several rounds of antibiotics. States that he was originally on Augmentin and then he switched to Cipro and Flagyl. States his pain started again last night. He went into the [facility] emergency department where they found diverticulitis with a contained perforation. He admits to having small bowel movement throughout the night. States there is purulence present. He admits to some nausea without vomiting. States that he is really just primarily having left lower quadrant abdominal pain near his belt line. He denies any other significant medical history. No other complaints or concerns at this time. Past Medical History: Diagnosis Date Kidney stones History reviewed. No pertinent surgical history. History reviewed. No pertinent family history. Social History Socioeconomic History Marital status: Tobacco Use Smoking status: Smoker, Current Status Unknown Types: Cigars Smokeless tobacco: Never Vaping Use Vaping Use: Never used Substance and Sexual Activity Alcohol use: Yes Drug use: Never No current outpatient medications on file prior to encounter. No Known Allergies Review of Systems Constitutional: Negative for chills, diaphoresis, fatigue and fever. HENT: Negative for congestion, ear pain, facial swelling, postnasal drip, rhinorrhea, sinus pressure, sore throat, trouble swallowing and voice change. Eyes: Negative for photophobia, discharge and visual disturbance. Respiratory: Negative for cough, chest tightness, shortness of breath and wheezing. Cardiovascular: Negative for chest pain, palpitations and leg swelling. Gastrointestinal: Positive for abdominal pain, constipation and nausea. Negative for blood in stool, diarrhea and vomiting. Genitourinary: Negative for decreased urine volume, difficulty urinating, dysuria, flank pain, hematuria and urgency. Musculoskeletal: Negative for arthralgias and back pain. Skin: Negative for rash. Neurological: Negative for dizziness, syncope, speech difficulty, weakness, light-headedness and headaches. Psychiatric/Behavioral: Negative for confusion and suicidal ideas. All other systems reviewed and are negative. Patient Vitals for the past 24 hrs: BP Temp Temp src Pulse Resp SpO2 02/17/24 1331 (!) 133/93 -- -- (!) 106 17 96 % 02/17/24 1303 -- -- -- -- 18 -- 02/17/24 1300 (!) 132/99 -- -- (!) 107 (!) 32 97 % 02/17/24 1258 -- -- -- (!) 113 14 96 % 02/17/24 1254 (!) 138/95 -- -- -- -- -- 02/17/24 1244 (!) 150/88 98.6 F (37 C) Oral (!) 118 18 99 % Physical Exam Vitals and nursing note reviewed. Constitutional: General: He is not in acute distress. Appearance: He is well-developed. He is not toxic-appearing. HENT: Head: Normocephalic and atraumatic. Eyes: Extraocular Movements: Extraocular movements intact. Conjunctiva/sclera: Conjunctivae normal. Cardiovascular: Rate and Rhythm: Normal rate and regular rhythm. Heart sounds: Normal heart sounds. Musculoskeletal: General: Normal range of motion. Cervical back: Normal range of motion and neck supple. Pulmonary: Effort: Pulmonary effort is normal. No respiratory distress. Breath sounds: Normal breath sounds. Abdominal: General: Abdomen is flat. Bowel sounds are normal. Palpations: Abdomen is soft. Tenderness: There is abdominal tenderness in the left lower quadrant. There is no right CVA tenderness or left CVA tenderness. Skin: General: Skin is warm and dry. Neurological: General: No focal deficit present. Mental Status: He is alert. Psychiatric: Mood and Affect: Mood normal. . Laboratory & Radiographic Imaging (if done): No results found for this visit on 02/17/24. No orders to display Procedures Medical Decision Making Patient presents to the [facility] emergency department as a transfer from the [facility] emergency department for a surgery consultation. Patient has been experiencing left lower quadrant pain. He was first diagnosed about a month and a half ago and has been through several rounds of antibiotics. States that he was originally on Augmentin and then he switched to Cipro and Flagyl. States his pain started again last night. He went into the [facility] emergency department where they found diverticulitis with a contained perforation. He admits to having small bowel movement throughout the night. States there is purulence present. He admits to some nausea without vomiting. States that he is really just primarily having left lower quadrant abdominal pain near his belt line. He denies any other significant medical history. No other complaints or concerns at this time. I contacted our general surgery team. They are going to admit for further evaluation and treatment. The patient has been informed that they may have pre-hypertension or hypertension based on a blood pressure reading in the Emergency Department. I recommend that the patient call the primary care provider listed on their discharge instructions or a physician of their choice as soon as possible to arrange follow-up in the next 4 weeks for further evaluation of possible pre-hypertension or hypertension. . Clinical Impression: 1. Diverticulitis of large intestine with perforation, unspecified bleeding status ED Disposition ED Disposition Hospitalize Condition -- Comment Recommended Level of Care: Med Surg Phone call required?: No Follow-up Information Follow-up information has not been specified. Contact information for after-discharge care Follow-up information has not been specified. Maggie Grover PA-C 02/17/24 1351 Pt presented to ED from [facility] for diverticulitis with perforation with containment. documented in this encounter [facility] 02-17-2024 Consult note Associated Order (s): IP CONSULT TO GENERAL SURGERY [facility] SURGICAL HISTORY & PHYSICAL/CONSULTATION NOTE Surgery Admitted with these risk variables:None. Please see assessment and plan for further details. SURGICAL PROBLEM Perforated Diverticulitis ASSESSMENT & PLAN/ACTIVE MEDICAL PROBLEMS: Perforated Diverticulitis CTAP with IV contrast at [facility] with moderate inflammatory stranding of a proximal sigmoid diverticulum & adjacent foci of extraluminal gas, no loculated fluid collection - conservative treatment at this time, NPO, IV Zosyn, gentle IV hydration - WBC 12.47, afebrile, mildly tachycardic in the low 100s, BP stable - Will need to follow-up CTAP in the coming days - discussed with Dr. Wiley, can be admitted to medicine and we will follow along while admitted INCIDENTAL FINDINGS: Subcentimeter hypoattenuating left renal lesion, too small to characterize CHIEF COMPLAINT: Abdominal pain Notification Time: 1252 Arrival at Bedside: 1310 HISTORY OF PRESENT ILLNESS / INJURY (HPI): Amee Guaman is a 38-year-old male with a past medical history of kidney stones and diverticulitis, who presented to [facility] ED with complaints of 2 to 3 days of left lower quadrant abdominal pain. He had a CTAP with IV contrast at [facility] that showed perforated diverticulitis. There was no abscess identified. There was small amount of extraluminal gas. He arrives to the [facility] ED as a transfer for general surgery evaluation. The patient states he has been treated since early December by his PCP for acute diverticulitis. He has never seen a general surgeon for this. He failed treatment with Augmentin the first time, and was placed on Cipro and Flagyl at that time. He was doing well until 2 to 3 days ago when he started to develop intermittent low left lower quadrant abdominal pain. The patient stated his pain was severe this morning, thus prompting him to go to [facility] ED. 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 The patient states he was given Toradol at [facility] ED with good improvement in his pain. He denies nausea, vomiting, diarrhea, fevers or chills. PAST MEDICAL HISTORY (PMH): Past Medical History: Diagnosis Date Kidney stones History reviewed. No pertinent surgical history. Social History Tobacco Use Smoking status: Smoker, Current Status Unknown Types: Cigars Smokeless tobacco: Never Vaping Use Vaping Use: Never used Substance Use Topics Alcohol use: Yes Drug use: Never History reviewed. No pertinent family history. MEDICATIONS: Current Facility-Administered Medications on File Prior to Encounter Medication Dose Route Frequency Provider Last Rate Last Admin [COMPLETED] cefTRIAXone (ROCEPHIN) 2000 mg in sodium chloride (NS) 0.9% 50 mL (vialmate) (FSED) 2,000 mg Intravenous Once Marvin Rick MD Stopped at 02/17/24 1113 [COMPLETED] iopamidoL (ISOVUE-370) 370 mg iodine /mL (76 %) injection 75 mL 75 mL Intravenous Once in imaging Marvin Rick MD 75 mL at 02/17/24 0953 [COMPLETED] ketorolac (TORADOL) injection 15 mg 15 mg Intravenous Once Marvin Rick MD 15 mg at 02/17/24 0939 [COMPLETED] metroNIDAZOLE (FLAGYL) IVPB 500 mg 500 mg Intravenous Once Marvin Rick MD Stopped at 02/17/24 1143 [COMPLETED] sodium chloride (PF) (NS) 0.9 % contrast line flush 10 mL 10 mL Intravenous Once in imaging Marvin Rick MD 10 mL at 02/17/24 0953 And [COMPLETED] sodium chloride (PF) (NS) 0.9 % contrast line flush 80 mL 80 mL Intravenous Once in imaging Marvin Rick MD 80 mL at 02/17/24 0953 [COMPLETED] sodium chloride 0.9% (NS) bolus 1,000 mL 1,000 mL Intravenous Once Marvin Rick MD Stopped at 02/17/24 1135 No current outpatient medications on file prior to encounter. ALLERGIES: No Known Allergies REVIEW OF SYSTEMS: COVID19 Screen: Negative for fever, cough, SOB, exposure. Constitutional Symptoms: Negative for unexplained falls, weight loss Eyes: Negative for eye pain or vision changes Ears, Nose, Mouth, Throat: Negative for rhinorrhea, nasal pain, dysphagia, hoarseness Cardiovascular: Negative for chest pain, orthopnea, edema Respiratory: Negative for cough, shortness of breath Gastrointestinal: Negative for nausea, vomiting, diarrhea, + abdominal pain Genitourinary: Negative for dysuria, hematuria Musculoskeletal: Negative for pain, joint edema Skin/Breast: Negative for rash, itching, lesions Neurological: Negative for paresthesia, paralysis, loss of bowel or bladder control, loss of consciousness Psychiatric: Negative for depression, anxiety, or suicidal ideations Endocrine: Negative for heat/cold intolerance, polydipsia, polyphagia, polyuria Hematologic/Lymphatic: Negative for anticoagulant use, antiplatelet use, family hx of clotting or bleeding disorders Allergic/Immunologic: Allergies reviewed, no use of immunosuppressants or active chemotherapy Other than the above items, the remainder of a complete review of systems is otherwise negative. PHYSICAL EXAM: BP (!) 132/99 Pulse (!) 107 Temp 98.6 F (37 C) (Oral) Resp 18 SpO2 97% There is no height or weight on file to calculate BMI. GENERAL: Appears age appropriate. No acute distress. NEUROLOGICAL: Alert and oriented X 3. Follows commands with extremities x4, equal strength. GCS = 15. CARDIOVASCULAR: Regular rate and rhythm. 2+ pulses radial/DP/PT bilaterally. RESPIRATORY: Lungs, clear to auscultation bilaterally. Respiratory effort unlabored without use of accessory muscles. On RA. ABDOMINAL: Rounded, soft, TTP LLQ, slightly distended, normal bowel sounds. No guarding or peritoneal signs. MUSCULOSKELETAL: Extremities atraumatic without gross deformity x4. ROM appropriate for age. SKIN: Skin warm and dry. IMAGING STUDIES: I have reviewed the following: All imaging reviewed. LABORATORY STUDIES: Lab Results Component Value Date WBC 12.47 (H) 02/17/2024 HGB 14.7 02/17/2024 HCT 43.6 02/17/2024 MCV 88.3 02/17/2024 PLT 355 02/17/2024 RBC 4.94 02/17/2024 Lab Results Component Value Date BUN 12 02/17/2024 CREATININE 1.01 02/17/2024 No results found for: ALT, AST, GGT, ALKPHOS, BILITOT Associated attestation - Laura Wiley MD - 02/17/2024 1:49 PM EDT I agree with the Advanced Practice Provider note with the same day of service. The patient was seen and examined by me, the attending surgeon, on rounds on the date of service listed above. I have reviewed the Advanced Practice Provider note with the relevant labs, studies, and solutions sales consultant notes. I have reviewed and agree with the documented history, exam, and plan of care. The below note includes my discussion, exams, and review of relevant labs and imaging. Agree with below note 38-year-old man with past medical history of nephrolithiasis presents complaining of 2 to 3 days of left lower quadrant pain. Has had episodes of diverticulitis in the past but only received oral antibiotics from his PCP. Underwent CT imaging that showed perforated sigmoid diverticulitis and was transferred to our hospital for further level of care. Blood pressure (!) 132/99, pulse (!) 107, temperature 98.6 F (37 C), temperature source Oral, resp. rate 18, SpO2 97%. General awake alert no acute distress Respiratory nonlabored CV tachycardic on telemetry Abdomen is soft nondistended tender to palpation in the left lower quadrant. No guarding no rigidity Lab work reviewed Imaging reviewed Plan Patient appears to have a perforated diverticulitis of the sigmoid colon. No sarah abscess on imaging. Would recommend nonoperative management at this time with IV antibiotics, n.p.o. IV fluids Surgery to follow [facility] 02-17-2024 Consult note Associated Order (s): IP CONSULT TO GENERAL SURGERY [facility] SURGICAL HISTORY & PHYSICAL/CONSULTATION NOTE Surgery Admitted with these risk variables:None. Please see assessment and plan for further details. SURGICAL PROBLEM Perforated Diverticulitis ASSESSMENT & PLAN/ACTIVE MEDICAL PROBLEMS: Perforated Diverticulitis CTAP with IV contrast at [facility] with moderate inflammatory stranding of a proximal sigmoid diverticulum & adjacent foci of extraluminal gas, no loculated fluid collection - conservative treatment at this time, NPO, IV Zosyn, gentle IV hydration - WBC 12.47, afebrile, mildly tachycardic in the low 100s, BP stable - Will need to follow-up CTAP in the coming days - discussed with Dr. Executive Director Of Marketing, can be admitted to medicine and we will follow along while admitted INCIDENTAL FINDINGS: Subcentimeter hypoattenuating left renal lesion, too small to characterize CHIEF COMPLAINT: Abdominal pain Notification Time: 1252 Arrival at Bedside: 1310 HISTORY OF PRESENT ILLNESS / INJURY (HPI): Amee Guaman is a 38-year-old male with a past medical history of kidney stones and diverticulitis, who presented to [facility] ED with complaints of 2 to 3 days of left lower quadrant abdominal pain. He had a CTAP with IV contrast at [facility] that showed perforated diverticulitis. There was no abscess identified. There was small amount of extraluminal gas. He arrives to the [facility] ED as a transfer for general surgery evaluation. The patient states he has been treated since early December by his PCP for acute diverticulitis. He has never seen a general surgeon for this. He failed treatment with Augmentin the first time, and was placed on Cipro and Flagyl at that time. He was doing well until 2 to 3 days ago when he started to develop intermittent low left lower quadrant abdominal pain. The patient stated his pain was severe this morning, thus prompting him to go to [facility] ED. 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 The patient states he was given Toradol at [facility] ED with good improvement in his pain. He denies nausea, vomiting, diarrhea, fevers or chills. PAST MEDICAL HISTORY (PMH): Past Medical History: Diagnosis Date Kidney stones History reviewed. No pertinent surgical history. Social History Tobacco Use Smoking status: Smoker, Current Status Unknown Types: Cigars Smokeless tobacco: Never Vaping Use Vaping Use: Never used Substance Use Topics Alcohol use: Yes Drug use: Never History reviewed. No pertinent family history. MEDICATIONS: Current Facility-Administered Medications on File Prior to Encounter Medication Dose Route Frequency Provider Last Rate Last Admin [COMPLETED] cefTRIAXone (ROCEPHIN) 2000 mg in sodium chloride (NS) 0.9% 50 mL (vialmate) (FSED) 2,000 mg Intravenous Once Marvin Rick MD Stopped at 02/17/24 1113 [COMPLETED] iopamidoL (ISOVUE-370) 370 mg iodine /mL (76 %) injection 75 mL 75 mL Intravenous Once in imaging Marvin Rick MD 75 mL at 02/17/24 0953 [COMPLETED] ketorolac (TORADOL) injection 15 mg 15 mg Intravenous Once Marvin Rick MD 15 mg at 02/17/24 0939 [COMPLETED] metroNIDAZOLE (FLAGYL) IVPB 500 mg 500 mg Intravenous Once Marvin Rick MD Stopped at 02/17/24 1143 [COMPLETED] sodium chloride (PF) (NS) 0.9 % contrast line flush 10 mL 10 mL Intravenous Once in imaging Marvin Rick MD 10 mL at 02/17/24 0953 And [COMPLETED] sodium chloride (PF) (NS) 0.9 % contrast line flush 80 mL 80 mL Intravenous Once in imaging Marvin Rick MD 80 mL at 02/17/24 09 [COMPLETED] sodium chloride 0.9% (NS) bolus 1,000 mL 1,000 mL Intravenous Once Marvin Rick MD Stopped at 02/17/24 1135 No current outpatient medications on file prior to encounter. ALLERGIES: No Known Allergies REVIEW OF SYSTEMS: COVID19 Screen: Negative for fever, cough, SOB, exposure. Constitutional Symptoms: Negative for unexplained falls, weight loss Eyes: Negative for eye pain or vision changes Ears, Nose, Mouth, Throat: Negative for rhinorrhea, nasal pain, dysphagia, hoarseness Cardiovascular: Negative for chest pain, orthopnea, edema Respiratory: Negative for cough, shortness of breath Gastrointestinal: Negative for nausea, vomiting, diarrhea, + abdominal pain Genitourinary: Negative for dysuria, hematuria Musculoskeletal: Negative for pain, joint edema Skin/Breast: Negative for rash, itching, lesions Neurological: Negative for paresthesia, paralysis, loss of bowel or bladder control, loss of consciousness Psychiatric: Negative for depression, anxiety, or suicidal ideations Endocrine: Negative for heat/cold intolerance, polydipsia, polyphagia, polyuria Hematologic/Lymphatic: Negative for anticoagulant use, antiplatelet use, family hx of clotting or bleeding disorders Allergic/Immunologic: Allergies reviewed, no use of immunosuppressants or active chemotherapy Other than the above items, the remainder of a complete review of systems is otherwise negative. PHYSICAL EXAM: BP (!) 132/99 Pulse (!) 107 Temp 98.6 F (37 C) (Oral) Resp 18 SpO2 97% There is no height or weight on file to calculate BMI. GENERAL: Appears age appropriate. No acute distress. NEUROLOGICAL: Alert and oriented X 3. Follows commands with extremities x4, equal strength. GCS = 15. CARDIOVASCULAR: Regular rate and rhythm. 2+ pulses radial/DP/PT bilaterally. RESPIRATORY: Lungs, clear to auscultation bilaterally. Respiratory effort unlabored without use of accessory muscles. On RA. ABDOMINAL: Rounded, soft, TTP LLQ, slightly distended, normal bowel sounds. No guarding or peritoneal signs. MUSCULOSKELETAL: Extremities atraumatic without gross deformity x4. ROM appropriate for age. SKIN: Skin warm and dry. IMAGING STUDIES: I have reviewed the following: All imaging reviewed. LABORATORY STUDIES: Lab Results Component Value Date WBC 12.47 (H) 02/17/2024 HGB 14.7 02/17/2024 HCT 43.6 02/17/2024 MCV 88.3 02/17/2024 PLT 355 02/17/2024 RBC 4.94 02/17/2024 Lab Results Component Value Date BUN 12 02/17/2024 CREATININE 1.01 02/17/2024 No results found for: ALT, AST, GGT, ALKPHOS, BILITOT Associated attestation - Laura Wiley MD - 02/17/2024 1:49 PM EDT I agree with the Advanced Practice Provider note with the same day of service. The patient was seen and examined by me, the attending surgeon, on rounds on the date of service listed above. I have reviewed the Advanced Practice Provider note with the relevant labs, studies, and solutions sales consultant notes. I have reviewed and agree with the documented history, exam, and plan of care. The below note includes my discussion, exams, and review of relevant labs and imaging. Agree with below note 38-year-old man with past medical history of nephrolithiasis presents complaining of 2 to 3 days of left lower quadrant pain. Has had episodes of diverticulitis in the past but only received oral antibiotics from his PCP. Underwent CT imaging that showed perforated sigmoid diverticulitis and was transferred to our hospital for further level of care. Blood pressure (!) 132/99, pulse (!) 107, temperature 98.6 F (37 C), temperature source Oral, resp. rate 18, SpO2 97%. General awake alert no acute distress Respiratory nonlabored CV tachycardic on telemetry Abdomen is soft nondistended tender to palpation in the left lower quadrant. No guarding no rigidity Lab work reviewed Imaging reviewed Plan Patient appears to have a perforated diverticulitis of the sigmoid colon. No sarah abscess on imaging. Would recommend nonoperative management at this time with IV antibiotics, n.p.o. IV fluids Surgery to follow documented in this encounter [facility] 02-17-2024 Emergency department Triage note Pt presented to ED from [facility] for diverticulitis with perforation with containment. [facility] 02-17-2024 Telephone encounter Note Reviewed. Kathia Looney APRN.CNP [facility] 02-17-2024 Miscellaneous Notes Reviewed. Kathia Looney APRN.CNP Pt states he is going to go to the ER. Patient needs to be seen for this. I have opening today. If pain is worsening recommend ER. Kathia Looney APRN.CNP Amee calls and states the following: ABDOMINAL PAIN LOCATION: Mid lower abdomen describes it as a constant ache, stabbing and cramping pain at times. RADIATION: that does not radiate ONSET: started about 3 days ago but last night had been the worse since starting. Did take hydrocodone last night that did take the edge off. Pain has been gradual SEVERITY: 7-8:10 pain scale CAUSE: history of diverticulitis and had missed 2 days of fiber supplement RELIEVING/AGGRAVATING FACTORS: urinating does take some of the pressure off area OTHER SYMPTOMS: Denies fever. Has some constipation and mucous when wiping. Patient suspects abdominal pain is related to a diverticulitis flare up. He is requesting treatment with Cipro and Flagyl. documented in this encounter [facility] 02-17-2024 Telephone encounter Note Pt states he is going to go to the ER. [facility] 02-17-2024 Telephone encounter Note Patient needs to be seen for this. I have opening today. If pain is worsening recommend ER. Kathia Looney APRN.PROFESSOR OF BIOCHEMISTRY [facility] 02-17-2024 Telephone encounter Note Amee calls and states the following: ABDOMINAL PAIN LOCATION: Mid lower abdomen describes it as a constant ache, stabbing and cramping pain at times. RADIATION: that does not radiate ONSET: started about 3 days ago but last night had been the worse since starting. Did take hydrocodone last night that did take the edge off. Pain has been gradual SEVERITY: 7-8:10 pain scale CAUSE: history of diverticulitis and had missed 2 days of fiber supplement RELIEVING/AGGRAVATING FACTORS: urinating does take some of the pressure off area OTHER SYMPTOMS: Denies fever. Has some constipation and mucous when wiping. Patient suspects abdominal pain is related to a diverticulitis flare up. He is requesting treatment with Cipro and Flagyl. [facility] 01-09-2024 Telephone encounter Note Patient notified and agreeable. Tressa Rosenthal RN [facility] 01-09-2024 Miscellaneous Notes Patient notified and agreeable. Tressa Rosenthal RN OK to change antibiotics to Cipro and Flagyl as ordered (Flagyl by itself is not typically effective) Marvin Siu MD Patient of Dr. Soni. Has question and aware that his PCP Team is out of office at this time. Patient asking if [place] provider could advise him. Patient saw Stacie Parisi CNP yesterday for ER F/U. Patient was seen in ER 01/01 and diagnosed with diverticulitis and started on Augmentin. This is his last day of Augmentin today. Patient reports symptoms were improving until friday night when his pain increased in frequency. Has dull ache. Patient states he went to ER with pain last week, he got better initially after starting the Augmentin, and now it seems the pain is returning, he states he is terrified that he is headed in the wrong direction as the weekend approaches. Asking if he needs an additional course of therapy at this point? Reports his mom gets diverticultis and Flagyl worked best for her. Please advise patient. [phone] Thank you. documented in this encounter [facility] 01-09-2024 Telephone encounter Note OK to change antibiotics to Cipro and Flagyl as ordered (Flagyl by itself is not typically effective) Marvin Siu MD [facility] 01-09-2024 Telephone encounter Note See mychart message. Mary Zavaleta MA [facility] 01-09-2024 Miscellaneous Notes See OrderMotion message. Mary Zavaleta MA Spoke to pt today with results Pt notified and verbalized understanding Jakob Rich MA documented in this encounter [facility] 01-09-2024 Telephone encounter Note Patient of Dr. Soni. Has question and aware that his PCP Team is out of office at this time. Patient asking if [place] provider could advise him. Patient saw Stacie Parisi CNP yesterday for ER F/U. Patient was seen in ER 01/01 and diagnosed with diverticulitis and started on Augmentin. This is his last day of Augmentin today. Patient reports symptoms were improving until friday night when his pain increased in frequency. Has dull ache. Patient states he went to ER with pain last week, he got better initially after starting the Augmentin, and now it seems the pain is returning, he states he is terrified that he is headed in the wrong direction as the weekend approaches. Asking if he needs an additional course of therapy at this point? Reports his mom gets diverticultis and Flagyl worked best for her. Please advise patient. [phone] Thank you. [facility] 01-09-2024 Telephone encounter Note Spoke to pt today with results Pt notified and verbalized understanding Jakob Rich MA [facility] 01-09-2024 Telephone encounter Note Pt notified and verbalized understanding Your care team [facility] 01-09-2024 Miscellaneous Notes Pt notified and verbalized understanding Your care team Please let patient know their CT shows acute simple diverticulitis. Patient should complete antibiotics and follow up if he has recurrent pain. documented in this encounter [facility] 01-08-2024 Telephone encounter Note Reason For Call: Patient would like his abdominal CT scan results. He is concerned about an abscess. Belly pain same. Mild headache new Outcome: Disposition given - See Physician Within 3 days. Offered to conference patient to appt center to make an appt but he declined. Told patient regional education manager doctor has been paged and expect call back soon. You may call back if no return call within 1 hour or call office tomorrow when open Reached Dr. Marvin Siu and gave assessment and he opened chart. CT scan showed Diverticulitis, continue use of antibiotic as ordered, and call office tomorrow when open for further advice was Dr. Siu's advice. Called patient back and gave the doctor's advice and patient verbalized understanding. He plans to call PCP office tomorrow. NOC closing was given (see Care Advice section) Reason for Disposition [1] MILD-MODERATE headache AND [2] present > 72 hours Advised patient to be seen within 3 days Answer Assessment - Initial Assessment Questions 1. LOCATION: Headache above left eye. Lower left belly pain 2-3/10 on pain scale. Belly pain same and headache new. Mild constipation, last bowel movement was yesterday. 2. ONSET: Today for headache. See office note from today about belly pain which mentions recent ED visit at a non [facility] ED for belly pain. 3. PATTERN: Mild headache now, blames not eating until 4 pm today due to NPO for CT scan. Belly pain intermittent 4. SEVERITY: Mild headache. Mild belly pain 5. RECURRENT SYMPTOM: History headache and Diverticulitis 6. CAUSE: Not eating per patient, see above 7. MIGRAINE: History of migraine headaches 8. HEAD INJURY: No 9. OTHER SYMPTOMS: See above 10. : N/A Protocols used: [id number] [facility] 01-08-2024 Miscellaneous Notes Reason For Call: Patient would like his abdominal CT scan results. He is concerned about an abscess. Belly pain same. Mild headache new Outcome: Disposition given - See Physician Within 3 days. Offered to conference patient to appt center to make an appt but he declined. Told patient regional education manager doctor has been paged and expect call back soon. You may call back if no return call within 1 hour or call office tomorrow when open Reached Dr. Marvin Siu and gave assessment and he opened chart. CT scan showed Diverticulitis, continue use of antibiotic as ordered, and call office tomorrow when open for further advice was Dr. Siu's advice. Called patient back and gave the doctor's advice and patient verbalized understanding. He plans to call PCP office tomorrow. NOC closing was given (see Care Advice section) Reason for Disposition [1] MILD-MODERATE headache AND [2] present > 72 hours Advised patient to be seen within 3 days Answer Assessment - Initial Assessment Questions 1. LOCATION: Headache above left eye. Lower left belly pain 2-3/10 on pain scale. Belly pain same and headache new. Mild constipation, last bowel movement was yesterday. 2. ONSET: Today for headache. See office note from today about belly pain which mentions recent ED visit at a non [facility] ED for belly pain. 3. PATTERN: Mild headache now, blames not eating until 4 pm today due to NPO for CT scan. Belly pain intermittent 4. SEVERITY: Mild headache. Mild belly pain 5. RECURRENT SYMPTOM: History headache and Diverticulitis 6. CAUSE: Not eating per patient, see above 7. MIGRAINE: History of migraine headaches 8. HEAD INJURY: No 9. OTHER SYMPTOMS: See above 10. : N/A Protocols used: [id number] documented in this encounter [facility] 01-08-2024 Telephone encounter Note Please let patient know their CT shows acute simple diverticulitis. Patient should complete antibiotics and follow up if he has recurrent pain. [facility] 01-08-2024 Miscellaneous Notes Radiology Service Progress Note DATE OF SERVICE: January 08, 2024 TIME: 3:18 PM PATIENT IDENTITY VERIFICATION COMPLETED USING TWO (2) STANDARD IDENTIFIERS: Name and Date of confirmed by patient verbally. FALL SCREENING: Has the patient had 2 falls in the last year or 1 fall with injury or currently using an Ambulatory Assistive Device (Walker, Cane, Wheelchair, Crutches, etc.)? No PATIENT GENDER DATA: Male PATIENT RELEVANT IMPLANT DATA REVIEWED: Not Applicable PATIENT PRESENTS WITH AN IMPLANTABLE OR ATTACHED LEVELER HELPER: No ALLERGIES: Reviewed and unchanged CONTRAST ALLERGY: NO. EXAM: CT -CONTRAST INDUCED NEPHROPATHY RISK FACTORS: Not applicable CREATININE: Creatinine Date Value Ref Range Status 01/08/2024 1.03 0.73 - 1.22 mg/dL Final 02/14/2023 1.03 0.73 - 1.22 mg/dL Final Estimated Glomerular Filtration Rate Date Value Ref Range Status 01/08/2024 95 >=60 mL/min/1.73m Final Comment: Estimated Glomerular Filtration Rate (eGFR) is calculated using the 2020 CKD-EPI creatinine equation. This equation utilizes serum creatinine, sex, and age as parameters. The creatinine assay has traceable calibration to isotope dilution-mass spectrometry. Refer to KDIGO guidelines for clinical interpretation. In patients with unstable renal function, e.g. those with acute kidney injury, the eGFR may not accurately reflect actual GFR. P.O.C.T. RESULTS: POC done: Yes, See Lab Tab January 08, 2024 TREATMENT: N/A PERIPHERAL IV DATA: Ambulatory: A peripheral IV was started in the Right antecubital site with a Angio cath: 20 gauge. RADIOLOGY DEPARTMENT: CT; Exam(s) Completed: Abdomen/Pelvis SIGNATURE: RT Cece(R) PATIENT NAME: Amee Guaman DATE: January 08, 2024 TIME: 3:18 PM documented in this encounter [facility] 01-08-2024 Progress note Formatting of t his note is different from the original. Radiology Service Progress Note DATE OF SERVICE: January 08, 2024 TIME: 3:18 PM PATIENT IDENTITY VERIFICATION COMPLETED USING TWO (2) STANDARD IDENTIFIERS: Name and Date of confirmed by patient verbally. FALL SCREENING: Has the patient had 2 falls in the last year or 1 fall with injury or currently using an Ambulatory Assistive Device (Walker, Cane, Wheelchair, Crutches, etc.)? No PATIENT GENDER DATA: Male PATIENT RELEVANT IMPLANT DATA REVIEWED: Not Applicable PATIENT PRESENTS WITH AN IMPLANTABLE OR ATTACHED LEVELER HELPER: No ALLERGIES: Reviewed and unchanged CONTRAST ALLERGY: NO. EXAM: CT -CONTRAST INDUCED NEPHROPATHY RISK FACTORS: Not applicable CREATININE: Creatinine Date Value Ref Range Status 01/08/2024 1.03 0.73 - 1.22 mg/dL Final 02/14/2023 1.03 0.73 - 1.22 mg/dL Final Estimated Glomerular Filtration Rate Date Value Ref Range Status 01/08/2024 95 >=60 mL/min/1.73m Final Comment: Estimated Glomerular Filtration Rate (eGFR) is calculated using the 2020 CKD-EPI creatinine equation. This equation utilizes serum creatinine, sex, and age as parameters. The creatinine assay has traceable calibration to isotope dilution-mass spectrometry. Refer to KDIGO guidelines for clinical interpretation. In patients with unstable renal function, e.g. those with acute kidney injury, the eGFR may not accurately reflect actual GFR. P.O.C.T. RESULTS: POC done: Yes, See Lab Tab January 08, 2024 TREATMENT: N/A PERIPHERAL IV DATA: Ambulatory: A peripheral IV was started in the Right antecubital site with a Angio cath: 20 gauge. RADIOLOGY DEPARTMENT: CT; Exam(s) Completed: Abdomen/Pelvis SIGNATURE: RT Cece(R) PATIENT NAME: Amee Guaman DATE: January 08, 2024 TIME: 3:18 PM [facility] 01-08-2024 Note HNO ID: [id number] Author: STACIE PARISI APRN.PROFESSOR OF BIOCHEMISTRY Service: ? Author Type: Nurse Practitioner Type: Progress Notes Filed: 01/08/2024 11:16 Note Text: Chief Complaint Patient presents with: ER F/U HPI Amee Guaman is a 38 year old male who presents here today for Above Complaints.. Patient presents for ER follow up. Patient was seen in ER 01/01 and diagnosed with diverticulitis and started on Augmentin. Patient reports symptoms were improving until last night when pain increased. Patient reports he had a pamela dinner last night and had a few bites of steak and mashed potatoes. Pain is improved today, however still has dull ache. Has today and tomorrow left for antibiotic therapy. Past medical history, appointments, medications, allergies reviewed. Previous Medical History PAST MEDICAL HISTORY Diagnosis Date Kidney stones Previous Surgical History PAST SURGICAL HISTORY Procedure Laterality Date LITHOTRIPSY XTRCORP SHOCK WAVE Left Family History FAMILY HISTORY Problem Relation Age of Onset other (htn) Mother other (HTN) Father Diabetes Father Ischemic Heart Disease Father heart stent other (atrial fib) Father Lung Cancer Maternal Grandmother Lung Cancer Paternal Grandmother Ischemic Heart Disease Paternal Grandfather other (bladder cancer) Paternal Grandfather Patient Allergies ALLERGIES No Known Allergies Current Medications No current outpatient medications on file prior to visit. No current facility-administered medications on file prior to visit. Social History Social History Tobacco Use Smoking status: Some Days Types: Cigars Smokeless tobacco: Never Vaping Use Vaping Use: Never used Substance Use Topics Alcohol use: Yes Comment: kyrgyz whiskey and soda water a couple times a week Drug use: Never Review of Symptoms REVIEW OF SYSTEMS SEE HPI EXAM: BP 116/82 Pulse 98 Resp 16 Wt 129.3 kg (285 lb) BMI 38.52 kg/m? General Appearance: Well appearing, alert, in no acute distress, well-hydrated, well nourished.. Lungs: Lungs clear to auscultation. No wheezing, rhonchi, rales.. Heart: RRR without murmur, gallop, or rubs. No ectopy. Abdomen: Normal abdominal exam, Abdomen soft, mild tenderness with palpation of LLQ. Bowel sounds normal. No masses, organomegaly. Health Maintenance List Pneumococcal Vaccine(1 of 2 - PCV) Never done DTaP,Tdap,Td Vaccine(1 - Tdap) Never done Hepatitis B Vaccine(1 of 3 - 19+ 3-dose series) Never done Covid-19 Vaccine(2 - season) due on 05/16/2023 Behavioral Health Screening Never done Hepatitis C Screening due on 02/15/2024 HIV Screening due on 02/15/2024 Influenza Vaccine(Season Ended) due on 05/16/2024 Lipid Screening due on 02/15/2028 HPV Vaccine Aged Out ASSESSMENT/PLAN: 1. Diverticulitis - ICD9: 562.11, ICD10: K57.92 (primary diagnosis) - CT ABD/PEL W IVCON - CREATININE BLD 2. LLQ abdominal pain - ICD9: 789.04, ICD10: R10.32 - Work up with CT Abdomen/Pelvis - CT ABD/PEL W IVCON 3. Left upper quadrant abdominal pain - ICD9: 789.02, ICD10: R10.12 - Work up with CT Abdomen/Pelvis - CT ABD/PEL W IVCON Stacie Parisi APRN.[facility] 01-08-2024 History of Present illness Narrative Chief Complaint Patient presents with: ER F/U HPI Amee Guaman is a 38 year old male who presents here today for Above Complaints.. Patient presents for ER follow up. Patient was seen in ER 01/01 and diagnosed with diverticulitis and started on Augmentin. Patient reports symptoms were improving until last night when pain increased. Patient reports he had a pamela dinner last night and had a few bites of steak and mashed potatoes. Pain is improved today, however still has dull ache. Has today and tomorrow left for antibiotic therapy. Past medical history, appointments, medications, allergies reviewed. Previous Medical History PAST MEDICAL HISTORY Diagnosis Date Kidney stones Previous Surgical History PAST SURGICAL HISTORY Procedure Laterality Date LITHOTRIPSY XTRCORP SHOCK WAVE Left Family History FAMILY HISTORY Problem Relation Age of Onset other (htn) Mother other (HTN) Father Diabetes Father Ischemic Heart Disease Father heart stent other (atrial fib) Father Lung Cancer Maternal Grandmother Lung Cancer Paternal Grandmother Ischemic Heart Disease Paternal Grandfather other (bladder cancer) Paternal Grandfather Patient Allergies ALLERGIES No Known Allergies Current Medications No current outpatient medications on file prior to visit. No current facility-administered medications on file prior to visit. Social History Social History Tobacco Use Smoking status: Some Days Types: Cigars Smokeless tobacco: Never Vaping Use Vaping Use: Never used Substance Use Topics Alcohol use: Yes Comment: kyrgyz whiskey and soda water a couple times a week Drug use: Never Review of Symptoms REVIEW OF SYSTEMS SEE HPI EXAM: BP 116/82 Pulse 98 Resp 16 Wt 129.3 kg (285 lb) BMI 38.52 kg/m General Appearance: Well appearing, alert, in no acute distress, well-hydrated, well nourished.. Lungs: Lungs clear to auscultation. No wheezing, rhonchi, rales.. Heart: RRR without murmur, gallop, or rubs. No ectopy. Abdomen: Normal abdominal exam, Abdomen soft, mild tenderness with palpation of LLQ. Bowel sounds normal. No masses, organomegaly. Health Maintenance List Pneumococcal Vaccine(1 of 2 - PCV) Never done DTaP,Tdap,Td Vaccine(1 - Tdap) Never done Hepatitis B Vaccine(1 of 3 - 19+ 3-dose series) Never done Covid-19 Vaccine(2 - 2022- season) due on 05/16/2023 Behavioral Health Screening Never done Hepatitis C Screening due on 02/15/2024 HIV Screening due on 02/15/2024 Influenza Vaccine(Season Ended) due on 05/16/2024 Lipid Screening due on 02/15/2028 HPV Vaccine Aged Out ASSESSMENT/PLAN: 1. Diverticulitis - ICD9: 562.11, ICD10: K57.92 (primary diagnosis) - CT ABD/PEL W IVCON - CREATININE BLD 2. LLQ abdominal pain - ICD9: 789.04, ICD10: R10.32 - Work up with CT Abdomen/Pelvis - CT ABD/PEL W IVCON 3. Left upper quadrant abdominal pain - ICD9: 789.02, ICD10: R10.12 - Work up with CT Abdomen/Pelvis - CT ABD/PEL W IVCON Stacie Parisi APRN.PROFESSOR OF BIOCHEMISTRY documented in this encounter [facility] 01-02-2024 Note HNO ID: [id number] Author: ROGER SOTO MD Service: ? Author Type: Physician Type: Progress Notes Filed: 01/02/2024 18:21 Note Text: [facility] Triage Note: Patient presents to the the medical center with complaint of lower abdominal pain. The pain started 3 days ago, is in the mid to left suprapubic area. It comes and goes and can be very intense. It was initially associated with urgency and pressure so the thought it might be another kidney stone. He feels constipated and the pain improves some with bowel movements. He has a family history of diverticulitis so is concerned it may be diverticulitis. Denies fever. I cannot assess for calculus with obstruction or diverticulitis without imaging. He will go to [facility] ER for further evaluation. [facility] 01-02-2024 History of Present illness Narrative [facility] Triage Note: Patient presents to the the medical center with complaint of lower abdominal pain. The pain started 3 days ago, is in the mid to left suprapubic area. It comes and goes and can be very intense. It was initially associated with urgency and pressure so the thought it might be another kidney stone. He feels constipated and the pain improves some with bowel movements. He has a family history of diverticulitis so is concerned it may be diverticulitis. Denies fever. I cannot assess for calculus with obstruction or diverticulitis without imaging. He will go to [facility] ER for further evaluation. documented in this encounter [facility] 02-17-2023 Miscellaneous Notes Patient returned call and given provider's message below with verbalized understanding.. TC to pt. LM to call office, ask for triage nurse to get results. Ameena Karimi LPN Please call patient and let him know his LDL ( bad cholesterol) minimally elevated. Work on eating lower saturated fat diet and aim for at least 150 minutes of exercise per week. Platelets show small elevation- no further work up at this time. The rest of his blood work is in acceptable ranges Kathia Looney APRN.JERROD documented in this encounter [facility] 02-14-2023 History of Present illness Narrative 02/14/2023 Patient presents with: Establish Care SUBJECTIVE: This is a 37 year old that is here today for Above Complaints. Moving from [place] to [place] end of March. Hasn't been to doctor in about 2 years. Does not have any exercise regime or eat any specific diet. Past medical, surgical, family, social hx, medications, allergies and health maintenance reviewed and updated. No past medical history on file. ALLERGIES Patient has no allergy information on record. MEDICATIONS No current outpatient medications on file. No current facility-administered medications for this visit. Medications and allergies reviewed by this provider. SOCIAL HISTORY REVIEW OF SYSTEMS GENERAL: No weight loss, malaise or fevers HEENT: No changes in hearing or vision, no nose bleeds or other nasal problems. Headaches during allergy season NECK: Negative for lumps, goiter, pain and significant neck swelling RESPIRATORY: Negative for cough, hemoptysis, wheezing, COPD, dyspnea or shortness of breath CARDIOVASCULAR: Negative for chest pain, leg swelling, hypertension, CHF or palpitations GI: No nausea, vomiting, or diarrhea : No history of dysuria, frequency or incontinence MUSCULOSKELETAL: Negative for joint pain or swelling or muscle pain. Occasional back pain SKIN: Negative for lesions, rash, and itching PSYCH: Negative for mood disorder and recent psychosocial stressors. Sleep in four chunks will wake up for a bit then go to back to sleep HEMATOLOGY/LYMPHOLOGY: Negative for prolonged bleeding, bruising easily or swollen nodes ENDOCRINE: Negative for cold or heat intolerance, polyuria, polydipsia and goiter NEURO: No history of syncope, paralysis, seizures or tremors All other reviewed and negative other than HPI. OBJECTIVE: BP 124/90 Pulse 93 Resp 18 Ht 183.2 cm (6' 0.13) Wt 129.8 kg (286 lb 3.2 oz) SpO2 98% BMI 38.68 kg/m . Vital signs reviewed by this provider. APPEARANCE Well appearing, alert, in no acute distress, well-hydrated, well nourished. EYES PERRLA, conjunctiva and sclera normal. EARS External ears normal, canals clear NECK Supple, no adenopathy; thyroid symmetric, normal size, no bruits HEART RRR with normal S1 and S2, no murmurs, no gallops, no JVD appreciated LUNG clear to auscultation. No wheezes, rhonchi or rales EXTREMITIES Extremities normal, No deformities, No skin discoloration, and No edema SKIN Skin color, texture, turgor normal, no suspicious rashes or lesions to exposed skin HEPATITIS B(1 of 3 - 3-dose series) Never done DTAP,TDAP,TD(1 - Tdap) Never done LIPID SCREEN Never done DEPRESSION ASSESSMENT Never done HEPATITIS C SCREENING due on 02/15/2024 HIV SCREENING due on 02/15/2024 COVID-19 VACCINE(2 - Booster for Moderna series) due on 02/15/2024 INFLUENZA(Season Ended) due on 05/16/2023 ASSESSMENT/PLAN: 1. Encounter for medical examination to establish care - ICD9: V70.9, ICD10: Z00.00 (primary diagnosis) - Counseled on healthy diet and regular exercise - Discussed need for and benefit of weight loss. BMI 38.68 kg/(m^2) - Depression screening tool completed and reviewed with patient. Based on score and interview, patient is not at risk for depression and recommended no further intervention at this time. - Follow up for annual exam in one year - LIPID PANEL BASIC - COMP METABOLIC PANEL - CBC + DIFF - TSH BLD 2. Obesity, Class II, BMI 35-39.9 - ICD9: 278.00, ICD10: E66.9 Newly diagnosed - Behavioral intervention - Lengthy discussion in office today regarding diet and exercise. Discussed use of small plate to eat meals from, drink 1 glass of water 10-15 minutes prior to eating meal, drink 8 glasses of water daily, eat fresh fruit and vegetable during meal first then lean protein such as grilled/baked chicken breast or fish, limit carbohydrate intake (less pasta, breads, rice and snack foods) as well as limiting sugars (desserts etc). Important to count / track your calories and exercise as well. Kathia Looney APRN.CNP Prescription instructions reviewed with patient as applicable. Patient advised if symptoms do not improve or if symptoms worsen sooner, to contact their primary care physician. Potential red flag symptoms discussed with the patient. Reviewed appropriate action plan to take if red flag symptoms occur. Patient agreeable to treatment plan. I spent a total of 30 minutes on the date of the service which included preparing to see the patient, [id number] patient care, completing clinical documentation, obtaining and/or reviewing separately obtained history, performing a medically appropriate examination, counseling and educating the patient/family/caregiver, and ordering medications, tests, or procedures. documented in this encounter [facility] Evaluation note Diagnosis Encounter for medical examination to establish care- Primary Obesity, Class II, BMI 35-39.9 Obesity, unspecified documented in this encounter [facility] noteNo assessment information availableWUniversity [facility] Work Phone: Evaluation note* Diagnosis Acute suprapubic pain- Primary Abdominal pain, other specified site Abdominal pain, LLQ (left lower quadrant) Abdominal pain, left lower quadrant documented in this encounter [facility] note* Diagnosis Diverticulitis- Primary Diverticulitis of colon (without mention of hemorrhage) LLQ abdominal pain Abdominal pain, left lower quadrant Left upper quadrant abdominal pain Diverticulitis Diverticulitis of colon (without mention of hemorrhage) LLQ abdominal pain Abdominal pain, left lower quadrant Left upper quadrant abdominal pain documented in this encounter [facility] note* Diagnosis Diverticulitis Diverticulitis of colon (without mention of hemorrhage) LLQ abdominal pain Abdominal pain, left lower quadrant Left upper quadrant abdominal pain documented in this encounter [facility] note* Diagnosis Perforation bowel (HCC)- Primary Perforation of intestine Diverticulitis of large intestine with perforation, unspecified bleeding status documented in this encounter [facility] note* Diagnosis History of colonic diverticulitis- Primary documented in this encounter [facility] note* Diagnosis History of colonic diverticulitis- Primary History of colonic diverticulitis documented in this encounter [facility] note* Diagnosis Abdominal pain, left lower quadrant- Primary Diverticulitis of colon Diverticulitis of colon (without mention of hemorrhage) [facility] Diagnosis Diverticulitis- Primary Diverticulitis of colon (without mention of hemorrhage) LLQ abdominal pain Abdominal pain, left lower quadrant History of sepsis Personal history of other infectious and parasitic disease Tachycardia Tachycardia, unspecified ANNABELLA (generalized anxiety disorder) Generalized anxiety disorder Hospital discharge follow-up Other follow-up examination [facility] Additional Instructions Follow clear liquid diet only for the next several days until your pain lessens. Then you can slowly reintroduce a low fiber diet. Return if symptoms worsen including severe abdominal pain, fever, blood in your stool etc.[facility] Work Phone: Hospital Discharge instructions* Attachments The following attachments cannot be sent through Care Everywhere. * Diverticulitis (Djiboutian) * Diverticulosis and Diverticulitis: General Info (Djiboutian) [facility] Dis[facility] instructionsAdditional Instructions Thank you for trusting us with your care today! Your CT scan did not reveal signs of acute diverticulitis. No sign of organ perforation or abscess. Your labs were grossly unremarkable with no signs of systemic inflammation, kidney dysfunction, liver or pancreas dysfunction, urinary infection. Please take Tylenol (2 pills, 650 mg), ibuprofen (2 pills, 400 mg) every 6 hours as needed for pain and fever control. Please return to the emergency department if your symptoms change or worsen. Please follow with your primary care physician and/or gastroenterology for further outpatient evaluation and management.[facility] Work Phone: Reason for referral (narrative)* Outpatient Procedure (Routine) - Pending Review Specialty Diagnoses / Procedures Referred By Contac t Referred To [facility] Diagnoses Tachycardia Procedures ECG COMPLETE ECG ROUTINE ECG W/LEAST 12 LDS W/I&R Elliot Soni MD [address] [place] [address] [facility] [place] [address] [place] [address] Referral ID Status Reason Start Date Expiration Date Visits Requested Visits Authorized [id number] Pending Review Auto-Generat ed Referral 03/08/2024 03/08/2025 1 [facility]No reason for referral information availableWUniversity [facility]als [facility] Work Phone: Summary Purpose Family History No Family History Records FoundNo Family History Records FoundNo Family History Records FoundNo Family History Records FoundNo Family History Records FoundNo Family History Records FoundNo Family History Records FoundNo Family History Records FoundNo Family History Records FoundNo Family History Records FoundNo Family History Records Found Advance Directives No Advanced Directives Records FoundDocuments on File Type Date Recorded Patient Benefits Specialist Expl anation Advance Directives and Living Will Advance Directive Response Recorded Date/ Time Living Will No January 02, 2024 7:37pm Power of Starch Dumper No January 01 7:37pm Date Activated Date Inactivated Comments 02/17/2024 6:06 PM 02/21/2024 6:16 PM Advance Directive Response Recorded Date/ Time Do you have a Healthcare Power of Starch Dumper? No March 23, 2025 12:20am Instructions * Patient Instructions* Guerrero Maciel, JERROD - 08/21/2019 8:47 PM EST Supraventricular Tachycardia: Care Instructions Your Care Instructions Having supraventricular tachycardia (SVT) means that from time to time your heart beats abnormally fast. This fast rhythm is caused by changes in the electrical system of your heart. You may feel a fluttering in your chest (palpitations) and have a fast pulse. When your heart is beating fast, you may feel anxious and lightheaded, be short of breath, and feel discomfort in the chest. Your doctor may prescribe medicines to help slow down your heartbeat. Your doctor may also suggest you try vagal maneuvers when having an episode of SVT. These are things, like bearing down, that might help slow your heart rate. Bearing down means that you try to breathe out with your stomach muscles but you don't let air out of your nose or mouth. Your doctor can show you how to do vagal maneuvers. He or she may suggest you lie down on your back to do them. In some cases, either cardioversion treatment or a procedure called catheter ablation is done to correct SVT. Your doctor may ask you to wear a small electronic device for 1 or 2 days to monitor your heart. Itis called a Holter monitor. Follow-up care is a will part of your treatment and safety. Be sure to make and go to all appointments, and call your doctor if you are having problems. It's also a good idea to know your test resultsand keep a list of the medicines you take. How can you care for yourself at home? Be safe with medicines. Take your medicines exactly as prescribed. Call your doctor if you think you are having a problem with your medicine. You will get more details on the specific medicines your doctor prescribes. If your doctor showed you how to do vagal maneuvers, try them when you have an episode. These maneuvers include bearing down or putting an ice-cold, wet towel on your face. Monitor your condition by keeping a diary of your SVT episodes. Bring this to your doctor appointments. ? Write down how fast or slow your heart was beating. To count your heart rate: Gently place 2 fingers of your hand on the inside of your other wrist, below your thumb. Count the beats for 30 seconds. Then, double the result to get the number of beats per minute. ? Write down if your heart rhythm was regular or irregular. ? Write down the symptoms you had. ? Write down the time of day your symptoms occurred. ? Write down how long your symptoms lasted. ? Write down what you were doing when your symptoms started. ? Write down what may have helped your symptoms go away. If they trigger episodes, limit or avoid alcohol or drinks with caffeine. Do not use ilcj-sse-wonggwz decongestants, herbal remedies, diet pills, or pep pills, which oftencontain stimulants. Do not use illegal drugs, such as cocaine, ecstasy, or methamphetamine, which can speed up your heart's rhythm. Do not smoke. Smoking can make this condition worse. If you need help quitting, talk to your doctorabout stop-smoking programs and medicines. These can increase your chances of quitting for good. Be alert for new or worsening symptoms, such as shortness of breath, pounding of your heart, or unusual tiredness. If new symptoms develop or your symptoms become worse, call your doctor. When should you call for help? Call 911 anytime you think you may need emergency care. For example, call if: You passed out (lost consciousness). You are short of breath. Call your doctor now or seek immediate medical care if: You have a fast heartbeat. You are dizzy or lightheaded, or feel like you may faint. Watch closely for changes in your health, and be sure to contact your doctor if: You do not get better as expected. Where can you learn more? Log into your personal health record on [email or web address] and enter G244 in the Education box to learn more about Supraventricular Tachycardia: Care Instructions. Current as of: December 22, 2018 Content Version: 12.3 9770-0073 [employer]. Care instructions adapted under license by your healthcare professional. If you have questions about a medical condition or this instruction, always ask your healthcare professional. [employer] disclaims any warranty or liability for your use of this information. Elevated Blood Pressure: Care Instructions Your Care Instructions Blood pressure is a measure of how hard the blood pushes against the resendiz of your arteries. It's normal for blood pressure to go up and down throughout the day. But if it stays up over time, you have high blood pressure. Two numbers tell you your blood pressure. The first number is the systolic pressure. It shows how hard the blood pushes when your heart is pumping. The second number is the diastolic pressure. It shows how hard the blood pushes between heartbeats, when your heart is relaxed and filling with blood. An ideal blood pressure in adults is less than 120/80 (say 120 over 80). High blood pressure is 140/90 or higher. You have high blood pressure if your top number is 140 or higher or your bottom number is 90 or higher, or both. The main test for high blood pressure is simple, fast, and painless. To diagnose high blood pressure, your doctor will test your blood pressure at different times. After testing your blood pressure, your doctor may ask you to test it again when you are home. If you are diagnosed with high blood pressure, you can work with your doctor to make a long-term plan to manage it. Follow-up care is a will part of your treatment and safety. Be sure to make and go to all appointments, and call your doctor if you are having problems. It's also a good idea to know your test resultsand keep a list of the medicines you take. How can you care for yourself at home? Do not smoke. Smoking increases your risk for heart attack and stroke. If you need help quitting, talk to your doctor about stop-smoking programs and medicines. These can increase your chances of quitting for good. Stay at a healthy weight. Try to limit how much sodium you eat to less than 2,300 milligrams (mg) a day. Your doctor may ask you to try to eat less than 1,500 mg a day. Be physically active. Get at least 30 minutes of exercise on most days of the week. Walking is a good choice. You also may want to do other activities, such as running, swimming, cycling, or playing tennis or team sports. Avoid or limit alcohol. Talk to your doctor about whether you can drink any alcohol. Eat plenty of fruits, vegetables, and low-fat dairy products. Eat less saturated and total fats. Learn how to check your blood pressure at home. When should you call for help? Call your doctor now or seek immediate medical care if: ? Your blood pressure is much higher than normal (such as 180/110 or higher). ? You think high blood pressure is causing symptoms such as: Severe headache. Blurry vision. ?Watch closely for changes in your health, and be sure to contact your doctor if: ? You do not get better as expected. Where can you learn more? Log into your personal health record on [email or web address] [email or web address] and enter F644 in the Education box to learn more about Elevated Blood Pressure: Care Instructions. Current as of: January 22, 2017 Content Version: 11.6 7396-7468 [employer]. Care instructions adapted under license by your healthcare professional. If you have questions about a medical condition or this instruction, always ask your healthcare professional. [employer] disclaims any warranty or liability for your use of this information. Exposure to Sexually Transmitted Infections: Care Instructions Your Care Instructions Sexually transmitted infections (STIs) are those diseases spread by sexual contact. There are at least 20 different STIs, including chlamydia, gonorrhea, syphilis, and human immunodeficiency virus (HIV), which causes AIDS. Bacteria- caused STIs can be treated and cured. STIs caused by viruses, such as HIV, can be treated but not cured. Some STIs can reduce a woman's chances of getting in the future. STIs are spread during sexual contact, such as vaginal intercourse and oral or anal sex. Follow-up care is a will part of your treatment and safety. Be sure to make and go to all appointments, and call your doctor if you are having problems. It's also a good idea to know your test resultsand keep a list of the medicines you take. How can you care for yourself at home? Your doctor may have given you a shot of antibiotics. If your doctor prescribed antibiotic pills, take them as directed. Do not stop taking them just because you feel better. You need to take the full course of antibiotics. Do not have sexual contact while you have symptoms of an STI or are being treated for an STI. Tell your sex partner (or partners) that he or she will need treatment. If you are a woman, do not douche. Douching changes the normal balance of bacteria in the vagina and may spread an infection up into your reproductive organs. To prevent exposure to STIs in the future Use latex condoms every time you have sex. Use them from the beginning to the end of sexual contact. Talk to your partner before you have sex. Find out if he or she has or is at risk for any STI. Keepin mind that a person may be able to spread an STI even if he or she does not have symptoms. Do not have sex if you are being treated for an STI. Do not have sex with anyone who has symptoms of an STI, such as sores on the genitals or mouth. Having one sex partner (who does not have STIs and does not have sex with anyone else) is a good way to avoid STIs. When should you call for help? Call your doctor now or seek immediate medical care if: You have new pain in your belly or pelvis. You have symptoms of a urinary tract infection. These may include: ? Pain or burning when you urinate. ? A frequent need to urinate without being able to pass much urine. ? Pain in the flank, which is just below the rib cage and above the waist on either side of the back. ? Blood in your urine. ? A fever. You have new or worsening pain or swelling in the scrotum. Watch closely for changes in your health, and be sure to contact your doctor if: You have unusual vaginal bleeding. You have a discharge from the vagina or penis. You have any new symptoms, such as sores, bumps, rashes, blisters, or warts. You have itching, tingling, pain, or burning in the genital or anal area. You think you may have an STI. Where can you learn more? Log into your personal health record on https://[employer] Energy Systemst.[facility] and enter M049 in the Education box to learn more about Exposure to Sexually Transmitted Infections: Care Instructions. Current as of: 2019 Content Version: 12.3 [employer]. Care instructions adapted under license by your healthcare professional. If you have questions about a medical condition or this instruction, always ask your healthcare professional. [employer] disclaims any warranty or liability for your use of this information. documented in this encounter History of Present Illness * Guerrero Maciel CNP - 08/21/2019 8:16 PM EST PATIENT NAME: Amee Guaman [facility] [address] [place] [id number] : 1985 DATE OF VISIT: 08/21/2019 #: [id number] PROVIDER: Guerrero Maciel CNP Chief Complaint Patient presents with Exposure to STD Pt may have been exposed to an sti Pt has no symptoms ex has burining during urination SUBJECTIVE 34 y.o. male presents Exposure to STD (Pt may have been exposed to an sti Pt has no symptoms ex hasburining during urination ) 34 y/o male presented to the clinic with a c/o exposure to an STD. He denies any penile discharge, elevated temps, painful urination, low back pain, or sx of std. He stated that he was informed by his ex girlfriend whom he had sexual intercourse with that she may have an STD Exposure to STD The patient's pertinent negatives include no genital injury, genital itching, genital lesions, pelvic pain, penile discharge, penile pain, priapism, scrotal swelling or testicular pain. Pertinent negatives include no chest pain, chills, diarrhea, dysuria, fever, frequency, nausea, shortness of breath, urgency or vomiting. Nothing aggravates the symptoms. He is sexually active. He inconsistently uses condoms. It is possible that his partner has an STD. There is no history of BPH, chlamydia, erectile aid use, erectile dysfunction or syphilis. MEDICAL ISSUES History reviewed. No pertinent past medical history. There is no problem list on file for this patient. SOCIAL HISTORY Social History Socioeconomic History Marital status: Single Spouse name: Not on file Number of children: Not on file Years of education: Not on file Highest education level: Not on file Occupational History Not on file Social Needs Financial resource strain: Not on file Food insecurity Worry: Not on file Inability: Not on file Transportation needs Medical: Not on file Non-medical: Not on file Tobacco Use Smoking status: Smoker, Current Status Unknown Smokeless tobacco: Never Used Substance and Sexual Activity Alcohol use: Not on file Drug use: Not on file Sexual activity: Not on file Lifestyle Physical activity Days per week: Not on file Minutes per session: Not on file Stress: Not on file Relationships Social connections Talks on phone: Not on file Gets together: Not on file Attends worship service: Not on file Active member of club or organization: Not on file Attends meetings of clubs or organizations: Not on file Relationship status: Not on file Other Topics Concern Not on file Social History Narrative Not on file FAMILY HISTORY History reviewed. No pertinent family history. REVIEW OF SYSTEMS Review of Systems Constitutional: Negative for activity change, appetite change, chills, diaphoresis, fatigue and fever. Respiratory: Negative for shortness of breath. Cardiovascular: Negative for chest pain. Gastrointestinal: Negative for diarrhea, nausea and vomiting. Genitourinary: Negative for difficulty urinating, discharge, dysuria, frequency, pelvic pain, penile pain, scrotal swelling, testicular pain and urgency. MEDICATIONS PRIOR TO VISIT Current Outpatient Medications on File Prior to Visit Medication Sig Dispense Refill flu vacc [id number] 6mos up,PF, sdv (FLUZONE QUAD) injection Sign this order in conjunction with theimmunization order to satisfy [place] Board of Pharmacy Positive ID requirements for immunization orders. . 0.5 mL 0 No current facility-administered medications on file prior to visit. ALLERGIES/INTOLERANCES No Known Allergies OBJECTIVE BP (!) 132/102 Pulse (!) 154 Temp 98.7 F (37.1 C) (Tympanic) Resp 16 Ht 6' 1 Wt 108.9 kg(240 lb) SpO2 98% BMI 31.66 kg/m Physical Exam Vitals signs and nursing note reviewed. Constitutional: General: He is not in acute distress. Appearance: He is well-developed. He is not diaphoretic. HENT: Head: Normocephalic and atraumatic. Right Ear: External ear normal. Left Ear: External ear normal. Eyes: General: Right eye: No discharge. Left eye: No discharge. Conjunctiva/sclera: Conjunctivae normal. Neck: Musculoskeletal: Normal range of motion and neck supple. Cardiovascular: Rate and Rhythm: Normal rate and regular rhythm. Heart sounds: Normal heart sounds. Pulmonary: Effort: Pulmonary effort is normal. No respiratory distress. Breath sounds: Normal breath sounds. Abdominal: General: There is no distension. Tenderness: There is no abdominal tenderness. There is no right CVA tenderness or left CVA tenderness. Musculoskeletal: Normal range of motion. Skin: Findings: No rash. Neurological: Mental Status: He is alert and oriented to person, place, and time. Psychiatric: Behavior: Behavior normal. Thought Content: Thought content normal. Judgment: Judgment normal. PROCEDURE Procedures Results No results found for this or any previous visit (from the past 168 hour(s)). No orders to display ASSESSMENT/PLAN (expressed as patient instructions): 1. Possible exposure to STD Chlamydia/GC/Trichomonas Amplified RNA cefTRIAXone (ROCEPHIN) injection 250 mg azithromycin (Zithromax) 500 MG tablet Chlamydia/Gonorrhoeae Amplified RNA Trichomonas vaginalis Amplified RNA 2. Elevated blood pressure reading 3. Tachycardia 4. Need for immunization against influenza Influenza IIV4 6mo or >,Fluzone Quad flu vacc [id number] 6mos up,PF, sdv (FLUZONE QUAD) injection Return if symptoms worsen or fail to improve, for Recheck, Persistent or Worsening Symptoms, With Primary Care Provider in 1-2 days.. ADDITIONAL CLINICAL COMMENTS Pts b/p was elevated and he was tachycardic during his visit to the clinic. He attributes his sx tobeing nervous about having an STD. He denies any sx recommended that he monitor his b/p and pulse and follow up if his sx continue to persist. Flu Shot: Ordered this visit - see orders Discussed over the counter medications for symptomatic management and side effects of medications. Recommended taking all medications with food and to stop medications if they develop any signs of anallergic reaction. Educated patient and/or guardian about signs and symptoms that would warrant further immediate evaluation. Recommended that they should return to urgent care, make an appointment with their family physician, or go to the emergency room if symptoms persist or get acutely worse. Recommended follow upwithin the next week with their PCP or to get established with a PCP soon in order to follow up appropriately. ORDERS PLACED THIS VISIT Orders Placed This Encounter Procedures Chlamydia/GC/Trichomonas Amplified RNA Chlamydia/Gonorrhoeae Amplified RNA Trichomonas vaginalis Amplified RNA Influenza IIV4 6mo or >,Fluzone Quad MEDICATION LIST AT END OF VISIT Current Outpatient Medications Medication Sig Dispense Refill azithromycin (Zithromax) 500 MG tablet Take two tabs by mouth once . 2 tablet 0 flu vacc [id number] 6mos up,PF, sdv (FLUZONE QUAD) injection Sign this order in conjunction with theimmunization order to satisfy [place] Board of Pharmacy Positive ID requirements for immunization orders. . 0.5 mL 0 No current facility-administered medications for this visit. documented in this encounter Assessments Diagnosis Possible exposure to STD Elevated blood pressure reading Elevated blood pressure reading without diagnosis of hypertension Tachycardia Unspecified tachycardia Need for immunization against influenza Need for prophylactic vaccination and inoculation against influenza Chief Complaint and Reason for Visit Chief Complaint ABD PAIN Chief Complaint Admit Date abd pain March 23, 2025 12:18 am Reason for Referral Specialty Diagnoses / Procedures Referred By Simón clement Referred To Contact CT IMAGING Diagnoses Diverticulitis LLQ abdominal pain Left upper quadrant abdominal pain Procedures CT ABD/PEL W IVCON CT ABD & PELVIS W/CONTRAST Stacie Parisi APRN.JERROD [address] [place] [address] [place] [id number] Referral ID Status Reason Start Date Expiration Date V isits Requested Visits Authorized [id number] Closed Auto-Generate d Referral 01/08/2024 02/06/2025 1 1 Additional Source Comments (unrecognized sect ion and content) No Status Records FoundNo Status Records FoundNo Status Records FoundNo Status Records FoundNo Status Records FoundNo Status Records FoundNo Status Records FoundNo Status Records FoundNo Status Records FoundNo Status Records FoundNo Status Records Found INFORMATION SOURCE (unrecogn ized section and content) DATE CREATED AUTHOR 08/21/2019 [facility] DATE CREATED AUTHOR AUTHOR'S ORGANIZ ATION 10/30/2021 [facility] DATE CREATED AUTHOR AUTHOR'S ORGANIZ ATION 11/01/2021 [facility] DATE CREATED AUTHOR AUTHOR'S ORGANIZ ATION 01/10/2024 [facility] DATE CREATED AUTHOR AUTHOR'S ORGANIZ ATION 02/28/2024 [facility] DATE CREATED AUTHOR AUTHOR'S ORGANIZ ATION 04/09/2024 [facility] DATE CREATED AUTHOR AUTHOR'S ORGANIZ ATION 07/18/2024 [facility] DATE CREATED AUTHOR AUTHOR'S ORGANIZ ATION 07/22/2024 [facility] DATE CREATED AUTHOR AUTHOR'S ORGANIZ ATION 10/20/2024 [facility] DATE CREATED AUTHOR AUTHOR'S ORGANIZ ATION 10/31/2024 [facility] DATE CREATED AUTHOR AUTHOR'S ORGANIZ ATION 04/02/2025 [facility] Reason for Visit (unrecogniz ed section and content) Reason Comments Exposure to STD Pt may have been exp osed to an sti Pt has no symptoms ex has burining during urination Reason Comments Establish Care Reason Comments Results Reason Comments Abdominal Pain Pain in belt level l eft side over x4 Reason Comments ER F/U Reason Comments Headache Specialty Diagnoses / Procedures Referred By Contac t Referred To Contact CT IMAGING Diagnoses Diverticulitis LLQ abdominal pain Left upper quadrant abdominal pain Procedures CT ABD/PEL W IVCON CT ABD & PELVIS W/CONTRAST Stacie Parisi, EDWARD.PROFESSOR OF BIOCHEMISTRY [address] [place] [address] [place] [id number] Referral ID Status Reason Start Date Expiration Date V isits Requested Visits Authorized [id number] Closed Auto-Generate d Referral 01/08/2024 02/06/2025 1 1 Reason Comments Patient Question Reason Comments Abdominal Pain Reason Comments Abdominal Pain Specialty Diagnoses / Procedures Referred By Contac t Referred To Contact Diagnoses Diverticulitis of large intestine with perforation, unspecified bleeding status Perforation bowel (HCC) Acute diverticulitis with perforation contained around colon Referral ID Status Reason Start Date Expiration Date Visits Re quested Visits Authorized [id number] 1 1 Reason Comments Follow-up ER visit bowel perfo ration Reason Comments Patient concern Reason Comments Abdominal Pain pT came in from home , pt reports abdominal pain that's been getting worse for the past 10 days, pt reports they feel like they have had diverticulitis before and it feels like it, pt reports clear liquid diet and antibioitcs have not been helping the pain Reason Comments ER F/U Hospital F/U [facility] d; Dx: Diverticulitis; discharged 02/20. <item><item><item> Privacy Markings (unrecogniz ed section and content) Section Author: Lis Hand PROHIBITION ON REDISCLOSURE OF CONFIDENTIAL INFORMATION This notice accompanies a disclosure of information concerning a client made to you with the consent of such client. Section Author: Lis Hand PROHIBITION ON REDISCLOSURE OF CONFIDENTIAL INFORMATION This notice accompanies a disclosure of information concerning a client made to you with the consent of such client. Section Author: Lis Hand PROHIBITION ON REDISCLOSURE OF CONFIDENTIAL INFORMATION This notice accompanies a disclosure of information concerning a client made to you with the consent of such client. Source Comments (unrecognize d section and content) In the event this informatio n is protected by the Federal Confidentiality of Alcohol and Drug Abuse Patient Records regulations: The Federal rules restrict any use of the information to criminally investigate or prosecute any alcohol or drug abuse patient.[facility] the event this information is protected by the Federal Confidentiality of Alcohol and Drug Abuse Patient Records regulations: The Federal rules restrict any use of the information to criminally investigate or prosecute any alcohol or drug abuse patient.[facility] Hospital[facility] the event this information is protected by the Federal Confidentiality of Alcohol and Drug Abuse Patient Records regulations: The Federal rules restrict any use of the information to criminally investigate or prosecute any alcohol or drug abuse patient.[facility] HospitalIn the event this information is protected by the Federal Confidentiality of Alcohol and Drug Abuse Patient Records regulations: The Federal rules restrict any use of the information to criminally investigate or prosecute any alcohol or drug abuse patient.[facility] Hospital[facility] the event this information is protected by the Federal Confidentiality of Alcohol and Drug Abuse Patient Records regulations: The Federal rules restrict any use of the information to criminally investigate or prosecute any alcohol or drug abuse patient.[facility] HospitalIn the event this information is protected by the Federal Confidentiality of Alcohol and Drug Abuse Patient Records regulations: The Federal rules restrict any use of the information to criminally investigate or prosecute any alcohol or drug abuse patient.[facility] HospitalIn the event this information is protected by the Federal Confidentiality of Alcohol and Drug Abuse Patient Records regulations: The Federal rules restrict any use of the information to criminally investigate or prosecute any alcohol or drug abuse patient.[facility] Hospital[facility] the event this information is protected by the Federal Confidentiality of Alcohol and Drug Abuse Patient Records regulations: The Federal rules restrict any use of the information to criminally investigate or prosecute any alcohol or drug abuse patient.[facility] HospitalIn the event this information is protected by the Federal Confidentiality of Alcohol and Drug Abuse Patient Records regulations: The Federal rules restrict any use of the information to criminally investigate or prosecute any alcohol or drug abuse patient.[facility] HospitalIn the event this information is protected by the Federal Confidentiality of Alcohol and Drug Abuse Patient Records regulations: The Federal rules restrict any use of the information to criminally investigate or prosecute any alcohol or drug abuse patient.[facility] HospitalIn the event this information is protected by the Federal Confidentiality of Alcohol and Drug Abuse Patient Records regulations: The Federal rules restrict any use of the information to criminally investigate or prosecute any alcohol or drug abuse patient.[facility] HospitalIn the event this information is protected by the Federal Confidentiality of Alcohol and Drug Abuse Patient Records regulations: The Federal rules restrict any use of the information to criminally investigate or prosecute any alcohol or drug abuse patient.[facility] HospitalIn the event this information is protected by the Federal Confidentiality of Alcohol and Drug Abuse Patient Records regulations: The Federal rules restrict any use of the information to criminally investigate or prosecute any alcohol or drug abuse patient.[facility] Care Teams (unrecognized sec tion and content) Service Or Work Dispatcher Chief Relationship Specialty Start Date End Date Elliot Soni MD [address] [place] [address] PCP - General Family Medicine 02/17/23 Team Status: Active Member Role Status Dates No Primary Care Physician Primary Care Provider Active Team Status: Inactive Member Role Status Dates Dr. Christiano Marsh , DO Emergency Provider Active No Primary Care Physician Primary Care Provider Active Service Or Work Dispatcher Chief Relationship Specialty Start Date End Date Elliot Soni MD [address] [place] [address] PCP - General Family Medicine 02/17/23 Service Or Work Dispatcher Chief Relationship Specialty Start Date End Date Elliot Soni MD [address] [place] [address] PCP - General Family Medicine 02/17/23 Service Or Work Dispatcher Chief Relationship Specialty Start Date End Date Elliot Soni MD [address] [place] [address] PCP - General Family Medicine 02/17/23 Service Or Work Dispatcher Chief Relationship Specialty Start Date End Date Elliot Soni MD [address] [facility] [place] [address] PCP - General Family Medicine 02/17/23 Service Or Work Dispatcher Chief Relationship Specialty Start Date End Date Elliot Soni MD [address] [place] [address] PCP - General Family Medicine 02/17/23 Service Or Work Dispatcher Chief Relationship Specialty Start Date End Date Elliot Soni MD [address] [place] [address] PCP - General Family Medicine 02/17/23 Service Or Work Dispatcher Chief Relationship Specialty Start Date End Date Elliot Soni MD [address] [place] [address] PCP - General Family Medicine 02/17/23 Service Or Work Dispatcher Chief Relationship Specialty Start Date End Date Elliot Soni MD [address] [place] [address] PCP - General Family Medicine 02/17/23 Service Or Work Dispatcher Chief Relationship Specialty Start Date End Date Elliot Soni MD [address] [place] [address] PCP - General Family Medicine 02/17/23 Service Or Work Dispatcher Chief Relationship Specialty Start Date End Date No, Physician [facility] PCP - General 08/21/19 Service Or Work Dispatcher Chief Relationship Specialty Start Date End Date No, Physician [facility] PCP - General 08/21/19 Service Or Work Dispatcher Chief Relationship Specialty Start Date End Date No, Physician [facility] PCP - General 08/21/19 Service Or Work Dispatcher Chief Relationship Specialty Start Date End Date Elliot Soni MD [address] [place] [address] PCP - General Family Medicine 02/17/23 Team Status: Active Member Role/Relationship Status Dates UZMA MCINTYRE Primary Care Provider Active Team Status: Inactive Member Role/Relationship Status Dates Dr. Yong Honeycutt , DO Emergency Provider Active Start: March 23, 2025 End: March 23, 2025 FRANCISCO JAVIER GUSMAN Primary Care Provider Active Sta rt: March 23, 2025 End: March 23, 2025 Goals (unrecognized section and content) Goals may be documented in a n alternate sectionGoals may be documented in an alternate section Scheduled Active and Recently Administ ered Medications (unrecognized section and content) Medication Order 02/19/2024 02/20/2024 02/21/2024 enoxaparin (LOVENOX) syringe 40 mg 40 mg, Subcutaneous, Daily, First dose on Fri02/18/24 at 0900, Administer in abdomen unless otherwise directed by prescriber. Notify physician if patient refuses., Indication: VTE Prophylaxis 0847 (Given - Provider: Ana Luisa Joy RN) 0925 (Given - Provider: Daphney Vasques RN) 0935 (Given - Provider: Christina Herndon RN) methocarbamoL (ROBAXIN) injection 1 g (COMPLETED) 1 g, Intravenous, Every 8 hours, First dose on Fri02/17/24 at 1515, For 3 days, Administer IV while patient is lying down. Maintain position for at least 15 minutes following administration. IV Push in undiluted syringe at a rate of 3mL/min for doses 1000 mg or less. 0848 (Given - Provider: Ana Luisa Joy RN)1639 (Given - Provider: Ana Luisa Joy RN)2345 (Given - Provider: Vernon Fischer RN) 0942 (Given - Provider: Daphney Vasques RN) piperacillin-tazobact am (ZOSYN) IVPB 3.375 g (premix) 3.375 g, Intravenous, at 12.5 mL/hr, Every 8 hours, First dose on Fri02/17/24 at 1530, VESICANT, Indication: Intra-abdominal Infection 0848 (New Bag - Provider: Ana Luisa Joy RN)1637 (New Bag - Provider: Ana Luisa Joy RN)2353 (New Bag - Provider: Vernon Fischer RN) 0931 (New Bag - Provider: Daphney Vasques RN)1335 (Stopped - Provider: Daphney Vasques RN)1641 (New Bag - Provider: Daphney Vasques RN)2344 (New Bag - Provider: Missy Baez RN) 0942 (New Bag - Provider: Christina Herndon RN)1530 (Not Given - Provider: Christina Herndon RN - Reason: Other - Comment: Pt discharging) polyethylene glycol (MIRALAX) powder 17 g 17 g, Oral, Daily, First dose on Fri02/19/24 at 1600 1600 (Not Given - Provider: Ana Luisa Joy RN - Reason: Patient/family refused) 0913 (Given - Provider: Daphney Vasques RN) 0936 (Given - Provider: Christina Herndon RN) senna (SENOKOT) tablet 8.6 mg 8.6 mg (1 tablet), Oral, Nightly, First dose on Fri02/19/24 at 2100 2100 (Not Given - Provider: Vernon Fischer RN - Reason: Patient/family refused) 2142 (Given - Provider: Missy Baez RN) sodium chloride (PF) (NS) flush 5 mL(Linked Group 1) 5 mL, Intravenous, Every 8 hours scheduled, First dose on Fri02/17/24 at 2200, Saline lock 0600 (Not Given - Provider: Vernon Fischer RN - Reason: Other - Comment: infusing)1639 (Given - Provider: Ana Luisa Joy RN)2200 (Not Given - Provider: Vernon Fischer RN - Reason: Other) 0600 (Not Given - Provider: Vernon Fischer RN - Reason: Other)1400 (Given - Provider: Daphney Vasques RN)2200 (Not Given - Provider: Missy Baez RN - Reason: Other - Comment: infusing) 0600 (Not Given - Provider: Missy Baez RN - Reason: Contraindicated - Comment: infusing)1400 (Not Given - Provider: Christina Herndon RN - Reason: Other - Comment: IV infusing) Continuous Medication Order 02/19/2024 02/20/2024 02/21/2024 PLASMALYTE-A solution (CANCELED) 50 mL/hr, Intravenous, Continuous, Starting on Fri02/17/24 at 1505 1041 (New Bag - Provider: Ana Luisa Joy RN)1440 (Rate/Dose Change - Provider: Ana Luisa Joy RN) 0401 (New Bag - Provider: Veronn Fischer RN) PRN Medication Order 02/19/2024 02/20/2024 02/21/2024 acetaminophen (TYLENOL) tablet 650 mg 650 mg, Oral, Every 4 hours PRN, mild pain, fever 100.4 F or greater, headaches, Starting on Fri02/17/24 at 1804 2134 (Given - Provider: Vernon Fischer RN) 0400 (Given - Provider: Vernon Fischer RN) 0231 (Given - Provider: Missy Baez RN)0936 (Given - Provider: Christina Herndon RN) aluminum-magnesium hydroxide-simethicone (MAALOX PLUS) 200-200-20 mg/5 mL suspension 30 mL 30 mL, Oral, 3 times daily PRN, heartburn, Starting on Fri02/19/24 at 1639 calcium carbonate (TUMS) chewable tablet 500 mg 500 mg, Oral, 3 times daily PRN, indigestion, heartburn, Starting on Fri02/19/24 at 1633, Give with Food 1651 (Given - Provider: Ana Luisa Joy RN) 0359 (Given - Provider: Vernon Fischer RN) hydrOXYzine (ATARAX) tablet 25 mg 25 mg, Oral, 3 times daily PRN, anxiety, Starting on Fri02/17/24 at 2142 2134 (Given - Provider: Vernon Fischer RN) 2143 (Given - Provider: Missy Baez RN) ketorolac (TORADOL) injection 15 mg () 15 mg, Intravenous, Every 6 hours PRN, mild pain, Starting on Fri02/17/24 at 1503, For 48 hours 0057 (Given - Provider: Vernon Fischer RN)1046 (Given - Provider: Ana Luisa Joy RN) melatonin Tab 5 mg 5 mg, Oral, Nightly PRN, sleep, Starting on Fri02/17/24 at 2148 ondansetron (ZOFRAN) injection 4 mg(Linked Group 2) 4 mg, Intravenous, Every 6 hours PRN, nausea, vomiting, Starting on Fri02/17/24 at 1804, Use oral route first, if tolerated. 2137 (See Alternative - Provider: Vernon Fischer RN) ondansetron (ZOFRAN-ODT) disintegrating tablet 4 mg(Linked Group 2) 4 mg, Oral, Every 6 hours PRN, nausea, vomiting, Starting on Fri02/17/24 at 1804, Use oral route first, if tolerated. Formulation requires tablet remain in sealed package until immediately prior to dose being administered. 2137 (Given - Provider: Vernon Fischer RN) sodium chloride (PF) (NS) flush 5 mL(Linked Group 1) 5 mL, Intravenous, As needed, line care, Starting on Fri02/17/24 at 1804 sodium chloride 0.9% (NS)(Linked Group 1) 0-150 mL/hr, Intravenous, As needed, To flush line after IV infusions when no maintenance IV ordered or a compatibility issue. Infuse 20ml at the same rate as the secondary infusion, Starting on Fri02/17/24 at 1804, Run as Primary IV. NOT intended for KVO. traZODone (DESYREL) tablet 50 mg 50 mg, Oral, Nightly PRN, sleep, Starting on Fri02/17/24 at 1804, May repeat times 1 in 30 minutes if still awake. 102 (Given - Provider: Vernon Fischer RN)2133 (Given - Provider: Vernon Fischer RN) 2142 (Given - Provider: Missy Baez RN) Linked Groups Order Group 1: Saline lock IV (CANCELED) Routine, Continuous, Starting on Fri02/17/24 at 1805, Until Specified And sodium chloride (PF) (NS) flush 5 mLJump to med 5 mL, Intravenous, As needed, line care, Starting on Fri02/17/24 at 1804 And sodium chloride (PF) (NS) flush 5 mLJump to med 5 mL, Intravenous, Every 8 hours scheduled, First dose on Fri02/17/24 at 2200, Saline lock And sodium chloride 0.9% (NS)Jump to med 0-150 mL/hr, Intravenous, As needed, To flush line after IV infusions when no maintenance IV ordered or a compatibility issue. Infuse 20ml at the same rate as the secondary infusion, Starting on Fri02/17/24 at 1804, Run as Primary IV. NOT intended for KVO. Group 2: ondansetron (ZOFRAN-ODT) disintegrating tablet 4 mgJump to med 4 mg, Oral, Every 6 hours PRN, nausea, vomiting, Starting on Fri02/17/24 at 1804, Use oral route first, if tolerated. Formulation requires tablet remain in sealed package until immediately prior to dose being administered. Or ondansetron (ZOFRAN) injection 4 mgJump to med 4 mg, Intravenous, Every 6 hours PRN, nausea, vomiting, Starting on Fri02/17/24 at 1804, Use oral route first, if tolerated. Scheduled Medication Order 07/19/2024 07/20/2024 07/21/2024 ketorolac (TORADOL) injection 30 mg (COMPLETED) 30 mg, IntraVENous, ONCE, 1 dose, On Fri07/21/24 at 0430, Do not administer for more than 5 days. 0438 (Given - Provid er: Anu Fuentes) PRN Medication Order 07/19/2024 07/20/2024 07/21/2024 iohexol (OMNIPAQUE 350) solution 75 mL (COMPLETED) 75 mL, IntraVENous, IMG ONCE PRN, 1 dose, Starting on Fri07/21/24 at 0534, Until Fri07/21/24 at 0625, Other, Radiology 0625 (Given - Provid er: Chandan Fragoso) FOR RECORDS PERTAINING TO PATIENTS WHO ARE OR HAVE BEEN ENROLLED IN A CHEMICAL DEPENDENCY/SUBSTANCEABUSE PROGRAM, SOME INFORMATION MAY BE OMITTED. This clinical summary was aggregated from multiple sources. Caution should be exercised in using it in the provision of clinical care. This summary normalizes information from multiple sources, and as a consequence, information in this document may materially change the coding, format and clinical context of patient data. In addition, data may be omitted in some cases. CLINICAL DECISIONS SHOULD BE BASED ON THE PRIMARY CLINICAL RECORDS. [facility]. provides no warranty or guarantee of the accuracy or completeness of information in this document.
[2025-04-23] MEDS: 0.9% Normal Saline (1000mL) 1,000 ML 999 ML IV (21:36)
[2025-04-23 21:49] LABS: Squamous Epithelial Cells - UA 0 SEEN /hpf (0-5)
[2025-04-23 21:58] VITALS: BP 123/84; PULSE 94; RESP 18; O2SAT 100
[2025-04-23 22:14] LABS: Glucose, Dipstick Normal (Normal); Ketone-Dipstick Negative (Negative); Leukocyte Esterase-Dipstick Negative /ul (Negative); Nitrite-Dipstick Negative (Negative); Occult Blood-Urine 10 /ul (Negative); Protein-Dipstick Negative (Negative); Specific Gravity, Urine 1.020 (1.002-1.030); Urine Bilirubin Dipstick Negative (Negative)
[2025-04-23 22:15] LABS: Color, Urine Yellow (Yellow)
[2025-04-23 22:31] LABS: Mucous, Urine RARE /hpf (<or=2+)
[2025-04-23 22:32] LABS: Red Blood Cells-Urine 0-5 SEEN /hpf (0-5)
[2025-04-23 23:00] VITALS: BP 131/91; PULSE 94; RESP 18; O2SAT 98
[2025-04-24] MEDS: Piperacil/Tazobactam 4.5 GM in 0.9% Normal Saline (100mL MB+) 100 ML IV (00:05)
[2025-04-24 01:15] VITALS: BP 130/94; PULSE 97; RESP 18; TEMP 36.9; O2SAT 97
== END 2025-04-24 01:16 | disposition home or self-care (01) ==
PROVIDERS: Emergency Provider Emergency Medicine; Visit Provider Emergency Medicine
DX: K57.20 Diverticulitis of large intestine with perforation and abscess without bleeding (principal); Z87.891 Personal history of nicotine dependence
CPT/HCPCS: 74177; 80053; 81001; 83690; 85025; 96365; 96375; 96376; 99282; Q9967; A4216; J2405